=== PATIENT | female | born 1995 | race Caucasian/White ===

== ENCOUNTER → 2017-03-11 | Outpatient (REF) | payer OTHER ==
[2017-03-11 16:20] LABS: BASO % 0.4 % (0.0-1.0); EOS # 0.2 K/mm3 (0.0-0.50); LARGE UNSTAINED CELL # 0.1 K/mm3 (0.0-0.4); LARGE UNSTAINED CELL % 1.7 % (0.0-4.0); LYMPH # 2.5 K/mm3 (1.5-6.5); LYMPH % 30.8 % (24.0-44.0); MEAN CORPUSCULAR HGB CONC 34.6 g/dl (32.0-36.5); MEAN CORPUSCULAR VOLUME 83.7 fl (80.0-96.0); MONO # 0.5 K/mm3 (0.0-0.8); MONO % 6.6 % (0.0-5.0); NEUTROPHILS # 4.5 K/mm3 (1.8-7.7); NEUTROPHILS % 58.6 % (36.0-66.0); PLATELET COUNT, AUTOMATED 292 k/mm3 (150-450); RED CELL DISTRIBUTION WIDTH 12.3 % (11.5-14.5); WHITE BLOOD COUNT 7.7 K/mm3 (4.0-10.0)
[2017-03-11 17:01] LABS: ALBUMIN/GLOBULIN RATIO 1.25 (1.00-1.93); ALKALINE PHOSPHATASE 66 U/L (45-117); ALT/SGPT 27 U/L (12-78); ANION GAP 9 MEQ/L (8-16); AST/SGOT 12 U/L (15-37); BILIRUBIN,TOTAL 0.5 MG/DL (0.2-1.0); BLOOD UREA NITROGEN 12 MG/DL (7-18); CALCIUM LEVEL 8.8 MG/DL (8.5-10.1); CARBON DIOXIDE LEVEL 28 MEQ/L (21-32); CHLORIDE LEVEL 105 MEQ/L (98-107); CHOLESTEROL LEVEL 167 MG/DL (<200); CREATININE FOR GFR 0.77 MG/DL (0.55-1.02); FREE T4 0.88 NG/DL (0.76-1.46); GLOMERULAR FILTRATION RATE > 60.0 (>60); GLUCOSE, FASTING 80 MG/DL (70-105); SODIUM LEVEL 142 MEQ/L (136-145); TOTAL PROTEIN 7.2 GM/DL (6.4-8.2); TRIGLYCERIDES LEVEL 58 MG/DL (<150)
== END ==
LOC: M SFHCSACK 08:06
PROVIDERS: ATTEND Physician Assistant
DX: Z00.00 Encounter for general adult medical examination without abnormal findings (principal); Z13.29 Encounter for screening for other suspected endocrine disorder; Z13.220 Encounter for screening for lipoid disorders; Z13.21 Encounter for screening for nutritional disorder

== ENCOUNTER → 2017-07-13 | Outpatient (REF) | payer OTHER ==
[2017-07-13 16:01] LABS: BASO % 0.4 % (0.0-1.0); EOS # 0.2 10^3/uL (0.0-0.50); EOS % 2.2 % (0.0-3.0); HEMATOCRIT 41.9 % (36.0-47.0); IMMATURE GRANULOCYTE % 0.1 % (0-0); LYMPH # 2.3 10^3/uL (1.5-6.5); LYMPH % 28.8 % (24.0-44.0); MEAN CORPUSCULAR HEMOGLOBIN 28.6 pg (27.0-33.0); MEAN CORPUSCULAR HGB CONC 33.4 g/dl (32.0-36.5); MEAN CORPUSCULAR VOLUME 85.7 fl (80.0-96.0); MONO # 0.7 10^3/uL (0.0-0.8); MONO % 8.2 % (0.0-5.0); NEUTROPHILS # 4.8 10^3/uL (1.8-7.7); NEUTROPHILS % 60.3 % (36.0-66.0); PLATELET COUNT, AUTOMATED 300 10^3/uL (150-450); RED BLOOD COUNT 4.89 10^6/uL (4.00-5.40); RED CELL DISTRIBUTION WIDTH 11.8 % (11.5-14.5)
[2017-07-13 16:15] LABS: ALBUMIN/GLOBULIN RATIO 1.29 (1.00-1.93); ALKALINE PHOSPHATASE 67 U/L (45-117); ALT/SGPT 22 U/L (12-78); ANION GAP 6 MEQ/L (8-16); AST/SGOT 13 U/L (7-37); BILIRUBIN,TOTAL 0.4 MG/DL (0.2-1.0); BLOOD UREA NITROGEN 7 MG/DL (7-18); CALCIUM LEVEL 8.5 MG/DL (8.5-10.1); CARBON DIOXIDE LEVEL 30 MEQ/L (21-32); CHLORIDE LEVEL 105 MEQ/L (98-107); CHOLESTEROL LEVEL 168 MG/DL (<200); CHOLESTEROL RISK RATIO 3.818 (<5); CREATININE FOR GFR 0.67 MG/DL (0.55-1.02); GLOMERULAR FILTRATION RATE > 60.0 (>60); GLUCOSE, FASTING 81 MG/DL (70-105); HDL CHOLESTEROL 44 MG/DL (>40); LDL CHOLESTEROL 109.8 MG/DL (<100); NON-HDL-C 124 MG/DL; POTASSIUM SERUM 3.6 MEQ/L (3.5-5.1); SODIUM LEVEL 141 MEQ/L (136-145); TOTAL PROTEIN 7.1 GM/DL (6.4-8.2); TRIGLYCERIDES LEVEL 71 MG/DL (<150)
[2017-07-13 17:15] LABS: TOTAL 25(OH) VITAMIN D 66.5 NG/ML (30.0-100.0)
== END ==
LOC: M SFHCSACK 10:28
DX: F41.8 Other specified anxiety disorders (principal); E78.00 Pure hypercholesterolemia, unspecified; E55.9 Vitamin D deficiency, unspecified

== ENCOUNTER → 2020-04-26 | Outpatient (REF) | payer OTHER, MEDICAID | LOC: M WUC 13:50 | PROVIDERS: ATTEND Nurse Practitioner Family | DX: R30.0 Dysuria (principal) ==

== ENCOUNTER → 2020-10-05 | Outpatient (REF) | payer OTHER, MEDICAID | LOC: M LAB REF 17:55 | PROVIDERS: ATTEND Physician Assistant | DX: J02.9 Acute pharyngitis, unspecified (principal) ==

== ENCOUNTER 2021-04-22 13:27 | Emergency (ER) | payer MEDICAID, OTHER ==
[~2021-04-22] VITALS: Ht 167.6 cm; Wt 100.0 kg
--- OUTSIDE RECORDS SUMMARY | 2021-04-22 13:37 | CCD | Continuity of Care Document ---
Author Author [facility] Organization [facility] Address Unknown Phone Unavailable Care Team Providers Care Coconut Jelly Roller Name Role Phone Marie Alvarado Unavailable Unavailable Allergies, Adverse Reactions, Alerts Substance Reaction Status Criticality No Known Allergies Active No Information Medications Medication Instructions Dosage Effective Dates (start - stop) Sta tus Comments testosterone cypionate 200 mg/mL intramuscular oil Use for admin of external Rx. See Med Module for details. - Active testosterone cypionate 200 mg/mL intramuscular oil Use for admin of external Rx. See Med Module for details. - Active citalopram 20 mg tablet take 1 tablet by oral route every day 20 MG - Active Problems Condition Effective Dates (start - stop) Clinical Status C omments Gender Identity Disorder Gender identity disorder, unspecified Gender Identity Disorder Endocrine disorder, unspecified Gender identity disorder, unspecified Gender Identity Disorder Gender Identity Disorder Gender Identity Disorder Endocrine disorder, unspecified Gender Identity Disorder Gender identity disorder, unspecified Endocrine disorder, unspecified Gender Identity Disorder Gender Identity Disorder Gender Identity Disorder Endocrine disorder, unspecified Gender identity disorder, unspecified Gender Identity Disorder Gender identity disorder, unspecified Gender Identity Disorder Endocrine disorder, unspecified Gender Identity Disorder Gender Identity Disorder Endocrine disorder, unspecified Endocrine disorder, unspecified Gender Identity Disorder Endocrine disorder, unspecified Gender Identity Disorder Gender Identity Disorder Endocrine disorder, unspecified Gender identity disorder, unspecified Human immunodeficiency virus [HIV] counseling Other sex counseling Gender identity disorder, unspecified Gender Identity Disorder Endocrine disorder, unspecified Gender Identity Disorder Gender Identity Disorder Endocrine disorder, unspecified Gender Identity Disorder Endocrine disorder, unspecified Endocrine disorder, unspecified Gender Identity Disorder Endocrine disorder, unspecified Gender Identity Disorder Gender identity disorder, unspecified Gender identity disorder, unspecified Endocrine disorder, unspecified Gender Identity Disorder Gender identity disorder, unspecified Endocrine disorder, unspecified Gender Identity Disorder Gender Identity Disorder Endocrine disorder, unspecified Endocrine disorder, unspecified Gender Identity Disorder Endocrine disorder, unspecified Gender Identity Disorder Endocrine disorder, unspecified Gender identity disorder, unspecified Endocrine disorder, unspecified Gender Identity Disorder Endocrine disorder, unspecified Gender Identity Disorder Endocrine disorder, unspecified Gender Identity Disorder Endocrine disorder, unspecified Gender Identity Disorder Endocrine disorder, unspecified Gender Identity Disorder Endocrine disorder, unspecified Gender Identity Disorder Endocrine disorder, unspecified Gender Identity Disorder Endocrine disorder, unspecified Gender Identity Disorder Endocrine disorder, unspecified Gender Identity Disorder Endocrine disorder, unspecified Gender Identity Disorder Endocrine disorder, unspecified Gender Identity Disorder Gender identity disorder, unspecified Obesity, unspecified Inappropriate diet and eating habits Gender identity disorder, unspecified Gender Identity Disorder Endocrine disorder, unspecified Gender identity disorder, unspecified Gender Identity Disorder Endocrine disorder, unspecified Gender Identity Disorder Gender identity disorder, unspecified Endocrine disorder, unspecified Gender Identity Disorder Gender Identity Disorder Endocrine disorder, unspecified Endocrine disorder, unspecified Gender Identity Disorder Gender identity disorder, unspecified Encounter for surveillance of injectable contraceptive Gender Identity Disorder Gender Identity Disorder Gender Identity Disorder Encounter for oth general cnsl and advice on contraception Endocrine disorder, unspecified Gender Identity Disorder Other sex counseling Encounter for oth general cnsl and advice on contraception Gender Identity Disorder Endocrine disorder, unspecified Other sex counseling Encounter for oth general cnsl and advice on contraception Gender Identity Disorder Endocrine disorder, unspecified Other sex counseling Encounter for oth general cnsl and advice on contraception Gender Identity Disorder Endocrine disorder, unspecified Gender Identity Disorder Gender identity disorder, unspecified Gender Identity Disorder Endocrine disorder, unspecified Gender Identity Disorder Gender Identity Disorder Gender Identity Disorder Gender Identity Disorder Gender Identity Disorder Encounter for oth general cnsl and advice on contraception Gender Identity Disorder Endocrine disorder, unspecified Encounter for surveillance of injectable contraceptive Transsexualism Endocrine disorder, unspecified Encounter for surveillance of injectable contraceptive Encounter for oth general cnsl and advice on contraception Endocrine disorder, unspecified Transsexualism Transsexualism Endocrine disorder, unspecified Endocrine disorder, unspecified Transsexualism Encounter for oth general cnsl and advice on contraception Transsexualism Encounter for oth general cnsl and advice on contraception Human immunodeficiency virus [HIV] counseling Human immunodeficiency virus [HIV] counseling Encntr screen for infections w sexl mode of transmiss Encounter for screening for human immunodeficiency virus High risk heterosexual behavior Endocrine disorder, unspecified Transsexualism 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 [address] [place] [address], [id number], [place]. tel:[phone] [facility], [address] [place] [address], [id number], tel:[phone] DEWAYNE Richmond Gender Identity Disorder Carmina Salazar. [address] [place] [address], [address] [place] [address], . tel:[phone] Referring Provider: Marie Grewal, [address] [place] [address], [id number]. tel:[phone] Provider: DEWAYNE Nurse/[place]. [facility], [address] [place] [address], [id number], tel:[phone] DEWAYNE Richmond Gender identity disorder, unspecified Chapincito Tolbert. [address] [place] [address], [id number], [place]. tel:[phone] Referring Provider: Edwige Beckham, [address] [place] [address], [id number]. tel:[phone] [facility], [address] [place] [address], [id number], tel:[phone] DEWAYNE Richmond Gender Identity Disorder Carmina Salazar. [address] [place] [address], [id number], [place]. tel:[phone] Referring Provider: Marie Grewal, [address] [place] [address], [id number]. tel:[phone] Provider: DEWAYNE Nurse/[place]. [facility], [address] [place] [address], [id number], [place] tel:[phone] DEWAYNE Richmond Endocrine disorder, unspecifiedGender identity disorder, unspecified Carmina Salazar. [address] [place] [address], [id number], [place]. tel:[phone] Referring Provider: Marie Grewal, [address] [place] [address], [id number]. tel:[phone] Provider: DEWAYNE Nurse/[place]. [facility], [address] [place] [address], [id number], [place] tel:[phone] DEWAYNE Richmond Gender Identity Disorder Carmina Salazar. [address] [place] [address], [id number], [place]. tel:[phone] Referring Provider: Marie Grewal, [address] [place] [address], [id number]. tel:[phone] Provider: DEWAYNE Nurse/[place]. [facility], [address] [place] [address], [id number], [place] tel:[phone] DEWAYNE Richmond Gender Identity Disorder Chapincito Tolbert. [address] [place] [address], [id number], [place]. tel:[phone] Referring Provider: Edwige Beckham, [address] [place] [address], [id number]. tel:[phone] [facility] [place], [address] [place] [address], [id number], [place] tel:[phone] DEWAYNE Richmond Gender Identity Disorder Everette De. [address] [place] [address], [id number], [place]. tel:[phone] Referring Provider: Henrietta Gaviria, [address] [place] [address], [id number]. tel:[phone] Provider: DEWAYNE Nurse/[place]. [facility], [address] [place] [address], [id number], [place] tel:[phone] YIFANNEALEXANDRA Richmond Endocrine disorder, unspec ified Dwello Edwige Tolbert. [address] [place] [address], [id number], [place]. tel:[phone] Referring Provider: Edwige Beckham, [address] [place] [address], [id number]. tel:[phone] [facility], [address] [place] [address], [id number], [place] tel:[phone] YIFANNEALEXANDRA Richmond Gender Identity Disorder Dwellraisa Tolbert. [address] [place] [address], [id number], [place]. tel:[phone] Referring Provider: Edwige Bechkam, [address] [place] [address], [id number]. tel:[phone] [facility], [address] [place] [address], [id number], [place] tel:[phone] [facility] Gender identity disorder, unspecified Dwellraisa Tolbert. [address] [place] [address], [id number], [place]. tel:[phone] Referring Provider: Edwige Beckham, [address] [place] [address], [id number]. tel:[phone] Provider: DEWAYNE Nurse/[place]. [facility], [address] [place] [address], [id number], [place] tel:[phone] DEWAYNE Richmond Endocrine disorder, unspecifiedGender Identity Disorder Everette De. [address], [place], [id number], [place]. tel:[phone] Referring Provider: Henrietta Gaviria, [address] [place] [address], [id number]. tel:[phone] [facility], [address], [place], [id number], [place] tel:[phone] DEWAYNE Richmond Gender Identity Disorder Everette De. [address] [place] [address], [id number], [place]. tel:[phone] Referring Provider: Henrietta Gaviria, [address] [place] [address], [id number]. tel:[phone] Provider: DEWAYNE Nurse/[place]. [facility], [address] [place] [address], [id number], [place] tel:[phone] DEWAYNE Richmond Gender Identity Dis orderEndocrine disorder, unspecified Chapincito Tolbert. [address] [place] [address], [id number], [place]. tel:[phone] Referring Provider: Edwige Beckham, [address] [place] [address], [id number]. tel:[phone] [facility], [address] [place] [address], [id number], [place] tel:[phone] DEWAYNE Richmond Gender identity disorder, unspecified Chapincito Tolbert. [address], [place], [id number], [place]. tel:[phone] Referring Provider: Edwige Beckham, [address] [place] [address], [id number]. tel:[phone] [facility], [address], [place], [id number], [place] tel:[phone] DEWAYNE Richmond Gender Identity Disorder Everette De. [address], [place], [id number], [place]. tel:[phone] Referring Provider: Henrietta Gaviria, [address], [place], [id number]. tel:[phone] Provider: DEWAYNE Nurse/[place]. [facility], [address], [place], [id number], [place] tel:[phone] DEWAYNE Richmond Gender identity disorder, unspecified Everette De. [address] [place], [place], [id number], [place]. tel:[phone] Referring Provider: Henrietta Gaviria, [address], [place], [id number]. tel:[phone] Provider: Provider Nurse. [facility], [address], [place], [id number], [place] tel:[phone] DEWAYNE Richmond Gender Identity Dis orderEndocrine disorder, unspecified Chapincito Tolbert. [address] [place], [place], [id number], [place]. tel:[phone] Referring Provider: Edwige Beckham, [address] [place] [address], [id number]. tel:[phone] Provider: DEWAYNE Nurse/[place]. [facility], [address], [place], [id number], [place] tel:[phone] DEWAYNE Richmond Gender Identity Disorder Chapincito Tolbert. [address] [place] [address], [id number], [place]. tel:[phone] Referring Provider: Edwige Beckham, [address] [place] [address], [id number]. tel:[phone] [facility], [address] [place] [address], [id number], [place] tel:[phone] DEWAYNE Richmond Gender Identity Dis orderEndocrine disorder, unspecified Everette De. [address], [place], [id number], [place]. tel:[phone] Referring Provider: Henrietta Gaviria, [address] [place] [address], [id number]. tel:[phone] [facility], [address] [place] [address], [id number], [place] tel:[phone] DEWAYNE Richmond Endocrine disorder, unspecifiedGender Identity Disorder Everette De. [address] [place] [address], [id number], [place]. tel:[phone] Referring Provider: Henrietta Gaviria, [address] [place] [address], [id number]. tel:[phone] Provider: DEWAYNE Nurse/[place]. [facility], [address] [place] [address], [id number], [place] tel:[phone] DEWAYNE Richmond Endocrine disorder, unspecifiedGender Identity Disorder Chapincito Tolbert. [address] [place] [address], [id number], [place]. tel:[phone] Referring Provider: Edwige Beckham, [address] [place] [address], [id number]. tel:[phone] [facility], [address] [place] [address], [id number], [place] tel:[phone] DEWAYNE Richmond Gender Identity Disorder Carmina Salazar. [address] [place] [address], [id number], [place]. tel:[phone] Referring Provider: Marie Grewal, [address], [place], [id number]. tel:[phone] Provider: DEWAYNE Nurse/[place]. [facility] [place], [address] [place] [address], [id number], [place] tel:[phone] DEWAYNE Richmond Endocrine disorder, unspecifiedGender identity disorder, unspecified Everette De. [address] [place] [address], [id number], [place]. tel:[phone] Referring Provider: Henrietta Gaviria, [address] [place] [address], [id number]. tel:[phone] [facility] [place], [address] [place] [address], [id number], [place] tel:[phone] DEWAYNE Richmond Human immunodeficie ncy virus [HIV] counselingOther sex counselingGender identity disorder, unspecified Chapincito Tolbert. [address] [place] [address], [id number], [place]. tel:[phone] Referring Provider: Edwige Beckham, [address] [place] [address], [id number]. tel:[phone] [facility], [address] [place] [address], [id number], [place] tel:[phone] DEWAYNE Richmond Gender Identity Disorder Everette De. [address] [place] [address], [id number], [place]. tel:[phone] Referring Provider: Henrietta Gaviria, [address], [place], [id number]. tel:[phone] [facility], [address] [place] [address], [id number], [place] tel:[phone] DEWAYNE Richmond Endocrine disorder, unspecifiedGender Identity Disorder Carmina Salazar. [address] [place], [id number], [place]. tel:[phone] Referring Provider: Marie Grewal, [address] [place] [address], [id number]. tel:[phone] [facility], [address], [place], [id number], [place] tel:[phone] DEWAYNE Richmond Gender Identity Dis orderEndocrine disorder, unspecified Carmina Salazar. [address] [place], [id number], [place]. tel:[phone] Referring Provider: Marie Grewal, [address] [place] [address], [id number]. tel:[phone] Provider: DEWAYNE Nurse/[place]. [facility], [address], [place], [id number], [place] tel:[phone] DEWAYNE Richmond Gender Identity Dis orderEndocrine disorder, unspecified Carmina Salzaar. [address], [place], [id number], [place]. tel:[phone] Referring Provider: Marie Grewal, [address] [place] [address], [id number]. tel:[phone] [facility], [address], [place], [id number], [place] tel:[phone] DEWAYNE Richmond Endocrine disorder, unspecifiedGender Identity Disorder Carmina Salazar. [address] [place], [place], [id number], [place]. tel:[phone] Referring Provider: Marie Grewal, [address] [place] [address], [id number]. tel:[phone] Provider: DEWAYNE Nurse/[place]. [facility], [address], [place], [id number], [place] tel:[phone] DEWAYNE Richmond Endocrine disorder, unspecifiedGender Identity Disorder Everette De. [address], [place], [id number], [place]. tel:[phone] Referring Provider: Henrietta Gaviria, [address], [place], [id number]. tel:[phone] Provider: DEWAYNE Nurse/[place]. [facility], [address], [place], [id number], [place] tel:[phone] DEWAYNE Richmond Gender identity disorder, unspecified Everette De. [address] [place], [place], [id number], [place]. tel:[phone] Referring Provider: Henrietta Gaviria, [address], [place], [id number]. tel:[phone] [facility], [address], [place], [id number], [place] tel:[phone] DEWAYNE Richmond Gender identity disorder, unspecified Everette De. [address] [place], [place], [id number], [place]. tel:[phone] Referring Provider: Henrietta Gaviria, [address], [place], [id number]. tel:[phone] Provider: DEWAYNE Nurse/[place]. [facility], [address], [place], [id number], [place] tel:[phone] DEWAYNE Richmond Endocrine disorder, unspecifiedGender Identity Disorder Chapincito Tolbert. [address] [place], [place], [id number], [place]. tel:[phone] Referring Provider: Edwige Beckham, [address] [place], [place], [id number]. tel:[phone] Provider: DEWAYNE Nurse/[place]. [facility] [place], [address], [place], [id number], [place] tel:[phone] DEWAYNE Richmond Gender identity disorder, unspecified Chapincito Tolbert. [address], [place], [id number], [place]. tel:[phone] Referring Provider: Edwige Beckham, [address] [place] [address], [id number]. tel:[phone] [facility], [address] [place] [address], [id number], [place] tel:[phone] DEWAYNE Richmond Endocrine disorder, unspecifiedGender Identity Disorder Everette De. [address], [place], [id number], [place]. tel:[phone] Referring Provider: Henrietta Gaviria, [address] [place] [address], [id number]. tel:[phone] Provider: [place]WAYNE Nurse/[place]. [facility] [place], [address], [place], [id number], [place] tel:[phone] DEWAYNE Richmond Gender Identity Dis orderEndocrine disorder, unspecified Carmina Salazar. [address], [place], [id number], [place]. tel:[phone] Referring Provider: Marie Grewal, [address] [place] [address], [id number]. tel:[phone] Provider: DEWAYNE Nurse/[place]. [facility] [place], [address], [place], [id number], [place] tel:[phone] DEWAYNE Richmond Endocrine disorder, unspecifiedGender Identity Disorder Carmina Salazar. [address] [place] [address] [place], [id number], [place]. tel:[phone] Referring Provider: Marie Grewal, [address], [place], [id number]. tel:[phone] Provider: DEWAYNE Nurse/[place]. [facility] [place], [address], [place], [id number], [place] tel:[phone] YIFANNCNY Richmond Endocrine disorder, unspecifiedGender Identity Disorder Everette De. [address], [place], [id number], [place]. tel:[phone] Referring Provider: Henrietta Gaviria, [address] [place] [address], [id number]. tel:[phone] [facility] [place], [address], [place], [id number], [place] tel:[phone] YIFANNEALEXANDRA Richmond Endocrine disorder, unspecifiedGender identity disorder, unspecified Carmina Salazar. [address] [place] [address], [id number], [place]. tel:[phone] Referring Provider: Marie Grewal, [address] [place] [address], [id number]. tel:[phone] Provider: Provider Nurse. [facility] [place], [address], [place], [id number], [place] tel:[phone] YIFANNEALEXANDRA Richmond Endocrine disorder, unspecifiedGender Identity Disorder Everette De. [address], [place], [id number], [place]. tel:[phone] Referring Provider: Henrietta Gaviria, [address] [place] [address], [id number]. tel:[phone] [facility] [place], [address], [place], [id number], [place] tel:[phone] DEWAYNE Richmond Endocrine disorder, unspecifiedGender Identity Disorder Carmina Salazar. [address] [place], [place], [id number], [place]. tel:[phone] Referring Provider: Marie Grewal, [address], [place], [id number]. tel:[phone] Provider: DEWAYNE Nurse/[place]. [facility], [address], [place], [id number], [place] tel:[phone] PPNCALEXANDRA Richmond Endocrine disorder, unspecifiedGender Identity Disorder Carmina Salazar. [address], [place], [id number], [place]. tel:[phone] Referring Provider: Marie Grewal, [address] [place] [address], [id number]. tel:[phone] Provider: DEWAYNE Nurse/[place]. [facility], [address], [place], [id number], [place] tel:[phone] PPNCALEXANDRA Richmond Endocrine disorder, unspecifiedGender Identity Disorder Carmina Salazar. [address], [place], [id number], [place]. tel:[phone] Referring Provider: Marie Grewal, [address] [place] [address], [id number]. tel:[phone] Provider: Provider Nurse. [facility], [address], [place], [id number], [place] tel:[phone] PPNCALEXANDRA Richmond Endocrine disorder, unspecifiedGender Identity Disorder Carmina Salazar. [address], [place], [id number], [place]. tel:[phone] Referring Provider: Marie Grewal, [address] [place] [address], [id number]. tel:[phone] Provider: DEWAYNE Nurse/[place]. [facility] [place], [address], [place], [id number], [place] tel:[phone] YIFANNCALEXANDRA Richmond Endocrine disorder, unspecifiedGender Identity Disorder Melissa Lazo. [address] [place], [place], [id number], [place]. tel:[phone] Referring Provider: Violet Torres, [address], [place], [id number]. tel:[phone] [facility], [address], [place], [id number], [place] tel:[phone] DEWAYNE Richmond Endocrine disorder, unspecifiedGender Identity Disorder Adriel Luna. [address], [place], [id number], [place]. tel:[phone] Referring Provider: Cheryl Morel, [address] [place], [place], [id number]. tel:[phone] Provider: DEWAYNE Nurse/[place]. [facility] [place], [address], [place], [id number], [place] tel:[phone] DEWAYNE Richmond Endocrine disorder, unspecifiedGender Identity Disorder Everette De. [address], [place], [id number], [place]. tel:[phone] Referring Provider: Henrietta Gaviria, [address], [place], [id number]. tel:[phone] Provider: DEWAYNE Nurse/[place]. [facility] [place], [address], [place], [id number], [place] tel:[phone] DEWAYNE Richmond Endocrine disorder, unspecifiedGender Identity Disorder Peewee Lux. [address] [place], [place], [id number], [place]. tel:[phone] Referring Provider: Maci Vides, [address] [place], [place], [id number]. tel:[phone] Provider: DEWAYNE Nurse/[place]. [facility], [address] [place] [address], [id number], [place] tel:[phone] DEWAYNE Richmond Endocrine disorder, unspec ified Peewee Lux. [address] [place], [place], [id number], [place]. tel:[phone] Referring Provider: Maci Vides, [address] [place] [address], [id number]. tel:[phone] [facility], [address] [place] [address], [id number], [place] tel:[phone] DEWAYNE Richmond Gender Identity Dis orderEndocrine disorder, unspecified Tikiemilee Lazo. [address] [place] [address], [id number], [place]. tel:[phone] Referring Provider: Violet Melissa, [address] [place] [address], [id number]. tel:[phone] Provider: DEWAYNE Nurse/CA. [facility], [address] [place] [address], [id number], [place] tel:[phone] DEWAYNE Richmond Gender Identity Disorder Melissa Violet. [address] [place] [address], [id number], [place]. tel:[phone] Referring Provider: Violet Melissa, [address] [place], [place], [id number]. tel:[phone] Provider: DEWAYNE Nurse/[place]. [facility], [address] [place] [address], [id number], [place] tel:[phone] DEWAYNE Hernandez Gender identity dis order, unspecifiedObesity, unspecifiedInappropriate diet and eating habits Melissa Violet. [address] [place] [address], [id number], [place]. tel:[phone] Referring Provider: Violet Torres, [address] [place] [address], [id number]. tel:[phone] [facility], [address] [place] [address], [id number], tel:[phone] DEWAYNE Richmond Gender identity disorder, unspecified Peewee Lux. [address] [place] [address], [id number], [place]. tel:[phone] Referring Provider: Maci Vides, [address] [place] [address], [id number]. tel:[phone] [facility], [address] [place] [address], [address] [place] [address], tel:[phone] DEWAYNE Richmond Gender Identity Dis orderEndocrine disorder, unspecified Melissa Violet. [address] [place] [address], [id number], [place]. tel:[phone] Referring Provider: Violet Gustafsonlouisemilee, [address] [place] [address], [id number]. tel:[phone] Provider: DEWAYNE Nurse/[place]. [facility], [address] [place] [address], [id number], tel:[phone] DEWAYNE Richmond Gender identity disorder, unspecified Melissa Violet. [address] [place] [address], [id number], [place]. tel:[phone] Referring Provider: Violet Torres, [address] [place] [address], [id number]. tel:[phone] [facility], [address] [place] [address], [id number], [place] tel:[phone] PPCAMILLENY Richmond Gender Identity Disorder Peewee Lux. [address] [place], [place], [id number], [place]. tel:[phone] Referring Provider: Maci Vides, [address] [place], [place], [id number]. tel:[phone] [facility], [address] [place], [place], [id number], [place] tel:[phone] DEWAYNE Richmond Endocrine disorder, unspecifiedGender Identity Disorder Debi Tolbert. [address] [place], [place], [id number], [place]. tel:[phone] Referring Provider: Didi Carrera, [address] [place], [place], [id number]. tel:[phone] [facility], [address] [place], [place], [id number], [place] tel:[phone] YIFANNEALEXANDRA Richmond Gender identity disorder, unspecified Debi Tolbert. [address] [facility], [place], [id number], [place]. tel:[phone] Referring Provider: Didi Carrera, [address] [place], [place], [id number]. tel:[phone] [facility], [address] [place], [place], [id number], [place] tel:[phone] YIFANNEALEXANDRA Richmond Endocrine disorder, unspecifiedGender Identity Disorder Carmina Salazar. [address] [place], [place], [id number], [place]. tel:[phone] Referring Provider: Marie Grewal, [address] [place], [place], [id number]. tel:[phone] Provider: DEWAYNE Nurse/CA. [facility], [address] [place], [place], [id number], [place] tel:[phone] DEWAYNE Richmond Gender Identity Dis orderEndocrine disorder, unspecified Debi Tolbert. [address] [place] [address], [id number], [place]. tel:[phone] Referring Provider: Didi Carrera, [address] [place], [place], [id number]. tel:[phone] Provider: DEWAYNE Nurse/CA. [facility], [address] [place] [address], [id number], [place] tel:[phone] DEWAYNE Richmond Endocrine disorder, unspecifiedGender Identity Disorder Carmina Salazar. [address] [place] [address], [id number], [place]. tel:[phone] Referring Provider: Marie Grewal, [address] [place] [address], [id number]. tel:[phone] [facility], [address] [place] [address], [id number], [place] tel:[phone] DEWAYNE Richmond Gender identity disorder, unspecified Carmina Salazar. [address] [place] [address], [id number], [place]. tel:[phone] Referring Provider: Marie Grewal, [address] [place] [address], [id number]. tel:[phone] Provider: DEWAYNE Nurse/CA. [facility], [address] [place] [address], [id number], [place] tel:[phone] DEWAYNE Richmond Encounter for surve illance of injectable contraceptiveGender Identity Disorder Carmina Salazar. [address] [place] [address], [id number], [place]. tel:[phone] Referring Provider: Marie Grewal, [address] [place] [address], [id number]. tel:[phone] [facility] [place], [address] [place], [place], [id number], [place] tel:[phone] PPNCNY [place] Gender Identity Disorder Carmina Salazar. [address] [place] [address], [id number], [place]. tel:[phone] Referring Provider: Marie Grewal, [address] [place] [address], [id number]. tel:[phone] [facility] [place], [address] [place], [place], [id number], [place] tel:[phone] DEWAYNE Jimenez Gender Identity Dis orderEncounter for oth general cnsl and advice on contraception Debi garcia. [address] [place] [address], [id number], [place]. tel:[phone] Referring Provider: Didi Carrera, [address] [place] [address], [id number]. tel:[phone] [facility] [place], [address] [place] [address], [id number], [place] tel:[phone] DEWAYNE Richmond Endocrine disorder, unspecifiedGender Identity DisorderOther sex counselingEncounter for oth general cnsl and advice on contraception Carmina Salazar. [address] [place], [place], [id number], [place]. tel:[phone] Referring Provider: Marie Grewal, [address] [place] [address], [id number]. tel:[phone] [facility] [place], [address] [place] [address], [id number], [place] tel:[phone] DEWAYNE Richmond Gender Identity Dis orderEndocrine disorder, unspecifiedOther sex counselingEncounter for oth general cnsl and advice on contraception Peewee Lux. [address] [place] [address], [id number], [place]. tel:[phone] Referring Provider: Maci Vides, [address] [place] [address], [id number]. tel:[phone] Provider: DEWAYNE Nurse/[place]. [facility] [place], [address] [place] [address], [id number], [place] tel:[phone] DEWAYNE Richmond Gender Identity Dis orderEndocrine disorder, unspecifiedOther sex counselingEncounter for oth general cnsl and advice on contraception aCrmina Salazar. [address] [place], [place], [id number], [place]. tel:[phone] Referring Provider: Marie Grewal, [address] [place] [address], [id number]. tel:[phone] [facility] [place], [address] [place] [address], [id number], [place] tel:[phone] DEWAYNE Richmond Gender Identity Disorder Carmina Salazar. [address] [place] [address], [id number], [place]. tel:[phone] Referring Provider: Marie Grewal, [address] [place], [place], [id number]. tel:[phone] Provider: DEWAYNE Nurse/LIONEL. [facility], [address] [place] [address], [id number], [place] tel:[phone] DEWAYNE Richmond Endocrine disorder, unspecifiedGender Identity Disorder Peewee Lux. [address] [place] [address], [id number], [place]. tel:[phone] Referring Provider: Maci Vides, [address] [place], [place], [id number]. tel:[phone] [facility] [place], [address] [place] [address], [id number], [place] tel:[phone] DEWAYNE Richmond Gender identity dis order, unspecifiedGender Identity DisorderEndocrine disorder, unspecified Carmina Salazar. [address] [place] [address], [id number], [place]. tel:[phone] Referring Provider: Marie Grewal, [address] [place] [address], [id number]. tel:[phone] Provider: DEWAYNE Nurse/CA. [facility], [address] [place] [address], [id number], [place] tel:[phone] DEWAYNE Richmond Gender Identity Disorder Carmina Salazar. [address] [place] [address], [id number], [place]. tel:[phone] Referring Provider: Marie Grewal, [address] [place] [address], [id number]. tel:[phone] [facility], [address] [place] [address], [id number], [place] tel:[phone] DEWAYNE Jimenez Gender Identity Disorder Adriel Luna. [address] [place] [address], [id number], [place]. tel:[phone] Referring Provider: Cheryl Morel, [address] [place] [address], [id number]. tel:[phone] [facility], [address] [place] [address], [id number], [place] tel:[phone] DEWAYNE Richmond Gender Identity Disorder Carmina Salazar. [address] [place] [address], [id number], [place]. tel:[phone] Referring Provider: Marie Grewal, [address] [place] [address], [id number]. tel:[phone] Provider: DEWAYNE Nurse/CA. [facility], [address] [place] [address], [id number], [place] tel:[phone] DEWAYNE Richmond Gender Identity Disorder Carmina Salazar. [address] [place], [place], [id number], [place]. tel:[phone] [facility], [address] [place] [address], [id number], [place] tel:[phone] DEWAYNE Jimenez Gender Identity Dis orderEncounter for oth general cnsl and advice on contraception Adriel Luna. [address] [place] [address], [id number], [place]. tel:[phone] Referring Provider: Cheryl Morel, [address] [place] [address], [id number]. tel:[phone] [facility] [place], [address] [place] [address], [id number], [place] tel:[phone] DEWAYNE Richmond Gender Identity Dis orderEndocrine disorder, unspecified Peewee Lux. [address] [place] [address], [id number], [place]. tel:[phone] Referring Provider: Maci Vides, [address] [place], [place], [id number]. tel:[phone] Provider: DEWAYNE Nurse/CA. [facility], [address] [place] [address], [id number], [place] tel:[phone] DEWAYNE Richmond Encounter for surve illance of injectable contraceptiveTranssexualismEndocrine disorder, unspecified Peewee Lux. [address] [place] [address], [id number], [place]. tel:[phone] Referring Provider: Maci Vides, [address] [place] [address], [id number]. tel:[phone] Provider: DEWAYNE Nurse/CA. [facility], [address] [place] [address], [id number], [place] tel:[phone] DEWAYNE Jimenez Encounter for surve illance of injectable contraceptiveEncounter for oth general cnsl and advice on contraception Debi Tolbert. [address] [place], [place], [id number], [place]. tel:[phone] Referring Provider: Didi Carrera, [address] [place], [place], [id number]. tel:[phone] [facility] [place], [address] [place], [place], [id number], [place] tel:[phone] DEWAYNE Richmond Endocrine disorder, unspecifiedTranssexualism Debi Tolbert. [address] [place], [place], [id number], [place]. tel:[phone] Referring Provider: Didi Carrera, [address] [place] [address], [id number]. tel:[phone] Provider: DEWAYNE Nurse/[place]. [facility] [place], [address] [place], [place], [id number], [place] tel:[phone] DEWAYNE Richmond TranssexualismEndoc rine disorder, unspecified Debi Tolbert. [address] [place], [place], [id number], [place]. tel:[phone] Referring Provider: Didi Carrera, [address] [place], [place], [id number]. tel:[phone] Provider: DEWAYNE Nurse/[place]. [facility] [place], [address] [place], [place], [id number], [place] tel:[phone] DEWAYNE Richmond Endocrine disorder, unspecifiedTranssexualismEncounter for oth general cnsl and advice on contraception Debi Tolbert. [address] [place], [place], [id number], [place]. tel:[phone] Referring Provider: Didi Carrera, [address] [place], [place], [id number]. tel:[phone] Provider: DEWAYNE Nurse/CA. [facility], [address] [place] [address], [address] [place] [address], tel:[phone] DEWAYNE Jimenez TranssexualismEncou nter for oth general cnsl and advice on contraceptionHuman immunodeficiency virus [HIV] counseling Debi Layley. [address] [place] [address], [address] [place] [address], . tel:[phone] Referring Provider: Didi Carrera, [address] [place] [address], [address] [place] [address]. tel:[phone] [facility], [address] [place] [address], [address] [place] [address], tel:[phone] DEWAYNE Richmond Human immunodeficie ncy virus [HIV] counselingEncntr screen for infections w sexl mode of transmissEncounter for screening for human immunodeficiency virusHigh risk heterosexual behaviorEndocrine disorder, unspecifiedTranssexualismEncntr for music supervisor exam (general) (routine) w/o abn findings Carranza. [address] [place] [address], [address] [place] [address], . tel:[phone] Referring Provider: Miley Fletcher, [address] [place] [address], [address] [place] [address]. tel:[phone] Family History Family Member Diagnosis Age At Onset 1st degree relative No hx of coronary heart disease (female <65, male <55) 1st degree relative No hx of venous thromboembolism Paternal uncle Diabetes mellitus 1st degree relative No hx of osteoporosis Mother Hypertension 1st degree relative No hx of cancer of breast, colon, endome trium or ovary Immunizations Vaccine Date Status Comments No Information Payers Payer name Insurance type Covered green party ID Authorization(s ) [facility] CI [id number] Social History Type Description Quantity Date Captured Comments Alcohol Use Details Unknown Caffeine Use Details Unknown Tobacco Use Status No Information Smoking Status Never smoker Sex Female Vital Signs Date / Time: Height Weight BMI Pulse Rate Blood Pressure Temperatu re Respiratory Rate Body Surface Area Head Circumference BMI percentile Pulse Ox In haled Ox No Information Chief Complaint And Reason For Visit No Information Reason For Referral Reason For Referral No Information Plan Of Treatment Date Type Action Status Referral Ordered: Referrals: Other. Evaluate and treat Appointment date/timeframe: 2 Months ordered Referral Ordered: Referrals: Implementation Project Coordinator. Evaluate and treat ordered Referral Referred To: [facility] Ordered: Referrals: Monogram Maker. [facility]. Evaluate and treat Appointment date/timeframe: 2 Months ordered Referral Ordered: Janet Mcmillan -[facility] : Family Medicine (related to Transsexualism) ordered Referral Referred To: Janet Mcmillan [address] [place], [place], [phone] Ordered: Referrals: [facility] Osteopathic Physicians : Family Medicine. Janet Mcmillan ordered History Of Present Illness Encounter Date Complaint History Of Present I llness No Information Functional Status Date Functional Assessment No Information Medications Administered Medication Instructions Dosage Effective Dates (start - stop) Sta tus Comments No Information Instructions Date Instruction Additional Informati on No Information Assessments Type Assessment Date No Information Goals Health Concern Goal Type Priority Status Date No Information Medical Equipment Description Device [place] Device Identifier Effective Romero es (start - stop) Status No Information Mental Status Date Cognitive Assessment No Information Health Concerns Observation Date No Information Concern Status Date No Information Physical Examination Exam Findings Details No Information
--- OUTSIDE RECORDS SUMMARY | 2021-04-22 13:37 | CCD | Continuity of Care Document ---
Author Author Thu PHILLIPS Organization Unknown Address [address] [place] [address] [place] [address] Phone [phone] Care Team Providers Care Esthetician/Skin Therapist Name Role Phone [employer] [facility]M [phone] [facility] [phone] Problems Description No Information Available Social History Type Date Description Comments Sex Unknown ETOH Use Occasionally consumes alcohol Tobacco Use Start: Unknown End: Unknown Patient is a former smoker Smoking Status Reviewed: 04/15/21 Patient is a former smoker Allergies, Adverse Reactions, Alerts Description No Known Drug Allergies Medications Active Medications SIG Qnty Indications Ordering Provide r Date Testosterone Cypionate 200mg/ml So lution Once a week (Last injection Tuesday) Unknown Tylenol 9:00 am Unknown Antihistamine/Nasal Decongestant Unk nown History Medications Cefdinir 300mg Capsules 1 tab by mouth twice a day for 10 days 20caps J01.90 Steven King JR., M.D. 01/17/2021 - 01/27/2021 Immunizations Description No Information Available Vital Signs Date Vital Result Comment 04/15/2021 6:36pm BP Systolic 128 mmHg BP Diastolic 84 mmHg 04/15/2021 6:08pm BP Systolic 170 mmHg Redone 128/84 BP Diastolic 107 mmHg Redone 128/84 Heart Rate 72 /min Respiratory Rate 16 /min O2 % BldC Oximetry 98 % Body Temperature 98.9 F Weight 227.00 lb Height 66 inches 5'6" BMI (Body Mass Index) 36.6 kg/m2 Pain Level 10 Results Description No Information Available Procedures Date Code Description Status 04/15/2021 89913 Office/Outpatient Established Lo w MDM 20-29 Min Completed 01/17/2021 31543 Office/Outpatient Established Lo w MDM 20-29 Min Completed Medical Devices Description No Information Available Encounters Type Date Location Provider Dx Diagnosis Office Visit 04/15/2021 4:45p Main Office DENAE Vincent J0 6.9 Acute upper respiratory infection, unspecified M54.6 Pain in thoracic spine Z20.828 Contact w and exposure to ot h viral communicable diseases Office Visit 01/17/2021 1:20p Main Office Kylie Pappas NP J01. 90 Acute sinusitis, unspecified H65.03 Acute serous otitis media, b ilateral Z20.828 Contact w and exposure to ot h viral communicable diseases Assessments Date Code Description Provider 04/15/2021 J06.9 Acute upper respiratory infectio n, unspecified DENAE Vincent 04/15/2021 M54.6 Pain in thoracic spine DENAE Vincent 04/15/2021 Z20.828 Contact with and (martell spected) exposure to other viral communicable diseases DENAE Vincent 03/11/2021 Z20.828 Contact with and (martell spected) exposure to other viral communicable diseases Clare Verdin 01/17/2021 J01.90 Acute sinusitis, unspecified Betty Pappas NP 01/17/2021 H65.03 Acute serous otitis media, bilat eral Kylie Pappas NP 01/17/2021 Z20.828 Contact with and (martell spected) exposure to other viral communicable diseases Kylie Pappas NP Plan of Treatment 04/15/2021 - DENAE Vincent* J06.9 Acute upper respiratory infection, unspecified* Comments:* Start mucinex as directed. Continue OTC medicine. Tylenol/ rest/ increase fluids, time. If symptoms do not resolve or worsen may go to ED or return prn. Follow up prn. * M54.6 Pain in thoracic spine* Comments:* Likely MSK from injury or activity. salonpas tylenol/ibuprofenheat rest time. ff/u with pcp if unresolved. Urine Dip negative. * Z20.828 Contact with and (suspected) exposure to other viral communicable diseases Functional Status Description No Information Available Mental Status Description No Information Available Referrals Description No Information Available
--- OUTSIDE RECORDS SUMMARY | 2021-04-22 13:37 | CCD | Continuity of Care Document ---
Author Author [facility] Organization [facility] Address Unknown Phone Unavailable Care Team Providers Care Broadcast Transmitter Operator Name Role Phone Marie Alvarado Unavailable Unavailable Nurse/CADEWAYNE Unavailable Unavailable Allergies, Adverse Reactions, Alerts Substance [...] route every day 20 MG - Active testosterone cypionate 200 mg/mL intramuscular oil Inj ect 0.45 mL IM every week. Code F. - No Longer Active MD 0. 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 Height/Weight Results Test Name Date and Time Measure Units Reference Range Abnormal Flag St atus Comments No Information Advance Directives Directive Yes / No Effective Date File Name No Information Encounters Encounter Description Practice Location Reason(s) For Visit Diagnose s Date Provider Providers Copied on Encounter [facility], [address] [place] [address], [id number], tel:[phone] DEWAYNE [place] Gender Identity Disorder Carmina Salazar. [address] [place] [address], [id number], [place]. tel:[phone] Referring Provider: Marie Grewal, [address] [place] [address], [id number]. tel:[phone] Provider: DEWAYNE Nurse/CA. [facility], [address] [place] [address], [id number], tel:[phone] DEWAYNE [place] Gender identity disorder, unspecified Chapincito Tolbert. [address] [place] [address], [id number], [place]. tel:[phone] Referring Provider: Edwige Beckham, [address] [place] [address], [id number]. tel:[phone] [facility], [address] [place] [address], [id number], [place] tel:[phone] DEWAYNE [place] Gender Identity Disorder Carmina Salazar. [address] [place] [address], [id number], . tel:[phone] Referring Provider: Marie Grewal, [address] [place] [address], [id number]. tel:[phone] Provider: DEWAYNE Nurse/CA. [facility] [place], [address] [place] [address], [id number], tel:[phone] YIFANSDALEXANDRA [place] Endocrine disorder, unspecifiedGender identity disorder, unspecified Carmina Salazar. [address] [place] [address], [id number], . tel:[phone] Referring Provider: Marie Grewal, [address] [place] [address], [address] [place] [address]. tel:[phone] Provider: DEWAYNE Nurse/CA. [facility] [place], [address] [place] [address], [address] [place] [address], tel:[phone] DEWAYNE [place] Gender Identity Disorder Carmina Salazar. [address] [place] [address], [address] [place] [address], [place]. tel:[phone] Referring Provider: Marie Grewal, [address] [place] [address], [id number]. tel:[phone] Provider: DEWAYNE Nurse/CA. [facility] [place], [address] [place] [address], [id number], [place] tel:[phone] DEWAYNE [place] Gender Identity Disorder Chapincito Tolbert. [address] [place] [address], [id number], [place]. tel:[phone] Referring Provider: Edwige Beckham, [address] [place] [address], [address] [place] [address]. tel:[phone] [facility] [place], [address] [place] [address], [id number], tel:[phone] DEWAYNE [place] Gender Identity Disorder Everette Shrestha Kenisha. [address] [place] [address], [id number], . tel:[phone] Referring Provider: Henrietta Gaviria, [address] [place] [address], [id number]. tel:[phone] Provider: DEWAYNE Nurse/CA. [facility], [address] [place] [address], [id number], tel:[phone] DEWAYNE [place] Endocrine disorder, unspec ified Dwellraisa Tolbert. [address] [place] [address], [address] [place] [address], . tel:[phone] Referring Provider: Edwige Beckham, [address] [place] [address], [address] [place] [address]. tel:[phone] [facility], [address] [place] [address], [address] [place] [address], tel:[phone] DEWAYNE [place] Gender Identity Disorder Dwellraisa Tolbert. [address] [place] [address], [address] [place] [address], . tel:[phone] Referring Provider: Edwige Beckham, [address] [place] [address], [id number]. tel:[phone] [facility], [address] [place] [address], [address] [place] [address], [place] tel:[phone] DEWAYNE [place] Gender identity disorder, unspecified Chapincito Tolbert. [address] [place] [address], [id number], . tel:[phone] Referring Provider: Edwige Beckham, [address] [place] [address], [address] [place] [address]. tel:[phone] Provider: DEWAYNE Nurse/CA. [facility] [place], [address] [place], [place], [id number], [place] tel:[phone] DEWANYE [place] Endocrine disorder, unspecifiedGender Identity Disorder Everette De. [address] [place], [place], [id number], [place]. tel:[phone] Referring Provider: Henrietta Gaviria, [address], [place], [id number]. tel:[phone] [facility] [place], [address], [place], [id number], [place] tel:[phone] DEWAYNE [place] Gender Identity Disorder Everette De. [address], [place], [id number], [place]. tel:[phone] Referring Provider: Henrietta Gaviria, [address], [place], [id number]. tel:[phone] Provider: [facility]WAYNE [facility]. [facility] [place], [address], [place], [id number], [place] tel:[phone] DEWAYNE [place] Gender Identity Dis orderEndocrine disorder, unspecified Chapincito Tolbert. [address] [place], [place], [id number], [place]. tel:[phone] Referring Provider: Edwige Beckham, [address] [place], [place], [id number]. tel:[phone] [facility] [place], [address], [place], [id number], [place] tel:[phone] DEWAYNE [place] Gender identity disorder, unspecified Chapincito Tolbert. [address] [place], [place], [id number], [place]. tel:[phone] Referring Provider: Edwige Beckham, [address] [place], [place], [id number]. tel:[phone] [facility], [address] [place] [address], [id number], tel:[phone] DEWAYNE [place] Gender Identity Disorder Everette De. [address] [place] [address], [id number], [place]. tel:[phone] Referring Provider: Henrietta Gaviria, [address], [place], [id number]. tel:[phone] Provider: DEWAYNE Nurse/CA. [facility], [address] [place] [address], [id number], tel:[phone] DEWAYNE [place] Gender identity disorder, unspecified Everette De. [address] [place] [address], [address] [place] [address], . tel:[phone] Referring Provider: Henrietta Gaviria, [address] [place] [address], [id number]. tel:[phone] Provider: Provider Nurse. [facility], [address] [place] [address], [id number], tel:[phone] DEWAYNE [place] Gender Identity Dis orderEndocrine disorder, unspecified Chapincito Tolbert. [address], [place], [id number], . tel:[phone] Referring Provider: Edwige Beckham, [address] [place] [address], [id number]. tel:[phone] Provider: DEWAYNE Nurse/CA. [facility], [address] [place] [address], [id number], tel:[phone] DEWAYNE [place] Gender Identity Disorder Chapincito Tolbert. [address] [place] [address], [id number], [place]. tel:[phone] Referring Provider: Edwige Beckham, [address] [place] [address], [id number]. tel:[phone] [facility] [place], [address] [place] [address], [id number], [place] tel:[phone] DEWAYNE [place] Gender Identity Dis orderEndocrine disorder, unspecified Everette De. [address], [place], [id number], [place]. tel:[phone] Referring Provider: Henrietta Gaviria, [address] [place] [address], [id number]. tel:[phone] [facility] [place], [address] [place] [address], [id number], [place] tel:[phone] DEWAYNE [place] Endocrine disorder, unspecifiedGender Identity Disorder Everette De. [address], [place], [id number], [place]. tel:[phone] Referring Provider: Henrietta Gaviria, [address] [place] [address], [id number]. tel:[phone] Provider: DEWAYNE Nurse/CA. [facility], [address] [place] [address], [id number], [place] tel:[phone] DEWAYNE [place] Endocrine disorder, unspecifiedGender Identity Disorder Chapincito Tolbert. [address], [place], [id number], [place]. tel:[phone] Referring Provider: Edwige Beckham, [address] [place] [address], [id number]. tel:[phone] [facility] [place], [address] [place] [address], [id number], [place] tel:[phone] DEWAYNE [place] Gender Identity Disorder Carmina Salazar. [address] [place] [address], [id number], [place]. tel:[phone] Referring Provider: Marie Grewal, [address] [place], [place], [id number]. tel:[phone] Provider: DEWAYNE Nurse/CA. [facility] [place], [address] [place] [address], [id number], [place] tel:[phone] [facility] [place] Endocrine disorder, unspecifiedGender identity disorder, unspecified Everette De. [address] [place] [address], [id number], [place]. tel:[phone] Referring Provider: Henrietta Gaviria, [address] [place] [address], [id number]. tel:[phone] [facility] [place], [address] [place] [address], [id number], [place] tel:[phone] [facility] Human immunodeficie ncy virus [HIV] counselingOther sex counselingGender identity disorder, unspecified Chapincito Tolbert. [address] [place] [address], [id number], [place]. tel:[phone] Referring Provider: Edwige Beckham, [address] [place] [address], [id number]. tel:[phone] [facility] [place], [address] [place] [address], [id number], [place] tel:[phone] [facility] Gender Identity Disorder Everette De. [address] [place] [address], [id number], [place]. tel:[phone] Referring Provider: Henrietta Gaviria, [address] [place] [address], [id number]. tel:[phone] [facility] [place], [address] [place] [address], [id number], [place] tel:[phone] DEWAYNE [place] Endocrine disorder, unspecifiedGender Identity Disorder Carmina Salazar. [address] [place] [address], [id number], [place]. tel:[phone] Referring Provider: Marie Grewal, [address] [place] [address], [id number]. tel:[phone] [facility], [address] [place] [address], [id number], [place] tel:[phone] DEWAYNE [place] Gender Identity Dis orderEndocrine disorder, unspecified Carmina Salazar. [address] [place] [address], [id number], [place]. tel:[phone] Referring Provider: Marie Grewal, [address] [place] [address], [id number]. tel:[phone] Provider: DEWAYNE Nurse/CA. [facility], [address] [place] [address], [id number], [place] tel:[phone] DEWAYNE [place] Gender Identity Dis orderEndocrine disorder, unspecified Carmina Salazar. [address] [place], [place], [id number], [place]. tel:[phone] Referring Provider: Marie Grewal, [address] [place] [address], [id number]. tel:[phone] [facility], [address] [place] [address], [id number], [place] tel:[phone] DEWAYNE [place] Endocrine disorder, unspecifiedGender Identity Disorder Carmina Salazar. [address] [place] [address], [id number], [place]. tel:[phone] Referring Provider: Marie Grewal, [address] [place] [address], [id number]. tel:[phone] Provider: DEWAYNE Nurse/CA. [facility] [place], [address], [place], [id number], [place] tel:[phone] DEWAYNE [place] Endocrine disorder, unspecifiedGender Identity Disorder Everette De. [address], [place], [id number], [place]. tel:[phone] Referring Provider: Henrietta Gaviria, [address], [place], [id number]. tel:[phone] Provider: DEWAYNE Nurse/[place]. [facility] [place], [address], [place], [id number], [place] tel:[phone] DEWAYNE [place] Gender identity disorder, unspecified Everette De. [address], [place], [id number], [place]. tel:[phone] Referring Provider: Henrietta Gaviria, [address], [place], [id number]. tel:[phone] [facility] [place], [address], [place], [id number], [place] tel:[phone] DEWAYNE [place] Gender identity disorder, unspecified Everette De. [address], [place], [id number], [place]. tel:[phone] Referring Provider: Henrietta Gaviria, [address], [place], [id number]. tel:[phone] Provider: EDWAYNE Nurse/[place]. [facility] [place], [address], [place], [id number], [place] tel:[phone] DEWAYNE [place] Endocrine disorder, unspecifiedGender Identity Disorder Chapincito Tolbert. [address], [place], [id number], [place]. tel:[phone] Referring Provider: Edwige Tolbert Jerelraisa, [address] [place] [address], [id number]. tel:[phone] Provider: DEWAYNE Nurse/CA. [facility], [address], [place], [id number], [place] tel:[phone] DEWAYNE [place] Gender identity disorder, unspecified Chapincito Tolbert. [address] [place], [place], [id number], [place]. tel:[phone] Referring Provider: Edwige Beckham, [address] [place] [address], [id number]. tel:[phone] [facility], [address] [place] [address], [id number], [place] tel:[phone] DEWAYNE [place] Endocrine disorder, unspecifiedGender Identity Disorder Everette De. [address], [place], [id number], [place]. tel:[phone] Referring Provider: Henrietta Gaviria, [address] [place] [address], [id number]. tel:[phone] Provider: DEWAYNE Nurse/CA. [facility], [address], [place], [id number], [place] tel:[phone] DEWAYNE [place] Gender Identity Dis orderEndocrine disorder, unspecified Carmina Salazar. [address] [place], [place], [id number], [place]. tel:[phone] Referring Provider: Marie Grewal, [address] [place] [address], [id number]. tel:[phone] Provider: DEWAYNE Nurse/CA. [facility], [address] [place] [address], [id number], [place] tel:[phone] DEWAYNE [place] Endocrine disorder, unspecifiedGender Identity Disorder Carmina Salazar. [address] [place], [place], [id number], [place]. tel:[phone] Referring Provider: Marie Grewal, [address] [place], [place], [id number]. tel:[phone] Provider: DEWAYNE Nurse/[place]. [facility] [place], [address], [place], [id number], [place] tel:[phone] PPNCNY [place] Endocrine disorder, unspecifiedGender Identity Disorder Everette De. [address] [place] [address], [id number], [place]. tel:[phone] Referring Provider: Henrietta Gaviria, [address] [place] [address], [id number]. tel:[phone] [facility] [place], [address], [place], [id number], [place] tel:[phone] PPNCALEXANDRA [place] Endocrine disorder, unspecifiedGender identity disorder, unspecified Carmina Salazar. [address] [place] [address], [id number], [place]. tel:[phone] Referring Provider: Marie Grewal, [address] [place] [address], [id number]. tel:[phone] Provider: Provider Nurse. [facility] [place], [address], [place], [id number], [place] tel:[phone] PPNCNY [place] Endocrine disorder, unspecifiedGender Identity Disorder Everette De. [address], [place], [id number], [place]. tel:[phone] Referring Provider: Henrietta Gaviria, [address] [place] [address], [id number]. tel:[phone] [facility] [place], [address], [place], [id number], [place] tel:[phone] DEWAYNE [place] Endocrine disorder, unspecifiedGender Identity Disorder Carmina Salazar. [address] [place], [place], [id number], [place]. tel:[phone] Referring Provider: Marie Grewal, [address] [place] [address], [id number]. tel:[phone] Provider: DEWAYNE Nurse/[place]. [facility] [place], [address], [place], [id number], [place] tel:[phone] DEWAYNE [place] Endocrine disorder, unspecifiedGender Identity Disorder Carmina Salazar. [address], [place], [id number], [place]. tel:[phone] Referring Provider: Marie Grewal, [address] [place] [address], [id number]. tel:[phone] Provider: DEWAYNE Nurse/[place]. [facility] [place], [address], [place], [id number], [place] tel:[phone] DEWAYNE [place] Endocrine disorder, unspecifiedGender Identity Disorder Carmina Salazar. [address] [place], [place], [id number], [place]. tel:[phone] Referring Provider: Marie Grewal, [address] [place] [address], [id number]. tel:[phone] Provider: Provider Nurse. [facility] [place], [address], [place], [id number], [place] tel:[phone] DEWAYNE [place] Endocrine disorder, unspecifiedGender Identity Disorder Carmina Salazar. [address], [place], [id number], [place]. tel:[phone] Referring Provider: Marie Grewal, [address] [place], [place], [id number]. tel:[phone] Provider: DEWAYNE Nurse/CA. [facility], [address], [place], [id number], [place] tel:[phone] DEWAYNE [place] Endocrine disorder, unspecifiedGender Identity Disorder Melissa Lazo. [address] [place], [place], [id number], [place]. tel:[phone] Referring Provider: Violet Torres, [address] [place], [place], [id number]. tel:[phone] [facility] [place], [address], [place], [id number], [place] tel:[phone] DEWAYNE [place] Endocrine disorder, unspecifiedGender Identity Disorder Adriel Luna. [address], [place], [id number], [place]. tel:[phone] Referring Provider: Cheryl Morel, [address] [place], [place], [id number]. tel:[phone] Provider: DEWAYNE Nurse/CA. [facility], [address], [place], [id number], [place] tel:[phone] DEWAYNE [place] Endocrine disorder, unspecifiedGender Identity Disorder Everette De. [address], [place], [id number], [place]. tel:[phone] Referring Provider: Henrietta Gaviria, [address], [place], [id number]. tel:[phone] Provider: DEWAYNE Nurse/[place]. [facility] [place], [address], [place], [id number], [place] tel:[phone] DEWAYNE [place] Endocrine disorder, unspecifiedGender Identity Disorder Peewee Lux. [address] [place] [address], [id number], [place]. tel:[phone] Referring Provider: Maci Vides, [address] [place] [address], [id number]. tel:[phone] Provider: DEWAYNE Nurse[facility]CA. [facility], [address] [place] [address], [id number], [place] tel:[phone] YIFANSDALEXANDRA [place] Endocrine disorder, unspec ified Peewee Lux. [address] [place] [address], [id number], [place]. tel:[phone] Referring Provider: Maci Vides, [address] [place] [address], [id number]. tel:[phone] [facility], [address] [place] [address], [id number], [place] tel:[phone] DEWAYNE [place] Gender Identity Dis orderEndocrine disorder, unspecified Melissa Lazo. [address] [place] [address], [id number], [place]. tel:[phone] Referring Provider: Violet Torres, [address] [place] [address], [id number]. tel:[phone] Provider: DEWAYNE Nurse/CA. [facility], [address] [place] [address], [id number], [place] tel:[phone] DEWAYNE [place] Gender Identity Disorder Melissa Lazo. [address] [place] [address], [id number], [place]. tel:[phone] Referring Provider: Violet Torres, [address] [place] [address], [id number]. tel:[phone] Provider: DEWAYNE Nurse/CA. [facility], [address] [place] [address], [id number], tel:[phone] DEWAYNE Hernandez Gender identity dis order, unspecifiedObesity, unspecifiedInappropriate diet and eating habits Sjross Lazo. [address] [place] [address], [id number], . tel:[phone] Referring Provider: Violet Torres, [address] [place] [address], [id number]. tel:[phone] [facility], [address] [place] [address], [id number], [place] tel:[phone] DEWAYNE [place] Gender identity disorder, unspecified Peewee Lux. [address] [place] [address], [id number], [place]. tel:[phone] Referring Provider: Maci Vides, [address] [place] [address], [address] [place] [address]. tel:[phone] [facility], [address] [place] [address], [id number], [place] tel:[phone] DEWAYNE [place] Gender Identity Dis orderEndocrine disorder, unspecified Hoseameenakshiross Lazo. [address] [place] [address], [id number], [place]. tel:[phone] Referring Provider: Violet Torres, [address] [place] [address], [address] [place] [address]. tel:[phone] Provider: DEWAYNE Nurse/CA. [facility], [address] [place] [address], [id number], [place] tel:[phone] DEWAYNE [place] Gender identity disorder, unspecified Melissa Lazo. [address] [place] [address], [id number], [place]. tel:[phone] Referring Provider: Violet Hosearaul, [address] [place] [address], [id number]. tel:[phone] [facility] [place], [address], [place], [id number], [place] tel:[phone] PPSDNY [place] Gender Identity Disorder Peewee Lux. [address] [place], [place], [id number], [place]. tel:[phone] Referring Provider: Maci Vides, [address] [place], [place], [id number]. tel:[phone] [facility] [place], [address], [place], [id number], [place] tel:[phone] PPSDNY [place] Endocrine disorder, unspecifiedGender Identity Disorder Debi Tolbert. [address], [place], [id number], [place]. tel:[phone] Referring Provider: Didi Carrera, [address] [place], [place], [id number]. tel:[phone] [facility] [place], [address], [place], [id number], [place] tel:[phone] PPSDNY [place] Gender identity disorder, unspecified Debi Tolbert. [address] [facility] [place], [id number], [place]. tel:[phone] Referring Provider: Didi Carrera, [address] [place], [place], [id number]. tel:[phone] [facility] [place], [address], [place], [id number], [place] tel:[phone] PPSDALEXANDRA [place] Endocrine disorder, unspecifiedGender Identity Disorder Carmina Salazar. [address] [place], [place], [id number], [place]. tel:[phone] Referring Provider: Marie Grewal, [address] [place], [place], [id number]. tel:[phone] Provider: DEWAYNE Nurse/[place]. [facility] [place], [address], [place], [id number], tel:[phone] DEWAYNE [place] Gender Identity Dis orderEndocrine disorder, unspecified Debi Tolbert. [address], [place], [id number], [place]. tel:[phone] Referring Provider: Didi Carrera, [address], [place], [id number]. tel:[phone] Provider: DEWAYNE Nurse/[place]. [facility] [place], [address], [place], [id number], [place] tel:[phone] DEWAYNE [place] Endocrine disorder, unspecifiedGender Identity Disorder Carmina Salazar. [address] [place] [address], [id number], . tel:[phone] Referring Provider: Marie Grewal, [address] [place] [address], [id number]. tel:[phone] [facility], [address], [place], [id number], tel:[phone] DEWAYNE [place] Gender identity disorder, unspecified Carmina Salazar. [address] [place] [address], [id number], . tel:[phone] Referring Provider: Marie Grewal, [address] [place] [address], [id number]. tel:[phone] Provider: DEWAYNE Nurse/[place]. [facility], [address] [place] [address], [id number], tel:[phone] DEWAYNE [place] Encounter for surve illance of injectable contraceptiveGender Identity Disorder Carmina Salazar. [address] [place] [address], [address] [place] [address], . tel:[phone] Referring Provider: Marie Grewal, [address] [place] [address], [id number]. tel:[phone] [facility], [address] [place] [address], [id number], [place] tel:[phone] YIFANNCALEXANDRA [place] Gender Identity Disorder Carmina Salazar. [address] [place] [address], [id number], [place]. tel:[phone] Referring Provider: Marie Grewal, [address] [place], [place], [id number]. tel:[phone] [facility], [address] [place] [address], [id number], [place] tel:[phone] DEWAYNE Jimenez Gender Identity Dis orderEncounter for oth general cnsl and advice on contraception Debi garcia. [address] [place] [address], [id number], [place]. tel:[phone] Referring Provider: Didi Carrera, [address] [place] [address], [id number]. tel:[phone] [facility] [place], [address] [place] [address], [id number], [place] tel:[phone] DEWAYNE [place] Endocrine disorder, unspecifiedGender Identity DisorderOther sex counselingEncounter for oth general cnsl and advice on contraception Carmina Salazar. [address] [place], [place], [id number], [place]. tel:[phone] Referring Provider: Marie Grewal, [address] [place], [place], [id number]. tel:[phone] [facility] [place], [address] [place] [address], [id number], [place] tel:[phone] PPOJ [place] Gender Identity Dis orderEndocrine disorder, unspecifiedOther sex counselingEncounter for oth general cnsl and advice on contraception Peewee Lux. [address] [place] [address], [id number], [place]. tel:[phone] Referring Provider: Maci Vides, [address] [place] [address], [id number]. tel:[phone] Provider: DEWAYNE Nurse/[place]. [facility] [place], [address] [place] [address], [id number], [place] tel:[phone] DEWAYNE [place] Gender Identity Dis orderEndocrine disorder, unspecifiedOther sex counselingEncounter for oth general cnsl and advice on contraception Carmina Salazar. [address] [place] [address], [id number], [place]. tel:[phone] Referring Provider: Marie Grewal, [address] [place] [address], [id number]. tel:[phone] [facility] [place], [address] [place] [address], [id number], [place] tel:[phone] YIFANSDALEXANDRA [place] Gender Identity Disorder Carmina Salazar. [address] [place] [address], [id number], [place]. tel:[phone] Referring Provider: Marie Grewal, [address] [place] [address], [id number]. tel:[phone] Provider: DEWAYNE Nurse/[place]. [facility] [place], [address] [place] [address], [id number], [place] tel:[phone] DEWAYNE [place] Endocrine disorder, unspecifiedGender Identity Disorder Peewee Lux. [address] [place] [address], [id number], [place]. tel:[phone] Referring Provider: Maci Vides, [address] [place], [place], [id number]. tel:[phone] [facility] [place], [address] [place] [address], [id number], tel:[phone] DEWAYNE [place] Gender identity dis order, unspecifiedGender Identity DisorderEndocrine disorder, unspecified Carmina Salazar. [address] [place] [address], [id number], . tel:[phone] Referring Provider: Marie Grewal, [address] [place] [address], [id number]. tel:[phone] Provider: DEWAYNE Nurse/[place]. [facility] [place], [address] [place] [address], [id number], tel:[phone] DEWAYNE [place] Gender Identity Disorder Carmina Salazar. [address] [place] [address], [address] [place] [address], . tel:[phone] Referring Provider: Marie Grewal, [address] [place] [address], [address] [place] [address]. tel:[phone] [facility], [address] [place] [address], [id number], [place] tel:[phone] DEWAYNE Jimenez Gender Identity Disorder Ju Adriel Luna. [address] [place] [address], [id number], [place]. tel:[phone] Referring Provider: Cheryl Morel, [address] [place] [address], [id number]. tel:[phone] [facility] [place], [address] [place] [address], [id number], [place] tel:[phone] DEWAYNE [place] Gender Identity Disorder Carmina Salazar. [address] [place] [address], [id number], [place]. tel:[phone] Referring Provider: Marie Grewal, [address] [place] [address], [id number]. tel:[phone] Provider: DEWAYNE Nurse/[place]. [facility], [address], [place], [id number], tel:[phone] DEWAYNE [place] Gender Identity Disorder Carmina Salazar. [address] [place] [address], [id number], . tel:[phone] [facility], [address] [place] [address], [id number], tel:[phone] DEWAYNE Jimenez Gender Identity Dis orderEncounter for oth general cnsl and advice on contraception Adriel Luna. [address] [place] [address], [id number], [place]. tel:[phone] Referring Provider: Cheryl Morel, [address] [place] [address], [id number]. tel:[phone] [facility], [address] [place] [address], [address] [place] [address], tel:[phone] DEWAYNE [place] Gender Identity Dis orderEndocrine disorder, unspecified Peewee Lux. [address] [place] [address], [id number], . tel:[phone] Referring Provider: Maci Vides, [address] [place], [place], [id number]. tel:[phone] Provider: DEWAYNE Nurse/[place]. [facility], [address] [place] [address], [address] [place] [address], tel:[phone] DEWAYNE [place] Encounter for surve illance of injectable contraceptiveTranssexualismEndocrine disorder, unspecified Peewee Lux. [address] [place] [address], [id number], . tel:[phone] Referring Provider: Maci Vides, [address] [place] [address], [id number]. tel:[phone] Provider: DEWAYNE Nurse/[place]. [facility], [address], [place], [id number], [place] tel:[phone] DEWAYNE Jimenez Encounter for surve illance of injectable contraceptiveEncounter for oth general cnsl and advice on contraception Debi Tolbert. [address], [place], [id number], [place]. tel:[phone] Referring Provider: Didi Carrera, [address], [place], [id number]. tel:[phone] [facility] [place], [address], [place], [id number], [place] tel:[phone] DEWAYNE [place] Endocrine disorder, unspecifiedTranssexualism Debi Tolbert. [address], [place], [id number], [place]. tel:[phone] Referring Provider: Didi Carrera, [address], [place], [id number]. tel:[phone] Provider: DEWAYNE Nurse/[place]. [facility] [place], [address], [place], [id number], [place] tel:[phone] DEWAYNE [place] TranssexualismEndoc rine disorder, unspecified Debi Tolbert. [address], [place], [id number], [place]. tel:[phone] Referring Provider: Didi Carrera, [address], [place], [id number]. tel:[phone] Provider: DEWAYNE Nurse/[place]. [facility] [place], [address], [place], [id number], [place] tel:[phone] DEWAYNE [place] Endocrine disorder, unspecifiedTranssexualismEncounter for oth general cnsl and advice on contraception Debi Tolbert. [address], [place], [id number], [place]. tel:[phone] Referring Provider: Didi Carrera, [address] [place] [address], [id number]. tel:[phone] Provider: DEWAYNE Nurse/[place]. [facility], [address] [place] [address], [id number], tel:[phone] DEWAYNE Jimenez TranssexualismEncou nter for oth general cnsl and advice on contraceptionHuman immunodeficiency virus [HIV] counseling Debi Tolbert. [address] [place] [address], [id number], . tel:[phone] Referring Provider: Didi Carrera, [address] [place] [address], [id number]. tel:[phone] [facility], [address] [place] [address], [id number], tel:[phone] DEWAYNE [place] Human immunodeficie ncy virus [HIV] counselingEncntr screen for infections w sexl mode of transmissEncounter for screening for human immunodeficiency virusHigh risk heterosexual behaviorEndocrine disorder, unspecifiedTranssexualismEncntr for can feeder exam (general) (routine) w/o abn findings Carranza. [address] [place] [address], [id number], . tel:[phone] Referring Provider: Miley Fletcher, [address] [place] [address], [id number]. tel:[phone] Family History Family Member Diagnosis Age At [...] Information Payers Payer name Insurance type Covered libertarian ID Authorization(s ) [facility] CI [id number] Social History Type Description Quantity Date Captured [...] date/timeframe: 2 Months ordered Referral Ordered: Referrals: Exhibits Curator. Evaluate and treat ordered Referral Referred To: [facility] Ordered: Referrals: Gis Professor. [facility]. Evaluate and treat Appointment date/timeframe: 2 Months ordered Referral Ordered: Janet Mcmillan -[facility] : Family Medicine (related to Transsexualism) ordered Referral Referred To: Janet Mcmillan [address] [place] [address], [id number] [phone] Ordered: Referrals: [facility] : Family Medicine. Janet Mcmillan ordered Appointment Thu Majano *LEEANNA* -SARAH F/ U BOOKED History Of Present Illness Encounter Date Complaint [...] Date No Information Medical Equipment Description Device [place] Device Identifier Effective Romero es (start - stop) Status No Information Mental Status Date Cognitive Assessment No Information Health Concerns Observation Date No Information Concern Status Date No Information Physical Examination Exam Findings Details No Information
--- OUTSIDE RECORDS SUMMARY | 2021-04-22 13:37 | CCD | Continuity of Care Document ---
Author Author Thu PHILLIPS Organization Unknown Address [address] [place] [address] [place] [address] Phone [phone] Care Team Providers Care Information Resource Consultant Name Role Phone [employer] AUTM [phone] [facility] AUTM [phone] Problems Description No Information Available Social History [...] Vital Signs Date Vital Result Comment 04/15/2021 6:08pm BP Systolic 170 mmHg BP Diastolic 107 mmHg Heart Rate 72 /min Respiratory Rate 16 /min O2 % BldC Oximetry 98 % Body Temperature 98.9 F Weight 227.00 lb Height 66 inches 5'6" BMI (Body Mass Index) 36.6 kg/m2 Pain Level 10 01/17/2021 1:34pm BP Systolic 124 mmHg BP Diastolic 84 mmHg Heart Rate 81 /min Respiratory Rate 16 /min O2 % BldC Oximetry 98 % Body Temperature 97.8 F Weight 227.00 lb Height 66 inches 5'6" BMI (Body Mass Index) 36.6 kg/m2 Pain Level 7 Results Description No Information Available Procedures Date Code Description Status 04/15/2021 12863 Office/Outpatient Established Lo w MDM 20-29 Min Completed 01/17/2021 47032 Office/Outpatient Established Lo w MDM 20-29 Min [...] up prn. * M54.6 Pain in thoracic spine * Z20.828 Contact with and (suspected) exposure to other viral communicable diseases Functional Status Description No Information Available Mental Status Description No Information Available Referrals Description No Information Available
[2021-04-22] MEDS ORDERED: IBUP200C25 PO (13:38)
--- OUTSIDE RECORDS SUMMARY | 2021-04-22 13:38 | CCD | Continuity of Care Document ---
Author Author [facility] Organization [facility] Address Unknown Phone Unavailable Care Team Providers Care Graduate Advisor Name Role Phone Marie Alvarado Unavailable Unavailable Nurse/CA, DEWAYNE Unavailable Unavailable Allergies, Adverse Reactions, Alerts Substance Reaction Status Criticality No Known Allergies Active No Information Medications Medication Instructions Dosage Effective Dates (start - stop) Sta tus Comments testosterone cypionate 200 mg/mL intramuscular oil Inj ect 0.45 mL IM every week. Code F. - Active MD 0.4 5 mL weekly Code F testosterone cypionate 200 mg/mL intramuscular oil Use for admin of external Rx. See Med Module for details. 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 Height/Weight CVR Instrument Lens Inspector.Svc. Contraceptive CVR Instrument Lens Inspector.Svc. Other Results Test Name Date and Time Measure Units Reference Range Abnormal Flag St atus Comments No Information Advance Directives Directive Yes / No Effective Date File Name No Information Encounters Encounter Description Practice Location Reason(s) For Visit Diagnose s Date Provider Providers [facility] on [facility] [address] [place] [address], [id number], tel:[phone] DEWAYNE Starford Gender Identity Disorder Carmina Salazar. [address] [place] [address], [id number], [place]. tel:[phone] Referring Provider: Marie Grewal, [address] [place] [address], [id number]. tel:[phone] Provider: DEWAYNE Nurse/[facility]ocorro [facility], [address] [place] [address], [id number], tel:[phone] DEWAYNE Starford Endocrine disorder, unspecifiedGender identity disorder, unspecified Carmina Salazar. [address] [place] [address], [id number], [place]. tel:[phone] Referring Provider: Marie Grewal, [address] [place] [address], [id number]. tel:[phone] Provider: DEWAYNE Nurse[facility]ocorro [facility], [address] [place] [address], [id number], tel:[phone] DEWAYNE Starford Gender Identity Disorder Carmina Salazar. [address] [place] [address], [id number], [place]. tel:[phone] Referring Provider: Marie Grewal, [address] [place], [place], [id number]. tel:[phone] Provider: DEWAYNE Nurse[facility]CA. [facility] [place], [address] [place] [address], [id number], [place] tel:[phone] DEWAYNE Starford Gender Identity Disorder Chapincito Tolbert. [address] [place] [address], [id number], [place]. tel:[phone] Referring Provider: Edwige Beckham, [address] [place] [address], [id number]. tel:[phone] [facility] [place], [address] [place] [address], [id number], [place] tel:[phone] DEWAYNE Starford Gender Identity Disorder Everette De. [address] [place] [address], [id number], [place]. tel:[phone] Referring Provider: Henrietta Gaviria, [address] [place] [address], [id number]. tel:[phone] Provider: DEWAYNE Nurse/CA. [facility], [address] [place] [address], [id number], [place] tel:[phone] YIFANNEALEXANDRA Starford Endocrine disorder, unspec ified Chapincito Tolbert. [address] [place] [address], [id number], [place]. tel:[phone] Referring Provider: Edwige Beckham, [address] [place] [address], [id number]. tel:[phone] [facility] [place], [address] [place] [address], [id number], [place] tel:[phone] DEWAYNE Starford Gender Identity Disorder Chapincito Tolbert. [address] [place] [address], [id number], [place]. tel:[phone] Referring Provider: Edwige Beltránraisa, [address] [place] [address], [id number]. tel:[phone] [facility], [address] [place] [address], [id number], [place] tel:[phone] YIFANNEALEXANDRA Starford Gender identity disorder, unspecified Jerelraisa Layley. [address] [place], [place], [id number], [place]. tel:[phone] Referring Provider: Edwige Beckham, [address] [place] [address], [id number]. tel:[phone] Provider: DEWAYNE Nurse/CA. [facility], [address] [place] [address], [id number], [place] tel:[phone] YIFANNEALEXANDRA Starford Endocrine disorder, unspecifiedGender Identity Disorder Everette De. [address], [place], [id number], [place]. tel:[phone] Referring Provider: Henrietta Gaviria, [address] [place] [address], [id number]. tel:[phone] [facility], [address] [place] [address], [id number], [place] tel:[phone] DEWAYNE Starford Gender Identity Disorder Everette De. [address] [place] [address], [id number], [place]. tel:[phone] Referring Provider: Henrietta Gaviria, [address] [place] [address], [id number]. tel:[phone] Provider: DEWAYNE Nurse/CA. [facility], [address] [place] [address], [id number], tel:[phone] DEWAYNE Starford Gender Identity Dis orderEndocrine disorder, unspecified Chapincito Tolbert. [address] [place], [place], [id number], . tel:[phone] Referring Provider: Edwige Beltrán, [address] [place] [address], [id number]. tel:[phone] [facility], [address] [place] [address], [id number], [place] tel:[phone] DEWAYNE Starford Gender identity disorder, unspecified Chapincito Tolbert. [address] [place] [address], [id number], . tel:[phone] Referring Provider: Edwige Beltrán, [address] [place] [address], [address] [place] [address]. tel:[phone] [facility], [address] [place] [address], [id number], [place] tel:[phone] DEWAYNE Starford Gender Identity Disorder Everette De. [address] [place] [address], [id number], [place]. tel:[phone] Referring Provider: Henrietta Gaviria, [address] [place] [address], [id number]. tel:[phone] Provider: DEWAYNE Nurse/CA. [facility], [address] [place] [address], [id number], [place] tel:[phone] DEWAYNE Starford Gender identity disorder, unspecified Everette De. [address] [place] [address], [id number], . tel:[phone] Referring Provider: Henrietta Gaviria, [address] [place] [address], [id number]. tel:[phone] Provider: Provider Nurse. [facility], [address] [place], [place], [id number], [place] tel:[phone] DEWAYNE Starford Gender Identity Dis orderEndocrine disorder, unspecified Chapincito Mackeyladonna LayDidi. [address] [place], [place], [id number], . tel:[phone] Referring Provider: Edwige Didi Chapincito, [address] [place] [address], [id number]. tel:[phone] Provider: DEWAYNE Nurse/CA. [facility], [address] [place] [address], [id number], tel:[phone] DEWANYE Starford Gender Identity Disorder Dwello Edwige Didi. [address] [place] [address], [id number], [place]. tel:[phone] Referring Provider: Edwige Beckham, [address] [place] [address], [id number]. tel:[phone] [facility], [address] [place] [address], [id number], [place] tel:[phone] YIFANNEALEXANDRA Starford Gender Identity Dis orderEndocrine disorder, unspecified Everette De. [address] [place] [address], [id number], [place]. tel:[phone] Referring Provider: Henrietta Gaviria, [address] [place], [place], [id number]. tel:[phone] [facility], [address] [place] [address], [id number], [place] tel:[phone] YIFANNEALEXANDRA Starford Endocrine disorder, unspecifiedGender Identity Disorder Everette De. [address], [place], [id number], [place]. tel:[phone] Referring Provider: Henrietta Gaviria, [address] [place] [address], [id number]. tel:[phone] Provider: DEWAYNE Nurse/CA. [facility], [address] [place] [address], [id number], [place] tel:[phone] DEWAYNE Starford Endocrine disorder, unspecifiedGender Identity Disorder Chapincito Tolbert. [address] [place], [place], [id number], [place]. tel:[phone] Referring Provider: Edwige Beckham, [address] [place] [address], [id number]. tel:[phone] [facility], [address] [place] [address], [id number], [place] tel:[phone] DEWAYNE Starford Gender Identity Disorder Carmina Salazar. [address] [place] [address], [id number], [place]. tel:[phone] Referring Provider: Marie Grewal, [address] [place] [address], [id number]. tel:[phone] Provider: DEWAYNE Nurse/CA. [facility], [address] [place] [address], [id number], [place] tel:[phone] YIFANNEALEXANDRA Starford Endocrine disorder, unspecifiedGender identity disorder, unspecified Everette eD. [address] [place] [address], [id number], [place]. tel:[phone] Referring Provider: Henrietta Gaviria, [address] [place] [address], [id number]. tel:[phone] [facility], [address] [place] [address], [id number], [place] tel:[phone] DEWAYNE Starford Human immunodeficie ncy virus [HIV] counselingOther sex counselingGender identity disorder, unspecified Dwello Edwige Tolbert. [address] [place] [address], [id number], [place]. tel:[phone] Referring Provider: Edwigeladonna Beltránraisa, [address] [place] [address], [id number]. tel:[phone] [facility], [address] [place] [address], [id number], [place] tel:[phone] DEWAYNE Starford Gender Identity Disorder Everette De. [address] [place], [place], [id number], [place]. tel:[phone] Referring Provider: Henrietta Gaviria, [address] [place] [address], [id number]. tel:[phone] [facility], [address] [place] [address], [id number], [place] tel:[phone] DEWAYNE Starford Endocrine disorder, unspecifiedGender Identity Disorder Carmina Salazar. [address] [place] [address], [id number], [place]. tel:[phone] Referring Provider: Marie Grewal, [address] [place], [place], [id number]. tel:[phone] [facility], [address] [place], [place], [id number], [place] tel:[phone] DEWAYNE Starford Gender Identity Dis orderEndocrine disorder, unspecified Carmina Salazar. [address] [place] [address], [id number], [place]. tel:[phone] Referring Provider: Marie Grewal, [address] [place] [address], [id number]. tel:[phone] Provider: DEWAYNE Nurse/CA. [facility], [address] [place] [address], [id number], [place] tel:[phone] DEWAYNE Starford Gender Identity Dis orderEndocrine disorder, unspecified Carmina Salazar. [address] [place], [place], [id number], [place]. tel:[phone] Referring Provider: Marie Grewal, [address] [place] [address], [id number]. tel:[phone] [facility], [address] [place], [place], [id number], [place] tel:[phone] [facility] Endocrine disorder, unspecifiedGender Identity Disorder Carmina Salazar. [address] [place], [place], [id number], [place]. tel:[phone] Referring Provider: Marie Grewal, [address] [place], [place], [id number]. tel:[phone] Provider: DEWAYNE Nurse/CA. [facility], [address] [place], [place], [id number], [place] tel:[phone] YIFNANEALEXANDRA Starford Endocrine disorder, unspecifiedGender Identity Disorder Everette De. [address], [place], [id number], [place]. tel:[phone] Referring Provider: Henrietta Gaviria, [address] [place] [address], [id number]. tel:[phone] Provider: DEWAYNE Nurse/CA. [facility], [address] [place], [place], [id number], [place] tel:[phone] YIFANNEALEXANDRA Starford Gender identity disorder, unspecified Evertete De. [address] [place], [place], [id number], [place]. tel:[phone] Referring Provider: Henrietta Gaviria, [address] [place], [place], [id number]. tel:[phone] [facility], [address] [place], [place], [id number], [place] tel:[phone] DEWAYNE Starford Gender identity disorder, unspecified Everette De. [address] [place], [place], [id number], [place]. tel:[phone] Referring Provider: Henrietta Gaviria, [address] [place], [place], [id number]. tel:[phone] Provider: DEWAYNE Nurse/CA. [facility] [place], [address] [place], [place], [id number], [place] tel:[phone] DEWAYNE Starford Endocrine disorder, unspecifiedGender Identity Disorder Chapincito Tolbert. [address] [place] [address], [id number], [place]. tel:[phone] Referring Provider: Edwige Beckham, [address] [place] [address], [id number]. tel:[phone] Provider: DEWAYNE Nurse/CA. [facility] [place], [address] [place], [place], [id number], [place] tel:[phone] DEWAYNE Starford Gender identity disorder, unspecified Chapincito Tolbert. [address] [place], [place], [id number], [place]. tel:[phone] Referring Provider: Edwige Beckham, [address] [place], [place], [id number]. tel:[phone] [facility] [place], [address] [place], [place], [id number], [place] tel:[phone] DEWAYNE Starford Endocrine disorder, unspecifiedGender Identity Disorder Everette De. [address], [place], [id number], [place]. tel:[phone] Referring Provider: Henrietta Gaviria, [address] [place], [place], [id number]. tel:[phone] Provider: DEWAYNE Nurse/CA. [facility], [address] [place], [place], [id number], [place] tel:[phone] DEWAYNE Starford Gender Identity Dis orderEndocrine disorder, unspecified Carmina Salazar. [address] [place], [place], [id number], [place]. tel:[phone] Referring Provider: Marie Grewal, [address] [place] [address], [id number]. tel:[phone] Provider: DEWAYNE Nurse/CA. [facility], [address] [place], [place], [id number], [place] tel:[phone] DEWAYNE Starford Endocrine disorder, unspecifiedGender Identity Disorder Carmina Salazar. [address] [place], [place], [id number], [place]. tel:[phone] Referring Provider: Marie Grewal, [address] [place], [place], [id number]. tel:[phone] Provider: DEWAYNE Nurse/CA. [facility], [address] [place], [place], [id number], [place] tel:[phone] DEWAYNE Starford Endocrine disorder, unspecifiedGender Identity Disorder Everette De. [address], [place], [id number], [place]. tel:[phone] Referring Provider: Henrietta Gaviria, [address] [place], [place], [id number]. tel:[phone] [facility], [address] [place], [place], [id number], [place] tel:[phone] DEWAYNE Starford Endocrine disorder, unspecifiedGender identity disorder, unspecified Carmina Salazar. [address] [place], [place], [id number], [place]. tel:[phone] Referring Provider: Marie Grewal, [address] [place] [address], [id number]. tel:[phone] Provider: Provider Nurse. [facility] [place], [address] [place] [address], [id number], [place] tel:[phone] [facility] Endocrine disorder, unspecifiedGender Identity Disorder Everette De. [address], [place], [id number], [place]. tel:[phone] Referring Provider: Henrietta Gaviria, [address] [place] [address], [id number]. tel:[phone] [facility], [address] [place] [address], [id number], [place] tel:[phone] YIFANNCALEXANDRA Starford Endocrine disorder, unspecifiedGender Identity Disorder Carmina Salazar. [address] [place] [address], [id number], [place]. tel:[phone] Referring Provider: Marie Grewal, [address] [place], [place], [id number]. tel:[phone] Provider: DEWAYNE Nurse/CA. [facility] [place], [address] [place], [place], [id number], [place] tel:[phone] PPNCALEXANDRA Starford Endocrine disorder, unspecifiedGender Identity Disorder Carmina Salazar. [address] [place], [place], [id number], [place]. tel:[phone] Referring Provider: Marie Grewal, [address] [place] [address], [id number]. tel:[phone] Provider: DEWAYNE Nurse/[place]. [facility] [place], [address] [place], [place], [id number], [place] tel:[phone] DEWAYNE Starford Endocrine disorder, unspecifiedGender Identity Disorder Carmina Salazar. [address] [place], [place], [id number], [place]. tel:[phone] Referring Provider: Marie Grewal, [address] [place] [address], [id number]. tel:[phone] Provider: Provider Nurse. [facility] [place], [address] [place], [place], [id number], [place] tel:[phone] YIFANNCALEXANDRA Starford Endocrine disorder, unspecifiedGender Identity Disorder Carmina Salazar. [address] [place], [place], [id number], [place]. tel:[phone] Referring Provider: Marie Grewal, [address] [place] [address], [id number]. tel:[phone] Provider: DEWAYNE Nurse/CA. [facility] [place], [address] [place], [place], [id number], [place] tel:[phone] DEWAYNE Starford Endocrine disorder, unspecifiedGender Identity Disorder Melissa Lazo. [address] [place], [place], [id number], [place]. tel:[phone] Referring Provider: Violet Torres, [address] [place], [place], [id number]. tel:[phone] [facility] [place], [address] [place], [place], [id number], [place] tel:[phone] DEWAYNE Starford Endocrine disorder, unspecifiedGender Identity Disorder Adreil Luna. [address] [place] [address], [id number], [place]. tel:[phone] Referring Provider: Cheryl Morel, [address] [place] [address], [id number]. tel:[phone] Provider: DEWAYNE Nurse/CA. [facility] [place], [address] [place] [address], [id number], tel:[phone] DEWAYNE Starford Endocrine disorder, unspecifiedGender Identity Disorder Everette De. [address], [place], [id number], [place]. tel:[phone] Referring Provider: Henrietta Gaviria, [address] [place], [place], [id number]. tel:[phone] Provider: DEWAYNE Nurse/CA. [facility] [place], [address] [place] [address], [id number], tel:[phone] DEWAYNE Starford Endocrine disorder, unspecifiedGender Identity Disorder Peewee Lux. [address] [place] [address], [id number], [place]. tel:[phone] Referring Provider: Maci Vides, [address] [place], [place], [id number]. tel:[phone] Provider: DEWAYNE Nurse/CA. [facility] [place], [address] [place] [address], [id number], [place] tel:[phone] DEWAYNE Starford Endocrine disorder, unspec ified Peewee Lux. [address] [place], [place], [id number], [place]. tel:[phone] Referring Provider: Maci Vides, [address] [place], [place], [id number]. tel:[phone] [facility] [place], [address] [place] [address], [id number], tel:[phone] DEWAYNE Starford Gender Identity Dis orderEndocrine disorder, unspecified Melissa Lazo. [address] [place] [address], [id number], [place]. tel:[phone] Referring Provider: Violet Hoseameenakshiross, [address] [place] [address], [id number]. tel:[phone] Provider: DEWAYNE Nurse/CA. [facility] [place], [address] [place] [address], [id number], [place] tel:[phone] DEWAYNE Starford Gender Identity Disorder Melissa Violet. [address] [place], [place], [id number], [place]. tel:[phone] Referring Provider: Violet Torres, [address] [place] [address], [id number]. tel:[phone] Provider: DEWAYNE Nurse/CA. [facility], [address] [place] [address], [id number], [place] tel:[phone] DEWAYNE Hernandez Gender identity dis order, unspecifiedObesity, unspecifiedInappropriate diet and eating habits Melissa Violet. [address] [place] [address], [id number], [place]. tel:[phone] Referring Provider: Violet Jcraul, [address] [place] [address], [id number]. tel:[phone] [facility], [address] [place] [address], [id number], [place] tel:[phone] DEWAYNE Starford Gender identity disorder, unspecified Peewee Lux. [address] [place] [address], [id number], [place]. tel:[phone] Referring Provider: Maci Vides, [address] [place] [address], [id number]. tel:[phone] [facility] [place], [address] [place] [address], [id number], [place] tel:[phone] DEWAYNE Starford Gender Identity Dis orderEndocrine disorder, unspecified Tikiemilee Lazo. [address] [place] [address], [id number], [place]. tel:[phone] Referring Provider: Violet Torres, [address] [place] [address], [id number]. tel:[phone] Provider: DEWAYNE Nurse/CA. [facility] [place], [address] [place], [place], [id number], [place] tel:[phone] DEWAYNE Starford Gender identity disorder, unspecified Tikiemilee Lazo. [address] [place], [place], [id number], [place]. tel:[phone] Referring Provider: Violet Jcangelaemilee, [address] [place] [address], [id number]. tel:[phone] [facility] [place], [address] [place], [place], [id number], [place] tel:[phone] DEWAYNE Starford Gender Identity Disorder Peewee Lux. [address] [place] [address], [id number], [place]. tel:[phone] Referring Provider: Maci Vides, [address] [place], [place], [id number]. tel:[phone] [facility] [place], [address] [place], [place], [id number], [place] tel:[phone] YIFANNEALEXANDRA Starford Endocrine disorder, unspecifiedGender Identity Disorder Debi Tolbert. [address] [place] [address], [id number], [place]. tel:[phone] Referring Provider: Diid Carrera, [address] [place] [address], [id number]. tel:[phone] [facility] [place], [address] [place], [place], [id number], [place] tel:[phone] DEWAYNE Starford Gender identity disorder, unspecified Debi Tolbert. [address] [facility], [place], [id number], [place]. tel:[phone] Referring Provider: Didi Carrera, [address] [place], [place], [id number]. tel:[phone] [facility] [place], [address] [place], [place], [id number], [place] tel:[phone] YIFANNEALEXANDRA Starford Endocrine disorder, unspecifiedGender Identity Disorder Carmina Salazar. [address] [place], [place], [id number], [place]. tel:[phone] Referring Provider: Marie Grewal, [address] [place] [address], [id number]. tel:[phone] Provider: DEWAYNE Nurse/[place]. [facility] [place], [address] [place], [place], [id number], [place] tel:[phone] DEWAYNE Starford Gender Identity Dis orderEndocrine disorder, unspecified Debi Tolbert. [address] [place], [place], [id number], [place]. tel:[phone] Referring Provider: Didi Carrera, [address] [place], [place], [id number]. tel:[phone] Provider: DEWAYNE Nurse/[place]. [facility] [place], [address] [place], [place], [id number], [place] tel:[phone] DEWAYNE Starford Endocrine disorder, unspecifiedGender Identity Disorder Carmina Salazar. [address] [place], [place], [id number], [place]. tel:[phone] Referring Provider: Marie Grewal, [address] [place] [address], [id number]. tel:[phone] [facility] [place], [address] [place], [place], [id number], [place] tel:[phone] DEWAYNE Starford Gender identity disorder, unspecified Carmina Salazar. [address] [place] [address], [id number], [place]. tel:[phone] Referring Provider: Marie Grewal, [address] [place], [place], [id number]. tel:[phone] Provider: DEWAYNE Nurse/[place]. [facility] [place], [address] [place] [address], [id number], [place] tel:[phone] DEWAYNE Starford Encounter for surve illance of injectable contraceptiveGender Identity Disorder Carmina Salazar. [address] [place] [address], [id number], [place]. tel:[phone] Referring Provider: Marie Grewal, [address] [place] [address], [id number]. tel:[phone] [facility] [place], [address] [place] [address], [id number], [place] tel:[phone] DEWAYNE Starford Gender Identity Disorder Carmina Salazar. [address] [place] [address], [id number], [place]. tel:[phone] Referring Provider: Marie Grewal, [address] [place] [address], [id number]. tel:[phone] [facility] [place], [address] [place] [address], [id number], [place] tel:[phone] DEWAYNE Jimenez Gender Identity Dis orderEncounter for oth general cnsl and advice on contraception Debi garcia. [address] [place] [address], [id number], [place]. tel:[phone] Referring Provider: Didi Carrera, [address] [place] [address], [id number]. tel:[phone] [facility] [place], [address] [place] [address], [id number], [place] tel:[phone] DEWAYNE Starford Endocrine disorder, unspecifiedGender Identity DisorderOther sex counselingEncounter for oth general cnsl and advice on contraception Carmina Salazar. [address] [place], [place], [id number], [place]. tel:[phone] Referring Provider: Marie Grewal, [address] [place], [place], [id number]. tel:[phone] [facility] [place], [address] [place] [address], [id number], [place] tel:[phone] DEWAYNE Starford Gender Identity Dis orderEndocrine disorder, unspecifiedOther sex counselingEncounter for oth general cnsl and advice on contraception Peewee Lux. [address] [place] [address], [id number], [place]. tel:[phone] Referring Provider: Maci Vides, [address] [place] [address], [id number]. tel:[phone] Provider: DEWAYNE Nurse/CA. [facility] [place], [address] [place] [address], [id number], [place] tel:[phone] DEWAYNE Starford Gender Identity Dis orderEndocrine disorder, unspecifiedOther sex counselingEncounter for oth general cnsl and advice on contraception Carmina Salazar. [address] [place], [place], [id number], [place]. tel:[phone] Referring Provider: Marie Grewal, [address] [place] [address], [id number]. tel:[phone] [facility] [place], [address] [place] [address], [id number], [place] tel:[phone] DEWAYNE Starford Gender Identity Disorder Camrina Salazar. [address] [place] [address], [id number], [place]. tel:[phone] Referring Provider: Marie Grewal, [address] [place] [address], [id number]. tel:[phone] Provider: DEWAYNE Nurse[facility]. [facility] [place], [address] [place] [address], [id number], [place] tel:[phone] DEWAYNE Starford Endocrine disorder, unspecifiedGender Identity Disorder Peewee Lux. [address] [place] [address], [id number], [place]. tel:[phone] Referring Provider: Maci Vides, [address] [place], [place], [id number]. tel:[phone] [facility] [place], [address] [place] [address], [id number], [place] tel:[phone] DEWAYNE Starford Gender identity dis order, unspecifiedGender Identity DisorderEndocrine disorder, unspecified Carmina Salazar. [address] [place] [address], [id number], [place]. tel:[phone] Referring Provider: Marie Grewal, [address] [place] [address], [id number]. tel:[phone] Provider: DEWAYNE Nurse/CA. [facility] [place], [address] [place] [address], [id number], [place] tel:[phone] DEWAYNE Starford Gender Identity Disorder Carmina Salazar. [address] [place] [address], [id number], [place]. tel:[phone] Referring Provider: Marie Grewal, [address] [place] [address], [id number]. tel:[phone] [facility] [place], [address] [place] [address], [id number], [place] tel:[phone] DEWAYNE Jimenez Gender Identity Disorder Ju Adriel Luna. [address] [place] [address], [id number], [place]. tel:[phone] Referring Provider: Cheryl Morel, [address] [place] [address], [id number]. tel:[phone] [facility], [address] [place] [address], [id number], [place] tel:[phone] DEWAYNE Starford Gender Identity Disorder Carmina Salazar. [address] [place] [address], [id number], [place]. tel:[phone] Referring Provider: Marie Grewal, [address] [place] [address], [id number]. tel:[phone] Provider: DEWAYNE Nurse/CA. [facility], [address] [place] [address], [id number], [place] tel:[phone] DEWAYNE Starford Gender Identity Disorder Carmina Salazar. [address] [place] [address], [id number], [place]. tel:[phone] [facility], [address] [place] [address], [id number], [place] tel:[phone] DEWAYNE Jimenez Gender Identity Dis orderEncounter for oth general cnsl and advice on contraception Adriel Luna. [address] [place] [address], [id number], [place]. tel:[phone] Referring Provider: Cheryl Morel, [address] [place] [address], [id number]. tel:[phone] [facility], [address] [place] [address], [id number], [place] tel:[phone] DEWAYNE Starford Gender Identity Dis orderEndocrine disorder, unspecified Peewee Lux. [address] [place] [address], [id number], [place]. tel:[phone] Referring Provider: Maci Vides, [address] [place], [place], [id number]. tel:[phone] Provider: DEWAYNE Nurse/CA. [facility], [address] [place], [place], [id number], [place] tel:[phone] PPNENY Starford Encounter for surve illance of injectable contraceptiveTranssexualismEndocrine disorder, unspecified Peewee Lux. [address] [place], [place], [id number], [place]. tel:[phone] Referring Provider: Maci Vides, [address] [place], [place], [id number]. tel:[phone] Provider: DEWAYNE Nurse/CA. [facility], [address] [place], [place], [id number], [place] tel:[phone] DEWAYNE Houston Encounter for surve illance of injectable contraceptiveEncounter for oth general cnsl and advice on contraception Debi Tolbert. [address] [place] [address], [id number], [place]. tel:[phone] Referring Provider: Didi Carrera, [address] [place] [address], [id number]. tel:[phone] [facility], [address] [place], [place], [id number], [place] tel:[phone] [facility] Endocrine disorder, unspecifiedTranssexualism Debi Tolbert. [address] [place], [place], [id number], [place]. tel:[phone] Referring Provider: Didi Carrera, [address] [place], [place], [id number]. tel:[phone] Provider: DEWAYNE Nurse/CA. [facility], [address] [place], [place], [id number], [place] tel:[phone] DEWAYNE Starford TranssexualismEndoc rine disorder, unspecified Debishiv Lyaley. [address] [place], [place], [id number], [place]. tel:[phone] Referring Provider: Didi Carrera, [address] [place], [place], [id number]. tel:[phone] Provider: DEWAYNE Nurse/[place]. [facility] [place], [address] [place], [place], [id number], [place] tel:[phone] DEWAYNE Starford Endocrine disorder, unspecifiedTranssexualismEncounter for oth general cnsl and advice on contraception Debi Tolbert. [address] [place], [place], [id number], [place]. tel:[phone] Referring Provider: Didi Carrera, [address] [place], [place], [id number]. tel:[phone] Provider: DEWAYNE Nurse/[place]. [facility] [place], [address] [place], [place], [id number], [place] tel:[phone] DEWAYNE Jimenez TranssexualismEncou nter for oth general cnsl and advice on contraceptionHuman immunodeficiency virus [HIV] counseling Debi Tolbert. [address] [place], [place], [id number], [place]. tel:[phone] Referring Provider: Didi Carrera, [address] [place], [place], [id number]. tel:[phone] [facility] [place], [address] [place], [place], [id number], [place] tel:[phone] DEWAYNE Starford Human immunodeficie ncy virus [HIV] counselingEncntr screen for infections w sexl mode of transmissEncounter for screening for human immunodeficiency virusHigh risk heterosexual behaviorEndocrine disorder, unspecifiedTranssexualismEncntr for manufacturing operations manager exam (general) (routine) w/o abn findings Carranza. [address] [place] [address], [id number], . tel:[phone] Referring Provider: Miley Fletcher, [address] [place] [address], [id number]. tel:[phone] Family History Family Member Diagnosis Age At [...] Information Payers Payer name Insurance type Covered democrat ID Authorization(s ) [facility] CI [id number] Social History Type Description Quantity Date Captured Comments Alcohol Use Details Unknown Caffeine Use Details Unknown Tobacco Use Status No Information Smoking Status Never smoker Sex Female Vital Signs Date / Time: Height Weight BMI Pulse Rate Blood Pressure Temperatu re Respiratory Rate Body Surface Area Head Circumference BMI percentile Pulse Ox In haled Ox 12:48 PM 66.00 in 219.00 lbs 35.35 kg/meter(2) 118/7 8 mm[Hg] Chief Complaint And Reason For Visit No Information Reason For Referral Reason For Referral No Information Plan Of Treatment Date Type Action Status Referral Ordered: Referrals: Other. Evaluate and treat Appointment date/timeframe: 2 Months ordered Referral Ordered: Referrals: Agri Business Agent. Evaluate and treat ordered Referral Referred To: [facility] Ordered: Referrals: Foot Miter Operator. [facility]. Evaluate and treat Appointment date/timeframe: 2 Months ordered Referral Ordered: Janet Mcmillan -[facility] : Family Medicine (related to Transsexualism) ordered Referral Referred To: Janet Mcmillan [address] [place] [address], [id number] [phone] Ordered: Referrals: [facility] Phys[facility] : Family Medicine. Janet Mcmillan ordered Appointment Thu Majano *LEEANNA* Nathaniel raines BOOKED Appointment Thu Majano BOOKED History Of Present Illness Encounter Date [...] Date No Information Medical Equipment Description Device [place] Device Identifier Effective Romero es (start - stop) Status No Information Mental Status Date Cognitive Assessment No Information Health Concerns Observation Date No Information Concern Status Date No Information Physical Examination Exam Findings Details No Information
--- OUTSIDE RECORDS SUMMARY | 2021-04-22 13:38 | CCD | Continuity of Care Document ---
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 Height/Weight CVR Director Of Medical Education.Svc. Other Results Test Name Date and Time Measure Units Reference Range Abnormal Flag St atus Comments No Information Advance Directives Directive Yes / No Effective Date File Name No Information Encounters Encounter Description Practice Location Reason(s) For Visit Diagnose s Date Provider Providers Copied on Encounter [facility], [address] [place] [address], [address] [place] [address], tel:[phone] DEWAYNE Borden GAHT (chief complaint) Endocrine disord er, unspecifiedGender identity disorder, unspecified Alex Salazar. [address] [place] [address], [address] [place] [address], [place]. tel:[phone] Referring Provider: Marie Grewal, [address] [place] [address], [id number]. tel:[phone] Provider: DEWAYNE Nurse/CA. [facility], [address] [place] [address], [id number], tel:[phone] DEWAYNE Borden Gender Identity Disorder Carmina Salazar. [address] [place] [address], [id number], . tel:[phone] Referring Provider: Marie Grewal, [address] [place] [address], [id number]. tel:[phone] Provider: DEWAYNE Nurse/CASocorro [facility], [address] [place] [address], [id number], tel:[phone] DEWAYNE Borden Gender Identity Disorder Jerelo Edwige Tolbert. [address] [place] [address], [id number], [place]. tel:[phone] Referring Provider: Edwige Beckham, [address] [place] [address], [id number]. tel:[phone] [facility], [address] [place] [address], [id number], [place] tel:[phone] DEWAYNE Borden Gender Identity Disorder Everette De. [address] [place] [address], [id number], [place]. tel:[phone] Referring Provider: Henrietta Gaviria, [address] [place] [address], [id number]. tel:[phone] Provider: DEWAYNE Nurse/CA. [facility], [address] [place] [address], [id number], tel:[phone] DEWAYNE Borden Endocrine disorder, unspec ified Chapincito Tolbert. [address] [place] [address], [id number], [place]. tel:[phone] Referring Provider: Edwige Beckham, [address] [place] [address], [id number]. tel:[phone] [facility], [address] [place] [address], [id number], [place] tel:[phone] DEWAYNE Borden Gender Identity Disorder Dwellraisa Tolbert. [address] [place] [address], [id number], [place]. tel:[phone] Referring Provider: Edwige Beckham, [address] [place] [address], [id number]. tel:[phone] [facility], [address] [place] [address], [id number], [place] tel:[phone] DWEAYNE Borden Gender identity disorder, unspecified Chapincito Tolbert. [address] [place] [address], [id number], [place]. tel:[phone] Referring Provider: Edwige Beckham, [address] [place] [address], [id number]. tel:[phone] Provider: DEWAYNE Nurse/CA. [facility] [place], [address], [place], [id number], [place] tel:[phone] DEWAYNE Borden Endocrine disorder, unspecifiedGender Identity Disorder Everette De. [address] [place], [place], [id number], [place]. tel:[phone] Referring Provider: Henrietta Gaviria, [address], [place], [id number]. tel:[phone] [facility] [place], [address] [place] [address], [id number], [place] tel:[phone] DEWAYNE Borden Gender Identity Disorder Everette De. [address] [place] [address], [id number], [place]. tel:[phone] Referring Provider: Henrietta Gaviria, [address] [place] [address], [id number]. tel:[phone] Provider: DEWAYNE Nurse/[place]. [facility] [place], [address], [place], [id number], [place] tel:[phone] YIFANWAALEXANDRA Borden Gender Identity Dis orderEndocrine disorder, unspecified Chapincito Tolbert. [address] [place], [place], [id number], [place]. tel:[phone] Referring Provider: Edwige Beckham, [address] [place] [address], [id number]. tel:[phone] [facility] [place], [address], [place], [id number], [place] tel:[phone] DEWAYNE Borden Gender identity disorder, unspecified Chapincito Tolbert. [address], [place], [id number], [place]. tel:[phone] Referring Provider: Edwige Beckham, [address] [place] [address], [id number]. tel:[phone] [facility], [address], [place], [id number], [place] tel:[phone] [facility] Gender Identity Disorder Everette De. [address] [place] [address], [id number], [place]. tel:[phone] Referring Provider: Henrietta Gaviria, [address] [place] [address], [id number]. tel:[phone] Provider: DEWAYNE Nurse/CA. [facility], [address], [place], [id number], [place] tel:[phone] YIFANWAALEXANDRA Borden Gender identity disorder, unspecified Everette De. [address] [place] [address], [id number], [place]. tel:[phone] Referring Provider: Henrietta Gaviria, [address] [place] [address], [id number]. tel:[phone] Provider: Provider Nurse. [facility], [address], [place], [id number], [place] tel:[phone] YIFANWAALEXANDRA Borden Gender Identity Dis orderEndocrine disorder, unspecified Chapincito Tolbert. [address], [place], [id number], [place]. tel:[phone] Referring Provider: Edwige Beckham, [address] [place] [address], [id number]. tel:[phone] Provider: DEWAYNE Nurse/CA. [facility], [address], [place], [id number], [place] tel:[phone] DEWAYNE Borden Gender Identity Disorder Chapincito Tolbert. [address], [place], [id number], [place]. tel:[phone] Referring Provider: Edwige Beltráno, [address] [place] [address], [id number]. tel:[phone] [facility] [place], [address], [place], [id number], [place] tel:[phone] DEWAYNE Borden Gender Identity Dis orderEndocrine disorder, unspecified Everette De. [address], [place], [id number], [place]. tel:[phone] Referring Provider: Henrietta Gaviria, [address], [place], [id number]. tel:[phone] [facility] [place], [address], [id number], [place] tel:[phone] DEWAYNE Borden Endocrine disorder, unspecifiedGender Identity Disorder Everette De. [address], [place], [id number], [place]. tel:[phone] Referring Provider: Henrietta Gaviria, [address], [place], [id number]. tel:[phone] Provider: DEWAYNE Nurse/CA. [facility] [place], [address], [place], [id number], [place] tel:[phone] DEWAYNE Borden Endocrine disorder, unspecifiedGender Identity Disorder Chapincito Tolbert. [address], [place], [id number], [place]. tel:[phone] Referring Provider: Edwige Beltráno, [address], [place], [id number]. tel:[phone] [facility] [place], [address] [place] [address], [id number], [place] tel:[phone] YIFANWAALEXANDRA Borden Gender Identity Disorder Carmina Salazar. [address] [place] [address], [id number], [place]. tel:[phone] Referring Provider: Marie Grewal, [address], [place], [id number]. tel:[phone] Provider: DEWAYNE Nurse/CA. [facility] [place], [address] [place] [address], [id number], [place] tel:[phone] YIFANWAALEXANDRA Borden Endocrine disorder, unspecifiedGender identity disorder, unspecified Everette De. [address] [place] [address], [id number], [place]. tel:[phone] Referring Provider: Henrietta Gaviria, [address] [place] [address], [id number]. tel:[phone] [facility] [place], [address] [place] [address], [id number], [place] tel:[phone] YIFANWAALEXANDRA Borden Human immunodeficie ncy virus [HIV] counselingOther sex counselingGender identity disorder, unspecified Chapincito Tolbert. [address] [place] [address], [id number], [place]. tel:[phone] Referring Provider: Edwige Beckham, [address] [place] [address], [id number]. tel:[phone] [facility] [place], [address] [place] [address], [id number], [place] tel:[phone] YIFANWAALEXANDRA Borden Gender Identity Disorder Everette De. [address] [place] [address], [id number], [place]. tel:[phone] Referring Provider: Henrietta Gaviria, [address] [place] [address], [id number]. tel:[phone] [facility], [address], [place], [id number], [place] tel:[phone] DEWAYNE Borden Endocrine disorder, unspecifiedGender Identity Disorder Carmina Salazar. [address] [place], [place], [id number], [place]. tel:[phone] Referring Provider: Marie Grewal, [address] [place] [address], [id number]. tel:[phone] [facility], [address], [place], [id number], [place] tel:[phone] DEWAYNE Borden Gender Identity Dis orderEndocrine disorder, unspecified Carmina Salazar. [address] [place], [place], [id number], [place]. tel:[phone] Referring Provider: Marie Grewal, [address] [place] [address], [id number]. tel:[phone] Provider: DEWAYNE Nurse/CA. [facility], [address], [place], [id number], [place] tel:[phone] DEWAYNE Borden Gender Identity Dis orderEndocrine disorder, unspecified Carmina Salazar. [address] [place], [id number], [place]. tel:[phone] Referring Provider: Marie Grewal, [address] [place] [address], [id number]. tel:[phone] [facility], [address], [place], [id number], [place] tel:[phone] DEWAYNE Borden Endocrine disorder, unspecifiedGender Identity Disorder Carmina Salazar. [address] [place], [place], [id number], [place]. tel:[phone] Referring Provider: Marie Grewal, [address], [place], [id number]. tel:[phone] Provider: DEWAYNE Nurse/CA. [facility], [address], [place], [id number], [place] tel:[phone] YIFANWAALEXANDRA Borden Endocrine disorder, unspecifiedGender Identity Disorder Everette De. [address], [place], [id number], [place]. tel:[phone] Referring Provider: Henrietta Gaviria, [address], [place], [id number]. tel:[phone] Provider: DEWAYNE Nurse/CA. [facility], [address], [place], [id number], [place] tel:[phone] DEWAYNE Borden Gender identity disorder, unspecified Everette De. [address] [place], [place], [id number], [place]. tel:[phone] Referring Provider: Henrietta Gaviria, [address], [place], [id number]. tel:[phone] [facility], [address], [place], [id number], [place] tel:[phone] YIFANWAALEXANDRA Borden Gender identity disorder, unspecified Everette De. [address] [place], [place], [id number], [place]. tel:[phone] Referring Provider: Henrietta Gaviria, [address], [place], [id number]. tel:[phone] Provider: DEWAYNE Nurse/CA. [facility], [address], [place], [id number], [place] tel:[phone] DEWAYNE Borden Endocrine disorder, unspecifiedGender Identity Disorder Chapincito Tolbert. [address], [place], [id number], [place]. tel:[phone] Referring Provider: Edwige Beltrán, [address] [place] [address], [id number]. tel:[phone] Provider: DEWAYNE Nurse/CA. [facility] [place], [address] [place] [address], [id number], [place] tel:[phone] DEWAYNE Borden Gender identity disorder, unspecified Chapincito Tolbert. [address], [place], [id number], [place]. tel:[phone] Referring Provider: Edwige Beckham, [address] [place] [address], [id number]. tel:[phone] [facility], [address] [place] [address], [id number], [place] tel:[phone] DEWAYNE Borden Endocrine disorder, unspecifiedGender Identity Disorder Everette De. [address], [place], [id number], [place]. tel:[phone] Referring Provider: Henrietta Gaviria, [address], [place], [id number]. tel:[phone] Provider: DEWAYNE Nurse/CA. [facility], [address] [place] [address], [id number], [place] tel:[phone] DEWAYNE Borden Gender Identity Dis orderEndocrine disorder, unspecified Carmina Salazar. [address] [place], [place], [id number], [place]. tel:[phone] Referring Provider: Marie Grewal, [address] [place] [address], [id number]. tel:[phone] Provider: DEWAYNE Nurse/CA. [facility], [address] [place] [address], [id number], tel:[phone] YIFANWAALEXANDRA Borden Endocrine disorder, unspecifiedGender Identity Disorder Carmina Salazar. [address] [place], [place], [id number], [place]. tel:[phone] Referring Provider: Marie Grewal, [address], [place], [id number]. tel:[phone] Provider: DEWAYNE Nurse/CA. [facility], [address], [place], [id number], [place] tel:[phone] DEWAYNE Borden Endocrine disorder, unspecifiedGender Identity Disorder Everette De. [address] [place] [address], [id number], [place]. tel:[phone] Referring Provider: Henrietta Gaviria, [address] [place] [address], [id number]. tel:[phone] [facility], [address], [place], [id number], [place] tel:[phone] DEWAYNE Borden Endocrine disorder, unspecifiedGender identity disorder, unspecified Carmina Salazar. [address] [place] [address], [id number], [place]. tel:[phone] Referring Provider: Marie Grewal, [address] [place] [address], [id number]. tel:[phone] Provider: Provider Nurse. [facility] [place], [address], [place], [id number], [place] tel:[phone] DEWAYNE Borden Endocrine disorder, unspecifiedGender Identity Disorder Everette De. [address], [place], [id number], [place]. tel:[phone] Referring Provider: Henrietta Gaviria, [address] [place] [address], [id number]. tel:[phone] [facility], [address], [place], [id number], [place] tel:[phone] YIFANWAALEXANDRA Borden Endocrine disorder, unspecifiedGender Identity Disorder Carmina Salazar. [address] [place], [place], [id number], [place]. tel:[phone] Referring Provider: Marie Grewal, [address] [place] [address], [id number]. tel:[phone] Provider: DEWAYNE Nurse/CA. [facility], [address], [place], [id number], [place] tel:[phone] DEWAYNE Borden Endocrine disorder, unspecifiedGender Identity Disorder Carmina Salazar. [address] [place], [place], [id number], [place]. tel:[phone] Referring Provider: Marie Grewal, [address] [place] [address], [id number]. tel:[phone] Provider: DEWAYNE Nurse/CA. [facility], [address], [place], [id number], [place] tel:[phone] DEWAYNE Borden Endocrine disorder, unspecifiedGender Identity Disorder Carmina Salazar. [address] [place], [place], [id number], [place]. tel:[phone] Referring Provider: Marie Grewal, [address] [place] [address], [id number]. tel:[phone] Provider: Provider Nurse. [facility], [address], [place], [id number], [place] tel:[phone] PPNCNY Borden Endocrine disorder, unspecifiedGender Identity Disorder Carmina Salazar. [address] [place], [place], [id number], [place]. tel:[phone] Referring Provider: Marie Grewal, [address], [place], [id number]. tel:[phone] Provider: DEWAYNE Nurse/CA. [facility] [place], [address], [place], [id number], [place] tel:[phone] YIFANNCALEXANDRA Borden Endocrine disorder, unspecifiedGender Identity Disorder Melissa Lazo. [address] [place] [address], [id number], [place]. tel:[phone] Referring Provider: Violet Torres, [address], [place], [id number]. tel:[phone] [facility] [place], [address], [place], [id number], [place] tel:[phone] PPNCNY Borden Endocrine disorder, unspecifiedGender Identity Disorder Adriel Luna. [address] [place] [address], [id number], [place]. tel:[phone] Referring Provider: Cheryl Morel, [address] [place] [address], [id number]. tel:[phone] Provider: DEWAYNE Nurse/CA. [facility] [place], [address], [place], [id number], [place] tel:[phone] PPNCALEXANDRA Borden Endocrine disorder, unspecifiedGender Identity Disorder Everette De. [address], [place], [id number], [place]. tel:[phone] Referring Provider: Henrietta Gaviria, [address], [place], [id number]. tel:[phone] Provider: DEWAYNE Nurse/CA. [facility], [address] [place] [address], [id number], tel:[phone] DEWAYNE Borden Endocrine disorder, unspecifiedGender Identity Disorder Peewee Lux. [address] [place] [address], [address] [place] [address], . tel:[phone] Referring Provider: Maci Vides, [address], [place], [id number]. tel:[phone] Provider: DEWAYNE Nurse/CA. [facility], [address] [place] [address], [address] [place] [address], tel:[phone] DEWAYNE Borden Endocrine disorder, unspec ified Peewee Lux. [address] [place] [address], [address] [place] [address], . tel:[phone] Referring Provider: Maci Vides, [address], [place], [id number]. tel:[phone] [facility], [address] [place] [address], [address] [place] [address], tel:[phone] DEWAYNE Borden Gender Identity Dis orderEndocrine disorder, unspecified Melissa Lazo. [address] [place] [address], [address] [place] [address], [place]. tel:[phone] Referring Provider: Violet Torres, [address], [place], [id number]. tel:[phone] Provider: DEWAYNE Nurse/CA. [facility], [address] [place] [address], [address] [place] [address], tel:[phone] DEWAYNE Borden Gender Identity Disorder Melissa Lazo. [address] [place] [address], [address] [place] [address], . tel:[phone] Referring Provider: Violet Gustafsonross, [address] [place] [address], [id number]. tel:[phone] Provider: DEWAYNE Nurse/CA. [facility], [address] [place] [address], [id number], [place] tel:[phone] DEWAYNE Hernandez Gender identity dis order, unspecifiedObesity, unspecifiedInappropriate diet and eating habits Melissa Violet. [address] [place] [address], [id number], [place]. tel:[phone] Referring Provider: Violet Torres, [address] [place] [address], [id number]. tel:[phone] [facility], [address] [place] [address], [id number], [place] tel:[phone] DEWAYNE Borden Gender identity disorder, unspecified Peewee Lux. [address] [place] [address], [id number], [place]. tel:[phone] Referring Provider: Maci Vides, [address] [place] [address], [id number]. tel:[phone] [facility], [address] [place] [address], [id number], [place] tel:[phone] DEWAYNE Borden Gender Identity Dis orderEndocrine disorder, unspecified eMlissa Violet. [address] [place] [address], [id number], [place]. tel:[phone] Referring Provider: Violet Jcangelaemilee, [address] [place] [address], [id number]. tel:[phone] Provider: DEWAYNE Nurse/CA. [facility], [address] [place] [address], [id number], [place] tel:[phone] DEWAYNE Borden Gender identity disorder, unspecified Melissa Violet. [address] [place], [place], [id number], [place]. tel:[phone] Referring Provider: Violet Torres, [address], [place], [id number]. tel:[phone] [facility] [place], [address], [place], [id number], [place] tel:[phone] PPWANY Borden Gender Identity Disorder Peewee Lux. [address], [place], [id number], [place]. tel:[phone] Referring Provider: Maci Vides, [address], [place], [id number]. tel:[phone] [facility] [place], [address], [place], [id number], [place] tel:[phone] PPWAALEXANDRA Borden Endocrine disorder, unspecifiedGender Identity Disorder Debi Tolbert. [address], [place], [id number], [place]. tel:[phone] Referring Provider: Didi Carrera, [address] [place], [place], [id number]. tel:[phone] [facility] [place], [address], [place], [id number], [place] tel:[phone] PPWAALEXANDRA Borden Gender identity disorder, unspecified Debi Tolbert. [address] [facility], [id number], [place]. tel:[phone] Referring Provider: Didi Carrera, [address] [place], [place], [id number]. tel:[phone] [facility] [place], [address], [place], [id number], [place] tel:[phone] PPNCNY Borden Endocrine disorder, unspecifiedGender Identity Disorder Carmina Salazar. [address] [place], [place], [id number], [place]. tel:[phone] Referring Provider: Marie Grewal, [address] [place] [address], [id number]. tel:[phone] Provider: DEWAYNE Nurse/CA. [facility], [address], [place], [id number], [place] tel:[phone] DEWAYNE Borden Gender Identity Dis orderEndocrine disorder, unspecified Debi Tolbert. [address], [place], [id number], [place]. tel:[phone] Referring Provider: Didi Carrera, [address] [place] [address], [id number]. tel:[phone] Provider: DEWAYNE Nurse/CA. [facility], [address], [place], [id number], [place] tel:[phone] DEWAYNE Borden Endocrine disorder, unspecifiedGender Identity Disorder Carmina Salazar. [address] [place], [place], [id number], [place]. tel:[phone] Referring Provider: Marie Grewal, [address] [place], [place], [id number]. tel:[phone] [facility], [address], [place], [id number], [place] tel:[phone] YIFANWAALEXANDRA Borden Gender identity disorder, unspecified Carmina Salazar. [address] [place] [address], [id number], [place]. tel:[phone] Referring Provider: Marie Grewal, [address] [place] [address], [id number]. tel:[phone] Provider: DEWAYNE Nurse/CA. [facility], [address], [place], [id number], [place] tel:[phone] PPNCNY Borden Encounter for surve illance of injectable contraceptiveGender Identity Disorder Carmina Salazar. [address] [place] [address], [id number], [place]. tel:[phone] Referring Provider: Marie Grewal, [address] [place] [address], [id number]. tel:[phone] [facility] [place], [address] [place] [address], [id number], [place] tel:[phone] PPNCNY Borden Gender Identity Disorder Carmina Salazar. [address] [place] [address], [id number], [place]. tel:[phone] Referring Provider: Marie Grewal, [address] [place] [address], [id number]. tel:[phone] [facility] [facility], [address] [place] [address], [id number], [place] tel:[phone] PPCAMILLENY Tony Gender Identity Dis orderEncounter for oth general cnsl and advice on contraception Debi garcia. [address] [place] [address], [id number], [place]. tel:[phone] Referring Provider: Didi Carrera, [address] [place] [address], [id number]. tel:[phone] [facility] [place], [address] [place] [address], [id number], [place] tel:[phone] PPOJ Borden Endocrine disorder, unspecifiedGender Identity DisorderOther sex counselingEncounter for oth general cnsl and advice on contraception Carmina Salazar. [address] [place] [address], [id number], [place]. tel:[phone] Referring Provider: Marie Grewal, [address] [place] [address], [id number]. tel:[phone] [facility] [place], [address] [place] [address], [id number], [place] tel:[phone] DEWAYNE Borden Gender Identity Dis orderEndocrine disorder, unspecifiedOther sex counselingEncounter for oth general cnsl and advice on contraception Peewee Lux. [address] [place] [address], [id number], . tel:[phone] Referring Provider: Maci Vides, [address] [place] [address], [id number]. tel:[phone] Provider: DEWAYNE Nurse/CA. [facility], [address] [place] [address], [id number], tel:[phone] DEWAYNE Borden Gender Identity Dis orderEndocrine disorder, unspecifiedOther sex counselingEncounter for oth general cnsl and advice on contraception Carmina Salazar. [address] [place] [address], [id number], [place]. tel:[phone] Referring Provider: Marie Grewal, [address] [place] [address], [id number]. tel:[phone] [facility], [address] [place] [address], [id number], [place] tel:[phone] DEWAYNE Borden Gender Identity Disorder Carmina Salazar. [address] [place] [address], [id number], [place]. tel:[phone] Referring Provider: Marie Grewal, [address] [place] [address], [id number]. tel:[phone] Provider: DEWAYNE Nurse/CA. [facility], [address] [place] [address], [id number], [place] tel:[phone] DEWAYNE Borden Endocrine disorder, unspecifiedGender Identity Disorder Peewee Lux. [address] [place] [address], [id number], [place]. tel:[phone] Referring Provider: Maci Vides, [address] [place], [place], [id number]. tel:[phone] [facility], [address] [place] [address], [id number], [place] tel:[phone] DEWAYNE Borden Gender identity dis order, unspecifiedGender Identity DisorderEndocrine disorder, unspecified Carmina Salazar. [address] [place] [address], [id number], [place]. tel:[phone] Referring Provider: Marie Grewal, [address] [place] [address], [id number]. tel:[phone] Provider: DEWAYNE Nurse/CA. [facility], [address] [place] [address], [id number], [place] tel:[phone] DEWAYNE Borden Gender Identity Disorder Carmina Salazar. [address] [place] [address], [id number], [place]. tel:[phone] Referring Provider: Marie Grewal, [address] [place] [address], [id number]. tel:[phone] [facility], [address] [place] [address], [id number], [place] tel:[phone] DEWAYNE Jimenez Gender Identity Disorder Chastity Adriel Luna. [address] [place] [address], [id number], [place]. tel:[phone] Referring Provider: Cheryl Morel, [address] [place] [address], [id number]. tel:[phone] [facility], [address] [place] [address], [id number], [place] tel:[phone] DEWAYNE Borden Gender Identity Disorder Carmina Salazar. [address] [place] [address], [id number], [place]. tel:[phone] Referring Provider: Marie Grewal, [address] [place], [place], [id number]. tel:[phone] Provider: DEWAYNE Nurse/CA. [facility], [address] [place] [address], [id number], tel:[phone] DEWAYNE Borden Gender Identity Disorder Carmina Salazar. [address] [place] [address], [id number], [place]. tel:[phone] [facility], [address] [place] [address], [id number], tel:[phone] DEWAYNE Jimenez Gender Identity Dis orderEncounter for oth general cnsl and advice on contraception Adriel Luna. [address] [place] [address], [id number], . tel:[phone] Referring Provider: Cheryl Morel, [address] [place] [address], [id number]. tel:[phone] [facility], [address] [place] [address], [id number], [place] tel:[phone] DEWAYNE Borden Gender Identity Dis orderEndocrine disorder, unspecified Peewee Lux. [address] [place] [address], [id number], . tel:[phone] Referring Provider: Maci Vdies, [address], [place], [id number]. tel:[phone] Provider: DEWAYNE Nurse/CA. [facility], [address] [place] [address], [id number], [place] tel:[phone] DEWAYNE Borden Encounter for surve illance of injectable contraceptiveTranssexualismEndocrine disorder, unspecified Peewee Lux. [address] [place] [address], [id number], [place]. tel:[phone] Referring Provider: Maci Vides, [address] [place] [address], [id number]. tel:[phone] Provider: DEWAYNE Nurse/CA. [facility] [place], [address] [place] [address], [id number], [place] tel:[phone] DEWAYNE Jimenez Encounter for surve illance of injectable contraceptiveEncounter for oth general cnsl and advice on contraception Debi Tolbert. [address] [place] [address], [id number], [place]. tel:[phone] Referring Provider: Didi Carrera, [address] [place] [address], [id number]. tel:[phone] [facility] [place], [address] [place] [address], [id number], [place] tel:[phone] DEWAYNE Borden Endocrine disorder, unspecifiedTranssexualism Debi Tolbert. [address] [place] [address], [id number], [place]. tel:[phone] Referring Provider: Didi Carrera, [address] [place] [address], [id number]. tel:[phone] Provider: DEWAYNE Nurse/CA. [facility] [place], [address] [place], [place], [id number], [place] tel:[phone] DEWAYNE Borden TranssexualismEndoc rine disorder, unspecified Debi Tolbert. [address] [place] [address], [id number], [place]. tel:[phone] Referring Provider: Didi Carrera, [address] [place] [address], [id number]. tel:[phone] Provider: DEWAYNE Nurse/CA. [facility] [place], [address] [place] [address], [id number], [place] tel:[phone] DEWAYNE Borden Endocrine disorder, unspecifiedTranssexualismEncounter for oth general cnsl and advice on contraception Debi Tolbert. [address] [place] [address], [id number], . tel:[phone] Referring Provider: Didi Carrera, [address] [place] [address], [id number]. tel:[phone] Provider: DEWAYNE Nurse/CA. [facility], [address] [place] [address], [id number], tel:[phone] DEWAYNE Jimenez TranssexualismEncou nter for oth general cnsl and advice on contraceptionHuman immunodeficiency virus [HIV] counseling Debi [place]bert. [address] [place] [address], [address] [place] [address], . tel:[phone] Referring Provider: Didi Carrera, [address] [place] [address], [id number]. tel:[phone] [facility], [address] [place] [address], [id number], tel:[phone] DEWAYNE Borden Human immunodeficie ncy virus [HIV] counselingEncntr screen for infections w sexl mode of transmissEncounter for screening for human immunodeficiency virusHigh risk heterosexual behaviorEndocrine disorder, unspecifiedTranssexualismEncntr for turning sander tender exam (general) (routine) w/o abn findings Carranza. [address] [place] [address], [id number], . tel:[phone] Referring Provider: Miley Fletcher, [address] [place] [address], [id number]. tel:[phone] Family History Family Member Diagnosis Age At [...] Information Payers Payer name Insurance type Covered republican ID Authorization(s ) [facility] CI [id number] Social History Type Description Quantity Date Captured Comments Alcohol Use Details Unknown Caffeine Use Details Unknown Tobacco Use Status No Information Smoking Status Never smoker Sex Female Vital Signs Date / Time: Height Weight BMI Pulse Rate Blood Pressure Temperatu re Respiratory Rate Body Surface Area Head Circumference BMI percentile Pulse Ox In haled Ox 12:55 PM 66.00 in 218.00 lbs 35.19 kg/meter(2) 120/8 4 mm[Hg] Chief Complaint And Reason For Visit Most recent encounter only, dated '03/17/2021 11:20'. GAHT (chief complaint) Reason For Referral Reason For Referral No Information Plan Of Treatment Date Type Action Status Referral Ordered: Referrals: Other. Evaluate and treat Appointment date/timeframe: 2 Months ordered Referral Ordered: Referrals: [employer]. Evaluate and treat ordered Referral Referred To: [facility] Ordered: Referrals: Nuclear Monitoring Technician. [facility]. Evaluate and treat Appointment date/timeframe: 2 Months ordered Referral Ordered: Janet Mcmillan -[facility] : Family Medicine (related to Transsexualism) ordered Referral Referred To: Janet Mcmillan [address] [place], [place], [id number] Ordered: Referrals: [facility] Phys[facility] : Family Medicine. Janet Mcmillan ordered Appointment Thu Majano LEEANNA BOOK ED Appointment Thu Majano BOOKED History Of Present [...] Date No Information Medical Equipment Description Device [place] Device Identifier Effective Romero es (start - stop) Status No Information Mental Status Date Cognitive Assessment No Information Health Concerns Observation Date No Information Concern Status Date No Information Physical Examination Exam Findings Details No Information
--- OUTSIDE RECORDS SUMMARY | 2021-04-22 13:38 | CCD | Continuity of Care Document ---
Author Author [facility] Organization [facility] Address Unknown Phone Unavailable Care Team Providers Care Outside Sales Representative Name Role Phone Dwello DENAE, Edwige Tolbert Unavailable Unavailable Allergies, Adverse Reactions, Alerts Substance [...] MD 0.4 5 mL weekly Code F citalopram 20 mg tablet take 1 tablet by oral route every day 20 MG - Active Problems Condition Effective Dates (start - stop) Clinical Status C omments Gender identity disorder, unspecified Gender Identity Disorder [...] behavior Endocrine disorder, unspecified Transsexualism 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 Height/Weight CVR Managing Supervisor.Svc. Contraceptive CVR Managing Supervisor.Svc. Other Results Test Name Date and Time Measure Units Reference Range Abnormal Flag St atus Comments No Information Advance Directives Directive Yes / No Effective Date File Name No Information Encounters Encounter Description Practice Location Reason(s) For Visit Diagnose s Date Provider Providers Copied on Encounter [facility], [address] [place] [address], [id number], tel:[phone] DEWAYNE Onley Gender identity disorder, unspecified Chapincito Tolbert. [address] [place] [address], [id number], . tel:[phone] Referring Provider: Edwige Beckham, [address] [place] [address], [id number]. tel:[phone] [facility], [address] [place] [address], [id number], tel:[phone] DEWAYNE Onley Gender Identity Disorder Carmina Salazar. [address] [place] [address], [id number], . tel:[phone] Referring Provider: Marie Grewal, [address] [place] [address], [id number]. tel:[phone] Provider: DEWAYNE Nurse/CA. [facility], [address] [place] [address], [id number], tel:[phone] DEWAYNE Onley Endocrine disorder, unspecifiedGender identity disorder, unspecified Carmina Salazar. [address] [place] [address], [id number], [place]. tel:[phone] Referring Provider: Mraie Grewal, [address] [place] [address], [id number]. tel:[phone] Provider: DEWAYNE Nurse/CA. [facility], [address] [place] [address], [id number], [place] tel:[phone] DEWAYNE Onley Gender Identity Disorder Carmina Salazar. [address] [place] [address], [id number], [place]. tel:[phone] Referring Provider: Marie Grewal, [address] [place] [address], [id number]. tel:[phone] Provider: DEWAYNE Nurse/CA. [facility], [address] [place] [address], [id number], [place] tel:[phone] DEWAYNE Onley Gender Identity Disorder Chapincito Tolbert. [address] [place] [address], [id number], [place]. tel:[phone] Referring Provider: Edwige Beckham, [address] [place] [address], [id number]. tel:[phone] [facility], [address] [place] [address], [id number], [place] tel:[phone] DEWAYNE Onley Gender Identity Disorder Everette De. [address] [place] [address], [id number], [place]. tel:[phone] Referring Provider: Henrietta Gaviria, [address] [place] [address], [id number]. tel:[phone] Provider: DEWAYNE Nurse/CA. [facility], [address] [place] [address], [id number], [place] tel:[phone] DEWAYNE Onley Endocrine disorder, unspec ified Chapincito Mackeya Didi. [address], [place], [id number], [place]. tel:[phone] Referring Provider: Edwige Beckham, [address] [place] [address], [id number]. tel:[phone] [facility] [place], [address] [place] [address], [id number], [place] tel:[phone] DEWAYNE Onley Gender Identity Disorder Chapincito Mackeyladonna LayDidi. [address] [place] [address], [id number], [place]. tel:[phone] Referring Provider: Edwige Beckham, [address] [place] [address], [id number]. tel:[phone] [facility] [place], [address] [place] [address], [id number], [place] tel:[phone] DEWAYNE Onley Gender identity disorder, unspecified Chapincito Edwige Layley. [address], [place], [id number], [place]. tel:[phone] Referring Provider: Edwige Beckham, [address] [place] [address], [id number]. tel:[phone] Provider: DEWAYNE Nurse/CA. [facility] [place], [address] [place] [address], [id number], [place] tel:[phone] DEWAYNE Onley Endocrine disorder, unspecifiedGender Identity Disorder Everette De. [address], [place], [id number], [place]. tel:[phone] Referring Provider: Henrietta Gaviria, [address] [place] [address], [id number]. tel:[phone] [facility] [place], [address] [place] [address], [id number], [place] tel:[phone] [facility] Gender Identity Disorder Everette De. [address] [place] [address], [id number], . tel:[phone] Referring Provider: Henrietta Gaviria, [address] [place] [address], [id number]. tel:[phone] Provider: DEWAYNE Nurse/CA. [facility], [address] [place] [address], [id number], tel:[phone] [facility] Gender Identity Dis orderEndocrine disorder, unspecified Chapincito Tolbert. [address] [place] [address], [id number], . tel:[phone] Referring Provider: Edwige Beckham, [address] [place] [address], [id number]. tel:[phone] [facility], [address] [place] [address], [id number], [place] tel:[phone] [facility] Gender identity disorder, unspecified Chapincito Tolbert. [address] [place] [address], [id number], . tel:[phone] Referring Provider: Edwige Beckham, [address] [place] [address], [id number]. tel:[phone] [facility], [address] [place] [address], [address] [place] [address], [place] tel:[phone] [facility] Gender Identity Disorder Everette De. [address] [place] [address], [id number], [place]. tel:[phone] Referring Provider: Henrietta Gaviria, [address] [place] [address], [id number]. tel:[phone] Provider: DEWAYNE Nurse/CA. [facility], [address] [place] [address], [id number], [place] tel:[phone] DEWAYNE Onley Gender identity disorder, unspecified Everette De. [address], [place], [id number], [place]. tel:[phone] Referring Provider: Henrietta Gaviria, [address], [place], [id number]. tel:[phone] Provider: Provider Nurse. [facility], [address], [place], [id number], [place] tel:[phone] DEWAYNE Onley Gender Identity Dis orderEndocrine disorder, unspecified Dwellraisa Tolbert. [address] [place] [address], [id number], [place]. tel:[phone] Referring Provider: Edwige Beltrán, [address] [place] [address], [id number]. tel:[phone] Provider: DEWAYNE Nurse/CA. [facility], [address] [place] [address], [id number], [place] tel:[phone] DEWAYNE Onley Gender Identity Disorder Chapincito Tolbert. [address] [place] [address], [id number], [place]. tel:[phone] Referring Provider: Edwige Beckham, [address] [place] [address], [id number]. tel:[phone] [facility], [address] [place] [address], [id number], [place] tel:[phone] DEWAYNE Onley Gender Identity Dis orderEndocrine disorder, unspecified Everette De. [address], [place], [id number], [place]. tel:[phone] Referring Provider: Henrietta Gaviria, [address], [place], [id number]. tel:[phone] [facility] [place], [address] [place] [address], [id number], [place] tel:[phone] YIFANMTALEXANDRA Onley Endocrine disorder, unspecifiedGender Identity Disorder Everette De. [address], [place], [id number], [place]. tel:[phone] Referring Provider: Henrietta Gaviria, [address] [place] [address], [id number]. tel:[phone] Provider: DEWAYNE Nurse/[place]. [facility] [place], [address] [place] [address], [id number], [place] tel:[phone] DEWAYNE Onley Endocrine disorder, unspecifiedGender Identity Disorder Chapincito Tolbert. [address] [place] [address], [id number], [place]. tel:[phone] Referring Provider: Edwige Beckham, [address] [place] [address], [id number]. tel:[phone] [facility] [place], [address] [place] [address], [id number], [place] tel:[phone] DEWAYNE Onley Gender Identity Disorder Carmina Salazar. [address] [place] [address], [id number], [place]. tel:[phone] Referring Provider: Marie Grewal, [address], [place], [id number]. tel:[phone] Provider: DEWAYNE Nurse/[place]. [facility] [place], [address] [place] [address], [id number], [place] tel:[phone] DEWAYNE Onley Endocrine disorder, unspecifiedGender identity disorder, unspecified Everette De. [address] [place] [address], [id number], [place]. tel:[phone] Referring Provider: Henrietta Gaviria, [address] [place] [address], [id number]. tel:[phone] [facility], [address] [place] [address], [id number], [place] tel:[phone] [facility] Human immunodeficie ncy virus [HIV] counselingOther sex counselingGender identity disorder, unspecified Chapincito Tolbert. [address] [place] [address], [id number], [place]. tel:[phone] Referring Provider: Edwige Beckham, [address] [place] [address], [id number]. tel:[phone] [facility], [address] [place] [address], [id number], [place] tel:[phone] YIFANMTALEXANDRA Onley Gender Identity Disorder Everette De. [address] [place] [address], [id number], [place]. tel:[phone] Referring Provider: Henrietta Gaviria, [address] [place] [address], [id number]. tel:[phone] [facility], [address] [place] [address], [id number], [place] tel:[phone] [facility] Endocrine disorder, unspecifiedGender Identity Disorder Carmina Salazar. [address], [place], [id number], [place]. tel:[phone] Referring Provider: Marie Grewal, [address], [place], [id number]. tel:[phone] [facility], [address] [place] [address], [id number], [place] tel:[phone] DEWAYNE Onley Gender Identity Dis orderEndocrine disorder, unspecified Carmina Salazar. [address], [place], [id number], [place]. tel:[phone] Referring Provider: Marie Grewal, [address] [place] [address], [id number]. tel:[phone] Provider: DEWAYNE Nurse/CA. [facility], [address] [place] [address], [id number], [place] tel:[phone] DEWAYNE Onley Gender Identity Dis orderEndocrine disorder, unspecified Carmina Salazar. [address], [place], [id number], [place]. tel:[phone] Referring Provider: Marie Grewal, [address] [place] [address], [id number]. tel:[phone] [facility], [address] [place] [address], [id number], [place] tel:[phone] YIFANMTALEXANDRA Onley Endocrine disorder, unspecifiedGender Identity Disorder Carmina Salazar. [address], [place], [id number], [place]. tel:[phone] Referring Provider: Marie Grewal, [address], [place], [id number]. tel:[phone] Provider: DEWAYNE Nurse/CA. [facility], [address], [place], [id number], [place] tel:[phone] DEWAYNE Onley Endocrine disorder, unspecifiedGender Identity Disorder Everette De. [address], [place], [id number], [place]. tel:[phone] Referring Provider: Henrietta Gaviria, [address] [place] [address], [id number]. tel:[phone] Provider: DEWAYNE Nurse/CA. [facility], [address] [place] [address], [id number], [place] tel:[phone] DEWAYNE Onley Gender identity disorder, unspecified Everette De. [address], [place], [id number], [place]. tel:[phone] Referring Provider: Henrietta Gaviria, [address], [place], [id number]. tel:[phone] [facility], [address] [place] [address], [id number], [place] tel:[phone] DEWAYNE Onley Gender identity disorder, unspecified Everette De. [address], [place], [id number], [place]. tel:[phone] Referring Provider: Henrietta Gaviria, [address], [place], [id number]. tel:[phone] Provider: DEWAYNE Nurse/CA. [facility], [address], [place], [id number], [place] tel:[phone] DEWAYNE Onley Endocrine disorder, unspecifiedGender Identity Disorder Chapincito Tolbert. [address], [place], [id number], [place]. tel:[phone] Referring Provider: Edwige Beckham, [address] [place] [address], [id number]. tel:[phone] Provider: DEWAYNE Nurse/CA. [facility], [address] [place] [address], [id number], [place] tel:[phone] DEWAYNE Onley Gender identity disorder, unspecified Chapincito Tolbert. [address], [place], [id number], [place]. tel:[phone] Referring Provider: Edwige Beckham, [address] [place], [place], [id number]. tel:[phone] [facility] [place], [address], [place], [id number], [place] tel:[phone] DEWAYNE Onley Endocrine disorder, unspecifiedGender Identity Disorder Everette De. [address], [place], [id number], [place]. tel:[phone] Referring Provider: Henrietta Gaviria, [address] [place] [address], [id number]. tel:[phone] Provider: DEWAYNE Nurse/[place]. [facility] [place], [address], [place], [id number], [place] tel:[phone] DEWAYNE Onley Gender Identity Dis orderEndocrine disorder, unspecified Carmina Salazar. [address] [place] [address], [id number], [place]. tel:[phone] Referring Provider: Marie Grewal, [address] [place] [address], [id number]. tel:[phone] Provider: DEWAYNE Nurse/[place]. [facility] [place], [address], [place], [id number], [place] tel:[phone] DEWAYNE Onley Endocrine disorder, unspecifiedGender Identity Disorder Carmina Salazar. [address], [place], [id number], [place]. tel:[phone] Referring Provider: Marie Grewal, [address], [place], [id number]. tel:[phone] Provider: DEWAYNE Nurse/CA. [facility] [place], [address], [place], [id number], [place] tel:[phone] DEWAYNE Onley Endocrine disorder, unspecifiedGender Identity Disorder Everette De. [address], [place], [id number], [place]. tel:[phone] Referring Provider: Henrietta Gaviria, [address], [place], [id number]. tel:[phone] [facility] [place], [address], [place], [id number], [place] tel:[phone] PPNCNY Onley Endocrine disorder, unspecifiedGender identity disorder, unspecified Carmina Salazar. [address], [place], [id number], [place]. tel:[phone] Referring Provider: Marie Grewal, [address] [place] [address], [id number]. tel:[phone] Provider: Provider Nurse. [facility] [place], [address], [place], [id number], [place] tel:[phone] DEWAYNE Onley Endocrine disorder, unspecifiedGender Identity Disorder Everette De. [address], [place], [id number], [place]. tel:[phone] Referring Provider: Henrietta Gaviria, [address], [place], [id number]. tel:[phone] [facility] [place], [address], [id number], [place] tel:[phone] PPOJ Onley Endocrine disorder, unspecifiedGender Identity Disorder Carmina Salazar. [address], [place], [id number], [place]. tel:[phone] Referring Provider: Marie Grewal, [address], [place], [id number]. tel:[phone] Provider: DEWAYNE Nurse/[place]. [facility] [place], [address], [place], [id number], [place] tel:[phone] PP[facility]NY Onley Endocrine disorder, unspecifiedGender Identity Disorder Carmina Salazar. [address] [place] [address], [id number], [place]. tel:[phone] Referring Provider: Marie Grewal, [address] [place] [address], [id number]. tel:[phone] Provider: DEWAYNE Nurse/[place]. [facility] [place], [address], [place], [id number], [place] tel:[phone] PPNCALEXANDRA Onley Endocrine disorder, unspecifiedGender Identity Disorder Carmina Salazar. [address], [place], [id number], [place]. tel:[phone] Referring Provider: Marie Grewal, [address] [place] [address], [id number]. tel:[phone] Provider: Provider Nurse. [facility] [place], [address] [place] [address], [id number], [place] tel:[phone] PPNCALEXANDRA Onley Endocrine disorder, unspecifiedGender Identity Disorder Carmina Salazar. [address], [place], [id number], [place]. tel:[phone] Referring Provider: Marie Grewal, [address] [place] [address], [id number]. tel:[phone] Provider: DEWAYNE Nurse/CA. [facility] [place], [address] [place] [address], [id number], [place] tel:[phone] YIFANNCALEXANDRA Onley Endocrine disorder, unspecifiedGender Identity Disorder Melissa Lazo. [address] [place] [address], [id number], [place]. tel:[phone] Referring Provider: Violet Torres, [address], [place], [id number]. tel:[phone] [facility] [place], [address], [place], [id number], [place] tel:[phone] YIFANNCALEXANDRA Onley Endocrine disorder, unspecifiedGender Identity Disorder Adriel Ramirezh. [address], [place], [id number], [place]. tel:[phone] Referring Provider: Cheryl Morel, [address], [place], [id number]. tel:[phone] Provider: DEWAYNE Nurse/CA. [facility] [place], [address], [place], [id number], [place] tel:[phone] YIFANNCALEXANDRA Onley Endocrine disorder, unspecifiedGender Identity Disorder Everette De. [address], [place], [id number], [place]. tel:[phone] Referring Provider: Henrietta Gaviria, [address], [place], [id number]. tel:[phone] Provider: DEWAYNE Nurse/CA. [facility] [place], [address], [place], [id number], [place] tel:[phone] DEWAYNE Onley Endocrine disorder, unspecifiedGender Identity Disorder Peewee Lux. [address] [place] [address], [id number], [place]. tel:[phone] Referring Provider: Maci Vides, [address], [place], [id number]. tel:[phone] Provider: DEWAYNE Nurse/CA. [facility] [place], [address], [place], [id number], [place] tel:[phone] DEWAYNE Onley Endocrine disorder, unspec ified Peewee Lux. [address] [place] [address], [id number], [place]. tel:[phone] Referring Provider: Maci Vides, [address] [place] [address], [id number]. tel:[phone] [facility], [address] [place] [address], [id number], [place] tel:[phone] DEWAYNE Onley Gender Identity Dis orderEndocrine disorder, unspecified Tikiemilee Lazo. [address], [place], [id number], [place]. tel:[phone] Referring Provider: Violet Torres, [address] [place] [address], [id number]. tel:[phone] Provider: DEWAYNE Nurse/CA. [facility], [address] [place] [address], [id number], [place] tel:[phone] DEWAYNE Onley Gender Identity Disorder Melissa Violet. [address] [place] [address], [id number], [place]. tel:[phone] Referring Provider: Violet Torres, [address] [place] [address], [id number]. tel:[phone] Provider: DEWAYNE Nurse/CA. [facility], [address] [place] [address], [id number], [place] tel:[phone] DEWAYNE Hernandez Gender identity dis order, unspecifiedObesity, unspecifiedInappropriate diet and eating habits Melissa Violet. [address], [place], [id number], [place]. tel:[phone] Referring Provider: Violet Jcmeenakshiross, [address] [place] [address], [id number]. tel:[phone] [facility], [address] [place] [address], [id number], [place] tel:[phone] DEWAYNE Onley Gender identity disorder, unspecified Peewee Lux. [address] [place] [address], [id number], [place]. tel:[phone] Referring Provider: Maci Vides, [address] [place] [address], [id number]. tel:[phone] [facility], [address] [place] [address], [id number], [place] tel:[phone] DEWAYNE Onley Gender Identity Dis orderEndocrine disorder, unspecified Melissa Violet. [address] [place] [address], [id number], [place]. tel:[phone] Referring Provider: Violet Torres, [address] [place] [address], [id number]. tel:[phone] Provider: DEWAYNE Nurse/CA. [facility], [address] [place] [address], [id number], [place] tel:[phone] DEWAYNE Onley Gender identity disorder, unspecified Melissa Violet. [address] [place] [address], [id number], [place]. tel:[phone] Referring Provider: Violet Torres, [address] [place] [address], [id number]. tel:[phone] [facility], [address] [place] [address], [id number], [place] tel:[phone] DEWAYNE Onley Gender Identity Disorder Peewee Lux. [address] [place] [address], [id number], [place]. tel:[phone] Referring Provider: Maci Vides, [address] [place] [address], [id number]. tel:[phone] [facility], [address] [place] [address], [id number], [place] tel:[phone] DEWAYNE Onley Endocrine disorder, unspecifiedGender Identity Disorder Debi Tolbert. [address], [place], [id number], [place]. tel:[phone] Referring Provider: Didi Carrera, [address] [place], [place], [id number]. tel:[phone] [facility], [address], [place], [id number], [place] tel:[phone] DEWAYNE Onley Gender identity disorder, unspecified Debi Tolbert. [address] [facility], [id number], [place]. tel:[phone] Referring Provider: Didi Carrera, [address] [place] [address], [id number]. tel:[phone] [facility], [address], [place], [id number], [place] tel:[phone] DEWAYNE Onley Endocrine disorder, unspecifiedGender Identity Disorder Carmina Salazar. [address], [place], [id number], [place]. tel:[phone] Referring Provider: Marie Grewal, [address], [place], [id number]. tel:[phone] Provider: DEWAYNE Nurse/CA. [facility], [address], [place], [id number], [place] tel:[phone] DEWAYNE Onley Gender Identity Dis orderEndocrine disorder, unspecified Debi Tolbert. [address], [place], [id number], [place]. tel:[phone] Referring Provider: Didi Carrera, [address], [place], [id number]. tel:[phone] Provider: DEWAYNE Nurse/CA. [facility], [address], [place], [id number], [place] tel:[phone] DEWAYNE Onley Endocrine disorder, unspecifiedGender Identity Disorder Carmina Salazar. [address] [place] [address], [id number], [place]. tel:[phone] Referring Provider: Marie Grewal, [address] [place] [address], [id number]. tel:[phone] [facility] [place], [address] [place] [address], [id number], [place] tel:[phone] DEWAYNE Onley Gender identity disorder, unspecified Carmina Salazar. [address] [place] [address], [id number], [place]. tel:[phone] Referring Provider: Marie Grewal, [address] [place] [address], [id number]. tel:[phone] Provider: DEWAYNE Nurse/[place]. [facility] [place], [address] [place] [address], [id number], [place] tel:[phone] DEWAYNE Onley Encounter for surve illance of injectable contraceptiveGender Identity Disorder Carmina Salazar. [address] [place] [address], [id number], [place]. tel:[phone] Referring Provider: Marie Grewal, [address] [place] [address], [id number]. tel:[phone] [facility] [place], [address] [place] [address], [id number], [place] tel:[phone] DEWAYNE Onley Gender Identity Disorder Carmina Salazar. [address] [place] [address], [id number], [place]. tel:[phone] Referring Provider: Marie Grewal, [address] [place] [address], [id number]. tel:[phone] [facility] [place], [address], [place], [id number], [place] tel:[phone] DEWAYNE Jimenez Gender Identity Dis orderEncounter for oth general cnsl and advice on contraception Debi garcia. [address], [place], [id number], [place]. tel:[phone] Referring Provider: Didi Carrera, [address], [place], [id number]. tel:[phone] [facility], [address], [place], [id number], [place] tel:[phone] DEWAYNE Onley Endocrine disorder, unspecifiedGender Identity DisorderOther sex counselingEncounter for oth general cnsl and advice on contraception Carmina Salazar. [address] [place], [place], [id number], [place]. tel:[phone] Referring Provider: Marie Grewal, [address] [place], [place], [id number]. tel:[phone] [facility], [address] [place] [address], [id number], [place] tel:[phone] DEWAYNE Onley Gender Identity Dis orderEndocrine disorder, unspecifiedOther sex counselingEncounter for oth general cnsl and advice on contraception Peewee Lux. [address] [place] [address], [id number], [place]. tel:[phone] Referring Provider: Maci Vides, [address] [place] [address], [id number]. tel:[phone] Provider: DEWAYNE Nurse/[place]. [facility], [address] [place] [address], [id number], [place] tel:[phone] DEWAYNE Onley Gender Identity Dis orderEndocrine disorder, unspecifiedOther sex counselingEncounter for oth general cnsl and advice on contraception Carmina Salazar. [address] [place], [place], [id number], [place]. tel:[phone] Referring Provider: Marie Grewal, [address] [place] [address], [id number]. tel:[phone] [facility], [address] [place] [address], [id number], [place] tel:[phone] DEWAYNE Onley Gender Identity Disorder Carmina Salazar. [address] [place] [address], [id number], [place]. tel:[phone] Referring Provider: Marie Grewal, [address] [place] [address], [id number]. tel:[phone] Provider: DEWAYNE Nurse/[place]. [facility], [address] [place] [address], [id number], [place] tel:[phone] DEWAYNE Onley Endocrine disorder, unspecifiedGender Identity Disorder Peewee Lux. [address] [place] [address], [id number], [place]. tel:[phone] Referring Provider: Maci Vides, [address] [place], [place], [id number]. tel:[phone] [facility], [address] [place] [address], [id number], [place] tel:[phone] DEWAYNE Onley Gender identity dis order, unspecifiedGender Identity DisorderEndocrine disorder, unspecified Carmina Salazar. [address] [place] [address], [id number], [place]. tel:[phone] Referring Provider: Marie Grewal, [address] [place] [address], [id number]. tel:[phone] Provider: DEWAYNE Nurse/CA. [facility], [address] [place] [address], [id number], [place] tel:[phone] DEWAYNE Onley Gender Identity Disorder Carmina Salazar. [address] [place] [address], [id number], . tel:[phone] Referring Provider: Marie Grewal, [address] [place] [address], [id number]. tel:[phone] [facility] [place], [address] [place] [address], [id number], tel:[phone] DEWAYNE Jimenez Gender Identity Disorder Adriel Luna. [address] [place] [address], [id number], [place]. tel:[phone] Referring Provider: Cheryl Morel, [address] [place] [address], [address] [place] [address]. tel:[phone] [facility], [address] [place] [address], [id number], tel:[phone] DEWAYNE Onley Gender Identity Disorder Carmina Salazar. [address] [place] [address], [address] [place] [address], [place]. tel:[phone] Referring Provider: Marie Grewal, [address] [place] [address], [id number]. tel:[phone] Provider: DEWAYNE Nurse/[place]. [facility], [address] [place] [address], [id number], [place] tel:[phone] DEWAYNE Onley Gender Identity Disorder Carmina Salazar. [address] [place] [address], [id number], [place]. tel:[phone] [facility], [address] [place] [address], [id number], [place] tel:[phone] DEWAYNE Jimenez Gender Identity Dis orderEncounter for oth general cnsl and advice on contraception Adriel Luna. [address] [place] [address], [id number], [place]. tel:[phone] Referring Provider: Cheryl Morel, [address], [place], [id number]. tel:[phone] [facility], [address] [place] [address], [id number], [place] tel:[phone] [facility] Gender Identity Dis orderEndocrine disorder, unspecified Peewee Lux. [address] [place], [place], [id number], [place]. tel:[phone] Referring Provider: Maci Vides, [address] [place], [place], [id number]. tel:[phone] Provider: DEWAYNE Nurse/[place]. [facility], [address], [place], [id number], [place] tel:[phone] YIFANMTALEXANDRA Onley Encounter for surve illance of injectable contraceptiveTranssexualismEndocrine disorder, unspecified Peewee Lux. [address] [place], [place], [id number], [place]. tel:[phone] Referring Provider: Maci Vides, [address] [place], [place], [id number]. tel:[phone] Provider: DEWAYNE Nurse/[place]. [facility], [address], [place], [id number], [place] tel:[phone] DEWAYNE Jimenez Encounter for surve illance of injectable contraceptiveEncounter for oth general cnsl and advice on contraception Debi Tolbert. [address] [place] [address], [id number], [place]. tel:[phone] Referring Provider: Didi Carrrea, [address] [place], [place], [id number]. tel:[phone] [facility], [address], [place], [id number], [place] tel:[phone] DEWAYNE Onley Endocrine disorder, unspecifiedTranssexualism Debi Tolbert. [address], [place], [id number], [place]. tel:[phone] Referring Provider: Didi Carrera, [address] [place], [place], [id number]. tel:[phone] Provider: DEWAYNE Nurse/[place]. [facility] [place], [address], [place], [id number], [place] tel:[phone] DEWAYNE Onley TranssexualismEndoc rine disorder, unspecified Debi Tolbert. [address], [place], [id number], [place]. tel:[phone] Referring Provider: Didi Carrera, [address] [place] [address], [id number]. tel:[phone] Provider: DEWAYNE Nurse/[place]. [facility] [place], [address], [place], [id number], [place] tel:[phone] DEWAYNE Onley Endocrine disorder, unspecifiedTranssexualismEncounter for oth general cnsl and advice on contraception Debi Tolbert. [address], [place], [id number], [place]. tel:[phone] Referring Provider: Didi Carrera, [address] [place], [place], [id number]. tel:[phone] Provider: DEWAYNE Nurse/[place]. [facility] [place], [address], [place], [id number], [place] tel:[phone] DEWAYNE Jimenez TranssexualismEncou nter for oth general cnsl and advice on contraceptionHuman immunodeficiency virus [HIV] counseling Debi Tolbert. [address], [place], [id number], [place]. tel:[phone] Referring Provider: Didi Carrera, [address] [place] [address], [id number]. tel:[phone] [facility] [address] [place] [address], [id number], tel:[phone] [facility] Human immunodeficie ncy virus [HIV] counselingEncntr screen for infections w sexl mode of transmissEncounter for screening for human immunodeficiency virusHigh risk heterosexual behaviorEndocrine disorder, unspecifiedTranssexualismEncntr for legal billing coordinator exam (general) (routine) w/o abn findings Carranza. [address] [place] [address], [id number], . tel:[phone] Referring Provider: Miley Fletcher, [address] [place] [address], [id number]. tel:[phone] Family History Family Member Diagnosis Age At [...] Information Payers Payer name Insurance type Covered alliance party ID Authorization(s ) [facility] CI [id number] Social History Type Description Quantity Date Captured Comments Alcohol Use Details Unknown Caffeine Use Details Unknown Tobacco Use Status Current non-smoker Smoking Status Never smoker Non-Smoking Tobacco Use Details : No Details Available : No Details Available Sex Female Vital Signs Date / Time: Height Weight BMI Pulse Rate Blood Pressure Temperatu re Respiratory Rate Body Surface Area Head Circumference BMI percentile Pulse Ox In haled Ox 2:30 PM 66.00 in 226.00 lbs 36.48 kg/meter(2) 130/80 m m[Hg] Chief Complaint And Reason For Visit No Information Reason For Referral Reason For Referral No Information Plan Of Treatment Date Type Action Status Referral Ordered: Referrals: Other. Evaluate and treat Appointment date/timeframe: 2 Months ordered Referral Ordered: Referrals: Probation Counselor. Evaluate and treat ordered Referral Referred To: [facility] Ordered: Referrals: Rehab Office Coordinator. [facility]. Evaluate and treat Appointment date/timeframe: 2 Months ordered Referral Ordered: Janet Mcmillan -[facility] : Family Medicine (related to Transsexualism) ordered Referral Referred To: Janet Mcmillan [address], [place], [phone] Ordered: Referrals: [facility] Phys[facility] : Family Medicine. Janet Mcmillan ordered Appointment Thu Majano *LEEANNA* -T Injec t BOOKED Appointment Thu Majano *LEEANNA* -GAHT F/ U BOOKED History Of Present Illness [...] Date No Information Medical Equipment Description Device Lutz Device Identifier Effective Romero es (start - stop) Status No Information Mental Status Date Cognitive Assessment No Information Health Concerns Observation Date No Information Concern Status Date No Information Physical Examination Exam Findings Details No Information
[2021-04-22] MEDS ORDERED: TEST200I14 (13:39)
--- OUTSIDE RECORDS SUMMARY | 2021-04-22 13:39 | CCD | Continuity of Care Document ---
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 Other Results Test Name Date and Time Measure Units Reference Range Abnormal Flag St atus Comments No Information Advance Directives Directive Yes / No Effective Date File Name No Information Encounters Encounter Description Practice Location Reason(s) For Visit Diagnose s Date Provider Providers Copied on Encounter [facility], [address] [place] [address], [id number], tel:[phone] DEWAYNE Tieton Endocrine disorder, unspecifiedGender identity disorder, unspecified Carmina Salazar. [address] [place] [address], [id number], . tel:[phone] Referring Provider: Marie Grewal, [address] [place] [address], [id number]. tel:[phone] Provider: DEWAYNE Nurse/CASocorro [facility], [address] [place] [address], [id number], tel:[phone] DEWAYNE Tieton Gender Identity Disorder Carmina Salazar. [address] [place] [address], [id number], . tel:[phone] Referring Provider: Marie Grewal, [address] [place] [address], [id number]. tel:[phone] Provider: DEWAYNE Nurse/CASocorro [facility], [address] [place] [address], [id number], tel:[phone] DEWAYNE Tieton Gender Identity Disorder Jerelo Edwige Tolbert. [address] [place] [address], [id number], [place]. tel:[phone] Referring Provider: Edwige Beckham, [address] [place] [address], [id number]. tel:[phone] [facility], [address] [place] [address], [id number], tel:[phone] DEWAYNE Tieton Gender Identity Disorder Everette De. [address] [place] [address], [id number], [place]. tel:[phone] Referring Provider: Henrietta Gaviria, [address] [place] [address], [id number]. tel:[phone] Provider: DEWAYNE Nurse/CA. [facility], [address] [place] [address], [id number], [place] tel:[phone] DEWAYNE Tieton Endocrine disorder, unspec ified Chapincito Tolbert. [address] [place] [address], [id number], [place]. tel:[phone] Referring Provider: Edwige Beckham, [address] [place] [address], [id number]. tel:[phone] [facility], [address] [place] [address], [id number], [place] tel:[phone] DEWAYNE Tieton Gender Identity Disorder Dwellraisa Tolbert. [address] [place] [address], [id number], [place]. tel:[phone] Referring Provider: Edwige Beckham, [address] [place] [address], [id number]. tel:[phone] [facility], [address] [place] [address], [id number], [place] tel:[phone] DEWAYNE Tieton Gender identity disorder, unspecified Chapincito Tolbert. [address] [place] [address], [id number], [place]. tel:[phone] Referring Provider: Edwige Beckham, [address] [place] [address], [id number]. tel:[phone] Provider: DEWAYNE Nurse/CA. [facility] [place], [address], [place], [id number], [place] tel:[phone] DEWAYNE Tieton Endocrine disorder, unspecifiedGender Identity Disorder Everette De. [address] [place], [place], [id number], [place]. tel:[phone] Referring Provider: Henrietta Gaviria, [address], [place], [id number]. tel:[phone] [facility] [place], [address] [place] [address], [id number], [place] tel:[phone] DEWAYNE Tieton Gender Identity Disorder Everette De. [address], [place], [id number], [place]. tel:[phone] Referring Provider: Henrietta Gaviria, [address], [place], [id number]. tel:[phone] Provider: DEWAYNE Nurse/CA. [facility] [place], [address], [place], [id number], [place] tel:[phone] DEWAYNE Tieton Gender Identity Dis orderEndocrine disorder, unspecified Chapincito Tolbert. [address] [place], [place], [id number], [place]. tel:[phone] Referring Provider: Edwige Beckham, [address] [place] [address], [id number]. tel:[phone] [facility] [place], [address], [place], [id number], [place] tel:[phone] DEWAYNE Tieton Gender identity disorder, unspecified Chapincito Tolbert. [address] [place], [place], [id number], [place]. tel:[phone] Referring Provider: Edwige Beckham, [address] [place] [address], [id number]. tel:[phone] [facility], [address], [place], [id number], [place] tel:[phone] DEWAYNE Tieton Gender Identity Disorder Everette De. [address], [place], [id number], [place]. tel:[phone] Referring Provider: Henrietta Gaviria, [address] [place] [address], [id number]. tel:[phone] Provider: DEWAYNE Nurse/CA. [facility], [address], [place], [id number], [place] tel:[phone] DEWAYNE Tieton Gender identity disorder, unspecified Everette De. [address] [place], [place], [id number], [place]. tel:[phone] Referring Provider: Henrietta Gaviria, [address] [place] [address], [id number]. tel:[phone] Provider: Provider Nurse. [facility], [address], [place], [id number], [place] tel:[phone] DEWAYNE Tieton Gender Identity Dis orderEndocrine disorder, unspecified Chapincito Tolbert. [address], [place], [id number], [place]. tel:[phone] Referring Provider: Edwige Beckham, [address] [place] [address], [id number]. tel:[phone] Provider: DEWAYNE Nurse/CA. [facility], [address], [place], [id number], [place] tel:[phone] DEWAYNE Tieton Gender Identity Disorder Chapincito Tolbert. [address] [place] [address], [id number], [place]. tel:[phone] Referring Provider: Edwige Beckham, [address] [place] [address], [id number]. tel:[phone] [facility], [address] [place] [address], [id number], [place] tel:[phone] DEWAYNE Tieton Gender Identity Dis orderEndocrine disorder, unspecified Everette De. [address] [place] [address], [id number], [place]. tel:[phone] Referring Provider: Henrietta Gaviria, [address] [place] [address], [id number]. tel:[phone] [facility], [address] [place] [address], [id number], [place] tel:[phone] DEWAYNE Tieton Endocrine disorder, unspecifiedGender Identity Disorder Everette De. [address] [place] [address], [id number], [place]. tel:[phone] Referring Provider: Henrietta Gaviria, [address] [place] [address], [id number]. tel:[phone] Provider: DEWAYNE Nurse/CA. [facility], [address] [place] [address], [id number], [place] tel:[phone] DEWAYNE Tieton Endocrine disorder, unspecifiedGender Identity Disorder Chapincito Tolbert. [address] [place] [address], [id number], [place]. tel:[phone] Referring Provider: Edwige Beckham, [address] [place] [address], [id number]. tel:[phone] [facility] [place], [address] [place] [address], [id number], [place] tel:[phone] DEWAYNE Tieton Gender Identity Disorder Carmina Salazar. [address] [place] [address], [id number], [place]. tel:[phone] Referring Provider: Marie Grewal, [address] [place], [place], [id number]. tel:[phone] Provider: DEWAYNE Nurse/CA. [facility] [place], [address] [place] [address], [id number], [place] tel:[phone] DEWAYNE Tieton Endocrine disorder, unspecifiedGender identity disorder, unspecified Everette De. [address] [place] [address], [id number], [place]. tel:[phone] Referring Provider: Henrietta Gaviria, [address] [place] [address], [id number]. tel:[phone] [facility] [place], [address] [place] [address], [id number], [place] tel:[phone] YIFANALALEXANDRA Tieton Human immunodeficie ncy virus [HIV] counselingOther sex counselingGender identity disorder, unspecified Chapincito Tolbert. [address] [place] [address], [id number], [place]. tel:[phone] Referring Provider: Edwige Beckham, [address] [place] [address], [id number]. tel:[phone] [facility] [place], [address] [place] [address], [id number], [place] tel:[phone] DEWAYNE Tieton Gender Identity Disorder Everette De. [address] [place] [address], [id number], [place]. tel:[phone] Referring Provider: Henrietta Gaviria, [address] [place] [address], [id number]. tel:[phone] [facility], [address] [place] [address], [id number], [place] tel:[phone] DEWAYNE Tieton Endocrine disorder, unspecifiedGender Identity Disorder Carmina Salazar. [address] [place], [place], [id number], [place]. tel:[phone] Referring Provider: Marie Grewal, [address] [place] [address], [id number]. tel:[phone] [facility], [address] [place] [address], [id number], [place] tel:[phone] DEWAYNE Tieton Gender Identity Dis orderEndocrine disorder, unspecified Carmina Salazar. [address] [place] [address], [id number], [place]. tel:[phone] Referring Provider: Marie Grewal, [address] [place] [address], [id number]. tel:[phone] Provider: DEWAYNE Nurse/CA. [facility], [address] [place] [address], [id number], [place] tel:[phone] DEWAYNE Tieton Gender Identity Dis orderEndocrine disorder, unspecified Carmina Salazar. [address] [place], [place], [id number], [place]. tel:[phone] Referring Provider: Marie Grewal, [address] [place] [address], [id number]. tel:[phone] [facility], [address] [place] [address], [id number], [place] tel:[phone] DEWAYNE Tieton Endocrine disorder, unspecifiedGender Identity Disorder Carmina Salazar. [address] [place] [address], [id number], [place]. tel:[phone] Referring Provider: Marie Grewal, [address] [place], [place], [id number]. tel:[phone] Provider: DEWAYNE Nurse/CA. [facility], [address], [place], [id number], [place] tel:[phone] YIFANALALEXANDRA Tieton Endocrine disorder, unspecifiedGender Identity Disorder Everette De. [address] [place], [place], [id number], [place]. tel:[phone] Referring Provider: Henrietta Gaviria, [address], [place], [id number]. tel:[phone] Provider: DEWAYNE Nurse/CA. [facility] [place], [address], [place], [id number], [place] tel:[phone] DEWAYNE Tieton Gender identity disorder, unspecified Everette De. [address] [place], [place], [id number], [place]. tel:[phone] Referring Provider: Henrietta Gaviria, [address], [place], [id number]. tel:[phone] [facility] [place], [address], [place], [id number], [place] tel:[phone] YIFANALALEXANDRA Tieton Gender identity disorder, unspecified Everette De. [address] [place], [place], [id number], [place]. tel:[phone] Referring Provider: Henrietta Gaviria, [address], [place], [id number]. tel:[phone] Provider: DEWAYNE Nurse/CA. [facility], [address], [place], [id number], [place] tel:[phone] DEWAYNE Tieton Endocrine disorder, unspecifiedGender Identity Disorder Chapincito Tolbert. [address] [place] [address], [id number], [place]. tel:[phone] Referring Provider: Edwige Beckham, [address] [place] [address], [id number]. tel:[phone] Provider: DEWAYNE Nurse/CA. [facility], [address] [place] [address], [id number], [place] tel:[phone] DEWAYNE Tieton Gender identity disorder, unspecified Chapincito Tolbert. [address] [place], [place], [id number], [place]. tel:[phone] Referring Provider: Edwige Beckham, [address] [place] [address], [id number]. tel:[phone] [facility], [address] [place] [address], [id number], [place] tel:[phone] DEWAYNE Tieton Endocrine disorder, unspecifiedGender Identity Disorder Everette De. [address] [place], [place], [id number], [place]. tel:[phone] Referring Provider: Henrietta Gaviria, [address] [place] [address], [id number]. tel:[phone] Provider: DEWAYNE Nurse/CA. [facility], [address] [place] [address], [id number], [place] tel:[phone] DEWAYNE Tieton Gender Identity Dis orderEndocrine disorder, unspecified Carmina Salazar. [address] [place], [place], [id number], [place]. tel:[phone] Referring Provider: Marie Grewal, [address] [place] [address], [id number]. tel:[phone] Provider: DEWAYNE Nurse/CA. [facility] [place], [address], [place], [id number], [place] tel:[phone] PPNCALEXANDRA Tieton Endocrine disorder, unspecifiedGender Identity Disorder Carmina Salazar. [address] [place], [place], [id number], [place]. tel:[phone] Referring Provider: Marie Grewal, [address] [place], [place], [id number]. tel:[phone] Provider: DEWAYNE Nurse/CA. [facility] [place], [address], [place], [id number], [place] tel:[phone] DEWAYNE Tieton Endocrine disorder, unspecifiedGender Identity Disorder Everette De. [address] [place] [address], [id number], [place]. tel:[phone] Referring Provider: Henrietta Gaviria, [address] [place] [address], [id number]. tel:[phone] [facility] [place], [address] [place] [address], [id number], [place] tel:[phone] YIFANNCALEXANDRA Tieton Endocrine disorder, unspecifiedGender identity disorder, unspecified Carmina Salazar. [address], [place], [id number], [place]. tel:[phone] Referring Provider: Marie Grewal, [address] [place] [address], [id number]. tel:[phone] Provider: Provider Nurse. [facility] [place], [address] [place] [address], [id number], [place] tel:[phone] DEWAYNE Tieton Endocrine disorder, unspecifiedGender Identity Disorder Everette De. [address] [place] [address], [id number], [place]. tel:[phone] Referring Provider: Henrietta Gaviria, [address] [place] [address], [id number]. tel:[phone] [facility] [place], [address], [place], [id number], [place] tel:[phone] DEWAYNE Tieton Endocrine disorder, unspecifiedGender Identity Disorder Carmina Salazar. [address] [place], [place], [id number], [place]. tel:[phone] Referring Provider: Marie Grewal, [address] [place] [address], [id number]. tel:[phone] Provider: DEWAYNE Nurse/CA. [facility] [place], [address], [place], [id number], [place] tel:[phone] DEWAYNE Tieton Endocrine disorder, unspecifiedGender Identity Disorder Carmina Salazar. [address], NY, [id number], [place]. tel:[phone] Referring Provider: Marie Grewal, [address] [place] [address], [id number]. tel:[phone] Provider: DEWAYNE Nurse/CA. [facility] [place], [address], [place], [id number], [place] tel:[phone] DEWAYNE Tieton Endocrine disorder, unspecifiedGender Identity Disorder Carmina Salazar. [address] [place], [place], [id number], [place]. tel:[phone] Referring Provider: Marie Grewal, [address] [place] [address], [id number]. tel:[phone] Provider: Provider Nurse. [facility] [place], [address], [place], [id number], [place] tel:[phone] PPNCNY Tieton Endocrine disorder, unspecifiedGender Identity Disorder Carmina Salazar. [address], [place], [id number], [place]. tel:[phone] Referring Provider: Marie Grewal, [address] [place], [place], [id number]. tel:[phone] Provider: DEWAYNE Nurse/CA. [facility], [address] [place] [address], [id number], [place] tel:[phone] YIFANNCALEXANDRA Tieton Endocrine disorder, unspecifiedGender Identity Disorder Melissa Lazo. [address] [place] [address], [id number], [place]. tel:[phone] Referring Provider: Violet Torres, [address], [place], [id number]. tel:[phone] [facility], [address] [place] [address], [id number], [place] tel:[phone] PPNCNY Tieton Endocrine disorder, unspecifiedGender Identity Disorder Adriel Luna. [address] [place] [address], [id number], [place]. tel:[phone] Referring Provider: Cheryl Morel, [address] [place] [address], [id number]. tel:[phone] Provider: DEWAYNE Nurse/CA. [facility], [address] [place] [address], [id number], [place] tel:[phone] PPNCNY Tieton Endocrine disorder, unspecifiedGender Identity Disorder Everette De. [address] [place], [place], [id number], [place]. tel:[phone] Referring Provider: Henrietta Gaviria, [address] [place] [address], [id number]. tel:[phone] Provider: DEWAYNE Nurse/CA. [facility], [address] [place] [address], [id number], tel:[phone] DEWAYNE Tieton Endocrine disorder, unspecifiedGender Identity Disorder Peewee Lux. [address] [place] [address], [id number], . tel:[phone] Referring Provider: Maci Vides, [address], [place], [id number]. tel:[phone] Provider: DEWAYNE Nurse/CA. [facility], [address], [place], [id number], tel:[phone] DEWAYNE Tieton Endocrine disorder, unspec ified Peewee Lux. [address] [place] [address], [id number], . tel:[phone] Referring Provider: Maci Vides, [address], [place], [id number]. tel:[phone] [facility], [address] [place] [address], [id number], tel:[phone] DEWAYNE Tieton Gender Identity Dis orderEndocrine disorder, unspecified Melissa Lazo. [address] [place] [address], [id number], [place]. tel:[phone] Referring Provider: Violet Torres, [address], [place], [id number]. tel:[phone] Provider: DEWAYNE Nurse/CA. [facility], [address] [place] [address], [id number], [place] tel:[phone] DEWAYNE Tieton Gender Identity Disorder Melissa Lazo. [address] [place] [address], [id number], [place]. tel:[phone] Referring Provider: Violet Torres, [address] [place] [address], [id number]. tel:[phone] Provider: DEWAYNE Nurse/CA. [facility], [address] [place] [address], [id number], tel:[phone] DEWAYNE Hernandez Gender identity dis order, unspecifiedObesity, unspecifiedInappropriate diet and eating habits Melissa Violet. [address] [place] [address], [id number], [place]. tel:[phone] Referring Provider: Violet Torres, [address] [place] [address], [id number]. tel:[phone] [facility], [address] [place] [address], [id number], tel:[phone] DEWAYNE Tieton Gender identity disorder, unspecified Peewee Lux. [address] [place] [address], [id number], [place]. tel:[phone] Referring Provider: Maci Vides, [address] [place] [address], [id number]. tel:[phone] [facility], [address] [place] [address], [id number], [place] tel:[phone] DEWYANE Tieton Gender Identity Dis orderEndocrine disorder, unspecified Melissa Violet. [address] [place] [address], [id number], [place]. tel:[phone] Referring Provider: Violet Torres, [address] [place] [address], [id number]. tel:[phone] Provider: DEWAYNE Nurse/CA. [facility], [address] [place] [address], [id number], tel:[phone] DEWAYNE Tieton Gender identity disorder, unspecified Melissa Violet. [address] [place], [place], [id number], [place]. tel:[phone] Referring Provider: Violet Torres, [address], [place], [id number]. tel:[phone] [facility] [place], [address] [place], [place], [id number], [place] tel:[phone] [facility] Gender Identity Disorder Peewee Lux. [address] [place], [place], [id number], [place]. tel:[phone] Referring Provider: Maci Vides, [address], [place], [id number]. tel:[phone] [facility] [place], [address], [place], [id number], [place] tel:[phone] YIFANALALEXANDRA Tieton Endocrine disorder, unspecifiedGender Identity Disorder Debi Tolbert. [address], [place], [id number], [place]. tel:[phone] Referring Provider: Didi Carrera, [address] [place], [place], [id number]. tel:[phone] [facility] [place], [address], [place], [id number], [place] tel:[phone] YIFANALALEXANDRA Tieton Gender identity disorder, unspecified Debi Tolbert. [address] [facility], [id number], [place]. tel:[phone] Referring Provider: Didi Carrera, [address] [place], [place], [id number]. tel:[phone] [facility] [place], [address], [place], [id number], [place] tel:[phone] YIFANALALEXANDRA Tieton Endocrine disorder, unspecifiedGender Identity Disorder Carmina Salazar. [address] [place], [place], [id number], [place]. tel:[phone] Referring Provider: Marie Grewal, [address] [place] [address], [id number]. tel:[phone] Provider: DEWAYNE Nurse/CA. [facility] [place], [address], [place], [id number], [place] tel:[phone] YIFANALALEXANDRA Tieton Gender Identity Dis orderEndocrine disorder, unspecified Debi Tolbert. [address], [place], [id number], [place]. tel:[phone] Referring Provider: Didi Carrera, [address] [place], [place], [id number]. tel:[phone] Provider: DEWAYNE Nurse/CA. [facility] [place], [address], [place], [id number], [place] tel:[phone] [facility]EX[facility]DRA [facility] Endocrine disorder, unspecifiedGender Identity Disorder Carmina Salazar. [address] [place], [place], [id number], [place]. tel:[phone] Referring Provider: Maire Grewal, [address] [place], [place], [id number]. tel:[phone] [facility] [place], [address] [place], [place], [id number], [place] tel:[phone] [facility] Gender identity disorder, unspecified Carmina Salazar. [address] [place], [place], [id number], [place]. tel:[phone] Referring Provider: Marie Grewal, [address] [place] [address], [id number]. tel:[phone] Provider: DEWAYNE Nurse/CA. [facility] [place], [address] [place], [place], [id number], [place] tel:[phone] PPNCNY T[place]on Encounter for surve illance of injectable contraceptiveGender Identity Disorder Carmina Salazar. [address] [place] [address], [id number], [place]. tel:[phone] Referring Provider: Marie Grewal, [address] [place] [address], [id number]. tel:[phone] [facility], [address] [place] [address], [id number], [place] tel:[phone] PPCAMILLENY T[place]on Gender Identity Disorder Carmina Salazar. [address] [place] [address], [id number], [place]. tel:[phone] Referring Provider: Marie Grewal, [address] [place] [address], [id number]. tel:[phone] [facility], [address] [place] [address], [id number], [place] tel:[phone] DEWAYNE Jimenez Gender Identity Dis orderEncounter for oth general cnsl and advice on contraception Debi garcia. [address] [place] [address], [id number], [place]. tel:[phone] Referring Provider: Didi Carrera, [address] [place] [address], [id number]. tel:[phone] [facility] [place], [address] [place] [address], [id number], [place] tel:[phone] DEWAYNE Tieton Endocrine disorder, unspecifiedGender Identity DisorderOther sex counselingEncounter for oth general cnsl and advice on contraception Carmina Salazar. [address] [place], [place], [id number], [place]. tel:[phone] Referring Provider: Marie Grewal, [address] [place] [address], [id number]. tel:[phone] [facility] [place], [address] [place] [address], [id number], [place] tel:[phone] PPNCALEXANDRA Tieton Gender Identity Dis orderEndocrine disorder, unspecifiedOther sex counselingEncounter for oth general cnsl and advice on contraception Peewee Lux. [address] [place] [address], [id number], . tel:[phone] Referring Provider: Maci Vides, [address] [place] [address], [id number]. tel:[phone] Provider: DEWAYNE Nurse/CA. [facility] [place], [address] [place] [address], [id number], [place] tel:[phone] DEWAYNE Tieton Gender Identity Dis orderEndocrine disorder, unspecifiedOther sex counselingEncounter for oth general cnsl and advice on contraception Carmina Salazar. [address] [place] [address], [id number], [place]. tel:[phone] Referring Provider: Marie Grewal, [address] [place] [address], [id number]. tel:[phone] [facility] [place], [address] [place] [address], [id number], [place] tel:[phone] PPNCALEXANDRA Tieton Gender Identity Disorder Carmina Salazar. [address] [place] [address], [id number], [place]. tel:[phone] Referring Provider: Marie Grewal, [address] [place], [place], [id number]. tel:[phone] Provider: DEWAYNE Nurse/CA. [facility] [place], [address] [place] [address], [id number], [place] tel:[phone] DEWAYNE Tieton Endocrine disorder, unspecifiedGender Identity Disorder Peewee Lux. [address] [place] [address], [id number], [place]. tel:[phone] Referring Provider: Maci Vides, [address] [place], [place], [id number]. tel:[phone] [facility], [address] [place] [address], [id number], tel:[phone] DEWAYNE Tieton Gender identity dis order, unspecifiedGender Identity DisorderEndocrine disorder, unspecified Carmina Salazar. [address] [place] [address], [id number], [place]. tel:[phone] Referring Provider: Marie Grewal, [address] [place] [address], [id number]. tel:[phone] Provider: DEWAYNE Nurse/CA. [facility], [address] [place] [address], [id number], tel:[phone] DEWAYNE Tieton Gender Identity Disorder Carmina Salazar. [address] [place] [address], [id number], [place]. tel:[phone] Referring Provider: Marie Grewal, [address] [place] [address], [id number]. tel:[phone] [facility], [address] [place] [address], [id number], [place] tel:[phone] DEWAYNE Jimenez Gender Identity Disorder Adriel Luna. [address] [place] [address], [id number], [place]. tel:[phone] Referring Provider: Cheryl Morel, [address] [place] [address], [id number]. tel:[phone] [facility], [address] [place] [address], [id number], [place] tel:[phone] DEWAYNE Tieton Gender Identity Disorder Carmina Salazar. [address] [place] [address], [id number], [place]. tel:[phone] Referring Provider: Marie Grewal, [address] [place], [place], [id number]. tel:[phone] Provider: DEWAYNE Nurse/CA. [facility] [place], [address] [place] [address], [id number], [place] tel:[phone] DEWAYNE Tieton Gender Identity Disorder Carmina Salazar. [address] [place] [address], [id number], [place]. tel:[phone] [facility], [address] [place] [address], [id number], [place] tel:[phone] DEWAYNE Jimenez Gender Identity Dis orderEncounter for oth general cnsl and advice on contraception Adriel Luna. [address] [place] [address], [id number], . tel:[phone] Referring Provider: Cheryl Morel, [address] [place] [address], [id number]. tel:[phone] [facility], [address] [place] [address], [id number], tel:[phone] DEWAYNE Tieton Gender Identity Dis orderEndocrine disorder, unspecified Peewee Lux. [address] [place] [address], [id number], . tel:[phone] Referring Provider: Maci Vides, [address] [place], [place], [id number]. tel:[phone] Provider: DEWAYNE Nurse/CA. [facility], [address] [place] [address], [id number], tel:[phone] DEWAYNE Tieton Encounter for surve illance of injectable contraceptiveTranssexualismEndocrine disorder, unspecified Peewee Lux. [address] [place] [address], [id number], [place]. tel:[phone] Referring Provider: Maci Vides, [address] [place] [address], [id number]. tel:[phone] Provider: DEWAYNE Nurse/CA. [facility], [address] [place] [address], [id number], [place] tel:[phone] DEWAYNE Jimenez Encounter for surve illance of injectable contraceptiveEncounter for oth general cnsl and advice on contraception Debi Tolbert. [address] [place] [address], [id number], [place]. tel:[phone] Referring Provider: Didi Carrera, [address] [place] [address], [id number]. tel:[phone] [facility], [address] [place] [address], [id number], [place] tel:[phone] DEWAYNE Tieton Endocrine disorder, unspecifiedTranssexualism Debi Tolbert. [address] [place] [address], [id number], [place]. tel:[phone] Referring Provider: Didi Carrera, [address] [place] [address], [id number]. tel:[phone] Provider: DEWAYNE Nurse/CA. [facility], [address] [place] [address], [id number], [place] tel:[phone] DEWAYNE Tieton TranssexualismEndoc rine disorder, unspecified Debi Tolbert. [address] [place] [address], [id number], [place]. tel:[phone] Referring Provider: Didi Carrera, [address] [place] [address], [id number]. tel:[phone] Provider: DEWAYNE Nurse/CA. [facility], [address] [place] [address], [id number], [place] tel:[phone] DEWAYNE Tieton Endocrine disorder, unspecifiedTranssexualismEncounter for oth general cnsl and advice on contraception Debi Tolbert. [address] [place] [address], [id number], . tel:[phone] Referring Provider: Didi Carrera, [address] [place] [address], [id number]. tel:[phone] Provider: DEWAYNE Nurse/CA. [facility], [address] [place] [address], [id number], [place] tel:[phone] DEWAYNE Jimenez TranssexualismEncou nter for oth general cnsl and advice on contraceptionHuman immunodeficiency virus [HIV] counseling Debi Tolbert. [address] [place] [address], [id number], . tel:[phone] Referring Provider: Didi Carrera, [address] [place] [address], [id number]. tel:[phone] [facility], [address] [place] [address], [id number], [place] tel:[phone] DEWAYNE Tieton Human immunodeficie ncy virus [HIV] counselingEncntr screen for infections w sexl mode of transmissEncounter for screening for human immunodeficiency virusHigh risk heterosexual behaviorEndocrine disorder, unspecifiedTranssexualismEncntr for wardrobe stylist exam (general) (routine) w/o abn findings Carranza. [address] [place] [address], [id number], [place]. tel:[phone] Referring Provider: Miley Fletcher, [address] [place] [address], [id number]. tel:[phone] Family History Family Member Diagnosis Age At [...] type Covered green party ID Authorization(s ) [facility] CI [id number] Social History Type Description Quantity Date Captured Comments Alcohol Use Details Unknown Caffeine Use Details Unknown Tobacco Use Status No Information Smoking Status Never smoker Sex Female Vital Signs Date / Time: Height Weight BMI Pulse Rate Blood Pressure Temperatu re Respiratory Rate Body Surface Area Head Circumference BMI percentile Pulse Ox In haled Ox 3:15 PM 66.00 in 218.00 lbs 35.19 kg/meter(2) 118/76 m m[Hg] Chief Complaint And Reason For Visit No Information Reason For Referral Reason For Referral No Information Plan Of Treatment Date Type Action Status Referral Ordered: Referrals: Other. Evaluate and treat Appointment date/timeframe: 2 Months ordered Referral Ordered: Referrals: Sluice Tender. 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 [facility]. Evaluate and treat Appointment date/timeframe: 2 Months ordered Referral Ordered: Janet Mcmillan -[facility] : Family Medicine (related to Transsexualism) ordered Referral Referred To: Janet Mcmillan [address], [place], [id number] Ordered: Referrals: [facility] : [...] on No Information Assessments Type Assessment Date assessment Gender Identity Disorder Goals Health Concern Goal Type Priority Status Date No Information Medical Equipment Description Device [place] Device Identifier Effective Romero es (start - stop) Status No Information Mental Status Date Cognitive Assessment No Information Health Concerns Observation Date No Information Concern Status Date No Information Physical Examination Exam Findings Details No Information
--- OUTSIDE RECORDS SUMMARY | 2021-04-22 13:39 | CCD | Continuity of Care Document ---
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 Other Results Test Name Date and Time Measure Units Reference Range Abnormal Flag St atus Comments No Information Advance Directives Directive Yes / No Effective Date File Name No Information Encounters Encounter Description Practice Location Reason(s) For Visit Diagnose s Date Provider Providers Copied on Encounter [facility], [address] [place] [address], [id number], tel:[phone] DEWAYNE Milroy Endocrine disorder, unspecifiedGender identity disorder, unspecified Carmina Salazar. [address] [place] [address], [id number], . tel:[phone] Referring Provider: Marie Grewal, [address] [place] [address], [id number]. tel:[phone] Provider: DEWAYNE Nurse/CA. [facility], [address] [place] [address], [id number], tel:[phone] DEWAYNE Milroy Gender Identity Disorder Carmina Salazar. [address] [place] [address], [id number], [place]. tel:[phone] Referring Provider: Marie Grewal, [address] [place] [address], [id number]. tel:[phone] Provider: DEWAYNE Nurse/CA. [facility], [address] [place] [address], [id number], tel:[phone] DEWAYNE Milroy Gender Identity Disorder Chapincito Tolbert. [address] [place] [address], [id number], [place]. tel:[phone] Referring Provider: Edwige Beckham, [address] [place] [address], [id number]. tel:[phone] [facility], [address] [place] [address], [id number], [place] tel:[phone] DEWAYNE Milroy GAHT (chief complaint) Gender Identity Disorder Everette De. [address] [place], [place], [id number], [place]. tel:[phone] Referring Provider: Henrietta Gaviria, [address] [place] [address], [id number]. tel:[phone] Provider: DEWAYNE Nurse/CA. [facility], [address] [place] [address], [id number], [place] tel:[phone] DEWAYNE Jimenez No Information Morel Beth. [address] [place] [address], [id number], [place]. tel:[phone] [facility], [address] [place] [address], [id number], [place] tel:[phone] EDWAYNE Milroy Endocrine disorder, unspec ified Chapincito Tolbert. [address] [place], [place], [id number], [place]. tel:[phone] Referring Provider: Edwige Beckham, [address] [place] [address], [id number]. tel:[phone] [facility], [address] [place] [address], [id number], [place] tel:[phone] DEWAYNE Milroy Gender Identity Disorder Chapincito Tolbert. [address] [place] [address], [id number], [place]. tel:[phone] Referring Provider: Edwige Beckham, [address] [place] [address], [id number]. tel:[phone] [facility], [address] [place], [place], [id number], [place] tel:[phone] [facility] Gender identity disorder, unspecified Chapincito Tolbert. [address] [place], [place], [id number], [place]. tel:[phone] Referring Provider: Edwige Beckham, [address] [place] [address], [id number]. tel:[phone] Provider: DEWAYNE Nurse/CA. [facility], [address] [place], [place], [id number], [place] tel:[phone] DEWAYNE Milroy Endocrine disorder, unspecifiedGender Identity Disorder Everette De. [address] [place], [place], [id number], [place]. tel:[phone] Referring Provider: Henrietta Gaviria, [address] [place], [place], [id number]. tel:[phone] [facility], [address] [place], [place], [id number], [place] tel:[phone] DEWAYNE Milroy Gender Identity Disorder Everette De. [address] [place] [address], [id number], [place]. tel:[phone] Referring Provider: Henrietta Gaviria, [address] [place], [place], [id number]. tel:[phone] Provider: DEWAYNE Nurse/CA. [facility], [address] [place] [address], [id number], [place] tel:[phone] DEWAYNE Milroy Gender Identity Dis orderEndocrine disorder, unspecified Chapincito Mackeya Didi. [address] [place], [place], [id number], [place]. tel:[phone] Referring Provider: Edwige Beltránraisa, [address] [place] [address], [id number]. tel:[phone] [facility], [address] [place], [place], [id number], [place] tel:[phone] DEWAYNE Milroy Gender identity disorder, unspecified Chapincito Layley. [address] [place], [place], [id number], [place]. tel:[phone] Referring Provider: Edwige Tolbert Chapincito, [address] [place] [address], [id number]. tel:[phone] [facility], [address] [place] [address], [id number], [place] tel:[phone] DEWAYNE Milroy Gender Identity Disorder Everette De. [address] [place] [address], [id number], [place]. tel:[phone] Referring Provider: Henrietta Gaviria, [address] [place] [address], [id number]. tel:[phone] Provider: DEWAYNE Nurse/CA. [facility], [address] [place], [place], [id number], [place] tel:[phone] DEWAYNE Milroy Gender identity disorder, unspecified Everette De. [address] [place], [place], [id number], [place]. tel:[phone] Referring Provider: Henrietta Gaviria, [address] [place] [address], [id number]. tel:[phone] Provider: Provider Nurse. [facility], [address] [place], [place], [id number], [place] tel:[phone] DEWAYNE Milroy Gender Identity Dis orderEndocrine disorder, unspecified Chapincito Mackeyladonna LayDidi. [address] [place] [address], [id number], . tel:[phone] Referring Provider: Edwige Beckham, [address] [place] [address], [id number]. tel:[phone] Provider: DEWAYNE Nurse/CA. [facility], [address] [place] [address], [id number], tel:[phone] DEWAYNE Milroy Gender Identity Disorder Dwello Edwige Layley. [address] [place] [address], [address] [place] [address], . tel:[phone] Referring Provider: Edwige Beckham, [address] [place] [address], [id number]. tel:[phone] [facility], [address] [place] [address], [id number], tel:[phone] YIFANLAALEXANDRA Milroy Gender Identity Dis orderEndocrine disorder, unspecified Everette De. [address] [place] [address], [id number], [place]. tel:[phone] Referring Provider: Henrietta Gaviria, [address] [place] [address], [id number]. tel:[phone] [facility], [address] [place] [address], [id number], [place] tel:[phone] YIFANLAALEXANDRA Milroy Endocrine disorder, unspecifiedGender Identity Disorder Everette De. [address] [place] [address], [id number], [place]. tel:[phone] Referring Provider: Henrietta Gaviria, [address] [place] [address], [id number]. tel:[phone] Provider: DEWAYNE Nurse/[place]. [facility] [place], [address] [place], [place], [id number], [place] tel:[phone] DEWAYNE Milroy Endocrine disorder, unspecifiedGender Identity Disorder Chapincito Tolbert. [address] [place], [place], [id number], [place]. tel:[phone] Referring Provider: Edwige Beckham, [address] [place] [address], [id number]. tel:[phone] [facility] [place], [address] [place] [address], [id number], [place] tel:[phone] DEWAYNE Milroy Gender Identity Disorder Carmina Salazar. [address] [place] [address], [id number], [place]. tel:[phone] Referring Provider: Marie Grewal, [address] [place] [address], [id number]. tel:[phone] Provider: DEWAYNE Nurse/CA. [facility] [place], [address] [place] [address], [id number], [place] tel:[phone] DEWAYNE Milroy Endocrine disorder, unspecifiedGender identity disorder, unspecified Everette De. [address] [place] [address], [id number], [place]. tel:[phone] Referring Provider: Henrietta Gaviria, [address] [place] [address], [id number]. tel:[phone] [facility] [place], [address] [place] [address], [id number], [place] tel:[phone] DEWAYNE Milroy Human immunodeficie ncy virus [HIV] counselingOther sex counselingGender identity disorder, unspecified Chapincito Tolbert. [address] [place] [address], [id number], [place]. tel:[phone] Referring Provider: Edwige Beckham, [address] [place] [address], [id number]. tel:[phone] [facility], [address] [place] [address], [id number], tel:[phone] DEWAYNE Milroy Gender Identity Disorder Everette De. [address] [place] [address], [id number], [place]. tel:[phone] Referring Provider: Henrietta Gaviria, [address] [place] [address], [id number]. tel:[phone] [facility], [address] [place] [address], [id number], [place] tel:[phone] DEWAYNE Milroy Endocrine disorder, unspecifiedGender Identity Disorder Carmina Salazar. [address] [place] [address], [id number], [place]. tel:[phone] Referring Provider: Marie Grewal, [address] [place] [address], [id number]. tel:[phone] [facility], [address] [place] [address], [id number], tel:[phone] DEWAYNE Milroy Gender Identity Dis orderEndocrine disorder, unspecified Carmina Salazar. [address] [place] [address], [id number], [place]. tel:[phone] Referring Provider: Marie Grewal, [address] [place] [address], [id number]. tel:[phone] Provider: DEWAYNE Nurse/CA. [facility], [address] [place] [address], [id number], [place] tel:[phone] DEWAYNE Milroy Gender Identity Dis orderEndocrine disorder, unspecified Carmina Salazar. [address] [place] [address], [id number], [place]. tel:[phone] Referring Provider: Marie Grewal, [address] [place], [place], [id number]. tel:[phone] [facility] [place], [address] [place], [place], [id number], [place] tel:[phone] [facility] Endocrine disorder, unspecifiedGender Identity Disorder Carmina Salazar. [address] [place], [place], [id number], [place]. tel:[phone] Referring Provider: Marie Grewal, [address] [place], [place], [id number]. tel:[phone] Provider: DEWAYNE Nurse/[place]. [facility] [place], [address] [place], [place], [id number], [place] tel:[phone] YIFANLAALEXANDRA Milroy Endocrine disorder, unspecifiedGender Identity Disorder Everette De. [address] [place], [place], [id number], [place]. tel:[phone] Referring Provider: Henrietta Gaviria, [address] [place], [place], [id number]. tel:[phone] Provider: DEWAYNE Nurse/CA. [facility] [place], [address] [place], [place], [id number], [place] tel:[phone] YIFANLAALEXANDRA Milroy Gender identity disorder, unspecified Everette De. [address] [place], [place], [id number], [place]. tel:[phone] Referring Provider: Henrietta Gaviria, [address] [place], [place], [id number]. tel:[phone] [facility] [place], [address] [place], [place], [id number], [place] tel:[phone] DEWAYNE Milroy Gender identity disorder, unspecified Everette De. [address] [place], [place], [id number], [place]. tel:[phone] Referring Provider: Henrietta Gaviria, [address] [place] [address], [id number]. tel:[phone] Provider: DEWAYNE Nurse/CA. [facility], [address] [place] [address], [id number], [place] tel:[phone] DEWAYNE Milroy Endocrine disorder, unspecifiedGender Identity Disorder Dwellraisa Tolbert. [address] [place] [address], [id number], [place]. tel:[phone] Referring Provider: Edwige Beckham, [address] [place] [address], [id number]. tel:[phone] Provider: DEWAYNE Nurse/CA. [facility], [address] [place], [place], [id number], [place] tel:[phone] DEWAYNE Milroy Gender identity disorder, unspecified Chapincito Tolbert. [address] [place], [place], [id number], [place]. tel:[phone] Referring Provider: Edwige Beckham, [address] [place] [address], [id number]. tel:[phone] [facility], [address] [place], [place], [id number], [place] tel:[phone] DEWAYNE Milroy Endocrine disorder, unspecifiedGender Identity Disorder Everette De. [address] [place], [place], [id number], [place]. tel:[phone] Referring Provider: Henrietta Gaviria, [address] [place], [place], [id number]. tel:[phone] Provider: DEWAYNE Nurse/CA. [facility], [address] [place] [address], [id number], [place] tel:[phone] DEWAYNE Milroy Gender Identity Dis orderEndocrine disorder, unspecified Carmina Salazar. [address] [place], [place], [id number], [place]. tel:[phone] Referring Provider: Marie Grewal, [address] [place] [address], [id number]. tel:[phone] Provider: DEWAYNE Nurse/CA. [facility], [address] [place] [address], [id number], [place] tel:[phone] DEWAYNE Milroy Endocrine disorder, unspecifiedGender Identity Disorder Carmian Salazar. [address] [place], [place], [id number], [place]. tel:[phone] Referring Provider: Marie Grewal, [address] [place], [place], [id number]. tel:[phone] Provider: DEWAYNE Nurse/CA. [facility], [address] [place] [address], [id number], [place] tel:[phone] DEWAYNE Milroy Endocrine disorder, unspecifiedGender Identity Disorder Everette De. [address] [place], [place], [id number], [place]. tel:[phone] Referring Provider: Henrietta Gaviria, [address] [place] [address], [id number]. tel:[phone] [facility], [address] [place] [address], [id number], [place] tel:[phone] DEWAYNE Milroy Endocrine disorder, unspecifiedGender identity disorder, unspecified Carmina Salazar. [address] [place] [address], [id number], [place]. tel:[phone] Referring Provider: Marie Grewal, [address] [place], [place], [id number]. tel:[phone] Provider: Provider Nurse. [facility] [place], [address] [place], [place], [id number], [place] tel:[phone] YIFANNCALEXANDRA Milroy Endocrine disorder, unspecifiedGender Identity Disorder Everette De. [address] [place], [place], [id number], [place]. tel:[phone] Referring Provider: Henrietta Gaviria, [address] [place], [place], [id number]. tel:[phone] [facility] [place], [address] [place], [place], [id number], [place] tel:[phone] YIFANNCALEXANDRA Milroy Endocrine disorder, unspecifiedGender Identity Disorder Carmina Salazar. [address] [place], [place], [id number], [place]. tel:[phone] Referring Provider: Marie Grewal, [address] [place], [place], [id number]. tel:[phone] Provider: DEWAYNE Nurse/CA. [facility] [place], [address] [place], [place], [id number], [place] tel:[phone] YIFANNCALEXANDRA Milroy Endocrine disorder, unspecifiedGender Identity Disorder Carmina Salazar. [address] [place], [place], [id number], [place]. tel:[phone] Referring Provider: Marie Grewal, [address] [place] [address], [id number]. tel:[phone] Provider: DEWAYNE Nurse/CA. [facility] [place], [address] [place], [place], [id number], [place] tel:[phone] DEWAYNE Milroy Endocrine disorder, unspecifiedGender Identity Disorder Carmina Salazar. [address] [place], [place], [id number], [place]. tel:[phone] Referring Provider: Marie Grewal, [address] [place] [address], [id number]. tel:[phone] Provider: Provider Nurse. [facility] [place] [place], [address] [place] [address], [id number], [place] tel:[phone] YIFANLAALEXANDRA Milroy Endocrine disorder, unspecifiedGender Identity Disorder Carmina Salazar. [address] [place], [place], [id number], [place]. tel:[phone] Referring Provider: Marie Grewal, [address] [place] [address], [id number]. tel:[phone] Provider: DEWAYNE Nurse/CA. [facility] [place] [place], [address] [place] [address], [id number], [place] tel:[phone] DEWAYNE Milroy Endocrine disorder, unspecifiedGender Identity Disorder Melissa Lazo. [address] [place] [address], [id number], [place]. tel:[phone] Referring Provider: Violet Torres, [address], [place], [id number]. tel:[phone] [facility] [place], [address] [place] [address], [id number], [place] tel:[phone] YIFANLAALEXANDRA Milroy Endocrine disorder, unspecifiedGender Identity Disorder Adriel Luna. [address] [place] [address], [id number], [place]. tel:[phone] Referring Provider: Cheryl Morel, [address] [place] [address], [id number]. tel:[phone] Provider: DEWAYNE Nurse/[place]. [facility] [place], [address] [place], [place], [id number], [place] tel:[phone] DEWAYNE Milroy Endocrine disorder, unspecifiedGender Identity Disorder Everette De. [address] [place], [place], [id number], [place]. tel:[phone] Referring Provider: Henrietta Gaviria, [address] [place], [place], [id number]. tel:[phone] Provider: DEWAYNE Nurse/[place]. [facility] [place], [address] [place], [place], [id number], [place] tel:[phone] DEWAYNE Milroy Endocrine disorder, unspecifiedGender Identity Disorder Peewee Lux. [address] [place] [address], [id number], [place]. tel:[phone] Referring Provider: Maci Vides, [address] [place] [address], [id number]. tel:[phone] Provider: DEWAYNE Nurse/CA. [facility] [place], [address] [place], [place], [id number], [place] tel:[phone] DEWAYNE Milroy Endocrine disorder, unspec ified Peewee Lux. [address] [place], [place], [id number], [place]. tel:[phone] Referring Provider: Maci Vides, [address] [place], [place], [id number]. tel:[phone] [facility] [place] [place], [address] [place], [place], [id number], [place] tel:[phone] DEWAYNE Milroy Gender Identity Dis orderEndocrine disorder, unspecified Melissa Lazo. [address] [place] [address], [id number], [place]. tel:[phone] Referring Provider: Violet Torres, [address], [place], [id number]. tel:[phone] Provider: DEWAYNE Nurse/CA. [facility], [address] [place] [address], [id number], tel:[phone] DEWAYNE Milroy Gender Identity Disorder Melissa Violet. [address] [place] [address], [address] [place] [address], . tel:[phone] Referring Provider: Violet Torres, [address] [place] [address], [id number]. tel:[phone] Provider: DEWAYNE Nurse/CA. [facility], [address] [place] [address], [address] [place] [address], tel:[phone] DEWAYNE Hernandez Gender identity dis order, unspecifiedObesity, unspecifiedInappropriate diet and eating habits Melissa Violet. [address] [place] [address], [address] [place] [address], [place]. tel:[phone] Referring Provider: Violet Torres, [address] [place] [address], [id number]. tel:[phone] [facility], [address] [place] [address], [address] [place] [address], tel:[phone] DEWAYNE Milroy Gender identity disorder, unspecified Peewee Lux. [address] [place] [address], [id number], . tel:[phone] Referring Provider: Maci Vides, [address] [place] [address], [id number]. tel:[phone] [facility], [address] [place] [address], [address] [place] [address], tel:[phone] DEWAYNE Milroy Gender Identity Dis orderEndocrine disorder, unspecified Tikiemilee Lazo. [address] [place] [address], [id number], [place]. tel:[phone] Referring Provider: Violet Torres, [address], [place], [id number]. tel:[phone] Provider: DEWAYNE Nurse/CA. [facility], [address] [place], [place], [id number], [place] tel:[phone] DEWAYNE Milroy Gender identity disorder, unspecified Melissa Lazo. [address] [place], [place], [id number], [place]. tel:[phone] Referring Provider: Violet Torres, [address], [place], [id number]. tel:[phone] [facility], [address] [place], [place], [id number], [place] tel:[phone] DEWAYNE Milroy Gender Identity Disorder Peewee Lux. [address] [place] [address], [id number], [place]. tel:[phone] Referring Provider: Maci Vides, [address], [place], [id number]. tel:[phone] [facility], [address] [place], [place], [id number], [place] tel:[phone] DEWAYNE Milroy Endocrine disorder, unspecifiedGender Identity Disorder Debi Tolbert. [address] [place], [place], [id number], [place]. tel:[phone] Referring Provider: Didi Carrera, [address] [place], [place], [id number]. tel:[phone] [facility], [address] [place], [place], [id number], [place] tel:[phone] DEWAYNE Milroy Gender identity disorder, unspecified Debi Tolbert. [address] [facility], [id number], [place]. tel:[phone] Referring Provider: Didi Carrera, [address] [place], [place], [id number]. tel:[phone] [facility] [place], [address] [place], [place], [id number], [place] tel:[phone] DEWAYNE Milroy Endocrine disorder, unspecifiedGender Identity Disorder Carmina Salazar. [address] [place], [place], [id number], [place]. tel:[phone] Referring Provider: Marie Grewal, [address] [place] [address], [id number]. tel:[phone] Provider: DEWAYNE Nurse/CA. [facility] [place], [address] [place], [place], [id number], [place] tel:[phone] DEWAYNE Milroy Gender Identity Dis orderEndocrine disorder, unspecified Debi Tolbert. [address] [place], [place], [id number], [place]. tel:[phone] Referring Provider: Didi Carrera, [address] [place], [place], [id number]. tel:[phone] Provider: DEWAYNE Nurse/[place]. [facility] [place], [address] [place], [place], [id number], [place] tel:[phone] DEWAYNE Milroy Endocrine disorder, unspecifiedGender Identity Disorder Carmina Salazar. [address] [place], [place], [id number], [place]. tel:[phone] Referring Provider: Marie Grewal, [address] [place] [address], [id number]. tel:[phone] [facility] [place], [address] [place], [place], [id number], [place] tel:[phone] DEWAYNE Milroy Gender identity disorder, unspecified Carmina Salazar. [address] [place] [address], [id number], [place]. tel:[phone] Referring Provider: Marie Grewal, [address] [place] [address], [id number]. tel:[phone] Provider: DEWAYNE Nurse/CA. [facility], [address] [place] [address], [id number], [place] tel:[phone] DEWAYNE Milroy Encounter for surve illance of injectable contraceptiveGender Identity Disorder Carmina Salazar. [address] [place] [address], [id number], [place]. tel:[phone] Referring Provider: Marie Grewal, [address] [place] [address], [id number]. tel:[phone] [facility] [place], [address] [place] [address], [id number], [place] tel:[phone] DEWAYNE Milroy Gender Identity Disorder Carmina Salazar. [address] [place] [address], [id number], [place]. tel:[phone] Referring Provider: Marie Grewal, [address] [place] [address], [id number]. tel:[phone] [facility] [place], [address] [place] [address], [id number], [place] tel:[phone] DEWAYNE Jimenez Gender Identity Dis orderEncounter for oth general cnsl and advice on contraception Debi garcia. [address] [place] [address], [id number], [place]. tel:[phone] Referring Provider: Didi Carrera, [address] [place] [address], [id number]. tel:[phone] [facility] [place], [address] [place] [address], [id number], [place] tel:[phone] DEWAYNE Milroy Endocrine disorder, unspecifiedGender Identity DisorderOther sex counselingEncounter for oth general cnsl and advice on contraception Carmina Salazar. [address] [place] [address], [id number], [place]. tel:[phone] Referring Provider: Marei Grewal, [address] [place] [address], [id number]. tel:[phone] [facility] [place], [address] [place] [address], [id number], [place] tel:[phone] DEWAYNE Milroy Gender Identity Dis orderEndocrine disorder, unspecifiedOther sex counselingEncounter for oth general cnsl and advice on contraception Peewee Lux. [address] [place] [address], [id number], [place]. tel:[phone] Referring Provider: Maci Vides, [address] [place] [address], [id number]. tel:[phone] Provider: DEWAYNE Nurse/[place]. [facility] [place], [address] [place] [address], [id number], [place] tel:[phone] DEWAYNE Milroy Gender Identity Dis orderEndocrine disorder, unspecifiedOther sex counselingEncounter for oth general cnsl and advice on contraception Carmina Salazar. [address] [place] [address], [id number], [place]. tel:[phone] Referring Provider: Marie Grewla, [address] [place] [address], [id number]. tel:[phone] [facility] [place], [address] [place] [address], [id number], [place] tel:[phone] DEWAYNE Milroy Gender Identity Disorder Carmina Salazar. [address] [place] [address], [id number], [place]. tel:[phone] Referring Provider: Marie Grewal, [address] [place] [address], [id number]. tel:[phone] Provider: DEWAYNE Nurse/[place]. [facility], [address] [place] [address], [id number], tel:[phone] DEWAYNE Milroy Endocrine disorder, unspecifiedGender Identity Disorder Peewee Lux. [address] [place] [address], [id number], [place]. tel:[phone] Referring Provider: Maci Vides, [address], [place], [id number]. tel:[phone] [facility], [address] [place] [address], [id number], [place] tel:[phone] DEWAYNE Milroy Gender identity dis order, unspecifiedGender Identity DisorderEndocrine disorder, unspecified Carmina Salazar. [address] [place] [address], [id number], [place]. tel:[phone] Referring Provider: Marie Grewal, [address] [place] [address], [id number]. tel:[phone] Provider: DEWAYNE Nurse/[place]. [facility], [address] [place] [address], [id number], [place] tel:[phone] DEWAYNE Milroy Gender Identity Disorder Carmina Salazar. [address] [place] [address], [id number], [place]. tel:[phone] Referring Provider: Marie Grewal, [address] [place] [address], [id number]. tel:[phone] [facility], [address] [place] [address], [id number], [place] tel:[phone] DEWAYNE Jimenez Gender Identity Disorder Chastity Adriel Luna. [address] [place] [address], [id number], [place]. tel:[phone] Referring Provider: Cheryl Morel, [address] [place] [address], [id number]. tel:[phone] [facility] [place], [address] [place] [address], [id number], [place] tel:[phone] DEWAYNE Milroy Gender Identity Disorder Carmina Salazar. [address] [place] [address], [id number], [place]. tel:[phone] Referring Provider: Marie Grewal, [address] [place], [place], [id number]. tel:[phone] Provider: DEWAYNE Nurse/[place]. [facility] [place], [address] [place] [address], [id number], [place] tel:[phone] DEWAYNE Milroy Gender Identity Disorder Carmina Salazar. [address] [place] [address], [id number], [place]. tel:[phone] [facility], [address] [place] [address], [id number], [place] tel:[phone] DEWAYNE Jimenez Gender Identity Dis orderEncounter for oth general cnsl and advice on contraception Adriel Luna. [address] [place] [address], [id number], [place]. tel:[phone] Referring Provider: Cheryl Morel, [address] [place] [address], [id number]. tel:[phone] [facility] [place], [address] [place] [address], [id number], [place] tel:[phone] DEWAYNE Milroy Gender Identity Dis orderEndocrine disorder, unspecified Peewee Lux. [address] [place] [address], [id number], [place]. tel:[phone] Referring Provider: Maci Vides, [address], [place], [id number]. tel:[phone] Provider: DEWAYNE Nurse/[place]. [facility], [address] [place] [address], [id number], [place] tel:[phone] DEWAYNE Milroy Encounter for surve illance of injectable contraceptiveTranssexualismEndocrine disorder, unspecified Peewee Lux. [address] [place] [address], [id number], [place]. tel:[phone] Referring Provider: Maci Vides, [address], [place], [id number]. tel:[phone] Provider: DEWAYNE Nurse/[place]. [facility], [address] [place] [address], [id number], [place] tel:[phone] DEWAYNE [place] Encounter for surve illance of injectable contraceptiveEncounter for oth general cnsl and advice on contraception Debi Tolbert. [address] [place] [address], [id number], [place]. tel:[phone] Referring Provider: Didi Carrera, [address] [place] [address], [id number]. tel:[phone] [facility], [address] [place] [address], [id number], [place] tel:[phone] [facility] Endocrine disorder, unspecifiedTranssexualism Debi Tolbert. [address] [place], [place], [id number], [place]. tel:[phone] Referring Provider: Didi Carrera, [address] [place], [place], [id number]. tel:[phone] Provider: DEWAYNE Nurse/[place]. [facility], [address] [place], [place], [id number], [place] tel:[phone] DEWAYNE Milroy TranssexualismEndoc rine disorder, unspecified Apr-24-2020 Debi Tolbert. [address] [place], [place], [id number], [place]. tel:[phone] Referring Provider: Didi Carrera, [address] [place], [place], [id number]. tel:[phone] Provider: DEWAYNE Nurse/[place]. [facility] [place], [address] [place], [place], [id number], [place] tel:[phone] DEWAYNE Milroy Endocrine disorder, unspecifiedTranssexualismEncounter for oth general cnsl and advice on contraception Debi Tolbert. [address] [place], [place], [id number], [place]. tel:[phone] Referring Provider: Didi Carrera, [address] [place], [place], [id number]. tel:[phone] Provider: DEWAYNE Nurse/[place]. [facility] [place], [address] [place], [place], [id number], [place] tel:[phone] DEWAYNE Jimenez TranssexualismJessicaou nter for oth general cnsl and advice on contraceptionHuman immunodeficiency virus [HIV] counseling Debi Tolbert. [address] [place], [place], [id number], [place]. tel:[phone] Referring Provider: Didi Carrera, [address] [place], [place], [id number]. tel:[phone] [facility] [place], [address] [place], [place], [id number], [place] tel:[phone] DEWAYNE Milroy Human immunodeficie ncy virus [HIV] counselingEncntr screen for infections w sexl mode of transmissEncounter for screening for human immunodeficiency virusHigh risk heterosexual behaviorEndocrine disorder, unspecifiedTranssexualismEncntr for administrative coordinator exam (general) (routine) w/o abn findings Carranza. [address], [place], [id number], . tel:[phone] Referring Provider: Miley Fletcher, [address], [place], [id number]. tel:[phone] Family History Family Member Diagnosis Age At [...] type Covered alliance party ID Authorization(s ) [facility] CI [id number] Social History Type Description Quantity Date Captured Comments Alcohol Use Details Unknown Caffeine Use Details Unknown Tobacco Use Status No Information Smoking Status Never smoker Sex Female Vital Signs Date / Time: Height Weight BMI Pulse Rate Blood Pressure Temperatu re Respiratory Rate Body Surface Area Head Circumference BMI percentile Pulse Ox In haled Ox 11:29 AM 66.00 in 221.00 lbs 35.67 kg/meter(2) 120/8 4 mm[Hg] Chief Complaint And Reason For Visit No Information Reason For Referral Reason For Referral No Information Plan Of Treatment Date Type Action Status Referral Ordered: Referrals: Other. Evaluate and treat Appointment date/timeframe: 2 Months ordered Referral Ordered: Referrals: Carousel Attendant. Evaluate and treat ordered Referral Referred To: [facility] Ordered: Referrals: Vocational Rehabilitation Administrator. [facility]. Evaluate and treat Appointment date/timeframe: 2 Months ordered Referral Ordered: Janet Mcmillan -[facility] : Family Medicine (related to Transsexualism) ordered Referral Referred To: Janet Mcmillan [address] [place] [address], [id number] [phone] Ordered: Referrals: Allopathic & Osteopathic Physicians : [...] Date No Information Medical Equipment Description Device Enfield Device Identifier Effective Romero es (start - stop) Status No Information Mental Status Date Cognitive Assessment No Information Health Concerns Observation Date No Information Concern Status Date No Information Physical Examination Exam Findings Details No Information
--- OUTSIDE RECORDS SUMMARY | 2021-04-22 13:39 | CCD | Continuity of Care Document ---
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 Height/Weight CVR Pinking Sewing Machine Operator.Svc. Contraceptive CVR Pinking Sewing Machine Operator.Svc. Other Results Test Name Date and Time Measure Units Reference Range Abnormal Flag St atus Comments No Information Advance Directives Directive Yes / No Effective Date File Name No Information Encounters Encounter Description Practice Location Reason(s) For Visit Diagnose s Date Provider Providers Copied on Encounter [facility], [address] [place] [address], [id number], tel:[phone] DEWAYNE Ogden Endocrine disorder, unspecifiedGender identity disorder, unspecified Carmina Salazar. [address] [place] [address], [id number], . tel:[phone] Referring Provider: Marie Grewal, [address] [place] [address], [id number]. tel:[phone] Provider: DEWAYNE Nurse/CASocorro [facility], [address] [place] [address], [id number], tel:[phone] DEWAYNE Ogden Gender Identity Disorder Carmina Salazar. [address] [place] [address], [id number], . tel:[phone] Referring Provider: Marie Grewal, [address] [place] [address], [id number]. tel:[phone] Provider: DEWAYNE Nurse/CASocorro [facility], [address] [place] [address], [id number], [place] tel:[phone] DEWAYNE Ogden MA Documentation (chief complaint) Gend er Identity Disorder Chapincito Tolbert. [address] [place], [place], [id number], [place]. tel:[phone] Referring Provider: Edwige Beckham, [address] [place] [address], [id number]. tel:[phone] [facility] [place], [address] [place] [address], [id number], [place] tel:[phone] DEWAYNE Ogden Gender Identity Disorder Everette De. [address] [place] [address], [id number], [place]. tel:[phone] Referring Provider: Henrietta Gaviria, [address] [place] [address], [id number]. tel:[phone] Provider: DEWAYNE Nurse/CA. [facility] [place], [address] [place] [address], [id number], [place] tel:[phone] DEWAYNE Jimenez No Information Adriel Luna. [address] [place] [address], [id number], [place]. tel:[phone] [facility] [place], [address] [place] [address], [id number], [place] tel:[phone] DEWAYNE Ogden Endocrine disorder, unspec ified Chapincito Tolbert. [address] [place], [place], [id number], [place]. tel:[phone] Referring Provider: Edwige Beckham, [address] [place] [address], [id number]. tel:[phone] [facility] [place], [address] [place] [address], [id number], [place] tel:[phone] DEWAYNE Ogden Gender Identity Disorder Chapincito Tolbert. [address] [place] [address], [id number], [place]. tel:[phone] Referring Provider: Edwige Tolbert Chapincito, [address] [place] [address], [id number]. tel:[phone] [facility], [address] [place] [address], [id number], [place] tel:[phone] YIFANOHALEXANDRA Ogden Gender identity disorder, unspecified Jerelraisa Tolbert. [address] [place], [place], [id number], [place]. tel:[phone] Referring Provider: Edwige Tolbert Chap[place], [address] [place] [address], [id number]. tel:[phone] Provider: DEWAYNE Nurse/CA. [facility] [place], [address] [place] [address], [id number], [place] tel:[phone] YIFANOHALEXANDRA Ogden Endocrine disorder, unspecifiedGender Identity Disorder Everette De. [address] [place], [place], [id number], [place]. tel:[phone] Referring Provider: Henrietta Gaviria, [address] [place] [address], [id number]. tel:[phone] [facility] [place], [address] [place], [place], [id number], [place] tel:[phone] YIFANOHALEXANDRA Ogden Gender Identity Disorder Everette De. [address] [place] [address], [id number], [place]. tel:[phone] Referring Provider: Henrietta Gaviria, [address] [place] [address], [id number]. tel:[phone] Provider: DEWAYNE Nurse/CA. [facility] [place], [address] [place] [address], [id number], [place] tel:[phone] DEWAYNE Ogden Gender Identity Dis orderEndocrine disorder, unspecified Chapincito Tolbert. [address] [place], [place], [id number], . tel:[phone] Referring Provider: Edwige Beckham, [address] [place] [address], [id number]. tel:[phone] [facility], [address] [place] [address], [id number], tel:[phone] DEWAYNE Ogden Gender identity disorder, unspecified Chapincito Edwige Layley. [address] [place] [address], [id number], . tel:[phone] Referring Provider: Edwige Beckham, [address] [place] [address], [id number]. tel:[phone] [facility], [address] [place] [address], [id number], tel:[phone] DEWAYNE Ogden Gender Identity Disorder Everette De. [address] [place] [address], [id number], . tel:[phone] Referring Provider: Henrietta Gaviria, [address] [place] [address], [id number]. tel:[phone] Provider: DEWAYNE Nurse/CA. [facility], [address] [place] [address], [id number], [place] tel:[phone] DEWAYNE Ogden Gender identity disorder, unspecified Everette De. [address] [place] [address], [id number], . tel:[phone] Referring Provider: Henrietta Gaviria, [address] [place] [address], [id number]. tel:[phone] Provider: Provider Nurse. [facility], [address] [place], [place], [id number], [place] tel:[phone] DEWAYNE Ogden Gender Identity Dis orderEndocrine disorder, unspecified Chapincito Tolbert. [address] [place], [place], [id number], [place]. tel:[phone] Referring Provider: Edwige Beckham, [address] [place] [address], [id number]. tel:[phone] Provider: DEWAYNE Nurse/CA. [facility], [address] [place], [place], [id number], [place] tel:[phone] DEWAYNE Ogden Gender Identity Disorder Dwello Edwige Tolbert. [address] [place] [address], [id number], [place]. tel:[phone] Referring Provider: Edwige Beckham, [address] [place] [address], [id number]. tel:[phone] [facility], [address] [place], [place], [id number], [place] tel:[phone] DEWAYNE Ogden Gender Identity Dis orderEndocrine disorder, unspecified Everette De. [address] [place], [place], [id number], [place]. tel:[phone] Referring Provider: Henrietta Gaviria, [address] [place], [place], [id number]. tel:[phone] [facility], [address] [place], [place], [id number], [place] tel:[phone] DEWAYNE Ogden Endocrine disorder, unspecifiedGender Identity Disorder Everette De. [address] [place], [place], [id number], [place]. tel:[phone] Referring Provider: Henrietta Gaviria, [address], [place], [id number]. tel:[phone] Provider: DEWAYNE Nurse/CA. [facility], [address] [place] [address], [id number], [place] tel:[phone] DEWAYNE Ogden Endocrine disorder, unspecifiedGender Identity Disorder Chapincito Tolbert. [address] [place], [place], [id number], [place]. tel:[phone] Referring Provider: Edwige Beckham, [address] [place] [address], [id number]. tel:[phone] [facility], [address] [place] [address], [id number], [place] tel:[phone] YIFANOHALEXANDRA Ogden Gender Identity Disorder Carmina Salazar. [address] [place] [address], [id number], [place]. tel:[phone] Referring Provider: Marie Grewal, [address] [place] [address], [id number]. tel:[phone] Provider: DEWAYNE Nurse/CA. [facility], [address] [place] [address], [id number], [place] tel:[phone] DEWAYNE Ogden Endocrine disorder, unspecifiedGender identity disorder, unspecified Everette De. [address] [place] [address], [id number], [place]. tel:[phone] Referring Provider: Henrietta Gaviria, [address] [place] [address], [id number]. tel:[phone] [facility], [address] [place] [address], [id number], [place] tel:[phone] [facility] Human immunodeficie ncy virus [HIV] counselingOther sex counselingGender identity disorder, unspecified Chapincito Tolbert. [address] [place] [address], [id number], [place]. tel:[phone] Referring Provider: Edwige Beckham, [address] [place] [address], [id number]. tel:[phone] [facility], [address] [place] [address], [id number], [place] tel:[phone] DEWAYNE Ogden Gender Identity Disorder Everette De. [address] [place] [address], [id number], [place]. tel:[phone] Referring Provider: Henrietta Gaviria, [address] [place] [address], [id number]. tel:[phone] [facility], [address] [place] [address], [id number], [place] tel:[phone] DEWAYNE Ogden Endocrine disorder, unspecifiedGender Identity Disorder Carmina Salazar. [address] [place] [address], [id number], [place]. tel:[phone] Referring Provider: Mraie Grewal, [address] [place], [place], [id number]. tel:[phone] [facility], [address] [place] [address], [id number], [place] tel:[phone] DEWAYNE Ogden Gender Identity Dis orderEndocrine disorder, unspecified Carmina Salazar. [address] [place] [address], [id number], [place]. tel:[phone] Referring Provider: Marie Grewal, [address] [place] [address], [id number]. tel:[phone] Provider: DEWAYNE Nurse/CA. [facility], [address] [place] [address], [id number], [place] tel:[phone] DEWAYNE Ogden Gender Identity Dis orderEndocrine disorder, unspecified Carmina Salazar. [address] [place], [place], [id number], [place]. tel:[phone] Referring Provider: Marie Grewal, [address] [place] [address], [id number]. tel:[phone] [facility], [address] [place], [place], [id number], [place] tel:[phone] [facility] Endocrine disorder, unspecifiedGender Identity Disorder Carmina Salazar. [address] [place], [place], [id number], [place]. tel:[phone] Referring Provider: Marie Grewal, [address] [place], [place], [id number]. tel:[phone] Provider: DEWAYNE Nurse/CA. [facility], [address], [place], [id number], [place] tel:[phone] YIFANOHALEXANDRA Ogden Endocrine disorder, unspecifiedGender Identity Disorder Everette De. [address] [place], [place], [id number], [place]. tel:[phone] Referring Provider: Henrietta Gaviria, [address] [place] [address], [id number]. tel:[phone] Provider: DEWAYNE Nurse/CA. [facility], [address], [place], [id number], [place] tel:[phone] YIFANOHALEXANDRA Ogden Gender identity disorder, unspecified Everette De. [address] [place], [place], [id number], [place]. tel:[phone] Referring Provider: Henrietta Gaviria, [address] [place] [address], [id number]. tel:[phone] [facility], [address], [place], [id number], [place] tel:[phone] DEWAYNE Ogden Gender identity disorder, unspecified Everette De. [address] [place], [place], [id number], [place]. tel:[phone] Referring Provider: Henrietta Gaviria, [address] [place] [address], [id number]. tel:[phone] Provider: DEWAYNE Nurse/CA. [facility], [address], [place], [id number], [place] tel:[phone] DEWAYNE Ogden Endocrine disorder, unspecifiedGender Identity Disorder Chapincito Tolbert. [address] [place] [address], [id number], [place]. tel:[phone] Referring Provider: Edwige Beckham, [address] [place] [address], [id number]. tel:[phone] Provider: DEWAYNE Nurse/CA. [facility], [address] [place] [address], [id number], [place] tel:[phone] DEWAYNE Ogden Gender identity disorder, unspecified Chapincito Tolbert. [address] [place], [place], [id number], [place]. tel:[phone] Referring Provider: Edwige Beckham, [address] [place] [address], [id number]. tel:[phone] [facility], [address] [place] [address], [id number], [place] tel:[phone] DEWAYNE Ogden Endocrine disorder, unspecifiedGender Identity Disorder Everette De. [address] [place], [place], [id number], [place]. tel:[phone] Referring Provider: Henrietta Gaviria, [address] [place] [address], [id number]. tel:[phone] Provider: DEWAYNE Nurse/CA. [facility], [address], [place], [id number], [place] tel:[phone] DEWAYNE Ogden Gender Identity Dis orderEndocrine disorder, unspecified Carmina Salazar. [address] [place], [place], [id number], [place]. tel:[phone] Referring Provider: Marie Grewal, [address] [place] [address], [id number]. tel:[phone] Provider: DEWAYNE Nurse/CA. [facility], [address] [place] [address], [id number], [place] tel:[phone] DEWAYNE Ogden Endocrine disorder, unspecifiedGender Identity Disorder Carmina Salazar. [address] [place], [place], [id number], [place]. tel:[phone] Referring Provider: Marie Grewal, [address], [place], [id number]. tel:[phone] Provider: DEWAYNE Nurse/CA. [facility], [address] [place] [address], [id number], [place] tel:[phone] DEWAYNE Ogden Endocrine disorder, unspecifiedGender Identity Disorder Everette De. [address] [place], [place], [id number], [place]. tel:[phone] Referring Provider: Henrietta Gaviria, [address] [place] [address], [id number]. tel:[phone] [facility], [address] [place] [address], [id number], [place] tel:[phone] DEWAYNE Ogden Endocrine disorder, unspecifiedGender identity disorder, unspecified Carmina Salazar. [address] [place], [place], [id number], [place]. tel:[phone] Referring Provider: Marie Grewal, [address] [place] [address], [id number]. tel:[phone] Provider: Provider Nurse. [facility], [address] [place], [place], [id number], [place] tel:[phone] YIFANNCALEXANDRA Ogden Endocrine disorder, unspecifiedGender Identity Disorder Everette De. [address] [place], [place], [id number], [place]. tel:[phone] Referring Provider: Henrietta Gaviria, [address] [place] [address], [id number]. tel:[phone] [facility], [address] [place] [address], [id number], [place] tel:[phone] YIFANNCALEXANDRA Ogden Endocrine disorder, unspecifiedGender Identity Disorder Carmina Salazar. [address] [place], [place], [id number], [place]. tel:[phone] Referring Provider: Marie Grewal, [address] [place], [place], [id number]. tel:[phone] Provider: DEWAYNE Nurse/CA. [facility], [address], [place], [id number], [place] tel:[phone] YIFANNCALEXANDRA Ogden Endocrine disorder, unspecifiedGender Identity Disorder Carmina Salazar. [address] [place], [place], [id number], [place]. tel:[phone] Referring Provider: Marie Grewal, [address] [place] [address], [id number]. tel:[phone] Provider: DEWAYNE Nurse/CA. [facility], [address], [place], [id number], [place] tel:[phone] DEWAYNE Ogden Endocrine disorder, unspecifiedGender Identity Disorder Carmina Salazar. [address] [place], [place], [id number], [place]. tel:[phone] Referring Provider: Marie Grewal, [address] [place] [address], [id number]. tel:[phone] Provider: Provider Nurse. [facility] [place], [address], [place], [id number], [place] tel:[phone] DEWAYNE Ogden Endocrine disorder, unspecifiedGender Identity Disorder Carmina Salazar. [address] [place], [place], [id number], [place]. tel:[phone] Referring Provider: Marie Grewal, [address] [place] [address], [id number]. tel:[phone] Provider: DEWAYNE Nurse/CA. [facility] [place], [address], [place], [id number], [place] tel:[phone] DEWAYNE Ogden Endocrine disorder, unspecifiedGender Identity Disorder Melissa Lazo. [address] [place], [place], [id number], [place]. tel:[phone] Referring Provider: Violet Torres, [address], [place], [id number]. tel:[phone] [facility] [place], [address] [place], [place], [id number], [place] tel:[phone] DEWAYNE Ogden Endocrine disorder, unspecifiedGender Identity Disorder Adriel Luna. [address], [place], [id number], [place]. tel:[phone] Referring Provider: Cheryl Morel, [address] [place] [address], [id number]. tel:[phone] Provider: DEWAYNE Nurse/CA. [facility] [place], [address] [place] [address], [id number], tel:[phone] DEWAYNE Ogden Endocrine disorder, unspecifiedGender Identity Disorder Everette De. [address] [place], [place], [id number], [place]. tel:[phone] Referring Provider: Henrietta Gaviria, [address], [place], [id number]. tel:[phone] Provider: DEWAYNE Nurse/CA. [facility] [place], [address], [place], [id number], tel:[phone] DEWAYNE Ogden Endocrine disorder, unspecifiedGender Identity Disorder Peewee Lux. [address] [place] [address], [id number], [place]. tel:[phone] Referring Provider: Maci Vides, [address], [place], [id number]. tel:[phone] Provider: DEWAYNE Nurse/CA. [facility] [place], [address] [place] [address], [id number], tel:[phone] DEWAYNE Ogden Endocrine disorder, unspec ified Peewee Lux. [address] [place], [place], [id number], [place]. tel:[phone] Referring Provider: Maci Vides, [address], [place], [id number]. tel:[phone] [facility] [place], [address] [place] [address], [id number], [place] tel:[phone] DEWAYNE Ogden Gender Identity Dis orderEndocrine disorder, unspecified Melissa Lazo. [address] [place] [address], [id number], [place]. tel:[phone] Referring Provider: Violet Torres, [address] [place] [address], [id number]. tel:[phone] Provider: DEWAYNE Nurse/CA. [facility] [place], [address] [place], [place], [id number], [place] tel:[phone] DEWAYNE Ogden Gender Identity Disorder Melissa Violet. [address], [place], [id number], [place]. tel:[phone] Referring Provider: Violet Torres, [address] [place] [address], [id number]. tel:[phone] Provider: DEWAYNE Nurse/CA. [facility] [place], [address], [place], [id number], [place] tel:[phone] DEWAYNE Hernandez Gender identity dis order, unspecifiedObesity, unspecifiedInappropriate diet and eating habits Melissa Violet. [address], [place], [id number], [place]. tel:[phone] Referring Provider: Violet Torres, [address] [place] [address], [id number]. tel:[phone] [facility] [place], [address], [place], [id number], [place] tel:[phone] DEWAYNE Ogden Gender identity disorder, unspecified Peewee Lux. [address] [place], [place], [id number], [place]. tel:[phone] Referring Provider: Maci Vides, [address] [place] [address], [id number]. tel:[phone] [facility] [place], [address], [place], [id number], [place] tel:[phone] DEWAYNE Ogden Gender Identity Dis orderEndocrine disorder, unspecified Melissa Violet. [address], [place], [id number], [place]. tel:[phone] Referring Provider: Violet Torres, [address], [place], [id number]. tel:[phone] Provider: DEWAYNE Nurse/CA. [facility] [place], [address], [place], [id number], [place] tel:[phone] DEWAYNE Ogden Gender identity disorder, unspecified Melissa Violet. [address] [place], [place], [id number], [place]. tel:[phone] Referring Provider: Violet Torres, [address], [place], [id number]. tel:[phone] [facility] [place], [address], [place], [id number], [place] tel:[phone] DEWAYNE Ogden Gender Identity Disorder Peewee Lux. [address] [place] [address], [id number], [place]. tel:[phone] Referring Provider: Maci Vides, [address], [place], [id number]. tel:[phone] [facility] [place], [address] [place], [place], [id number], [place] tel:[phone] [facility] Endocrine disorder, unspecifiedGender Identity Disorder Debi Tolbert. [address], [place], [id number], [place]. tel:[phone] Referring Provider: Didi Carrera, [address] [place], [place], [id number]. tel:[phone] [facility] [place], [address], [place], [id number], [place] tel:[phone] DEWAYNE Ogden Gender identity disorder, unspecified Debi Tolbert. [address] [facility], [place], [id number], [place]. tel:[phone] Referring Provider: Didi Carrera, [address] [place], [place], [id number]. tel:[phone] [facility] [place], [address] [place], [place], [id number], [place] tel:[phone] YIFANOHALEXANDRA Ogden Endocrine disorder, unspecifiedGender Identity Disorder Carmina Salazar. [address] [place], [place], [id number], [place]. tel:[phone] Referring Provider: Marie Grewal, [address] [place] [address], [id number]. tel:[phone] Provider: DEWAYNE Nurse/CA. [facility] [place], [address], [place], [id number], [place] tel:[phone] DEWAYNE Ogden Gender Identity Dis orderEndocrine disorder, unspecified Debi Tolbert. [address], [place], [id number], [place]. tel:[phone] Referring Provider: Didi Carrera, [address] [place], [place], [id number]. tel:[phone] Provider: DEWAYNE Nurse/CA. [facility] [place], [address], [place], [id number], [place] tel:[phone] YIFANOHALEXANDRA Ogden Endocrine disorder, unspecifiedGender Identity Disorder Carmina Salazar. [address] [place], [place], [id number], [place]. tel:[phone] Referring Provider: Marie Grewal, [address] [place] [address], [id number]. tel:[phone] [facility] [place], [address] [place], [place], [id number], [place] tel:[phone] DEWAYNE Ogden Gender identity disorder, unspecified Carmina Salazar. [address] [place] [address], [id number], [place]. tel:[phone] Referring Provider: Marie Grewal, [address] [place] [address], [id number]. tel:[phone] Provider: DEWAYNE Nurse/CA. [facility] [place], [address] [place] [address], [id number], [place] tel:[phone] DEWAYNE Ogden Encounter for surve illance of injectable contraceptiveGender Identity Disorder Carmina Salazar. [address] [place] [address], [id number], [place]. tel:[phone] Referring Provider: Marie Grewal, [address] [place] [address], [id number]. tel:[phone] [facility] [place], [address] [place] [address], [id number], [place] tel:[phone] DEWAYNE Ogden Gender Identity Disorder Carmina Salazar. [address] [place] [address], [id number], [place]. tel:[phone] Referring Provider: Marie Grewal, [address] [place] [address], [id number]. tel:[phone] [facility] [place], [address] [place] [address], [id number], [place] tel:[phone] DEWAYNE Jimenez Gender Identity Dis orderEncounter for oth general cnsl and advice on contraception Debi garcia. [address] [place] [address], [id number], [place]. tel:[phone] Referring Provider: Didi Carrera, [address] [place] [address], [id number]. tel:[phone] [facility] [place], [address] [place] [address], [id number], [place] tel:[phone] DEWAYNE Ogden Endocrine disorder, unspecifiedGender Identity DisorderOther sex counselingEncounter for oth general cnsl and advice on contraception Carmina Salazar. [address] [place], [place], [id number], [place]. tel:[phone] Referring Provider: Marie Grewal, [address] [place], [place], [id number]. tel:[phone] [facility] [place], [address] [place] [address], [id number], [place] tel:[phone] DEWAYNE Ogden Gender Identity Dis orderEndocrine disorder, unspecifiedOther sex counselingEncounter for oth general cnsl and advice on contraception Peewee Lux. [address] [place] [address], [id number], [place]. tel:[phone] Referring Provider: Maci Vides, [address] [place] [address], [id number]. tel:[phone] Provider: DEWAYNE Nurse/CA. [facility] [place], [address] [place] [address], [id number], [place] tel:[phone] DEWAYNE Ogden Gender Identity Dis orderEndocrine disorder, unspecifiedOther sex counselingEncounter for oth general cnsl and advice on contraception Carmina Salazar. [address] [place], [place], [id number], [place]. tel:[phone] Referring Provider: Marie Grewal, [address] [place] [address], [id number]. tel:[phone] [facility] [place], [address] [place] [address], [id number], [place] tel:[phone] DEWAYNE Ogden Gender Identity Disorder Carmina Salazar. [address] [place] [address], [id number], [place]. tel:[phone] Referring Provider: Marie Grewal, [address] [place] [address], [id number]. tel:[phone] Provider: DEWAYNE Nurse/CA. [facility] [place], [address] [place] [address], [id number], [place] tel:[phone] DEWAYNE Ogden Endocrine disorder, unspecifiedGender Identity Disorder Peewee Lux. [address] [place] [address], [id number], [place]. tel:[phone] Referring Provider: Maci Vides, [address] [place], [place], [id number]. tel:[phone] [facility] [place], [address] [place] [address], [id number], [place] tel:[phone] DEWAYNE Ogden Gender identity dis order, unspecifiedGender Identity DisorderEndocrine disorder, unspecified Carmina Salazar. [address] [place] [address], [id number], [place]. tel:[phone] Referring Provider: Marie Grewal, [address] [place] [address], [id number]. tel:[phone] Provider: DEWAYNE Nurse/CA. [facility] [place], [address] [place] [address], [id number], [place] tel:[phone] DEWAYNE Ogden Gender Identity Disorder Carmina Salazar. [address] [place] [address], [id number], [place]. tel:[phone] Referring Provider: Marie Grewal, [address] [place] [address], [id number]. tel:[phone] [facility] [place], [address] [place] [address], [id number], [place] tel:[phone] DEWAYNE Jimenez Gender Identity Disorder Ju Adriel Luna. [address] [place] [address], [id number], [place]. tel:[phone] Referring Provider: Cheryl Morel, [address] [place], [place], [id number]. tel:[phone] [facility], [address] [place] [address], [id number], [place] tel:[phone] DEWAYNE Ogden Gender Identity Disorder Carmina Salazar. [address] [place] [address], [id number], [place]. tel:[phone] Referring Provider: Marie Grewal, [address] [place] [address], [id number]. tel:[phone] Provider: DEWAYNE Nurse/CA. [facility], [address] [place] [address], [id number], [place] tel:[phone] DEWAYNE Ogden Gender Identity Disorder Carmina Salazar. [address] [place] [address], [id number], [place]. tel:[phone] [facility], [address] [place] [address], [id number], [place] tel:[phone] DEWAYNE Jimenez Gender Identity Dis orderEncounter for oth general cnsl and advice on contraception Adriel Luna. [address] [place] [address], [id number], [place]. tel:[phone] Referring Provider: Cheryl Morel, [address] [place] [address], [id number]. tel:[phone] [facility], [address] [place] [address], [id number], [place] tel:[phone] DEWAYNE Ogden Gender Identity Dis orderEndocrine disorder, unspecified Peewee Lux. [address] [place] [address], [id number], [place]. tel:[phone] Referring Provider: Maci Vides, [address] [place], [place], [id number]. tel:[phone] Provider: DEWAYNE Nurse/CA. [facility], [address] [place], [place], [id number], [place] tel:[phone] [facility] Encounter for surve illance of injectable contraceptiveTranssexualismEndocrine disorder, unspecified Peewee Lux. [address] [place], [place], [id number], [place]. tel:[phone] Referring Provider: Maci Vides, [address] [place], [place], [id number]. tel:[phone] Provider: DEWAYNE Nurse/CA. [facility], [address] [place], [place], [id number], [place] tel:[phone] DEWAYNE [place] Encounter for surve illance of injectable contraceptiveEncounter for oth general cnsl and advice on contraception Debi Tolbert. [address] [place] [address], [id number], [place]. tel:[phone] Referring Provider: Didi Carrera, [address] [place] [address], [id number]. tel:[phone] [facility], [address] [place], [place], [id number], [place] tel:[phone] [facility] Endocrine disorder, unspecifiedTranssexualism Debi Tolbert. [address] [place], [place], [id number], [place]. tel:[phone] Referring Provider: Didi Carrera, [address] [place] [address], [id number]. tel:[phone] Provider: DEWAYNE Nurse/CA. [facility], [address] [place], [place], [id number], [place] tel:[phone] DEWAYNE Ogden TranssexualismEndoc rine disorder, unspecified Debi Tolbert. [address] [place], [place], [id number], [place]. tel:[phone] Referring Provider: Didi Carrera, [address] [place], [place], [id number]. tel:[phone] Provider: DEWAYNE Nurse/[place]. [facility] [place], [address] [place], [place], [id number], [place] tel:[phone] DEWAYNE Ogden Endocrine disorder, unspecifiedTranssexualismEncounter for oth general cnsl and advice on contraception Debi Tolbert. [address] [place], [place], [id number], [place]. tel:[phone] Referring Provider: Didi Carrera, [address] [place], [place], [id number]. tel:[phone] Provider: DEWAYNE Nurse/CA. [facility] [place], [address] [place], [place], [id number], [place] tel:[phone] DEWAYNE Jimenez TranssexualismEncou nter for oth general cnsl and advice on contraceptionHuman immunodeficiency virus [HIV] counseling Debi Tolbert. [address] [place], [place], [id number], [place]. tel:[phone] Referring Provider: Didi Carrera, [address] [place], [place], [id number]. tel:[phone] [facility] [place], [address] [place], [place], [id number], [place] tel:[phone] DEWAYNE Ogden Human immunodeficie ncy virus [HIV] counselingEncntr screen for infections w sexl mode of transmissEncounter for screening for human immunodeficiency virusHigh risk heterosexual behaviorEndocrine disorder, unspecifiedTranssexualismEncntr for clinical documentation nurse exam (general) (routine) w/o abn findings Carranza. [address] [place] [address], [id number], . tel:[phone] Referring Provider: Miley Fletcher, [address] [place], [place], [id number]. tel:[phone] Family History Family Member Diagnosis Age At [...] type Covered green party ID Authorization(s ) [facility] CI [id number] Social History Type Description Quantity Date Captured [...] BMI percentile Pulse Ox In haled Ox 2:00 PM 66.00 in 218.20 lbs 35.22 kg/meter(2) 120/82 m m[Hg] Chief Complaint And Reason For Visit No Information Reason For Referral Reason For Referral No Information Plan Of Treatment Date Type Action Status Referral Ordered: Referrals: Other. Evaluate and treat Appointment date/timeframe: 2 Months ordered Referral Ordered: Referrals: Biomedical Instrument Technician. Evaluate and treat ordered Referral Referred To: [facility] Ordered: Referrals: High School Band Teacher. [facility]. Evaluate and treat Appointment date/timeframe: 2 Months ordered Referral Ordered: Janet Mcmillan -[facility] : Family Medicine (related to Transsexualism) ordered Referral Referred To: Janet Mcmillan [address] [place] [address], [phone] Ordered: Referrals: Allopathic & Osteopathic Physicians : [...] Date No Information Medical Equipment Description Device Fisher Device Identifier Effective Romero es (start - stop) Status No Information Mental Status Date Cognitive Assessment No Information Health Concerns Observation Date No Information Concern Status Date No Information Physical Examination Exam Findings Details No Information
--- OUTSIDE RECORDS SUMMARY | 2021-04-22 13:39 | CCD | Continuity of Care Document ---
Author Author Thu BUSTILLO Organization Unknown Address [address] [place] [address] [place] [address] Phone [phone] Care Team Providers Care Float Phlebotomist Name Role Phone [employer]in [employer] AUTM [phone] [facility] AUTM [phone] Problems Description No Information Available Social History Type Date Description Comments Sex Unknown ETOH Use Occasionally consumes alcohol Tobacco Use Start: Unknown End: Unknown Patient is a former smoker Smoking Status Reviewed: 10/05/20 Patient is a former smoker Allergies, Adverse [...] Steven King JR., M.D. 01/17/2021 - 01/27/2021 Magic Mouth Wash 1:1:1 solution of maalox, be nadryl and viscous lidocaine. swish and spit 15ml every 4 hours as needed for pain 200ml J02.9 Steven King JR., M.D. 10/05/2020 - 10/12/2020 Prednisone 20mg Tablets 2 tab by mouth daily x 4 days 8tabs J02.9 Steven King JR., M.D. - 10/09/2020 Immunizations Description No Information Available Vital Signs Date Vital Result Comment 01/17/2021 1:34pm BP Systolic 124 mmHg BP Diastolic 84 mmHg Heart Rate 81 /min Respiratory Rate 16 /min O2 % BldC Oximetry 98 % Body Temperature 97.8 F Weight 227.00 lb Height 66 inches 5'6" BMI (Body Mass Index) 36.6 kg/m2 Pain Level 7 10/05/2020 12:14pm BP Systolic 132 mmHg BP Diastolic 84 mmHg Heart Rate 69 /min Respiratory Rate 13 /min O2 % BldC Oximetry 98 % Body Temperature 96.8 F Weight 225.00 lb Height 66 inches 5'6" BMI (Body Mass Index) 36.3 kg/m2 Pain Level 8 Results Test Acquired Date Facility Test Result H/L Range Note Group A Stretp Culture 10/05/2020 [place] [id number] [phone] Group A Strep Culture FULL REPORT IN L <SEE NOTE> Nor mal 1 1 FULL REPORT IN LAB NOTES ([facility] and [facility]). NEGATIVE FOR STREP PYOGENES (GROUP A) Procedures Date Code Description Status 01/17/2021 96759 Office/Outpatient Established Lo w MDM 20-29 Min Completed 10/05/2020 26398 Office/Outpatient Established Mo d MDM 30-39 Min Completed 09/10/2020 78968 Office/Outpatient Established Lo w MDM 20-29 Min Completed Medical Devices Description No Information Available Encounters Type Date Location Provider Dx Diagnosis Office Visit 01/17/2021 1:20p Main Office Kylie Pappas NP J01. 90 Acute sinusitis, unspecified H65.03 Acute serous otitis media, b ilateral Z20.828 Contact w and exposure to ot h viral communicable diseases Office Visit 10/05/2020 12:10p Main Office Abel Bustillo, P.A. J0 2.9 Acute pharyngitis, unspecified R53.83 Other fatigue Office Visit 09/10/2020 9:35a Main Office DENAE Mie J06.9 Acute upper respiratory infection, unspecified Z20.828 Contact w and exposure to ot h viral communicable diseases Assessments Date Code Description Provider 03/11/2021 Z20.828 Contact with and (martell spected) exposure to other viral communicable diseases Brandon Verdin. 01/17/2021 J01.90 Acute sinusitis, unspecified Betty Pappas, [employer]PER[employer]OR 01/17/2021 H65.03 Acute serous otitis media, bilat eral Kylie Pappas, [employer] SUPER[employer]OR 01/17/2021 Z20.828 Contact with and (martell spected) exposure to other viral communicable diseases Kylie Mian, [employer] SUPER[employer]OR 10/05/2020 J02.9 Acute pharyngitis, unspecified J pallavi Bustillo, P.A. 10/05/2020 R53.83 Other fatigue Abel barrientos, P.A. 09/10/2020 J06.9 Acute upper respiratory infectio n, unspecified DENAE Mei 09/10/2020 Z20.828 Contact with and (martell spected) exposure to other viral communicable diseases DENAE Mei Plan of Treatment No Information Available Functional Status Description No Information Available Mental Status Description No Information Available Referrals Description No Information Available
--- OUTSIDE RECORDS SUMMARY | 2021-04-22 13:39 | CCD | Continuity of Care Document ---
Author Author Thu BUSTILLO Organization Unknown Address [address] [place] [address] [place] [address] Phone [phone] Care Team Providers Care Menagerie Caretaker Name Role Phone [employer] AUTM [phone] [facility] AUTM Problems Description No Information Available Social History [...] Range Note Group A Stretp Culture 10/05/2020 [place] [phone] [phone] Group A Strep Culture FULL REPORT IN L <SEE NOTE> Nor mal 1 1 FULL REPORT IN LAB NOTES ([facility]C W and [facility]). NEGATIVE FOR STREP PYOGENES (GROUP A) Procedures Date Code Description Status 01/17/2021 45008 Office/Outpatient Established Lo w MDM 20-29 Min Completed 10/05/2020 50633 Office/Outpatient Established Mo d MDM 30-39 Min Completed 09/10/2020 43202 Office/Outpatient Established Lo w MDM 20-29 Min Completed Medical Devices Description No Information Available Encounters Type Date Location Provider Dx Diagnosis Office Visit 01/17/2021 1:20p Main Office Kylie Pappas NP J01. 90 Acute sinusitis, unspecified H65.03 Acute serous otitis media, b ilateral Z20.828 Contact w and exposure to ot h viral communicable diseases Office Visit 10/05/2020 12:10p Main Office Clare Verdin0 2.9 Acute pharyngitis, unspecified R53.83 Other fatigue Office Visit 09/10/2020 9:35a Main Office DENAE Mei J06.9 Acute upper respiratory infection, unspecified Z20.828 Contact w and exposure to ot h viral communicable diseases Assessments Date Code Description Provider 01/17/2021 J01.90 Acute sinusitis, unspecified Betty Pappas NP 01/17/2021 H65.03 Acute serous otitis media, bilat eral Kylie Pappas, [employer]ATTLE [employer]ICKER 01/17/2021 Z20.828 Contact with and (martell spected) exposure to other viral communicable diseases Kylie Pappas, LAILA 10/05/2020 J02.9 Acute pharyngitis, unspecified J pallavi Bustillo, P.A. 10/05/2020 R53.83 Other fatigue Abel barrientos P.A. 09/10/2020 J06.9 Acute upper respiratory infectio n, unspecified DENAE Mei 09/10/2020 Z20.828 Contact with and (martell spected) exposure to other viral communicable diseases DENAE Mei Plan of Treatment No Information Available Functional Status Description No Information Available Mental Status Description No Information Available Referrals Description No Information Available
--- OUTSIDE RECORDS SUMMARY | 2021-04-22 13:40 | CCD | Continuity of Care Document ---
Author Author [facility] Organization [facility] Address [address] [place] [address] Phone Care Team Providers Care Director Of Development And Marketing Name Role Phone Cheryl Morel NP Unavailable Unavailable Allergies, Adverse Reactions, Alerts Substance [...] week. Code F. - No Longer Active MDD 0 .45 mL weekly Code F Problems Condition Effective Dates (start - stop) Clinical Status C omments Endocrine disorder, unspecified Gender Identity Disorder Gender [...] behavior Endocrine disorder, unspecified Transsexualism Encntr for obstetrics gyn physician exam (general) (routine) w/o abn findings Procedures Procedure Date No Information Results Test Name Date and Time Measure Units Reference Range Abnormal Flag St atus Comments No Information Advance Directives Directive Yes / No Effective Date File Name No Information Encounters Encounter Description Practice Location Reason(s) For Visit Diagnose s Date Provider Providers Copied on Encounter [facility], [address] [place] [address], [id number], tel:[phone] DEWAYNE Girard No Information Adriel Luna. [address] [place] [address], [id number], [place]. tel:[phone] [facility], [address] [place] [address], [id number], [place] tel:[phone] DEWAYNE Calimesa Endocrine disorder, unspec ified Chapincito Tolbert. [address] [place] [address], [id number], [place]. tel:[phone] Referring Provider: Edwige Beckham, [address] [place] [address], [id number]. tel:[phone] [facility], [address] [place] [address], [id number], [place] tel:[phone] DEWAYNE Calimesa Gender Identity Disorder Chapincito Tolbert. [address] [place] [address], [id number], [place]. tel:[phone] Referring Provider: Edwige Beckham, [address] [place] [address], [id number]. tel:[phone] [facility], [address] [place] [address], [id number], [place] tel:[phone] DEWAYNE Calimesa Gender identity disorder, unspecified Chapincito Tolbert. [address] [place] [address], [id number], [place]. tel:[phone] Referring Provider: Edwige Beckham, [address] [place] [address], [id number]. tel:[phone] Provider: DEWAYNE Nurse/CA. [facility], [address] [place], [place], [id number], [place] tel:[phone] DEWAYNE Calimesa Endocrine disorder, unspecifiedGender Identity Disorder Everette De. [address] [place], [place], [id number], [place]. tel:[phone] Referring Provider: Henrietta Gaviria, [address], [place], [id number]. tel:[phone] [facility], [address], [place], [id number], [place] tel:[phone] DEWAYNE Calimesa Gender Identity Disorder Everette De. [address], [place], [id number], [place]. tel:[phone] Referring Provider: Henrietta Gaviria, [address], [place], [id number]. tel:[phone] Provider: DEWAYNE Nurse/CA. [facility], [address], [place], [id number], [place] tel:[phone] DEWAYNE Calimesa Gender Identity Dis orderEndocrine disorder, unspecified Chapincito Tolbert. [address], [place], [id number], [place]. tel:[phone] Referring Provider: Edwige Beckham, [address] [place], [place], [id number]. tel:[phone] [facility], [address], [place], [id number], [place] tel:[phone] DEWAYNE Calimesa Gender identity disorder, unspecified Chapincito Tolbert. [address] [place], [place], [id number], [place]. tel:[phone] Referring Provider: Edwige Beckham, [address] [place] [address], [id number]. tel:[phone] [facility], [address], [place], [id number], [place] tel:[phone] DEWAYNE Calimesa Gender Identity Disorder Everette De. [address], [place], [id number], [place]. tel:[phone] Referring Provider: Henrietta Gaviria, [address] [place] [address], [id number]. tel:[phone] Provider: DEWAYNE Nurse/CA. [facility], [address], [place], [id number], [place] tel:[phone] YIFANFLALEXANDRA Calimesa Gender identity disorder, unspecified Everette De. [address] [place], [place], [id number], [place]. tel:[phone] Referring Provider: Henrietta Gaviria, [address], [place], [id number]. tel:[phone] Provider: Provider Nurse. [facility], [address], [place], [id number], [place] tel:[phone] YIFANFLALEXANDRA Calimesa Gender Identity Dis orderEndocrine disorder, unspecified Chapincito Tolbert. [address], [place], [id number], [place]. tel:[phone] Referring Provider: Edwige Beckham, [address] [place] [address], [id number]. tel:[phone] Provider: DEWAYNE Nurse/CA. [facility], [address] [place] [address], [id number], [place] tel:[phone] DEWAYNE Calimesa Gender Identity Disorder Chapincito Tolbert. [address] [place] [address], [id number], [place]. tel:[phone] Referring Provider: Edwige Beckham, [address] [place] [address], [id number]. tel:[phone] [facility], [address] [place] [address], [id number], [place] tel:[phone] DEWAYNE Calimesa Gender Identity Dis orderEndocrine disorder, unspecified Everette De. [address] [place] [address], [id number], [place]. tel:[phone] Referring Provider: Henrietta Gaviria, [address] [place] [address], [id number]. tel:[phone] [facility], [address] [place] [address], [id number], [place] tel:[phone] DEWAYNE Calimesa Endocrine disorder, unspecifiedGender Identity Disorder Everette De. [address] [place] [address], [id number], [place]. tel:[phone] Referring Provider: Henrietta Gaviria, [address] [place] [address], [id number]. tel:[phone] Provider: DEWAYNE Nurse/CA. [facility], [address] [place] [address], [id number], [place] tel:[phone] DEWAYNE Calimesa Endocrine disorder, unspecifiedGender Identity Disorder Chapincito Tolbert. [address] [place] [address], [id number], [place]. tel:[phone] Referring Provider: Edwige Beckham, [address] [place] [address], [id number]. tel:[phone] [facility] [place], [address] [place] [address], [id number], [place] tel:[phone] DEWAYNE Calimesa Gender Identity Disorder Carmina Salazar. [address] [place] [address], [id number], [place]. tel:[phone] Referring Provider: Marie Grewal, [address] [place], [place], [id number]. tel:[phone] Provider: DEWAYNE Nurse/CA. [facility] [place], [address] [place] [address], [id number], [place] tel:[phone] DEWAYNE Calimesa Endocrine disorder, unspecifiedGender identity disorder, unspecified Everette De. [address] [place] [address], [id number], [place]. tel:[phone] Referring Provider: Henrietta Gaviria, [address] [place] [address], [id number]. tel:[phone] [facility] [place], [address] [place] [address], [id number], [place] tel:[phone] DEWAYNE Calimesa Human immunodeficie ncy virus [HIV] counselingOther sex counselingGender identity disorder, unspecified Chapincito Tolbert. [address] [place] [address], [id number], [place]. tel:[phone] Referring Provider: Edwige Beckham, [address] [place] [address], [id number]. tel:[phone] [facility] [place], [address] [place] [address], [id number], [place] tel:[phone] DEWAYNE Calimesa Gender Identity Disorder Everette De. [address] [place] [address], [id number], [place]. tel:[phone] Referring Provider: Henrietta Gaviria, [address] [place] [address], [id number]. tel:[phone] [facility], [address] [place] [address], [id number], [place] tel:[phone] DEWAYNE Calimesa Endocrine disorder, unspecifiedGender Identity Disorder Carmina Salazar. [address] [place], [place], [id number], [place]. tel:[phone] Referring Provider: Marie Grewal, [address] [place], [place], [id number]. tel:[phone] [facility], [address] [place] [address], [id number], [place] tel:[phone] DEWAYNE Calimesa Gender Identity Dis orderEndocrine disorder, unspecified Carmina Salazar. [address] [place], [place], [id number], [place]. tel:[phone] Referring Provider: Marie Grewal, [address] [place] [address], [id number]. tel:[phone] Provider: DEWAYNE Nurse/CA. [facility], [address] [place] [address], [id number], [place] tel:[phone] DEWAYNE Calimesa Gender Identity Dis orderEndocrine disorder, unspecified Carmina Salazar. [address] [place], [place], [id number], [place]. tel:[phone] Referring Provider: Marie Grewal, [address] [place] [address], [id number]. tel:[phone] [facility], [address] [place] [address], [id number], [place] tel:[phone] DEWAYNE Calimesa Endocrine disorder, unspecifiedGender Identity Disorder Carmina Salazar. [address] [place] [address], [id number], [place]. tel:[phone] Referring Provider: Marie Grewal, [address] [place], [place], [id number]. tel:[phone] Provider: DEWAYNE [facility]. [facility] [place], [address], [place], [id number], [place] tel:[phone] YIFANFLALEXANDRA Calimesa Endocrine disorder, unspecifiedGender Identity Disorder Everette De. [address] [place], [place], [id number], [place]. tel:[phone] Referring Provider: Henrietta Gaviria, [address], [place], [id number]. tel:[phone] Provider: DEWAYNE Nurse[facility]CA. [facility] [place], [address], [place], [id number], [place] tel:[phone] DEWAYNE Calimesa Gender identity disorder, unspecified Everette De. [address] [place], [place], [id number], [place]. tel:[phone] Referring Provider: Henrietta Gaviria, [address], [place], [id number]. tel:[phone] [facility] [place], [address], [place], [id number], [place] tel:[phone] YIFANFLALEXANDRA Calimesa Gender identity disorder, unspecified Everette De. [address] [place], [place], [id number], [place]. tel:[phone] Referring Provider: Henrietta Gaviria, [address], [place], [id number]. tel:[phone] Provider: DEWAYNE Nurse/CA. [facility], [address], [place], [id number], [place] tel:[phone] DEWAYNE Calimesa Endocrine disorder, unspecifiedGender Identity Disorder Chapincito Tolbert. [address] [place] [address], [id number], [place]. tel:[phone] Referring Provider: Edwige Beckham, [address] [place] [address], [id number]. tel:[phone] Provider: DEWAYNE Nurse/CA. [facility], [address] [place] [address], [id number], [place] tel:[phone] DEWAYNE Calimesa Gender identity disorder, unspecified Chapincito Tolbert. [address] [place], [place], [id number], [place]. tel:[phone] Referring Provider: Edwige Beckham, [address] [place] [address], [id number]. tel:[phone] [facility], [address] [place] [address], [id number], [place] tel:[phone] DEWAYNE Calimesa Endocrine disorder, unspecifiedGender Identity Disorder Everette De. [address] [place], [place], [id number], [place]. tel:[phone] Referring Provider: Henrietta Gaviria, [address] [place] [address], [id number]. tel:[phone] Provider: DEWAYNE Nurse/CA. [facility], [address] [place] [address], [id number], [place] tel:[phone] DEWAYNE Calimesa Gender Identity Dis orderEndocrine disorder, unspecified Carmina Salazar. [address] [place], [place], [id number], [place]. tel:[phone] Referring Provider: Marie Grewal, [address] [place] [address], [id number]. tel:[phone] Provider: DEWAYNE Nurse[facility]. [facility] [place], [address], [place], [id number], [place] tel:[phone] PPNCNY Calimesa Endocrine disorder, unspecifiedGender Identity Disorder Carmina Salazar. [address] [place], [place], [id number], [place]. tel:[phone] Referring Provider: Marie Grewal, [address] [place], [place], [id number]. tel:[phone] Provider: DEWAYNE Nurse/CA. [facility], [address], [place], [id number], [place] tel:[phone] YIFANNCALEXANDRA Calimesa Endocrine disorder, unspecifiedGender Identity Disorder Everette De. [address] [place], [place], [id number], [place]. tel:[phone] Referring Provider: Henrietta Gaviria, [address] [place] [address], [id number]. tel:[phone] [facility], [address], [place], [id number], [place] tel:[phone] PPNCALEXANDRA Calimesa Endocrine disorder, unspecifiedGender identity disorder, unspecified Carmina Salazar. [address], [place], [id number], [place]. tel:[phone] Referring Provider: Marie Grewal, [address] [place] [address], [id number]. tel:[phone] Provider: Provider Nurse. [facility] [place], [address], [place], [id number], [place] tel:[phone] PPNCALEXANDRA Calimesa Endocrine disorder, unspecifiedGender Identity Disorder Everette De. [address] [place], [place], [id number], [place]. tel:[phone] Referring Provider: Henrietta Gaviria, [address] [place] [address], [id number]. tel:[phone] [facility], [address], [place], [id number], [place] tel:[phone] YIFANNCALEXANDRA Calimesa Endocrine disorder, unspecifiedGender Identity Disorder Carmina Salazar. [address] [place], [place], [id number], [place]. tel:[phone] Referring Provider: Marie Grewal, [address] [place] [address], [id number]. tel:[phone] Provider: DEWAYNE Nurse/CA. [facility] [place], [address], [place], [id number], [place] tel:[phone] DEAWYNE Calimesa Endocrine disorder, unspecifiedGender Identity Disorder Carmina Salazar. [address] [place], [id number], [place]. tel:[phone] Referring Provider: Marie Grewal, [address] [place] [address], [id number]. tel:[phone] Provider: DEWAYNE Nurse/CA. [facility] [place], [address], [place], [id number], [place] tel:[phone] DEWAYNE Calimesa Endocrine disorder, unspecifiedGender Identity Disorder Carmina Salazar. [address] [place], [place], [id number], [place]. tel:[phone] Referring Provider: Marie Grewal, [address] [place] [address], [id number]. tel:[phone] Provider: Provider Nurse. [facility] [place], [address], [place], [id number], [place] tel:[phone] DEWAYNE Calimesa Endocrine disorder, unspecifiedGender Identity Disorder Carmina Salazar. [address] [place], [place], [id number], [place]. tel:[phone] Referring Provider: Marie Grewal, [address] [place], [place], [id number]. tel:[phone] Provider: DEWAYNE Nurse/CA. [facility], [address], [place], [id number], [place] tel:[phone] PPNCALEXANDRA Calimesa Endocrine disorder, unspecifiedGender Identity Disorder Melissa Lazo. [address] [place] [address], [id number], [place]. tel:[phone] Referring Provider: Violet Torres, [address] [place], [place], [id number]. tel:[phone] [facility], [address], [place], [id number], [place] tel:[phone] PPNCNY Cal[place] Endocrine disorder, unspecifiedGender Identity Disorder Adriel Luna. [address] [place] [address], [id number], [place]. tel:[phone] Referring Provider: Cheryl Morel, [address] [place] [address], [id number]. tel:[phone] Provider: DEWAYNE Nurse/CA. [facility], [address], [place], [id number], [place] tel:[phone] PPNCNY Cal[place] Endocrine disorder, unspecifiedGender Identity Disorder Everette De. [address] [place], [place], [id number], [place]. tel:[phone] Referring Provider: Henrietta Gaviria, [address], [place], [id number]. tel:[phone] Provider: DEWAYNE Nurse/CA. [facility] [place], [address], [place], [id number], tel:[phone] DEWAYNE Calimesa Endocrine disorder, unspecifiedGender Identity Disorder Peewee Lux. [address] [place], [place], [id number], [place]. tel:[phone] Referring Provider: Maci Vides, [address] [place], [place], [id number]. tel:[phone] Provider: DEWAYNE Nurse/CA. [facility] [place], [address], [place], [id number], tel:[phone] DEWAYNE Calimesa Endocrine disorder, unspec ified Peewee Lux. [address] [place], [place], [id number], . tel:[phone] Referring Provider: Maci Vides, [address] [place], [place], [id number]. tel:[phone] [facility] [place], [address], [place], [id number], [place] tel:[phone] DEWAYNE Calimesa Gender Identity Dis orderEndocrine disorder, unspecified Melissa Lazo. [address] [place] [address], [id number], [place]. tel:[phone] Referring Provider: Violet Torres, [address] [place], [place], [id number]. tel:[phone] Provider: DEWAYNE Nurse/CA. [facility] [place], [address], [place], [id number], [place] tel:[phone] DEWAYNE Calimesa Gender Identity Disorder Melissa Lazo. [address] [place] [address], [id number], [place]. tel:[phone] Referring Provider: Violet Torres, [address] [place], [place], [id number]. tel:[phone] Provider: DEWAYNE Nurse/CA. [facility], [address] [place] [address], [id number], tel:[phone] DEWAYNE Hernandez Gender identity dis order, unspecifiedObesity, unspecifiedInappropriate diet and eating habits Melissa Violet. [address] [place] [address], [id number], [place]. tel:[phone] Referring Provider: Violet Torres, [address] [place] [address], [id number]. tel:[phone] [facility], [address] [place] [address], [address] [place] [address], [place] tel:[phone] DEWAYNE Calimesa Gender identity disorder, unspecified Peewee Lux. [address] [place] [address], [id number], [place]. tel:[phone] Referring Provider: Maci Vides, [address] [place] [address], [id number]. tel:[phone] [facility], [address] [place] [address], [id number], [place] tel:[phone] DEWAYNE Calimesa Gender Identity Dis orderEndocrine disorder, unspecified Melissa Violet. [address] [place] [address], [id number], [place]. tel:[phone] Referring Provider: Violet Torres, [address] [place], [place], [id number]. tel:[phone] Provider: DEWAYNE [facility]CA. [facility], [address] [place] [address], [id number], tel:[phone] DEWAYNE Calimesa Gender identity disorder, unspecified Prraul Lazo. [address] [place], [place], [id number], [place]. tel:[phone] Referring Provider: Violet Torres, [address] [place], [place], [id number]. tel:[phone] [facility], [address], [place], [id number], [place] tel:[phone] YIFANFLNY Calimesa Gender Identity Disorder Peewee Lux. [address] [place], [place], [id number], [place]. tel:[phone] Referring Provider: Maci Vides, [address] [place], [place], [id number]. tel:[phone] [facility], [address], [place], [id number], [place] tel:[phone] PPFLALEXANDRA Calimesa Endocrine disorder, unspecifiedGender Identity Disorder Debi Tolbert. [address], [place], [id number], [place]. tel:[phone] Referring Provider: Didi Carrera, [address] [place], [place], [id number]. tel:[phone] [facility], [address], [place], [id number], [place] tel:[phone] YIFANFLALEXANDRA Calimesa Gender identity disorder, unspecified Debi Tolbert. [address] [facility], [id number], [place]. tel:[phone] Referring Provider: Didi Carrera, [address] [place], [place], [id number]. tel:[phone] [facility], [address], [place], [id number], [place] tel:[phone] PPFLALEXANDRA Calimesa Endocrine disorder, unspecifiedGender Identity Disorder Carmina Salazar. [address] [place], [place], [id number], [place]. tel:[phone] Referring Provider: Marie Grewal, [address] [place] [address], [id number]. tel:[phone] Provider: DEWAYNE Nurse/CA. [facility] [place], [address], [place], [id number], [place] tel:[phone] DEWAYNE Calimesa Gender Identity Dis orderEndocrine disorder, unspecified Debi Tolbert. [address], [place], [id number], [place]. tel:[phone] Referring Provider: Didi Carrera, [address] [place] [address], [id number]. tel:[phone] Provider: DEWAYNE Nurse/CA. [facility] [place], [address], [place], [id number], [place] tel:[phone] YIFANFLALEXANDRA Calimesa Endocrine disorder, unspecifiedGender Identity Disorder Carmina Salazar. [address] [place], [place], [id number], [place]. tel:[phone] Referring Provider: Marie Grewal, [address] [place], [place], [id number]. tel:[phone] [facility] [place], [address], [place], [id number], [place] tel:[phone] YIFANFLALEXANDRA Calimesa Gender identity disorder, unspecified Carmina Salazar. [address] [place] [address], [id number], [place]. tel:[phone] Referring Provider: Marie Grewal, [address] [place] [address], [id number]. tel:[phone] Provider: DEWAYNE Nurse/CA. [facility] [place], [address], [place], [id number], [place] tel:[phone] GATOALEXANDRA Calimesa Encounter for surve illance of injectable contraceptiveGender Identity Disorder Carmina Salazar. [address] [place] [address], [id number], [place]. tel:[phone] Referring Provider: Marie Grewal, [address] [place] [address], [id number]. tel:[phone] [facility], [address] [place] [address], [id number], [place] tel:[phone] DEWAYNE Calimesa Gender Identity Disorder Carmina Salazar. [address] [place] [address], [id number], [place]. tel:[phone] Referring Provider: Marie Grewal, [address] [place] [address], [id number]. tel:[phone] [facility], [address] [place] [address], [id number], [place] tel:[phone] DEWAYNE Jimenez Gender Identity Dis orderEncounter for oth general cnsl and advice on contraception Debi garcia. [address] [place] [address], [id number], [place]. tel:[phone] Referring Provider: Didi Carrera, [address] [place] [address], [id number]. tel:[phone] [facility], [address] [place] [address], [id number], [place] tel:[phone] YIFANFLALEXANDRA Cal[place]a Endocrine disorder, unspecifiedGender Identity DisorderOther sex counselingEncounter for oth general cnsl and advice on contraception Carmina Salazar. [address] [place] [address], [id number], [place]. tel:[phone] Referring Provider: Marie Grewal, [address] [place] [address], [id number]. tel:[phone] [facility], [address] [place] [address], [id number], [place] tel:[phone] PPNCALEXANDRA [place] Gender Identity Dis orderEndocrine disorder, unspecifiedOther sex counselingEncounter for oth general cnsl and advice on contraception Peewee Lux. [address] [place] [address], [id number], [place]. tel:[phone] Referring Provider: Maci Vides, [address] [place] [address], [id number]. tel:[phone] Provider: DEWAYNE Nurse/CA. [facility], [address] [place] [address], [id number], [place] tel:[phone] DEWAYNE Calimesa Gender Identity Dis orderEndocrine disorder, unspecifiedOther sex counselingEncounter for oth general cnsl and advice on contraception Carmina Salazar. [address] [place] [address], [id number], [place]. tel:[phone] Referring Provider: Marie Grewal, [address] [place] [address], [id number]. tel:[phone] [facility], [address] [place] [address], [id number], [place] tel:[phone] PPNCALEXANDRA [place] Gender Identity Disorder Carmina Salazar. [address] [place] [address], [id number], [place]. tel:[phone] Referring Provider: Marie Grewal, [address] [place] [address], [id number]. tel:[phone] Provider: DEWAYNE Nurse/CA. [facility], [address] [place] [address], [id number], [place] tel:[phone] DEWAYNE [place] Endocrine disorder, unspecifiedGender Identity Disorder Peewee Lux. [address] [place] [address], [id number], [place]. tel:[phone] Referring Provider: Maci Vides, [address] [place], [place], [id number]. tel:[phone] [facility], [address] [place] [address], [id number], tel:[phone] DEWAYNE Calimesa Gender identity dis order, unspecifiedGender Identity DisorderEndocrine disorder, unspecified Carmina Salazar. [address] [place] [address], [id number], [place]. tel:[phone] Referring Provider: Marie Grewal, [address] [place] [address], [id number]. tel:[phone] Provider: DEWAYNE Nurse/CA. [facility], [address] [place] [address], [id number], tel:[phone] DEWAYNE [place]imes[place] Gender Identity Disorder Carmina Salazar. [address] [place] [address], [address] [place] [address], [place]. tel:[phone] Referring Provider: Marie Grewal, [address] [place] [address], [id number]. tel:[phone] [facility], [address] [place] [address], [id number], [place] tel:[phone] DEWAYNE Jimenez Gender Identity Disorder Chastity Adriel Luna. [address] [place] [address], [id number], [place]. tel:[phone] Referring Provider: Cheryl Morel, [address] [place] [address], [id number]. tel:[phone] [facility], [address] [place] [address], [id number], [place] tel:[phone] DEWAYNE Calimesa Gender Identity Disorder Carmina Salazar. [address] [place] [address], [id number], [place]. tel:[phone] Referring Provider: Marie Grewal, [address] [place], [place], [id number]. tel:[phone] Provider: DEWAYNE Nurse/CA. [facility] [place], [address] [place] [address], [id number], tel:[phone] DEWAYNE [place] Gender Identity Disorder Carmina Salazar. [address] [place] [address], [id number], [place]. tel:[phone] [facility] [place], [address] [place] [address], [id number], [place] tel:[phone] DEWAYNE Jimenez Gender Identity Dis orderEncounter for oth general cnsl and advice on contraception Adriel Luna. [address] [place] [address], [id number], . tel:[phone] Referring Provider: Cheryl Morel, [address] [place] [address], [id number]. tel:[phone] [facility] [place], [address] [place] [address], [id number], tel:[phone] DEWAYNE Calimesa Gender Identity Dis orderEndocrine disorder, unspecified Peewee Lux. [address] [place] [address], [id number], . tel:[phone] Referring Provider: Maci Vides, [address] [place], [place], [id number]. tel:[phone] Provider: DEWAYNE Nurse[facility]. [facility] [place], [address] [place] [address], [id number], [place] tel:[phone] DEWAYNE Calimesa Encounter for surve illance of injectable contraceptiveTranssexualismEndocrine disorder, unspecified Peewee Lux. [address] [place] [address], [id number], [place]. tel:[phone] Referring Provider: Maci Vides, [address] [place] [address], [id number]. tel:[phone] Provider: DEWAYNE Nurse/CA. [facility], [address] [place] [address], [id number], [place] tel:[phone] DEWAYNE Jimenez Encounter for surve illance of injectable contraceptiveEncounter for oth general cnsl and advice on contraception Debi Tolbert. [address] [place] [address], [id number], [place]. tel:[phone] Referring Provider: Didi Carrera, [address] [place] [address], [id number]. tel:[phone] [facility], [address] [place] [address], [id number], [place] tel:[phone] DEWAYNE Calimesa Endocrine disorder, unspecifiedTranssexualism Debi Tolbert. [address] [place] [address], [id number], [place]. tel:[phone] Referring Provider: Didi Carrera, [address] [place] [address], [id number]. tel:[phone] Provider: DEWAYNE Nurse/CA. [facility], [address] [place] [address], [id number], [place] tel:[phone] DEWAYNE Calimesa TranssexualismEndoc rine disorder, unspecified Debi Tolbert. [address] [place], [place], [id number], [place]. tel:[phone] Referring Provider: Didi Carrera, [address] [place] [address], [id number]. tel:[phone] Provider: DEWAYNE Nurse/[place]. [facility], [address] [place] [address], [id number], [place] tel:[phone] DEWAYNE Calimesa Endocrine disorder, unspecifiedTranssexualismEncounter for oth general cnsl and advice on contraception Debi Tolbert. [address] [place] [address], [id number], . tel:[phone] Referring Provider: Didi Carrera, [address] [place] [address], [id number]. tel:[phone] Provider: DEWAYNE Nurse/CA. [facility], [address] [place] [address], [id number], [place] tel:[phone] DEWAYNE Jimenez TranssexualismEncou nter for oth general cnsl and advice on contraceptionHuman immunodeficiency virus [HIV] counseling Debi Tolbert. [address] [place] [address], [id number], [place]. tel:[phone] Referring Provider: Didi Carrera, [address] [place] [address], [id number]. tel:[phone] [facility], [address] [place] [address], [id number], [place] tel:[phone] DEWAYNE Calimesa Human immunodeficie ncy virus [HIV] counselingEncntr screen for infections w sexl mode of transmissEncounter for screening for human immunodeficiency virusHigh risk heterosexual behaviorEndocrine disorder, unspecifiedTranssexualismEncntr for obstetrics gyn physician exam (general) (routine) w/o abn findings Carranza. [address] [place] [address], [id number], [place]. tel:[phone] Referring Provider: Miley Fletcher, [address] [place] [address], [id number]. tel:[phone] Family History Family Member Diagnosis Age At [...] Insurance type Covered libertarian ID Authorization(s ) [facility] CI [id number] Social History Type Description Quantity Date Captured [...] date/timeframe: 2 Months ordered Referral Ordered: Referrals: Concession Attendant. Evaluate and treat ordered Referral Referred To: [facility] Ordered: Referrals: Director Compensation. [facility]. Evaluate and treat Appointment date/timeframe: 2 Months ordered Referral Ordered: Janet Mcmillan -[facility] Phys[facility] : Family Medicine (related to Transsexualism) ordered Referral Referred To: Janet Mcmillan [address] [place], [place], [id number] Ordered: Referrals: Allopathic & Osteopathic Physicians : Family Medicine. Janet Mcmillan ordered Appointment Thu Majano BOOKED History Of Present [...] Date No Information Medical Equipment Description Device Hermitage Device Identifier Effective Romero es (start - stop) Status No Information Mental Status Date Cognitive Assessment No Information Health Concerns Observation Date No Information Concern Status Date No Information Physical Examination Exam Findings Details No Information
--- OUTSIDE RECORDS SUMMARY | 2021-04-22 13:40 | CCD | Continuity of Care Document ---
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 [address] [place], [place], [id number], [place]. tel:[phone] [facility], [address] [place] [address], [id number], [place] tel:[phone] GATONY Tony No Information Chavez Antonella. [address] [place] [address], [id number], [place]. tel:[phone] [facility], [address] [place] [address], [id number], [place] tel:[phone] [facility] Endocrine disorder, unspec ified Chapincito Tolbert. [address] [place], [place], [id number], [place]. tel:[phone] Referring Provider: Edwige Beckham, [address] [place] [address], [id number]. tel:[phone] [facility], [address] [place] [address], [id number], [place] tel:[phone] [facility]EXAN[facility] [place] Gender Identity Disorder Chapincito Tolbert. [address] [place] [address], [id number], [place]. tel:[phone] Referring Provider: Edwige Beckham, [address] [place] [address], [id number]. tel:[phone] [facility], [address] [place] [address], [id number], [place] tel:[phone] DEWAYNE [place] Gender identity disorder, unspecified Chapincito Tolbert. [address] [place], [place], [id number], [place]. tel:[phone] Referring Provider: Edwige Beckham, [address] [place] [address], [id number]. tel:[phone] Provider: DEWAYNE Nurse/[place]. [facility], [address] [place], [place], [id number], [place] tel:[phone] DEWAYNE [place] Endocrine disorder, unspecifiedGender Identity Disorder Everette De. [address] [place], [place], [id number], [place]. tel:[phone] Referring Provider: Henrietta Gaviria, [address] [place], [place], [id number]. tel:[phone] [facility], [address], [place], [id number], [place] tel:[phone] DEWAYNE [place] Gender Identity Disorder Everette De. [address] [place] [address], [id number], [place]. tel:[phone] Referring Provider: Henrietta Gaviria, [address] [place] [address], [id number]. tel:[phone] Provider: DEWAYNE Nurse/[place]. [facility], [address] [place] [address], [id number], [place] tel:[phone] DEWAYNE [place] Gender Identity Dis orderEndocrine disorder, unspecified Chapincito Tolbert. [address] [place], [place], [id number], [place]. tel:[phone] Referring Provider: Edwige Beckham, [address] [place], [place], [id number]. tel:[phone] [facility] [place], [address] [place], [place], [id number], [place] tel:[phone] DEWAYNE [place] Gender identity disorder, unspecified Chapincito Tolbert. [address] [place], [place], [id number], [place]. tel:[phone] Referring Provider: Edwige Beckham, [address] [place], [place], [id number]. tel:[phone] [facility] [place], [address] [place], [place], [id number], [place] tel:[phone] DEWAYNE [place] Gender Identity Disorder Everette De. [address] [place], [place], [id number], [place]. tel:[phone] Referring Provider: Henrietta Gaviria, [address] [place], [place], [id number]. tel:[phone] Provider: DEWAYNE Nurse/[place]. [facility] [place], [address] [place], [place], [id number], [place] tel:[phone] DEWAYNE [place] Gender identity disorder, unspecified Everette De. [address] [place], [place], [id number], [place]. tel:[phone] Referring Provider: Henrietta Gaviria, [address] [place], [place], [id number]. tel:[phone] Provider: Provider Nurse. [facility] [place], [address] [place], [place], [id number], [place] tel:[phone] DEWAYNE [place] Gender Identity Dis orderEndocrine disorder, unspecified Chapincito Tolbert. [address] [place], [place], [id number], [place]. tel:[phone] Referring Provider: Edwige Beckham, [address] [place] [address], [id number]. tel:[phone] Provider: [place]WAYNE [facility]/[place]. [facility], [address] [place] [address], [id number], tel:[phone] DEWAYNE [place] Gender Identity Disorder Chapincito Tolbert. [address] [place] [address], [id number], [place]. tel:[phone] Referring Provider: Edwige Beckham, [address] [place] [address], [id number]. tel:[phone] [facility], [address] [place] [address], [id number], tel:[phone] DEWAYNE [place] Gender Identity Dis orderEndocrine disorder, unspecified Everette De. [address] [place] [address], [id number], [place]. tel:[phone] Referring Provider: Henrietta Gaviria, [address] [place] [address], [id number]. tel:[phone] [facility], [address] [place] [address], [id number], [place] tel:[phone] [facility] [place] Endocrine disorder, unspecifiedGender Identity Disorder Everette De. [address] [place] [address], [id number], [place]. tel:[phone] Referring Provider: Henrietta Gaviria, [address] [place] [address], [id number]. tel:[phone] Provider: DEWAYNE Nurse/[place]. [facility], [address] [place] [address], [id number], [place] tel:[phone] YIFANALALEXANDRA [place] Endocrine disorder, unspecifiedGender Identity Disorder Chapincito Tolbert. [address] [place], [place], [id number], [place]. tel:[phone] Referring Provider: Edwige Beckham, [address] [place] [address], [id number]. tel:[phone] [facility] [place], [address] [place] [address], [id number], [place] tel:[phone] YIFANALALEXANDRA [place] Gender Identity Disorder Carmina Salazar. [address] [place] [address], [id number], [place]. tel:[phone] Referring Provider: Marie Grewal, [address] [place] [address], [id number]. tel:[phone] Provider: DEWAYNE Nurse/[place]. [facility], [address] [place] [address], [id number], [place] tel:[phone] [facility] [place] Endocrine disorder, unspecifiedGender identity disorder, unspecified Everette De. [address] [place] [address], [id number], [place]. tel:[phone] Referring Provider: Henrietta Gaviria, [address] [place] [address], [id number]. tel:[phone] [facility], [address] [place] [address], [id number], [place] tel:[phone] [facility] [place] Human immunodeficie ncy virus [HIV] counselingOther sex counselingGender identity disorder, unspecified Chapincito Tolbert. [address] [place] [address], [id number], [place]. tel:[phone] Referring Provider: Edwige Beckham, [address] [place] [address], [id number]. tel:[phone] [facility], [address] [place] [address], [id number], [place] tel:[phone] DEWAYNE [place] Gender Identity Disorder Everette Floresnikolai De. [address] [place] [address], [id number], [place]. tel:[phone] Referring Provider: Henrietta Gaviria, [address] [place] [address], [id number]. tel:[phone] [facility], [address] [place] [address], [id number], [place] tel:[phone] DEWAYNE [place] Endocrine disorder, unspecifiedGender Identity Disorder Carmina Salazar. [address] [place] [address], [id number], [place]. tel:[phone] Referring Provider: Marie Grewal, [address] [place] [address], [id number]. tel:[phone] [facility], [address] [place] [address], [id number], [place] tel:[phone] DEWAYNE [place] Gender Identity Dis orderEndocrine disorder, unspecified Carmina Salazar. [address] [place] [address], [id number], [place]. tel:[phone] Referring Provider: Marie Grewal, [address] [place] [address], [id number]. tel:[phone] Provider: DEWAYNE Nurse/[place]. [facility], [address] [place] [address], [id number], [place] tel:[phone] DEWAYNE [place] Gender Identity Dis orderEndocrine disorder, unspecified Carmina Salazar. [address] [place] [address], [id number], [place]. tel:[phone] Referring Provider: Marie Grewal, [address] [place] [address], [id number]. tel:[phone] [facility], [address] [place], [place], [id number], [place] tel:[phone] [facility] [place] Endocrine disorder, unspecifiedGender Identity Disorder Carmina Salazar. [address] [place], [place], [id number], [place]. tel:[phone] Referring Provider: Marie Grewal, [address] [place], [place], [id number]. tel:[phone] Provider: DEWAYNE Nurse/[place]. [facility] [place], [address] [place], [place], [id number], [place] tel:[phone] DEWAYNE [place] Endocrine disorder, unspecifiedGender Identity Disorder Everette De. [address] [place], [place], [id number], [place]. tel:[phone] Referring Provider: Henrietta Gaviria, [address] [place], [place], [id number]. tel:[phone] Provider: EDWAYNE Nurse/[place]. [facility] [place], [address] [place], [place], [id number], [place] tel:[phone] DEWAYNE [place] Gender identity disorder, unspecified Everette De. [address] [place], [place], [id number], [place]. tel:[phone] Referring Provider: Henrietta Gaviria, [address] [place], [place], [id number]. tel:[phone] [facility] [place], [address] [place], [place], [id number], [place] tel:[phone] DEWAYNE [place] Gender identity disorder, unspecified Everette De. [address], [place], [id number], [place]. tel:[phone] Referring Provider: Henrietta Gaviria, [address] [place], [place], [id number]. tel:[phone] Provider: DEWAYNE Nurse/[place]. [facility], [address] [place] [address], [id number], tel:[phone] DEWAYNE [place] Endocrine disorder, unspecifiedGender Identity Disorder Jerelo Edwige Tolbert. [address] [place] [address], [id number], [place]. tel:[phone] Referring Provider: Edwige Beckham, [address] [place] [address], [id number]. tel:[phone] Provider: DEWAYNE Nurse/[place]. [facility], [address] [place] [address], [address] [place] [address], tel:[phone] DEWAYNE [place] Gender identity disorder, unspecified Chapincito Tolbert. [address] [place] [address], [id number], [place]. tel:[phone] Referring Provider: Edwige Tolbert Jerelraisa, [address] [place] [address], [id number]. tel:[phone] [facility], [address] [place] [address], [id number], [place] tel:[phone] DEWAYNE [place] Endocrine disorder, unspecifiedGender Identity Disorder Everette De. [address] [place] [address], [id number], [place]. tel:[phone] Referring Provider: Henrietta Gaviria, [address] [place] [address], [id number]. tel:[phone] Provider: DEWAYNE Nurse/[place]. [facility], [address] [place] [address], [id number], [place] tel:[phone] DEWAYNE [place] Gender Identity Dis orderEndocrine disorder, unspecified Carmina Salazar. [address] [place], [place], [id number], [place]. tel:[phone] Referring Provider: Marie Grewal, [address] [place] [address], [id number]. tel:[phone] Provider: DEWAYNE Nurse/[place]. [facility], [address] [place] [address], [id number], [place] tel:[phone] [facility] [place] Endocrine disorder, unspecifiedGender Identity Disorder Carmina Salazar. [address] [place], [place], [id number], [place]. tel:[phone] Referring Provider: Marie Grewal, [address] [place], [place], [id number]. tel:[phone] Provider: DEWAYNE Nurse/[place]. [facility], [address] [place] [address], [id number], [place] tel:[phone] DEWAYNE [place] Endocrine disorder, unspecifiedGender Identity Disorder Everette De. [address] [place] [address], [id number], [place]. tel:[phone] Referring Provider: Henrietta Gaviria, [address] [place] [address], [id number]. tel:[phone] [facility] [place], [address] [place] [address], [id number], [place] tel:[phone] YIFANALALEXANDRA [place] Endocrine disorder, unspecifiedGender identity disorder, unspecified Carmina Salazar. [address] [place] [address], [id number], [place]. tel:[phone] Referring Provider: Marie Grewal, [address] [place] [address], [id number]. tel:[phone] Provider: Provider Nurse. [facility], [address] [place] [address], [id number], [place] tel:[phone] [facility] [place] Endocrine disorder, unspecifiedGender Identity Disorder Everette De. [address] [place], [place], [id number], [place]. tel:[phone] Referring Provider: Henrietta Gaviria, [address] [place], [place], [id number]. tel:[phone] [facility] [place], [address] [place], [place], [id number], [place] tel:[phone] [facility] [place] Endocrine disorder, unspecifiedGender Identity Disorder Carmina Salazar. [address] [place], [place], [id number], [place]. tel:[phone] Referring Provider: Marie Grewal, [address] [place] [address], [id number]. tel:[phone] Provider: DEWAYNE Nurse/[place]. [facility] [place], [address] [place], [place], [id number], [place] tel:[phone] YIFANNCALEXANDRA [place] Endocrine disorder, unspecifiedGender Identity Disorder Carmina Salazar. [address] [place], [place], [id number], [place]. tel:[phone] Referring Provider: Marie Grewal, [address] [place], [place], [id number]. tel:[phone] Provider: DEWAYNE Nurse/[place]. [facility] [place], [address] [place], [place], [id number], [place] tel:[phone] PPNCALEXANDRA [place] Endocrine disorder, unspecifiedGender Identity Disorder Carmina Salazar. [address] [place], [place], [id number], [place]. tel:[phone] Referring Provider: Marie Grewal, [address] [place], [place], [id number]. tel:[phone] Provider: Provider Nurse. [facility] [place], [address] [place] [address], [id number], tel:[phone] YIFANALALEXANDRA [place] Endocrine disorder, unspecifiedGender Identity Disorder Carmina Salazar. [address] [place], [place], [id number], [place]. tel:[phone] Referring Provider: Marie Grewal, [address] [place], [place], [id number]. tel:[phone] Provider: DEWAYNE Nurse/[place]. [facility] [place], [address] [place] [address], [id number], [place] tel:[phone] DEWAYNE [place] Endocrine disorder, unspecifiedGender Identity Disorder Melissa Violet. [address] [place] [address], [address] [place] [address], [place]. tel:[phone] Referring Provider: Violet Torres, [address], [place], [id number]. tel:[phone] [facility] [place], [address] [place] [address], [id number], [place] tel:[phone] YIFANALALEXANDRA [place] Endocrine disorder, unspecifiedGender Identity Disorder Adriel Luna. [address] [place] [address], [id number], [place]. tel:[phone] Referring Provider: Cheryl Morel, [address] [place] [address], [id number]. tel:[phone] Provider: DEWAYNE Nurse/[place]. [facility] [place], [address] [place] [address], [id number], [place] tel:[phone] DEWAYNE [place] Endocrine disorder, unspecifiedGender Identity Disorder Everette De. [address] [place], [place], [id number], [place]. tel:[phone] Referring Provider: Henrietta Gaviria, [address] [place] [address], [id number]. tel:[phone] Provider: DEWAYNE Nurse/[place]. [facility] [place], [address] [place], [place], [id number], [place] tel:[phone] DEWAYNE [place] Endocrine disorder, unspecifiedGender Identity Disorder Peewee Lux. [address] [place] [address], [id number], [place]. tel:[phone] Referring Provider: Maci Vides, [address] [place] [address], [id number]. tel:[phone] Provider: DEWAYNE Nurse/[place]. [facility] [place], [address] [place] [address], [id number], [place] tel:[phone] DEWAYNE [place] Endocrine disorder, unspec ified Peewee Lux. [address] [place] [address], [id number], [place]. tel:[phone] Referring Provider: Maci Vides, [address] [place] [address], [id number]. tel:[phone] [facility] [place], [address] [place] [address], [id number], [place] tel:[phone] DEWAYNE [place] Gender Identity Dis orderEndocrine disorder, unspecified Melissa Violet. [address] [place] [address], [id number], [place]. tel:[phone] Referring Provider: Violet Torres, [address] [place] [address], [id number]. tel:[phone] Provider: DEWAYNE Nurse/[place]. [facility] [place], [address] [place] [address], [id number], [place] tel:[phone] DEWAYNE [place] Gender Identity Disorder Melissa Violet. [address] [place] [address], [id number], . tel:[phone] Referring Provider: Violet Fairbanksemilee, [address] [place] [address], [id number]. tel:[phone] Provider: DEWAYNE Nurse/[place]. [facility], [address] [place] [address], [address] [place] [address], tel:[phone] DEWAYNE Hernandez Gender identity dis order, unspecifiedObesity, unspecifiedInappropriate diet and eating habits Hoseaangelaemilee Lazo. [address] [place] [address], [address] [place] [address], . tel:[phone] Referring Provider: Violet Hosearaul, [address] [place] [address], [address] [place] [address]. tel:[phone] [facility], [address] [place] [address], [id number], [place] tel:[phone] DEWAYNE [place] Gender identity disorder, unspecified Peewee Lux. [address] [place] [address], [id number], . tel:[phone] Referring Provider: Maci Vides, [address] [place] [address], [id number]. tel:[phone] [facility], [address] [place] [address], [id number], [place] tel:[phone] DEWAYNE [place] Gender Identity Dis orderEndocrine disorder, unspecified Hoseameenakshiross Lazo. [address] [place] [address], [id number], . tel:[phone] Referring Provider: Violet Torres, [address] [place] [address], [address] [place] [address]. tel:[phone] Provider: [place]WAYNE Nurse/[place]. [facility] [place], [address] [place], [place], [id number], [place] tel:[phone] DEWAYNE [place] Gender identity disorder, unspecified Melissa Violet. [address] [place], [place], [id number], [place]. tel:[phone] Referring Provider: Violet Torres, [address], [place], [id number]. tel:[phone] [facility] [place], [address] [place], [place], [id number], [place] tel:[phone] DEWAYNE [place] Gender Identity Disorder Peewee Lux. [address] [place], [place], [id number], [place]. tel:[phone] Referring Provider: Maci Vides, [address], [place], [id number]. tel:[phone] [facility] [place], [address] [place], [place], [id number], [place] tel:[phone] DEWAYNE [place] Endocrine disorder, unspecifiedGender Identity Disorder Debi Tolbert. [address] [place], [place], [id number], [place]. tel:[phone] Referring Provider: Didi Carrera, [address] [place], [place], [id number]. tel:[phone] [facility] [place], [address] [place], [place], [id number], [place] tel:[phone] DEWAYNE [place] Gender identity disorder, unspecified Debi Tolbert. [address] [facility], [place], [id number], [place]. tel:[phone] Referring Provider: Didi Carrera, [address] [place], [place], [id number]. tel:[phone] [facility] [place], [address] [place], [place], [id number], [place] tel:[phone] DEWAYNE [place] Endocrine disorder, unspecifiedGender Identity Disorder Carmina Salazar. [address] [place], [place], [id number], [place]. tel:[phone] Referring Provider: Marie Grewal, [address] [place] [address], [id number]. tel:[phone] Provider: DEWAYNE Nurse/[place]. [facility] [place], [address] [place], [place], [id number], [place] tel:[phone] DEWAYNE [place] Gender Identity Dis orderEndocrine disorder, unspecified Debi Tolbert. [address] [place], [place], [id number], [place]. tel:[phone] Referring Provider: Didi Carrera, [address] [place], [place], [id number]. tel:[phone] Provider: DEWAYNE Nurse/[place]. [facility], [address] [place], [place], [id number], [place] tel:[phone] DEWAYNE [place] Endocrine disorder, unspecifiedGender Identity Disorder Carmina Salazar. [address] [place], [place], [id number], [place]. tel:[phone] Referring Provider: Marie Grewal, [address] [place], [place], [id number]. tel:[phone] [facility] [place], [address] [place], [place], [id number], [place] tel:[phone] DEWAYNE [place] Gender identity disorder, unspecified Carmina Salazar. [address] [place] [address], [id number], [place]. tel:[phone] Referring Provider: Marie Grewal, [address] [place], [place], [id number]. tel:[phone] Provider: DEWAYNE Nurse/[place]. [facility], [address] [place] [address], [id number], tel:[phone] DEWAYNE [place] Encounter for surve illance of injectable contraceptiveGender Identity Disorder Carmina Salazar. [address] [place] [address], [id number], . tel:[phone] Referring Provider: Marie Grewal, [address] [place], [place], [id number]. tel:[phone] [facility], [address] [place] [address], [id number], tel:[phone] DEWAYNE [place] Gender Identity Disorder Carmina Salazar. [address] [place] [address], [address] [place] [address], [place]. tel:[phone] Referring Provider: Marie Grewal, [address] [place], [place], [id number]. tel:[phone] [facility], [address] [place] [address], [id number], tel:[phone] DEWAYNE Jimenez Gender Identity Dis orderEncounter for oth general cnsl and advice on contraception Debi garcia. [address] [place] [address], [id number], [place]. tel:[phone] Referring Provider: Didi Carrera, [address] [place] [address], [id number]. tel:[phone] [facility], [address] [place] [address], [id number], [place] tel:[phone] DEWAYNE [place] Endocrine disorder, unspecifiedGender Identity DisorderOther sex counselingEncounter for oth general cnsl and advice on contraception Carmina Salazar. [address] [place] [address], [id number], [place]. tel:[phone] Referring Provider: Marie Grewal, [address] [place] [address], [id number]. tel:[phone] [facility] Karissa [facility] [place], [address] [place] [address], [id number], [place] tel:[phone] DEWAYNE [place] Gender Identity Dis orderEndocrine disorder, unspecifiedOther sex counselingEncounter for oth general cnsl and advice on contraception Peewee Lux. [address] [place] [address], [id number], [place]. tel:[phone] Referring Provider: Maci Vides, [address] [place] [address], [id number]. tel:[phone] Provider: [place]. [facility] [place], [address] [place] [address], [id number], [place] tel:[phone] DEWAYNE [place] Gender Identity Dis orderEndocrine disorder, unspecifiedOther sex counselingEncounter for oth general cnsl and advice on contraception Carmina Salazar. [address] [place] [address], [id number], [place]. tel:[phone] Referring Provider: Marie Grewal, [address] [place] [address], [id number]. tel:[phone] [facility] [place], [address] [place] [address], [id number], [place] tel:[phone] DEWAYNE [place] Gender Identity Disorder Carmina Salazar. [address] [place] [address], [id number], [place]. tel:[phone] Referring Provider: Marie Grewal, [address] [place] [address], [id number]. tel:[phone] Provider: DEWAY[place]. [facility] [place], [address] [place] [address], [id number], [place] tel:[phone] DEWAYNE [place] Endocrine disorder, unspecifiedGender Identity Disorder Peewee Lux. [address] [place] [address], [id number], . tel:[phone] Referring Provider: Maci Vides, [address] [place], [place], [id number]. tel:[phone] [facility], [address] [place] [address], [id number], [place] tel:[phone] DEWAYNE [place] Gender identity dis order, unspecifiedGender Identity DisorderEndocrine disorder, unspecified Carmina Salazar. [address] [place] [address], [address] [place] [address], . tel:[phone] Referring Provider: Marie Grewal, [address] [place] [address], [address] [place] [address]. tel:[phone] Provider: DEWAYNE Nurse/[place]. [facility], [address] [place] [address], [id number], tel:[phone] DEWAYNE [place] Gender Identity Disorder Carmina Salazar. [address] [place] [address], [address] [place] [address], . tel:[phone] Referring Provider: Marie Grewal, [address] [place] [address], [address] [place] [address]. tel:[phone] [facility], [address] [place] [address], [id number], [place] tel:[phone] DEWAYNE [place] Gender Identity Disorder Chastity Adriel Luna. [address] [place] [address], [id number], [place]. tel:[phone] Referring Provider: Cheryl Morel, [address] [place] [address], [id number]. tel:[phone] [facility], [address] [place] [address], [id number], [place] tel:[phone] DEWAYNE [place] Gender Identity Disorder Carmina Salazar. [address] [place] [address], [id number], . tel:[phone] Referring Provider: Marie Grewal, [address] [place], [place], [id number]. tel:[phone] Provider: [place] Nurse/[place]. [facility] [place], [address] [place] [address], [id number], [place] tel:[phone] DEWAYNE [place] Gender Identity Disorder Carmina Salazar. [address] [place] [address], [address] [place] [address], [place]. tel:[phone] [facility] [place], [address] [place] [address], [id number], [place] tel:[phone] DEWAYNE [place] Gender Identity Dis orderEncounter for oth general cnsl and advice on contraception Adriel Luna. [address] [place] [address], [id number], [place]. tel:[phone] Referring Provider: Cheryl Morel, [address] [place] [address], [id number]. tel:[phone] [facility] [place], [address] [place] [address], [id number], [place] tel:[phone] DEWAYNE [place] Gender Identity Dis orderEndocrine disorder, unspecified Peewee Lux. [address] [place] [address], [id number], [place]. tel:[phone] Referring Provider: Maci Vides, [address], [place], [id number]. tel:[phone] Provider: [place]WAY[place]. [facility] [place], [address] [place] [address], [id number], [place] tel:[phone] [facility] [place] Encounter for surve illance of injectable contraceptiveTranssexualismEndocrine disorder, unspecified Peewee Lux. [address] [place], [place], [id number], [place]. tel:[phone] Referring Provider: Maci Vides, [address] [place], [place], [id number]. tel:[phone] Provider: [place]WAY[place] Nurse/[place]. [facility] [place], [address] [place], [place], [id number], [place] tel:[phone] YIFANALALEXANDRA [place] Encounter for surve illance of injectable contraceptiveEncounter for oth general cnsl and advice on contraception Debi Tolbert. [address] [place], [place], [id number], [place]. tel:[phone] Referring Provider: Didi Carrera, [address] [place], [place], [id number]. tel:[phone] [facility] [place], [address] [place], [place], [id number], [place] tel:[phone] [facility] [place] Endocrine disorder, unspecifiedTranssexualism Debi Tolbert. [address] [place], [place], [id number], [place]. tel:[phone] Referring Provider: Didi Carrera, [address] [place], [place], [id number]. tel:[phone] Provider: DEWAY[place] Nurse/[place]. [facility] [place], [address] [place], [place], [id number], [place] tel:[phone] DEWAYNE [place] TranssexualismEndoc rine disorder, unspecified Debi Tolbert. [address] [place], [place], [id number], [place]. tel:[phone] Referring Provider: Didi Carrera, [address] [place], [place], [id number]. tel:[phone] Provider: DEWAYNE Nurse/[place]. [facility], [address] [place] [address], [id number], [place] tel:[phone] DEWAYNE [place] Endocrine disorder, unspecifiedTranssexualismEncounter for oth general cnsl and advice on contraception Debi Tolbert. [address] [place], [place], [id number], [place]. tel:[phone] Referring Provider: Didi Carrera, [address] [place] [address], [id number]. tel:[phone] Provider: DEWAYNE Nurse/[place]. [facility], [address] [place] [address], [id number], [place] tel:[phone] DEWAYNE Jim[place] TranssexualismEncou nter for oth general cnsl and advice on contraceptionHuman immunodeficiency virus [HIV] counseling Debi Tolbert. [address] [place], [place], [id number], [place]. tel:[phone] Referring Provider: Didi Carrera, [address] [place] [address], [id number]. tel:[phone] [facility], [address] [place] [address], [id number], [place] tel:[phone] DEWAYNE [place] Human immunodeficie ncy virus [HIV] counselingEncntr screen for infections w sexl mode of transmissEncounter for screening for human immunodeficiency virusHigh risk heterosexual behaviorEndocrine disorder, unspecifiedTranssexualismEncntr for corn grower exam (general) (routine) w/o abn findings Carranza. [address] [place] [address], [id number], [place]. tel:[phone] Referring Provider: Miley Fletcher, [address] [place] [address], [id number]. 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 Evaluate and treat ordered Referral Referred To: [facility] Ordered: Referrals: Learning And Development Manager. [facility]. Evaluate and treat Appointment date/timeframe: 2 Months ordered Referral Ordered: Janet Mcmillan -[facility] : Family Medicine (related to Transsexualism) ordered Referral Referred To: Janet Mcmillan [address] [place], [place], [phone] Ordered: Referrals: [facility] : Family Medicine. Jante Mcmillan ordered Appointment Thu Majano BOOKED History [...] Date No Information Medical Equipment Description Device [place] Device Identifier Effective Romero es (start - stop) Status No Information Mental Status Date Cognitive Assessment No Information Health Concerns Observation Date No Information Concern Status Date No Information Physical Examination Exam Findings Details No Information
--- OUTSIDE RECORDS SUMMARY | 2021-04-22 13:41 | CCD | Continuity of Care Document ---
Author Author [facility] Organization [facility] Address Unknown Phone Unavailable Care Team Providers Care Architecture Internship Name Role Phone Dwello Edwige PHILIPPE Unavailable Unavailable Nurse/CA, [facility] Unavailable Unavailable Allergies, Adverse Reactions, Alerts Substance Reaction Status Criticality No Known Allergies Active No Information Medications Medication Instructions Dosage Effective Dates (start - stop) Sta tus Comments testosterone cypionate 200 mg/mL intramuscular oil Inj ect 0.45 mL IM every week. Code F. - Active MDD 0. 45 mL weekly Code F testosterone cypionate 200 mg/mL intramuscular oil Use for admin of external Rx. See Med Module for details. - Active citalopram 20 mg tablet take 1 tablet by oral route every day 20 MG - Active Problems Condition Effective Dates (start - stop) Clinical Status C omments Gender identity disorder, unspecified Endocrine disorder, unspecified [...] and advice on contraception Transsexualism Encounter for ot general cnsl and advice on contraception Human immunodeficiency virus [HIV] counseling Human immunodeficiency virus [HIV] counseling Encntr screen for infections w sexl mode of transmiss Encounter for screening for human immunodeficiency virus High risk heterosexual behavior Endocrine disorder, unspecified Transsexualism 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 2-10 Female Full Exam Panel CVR Blood Pressure CVR Med.Svc. Height/Weight CVR Med.Svc. Thyroid Palp. CVR Fishing Vessel Mate.Svc. Contraceptive CVR Fishing Vessel Mate.Svc. Nutrition CVR Fishing Vessel Mate.Svc. Options CVR Fishing Vessel Mate.Svc. Other CVR Fishing Vessel Mate.Svc. STI / H Results Test Name Date and Time Measure Units Reference Range Abnormal Flag St atus Comments No Information Advance Directives Directive Yes / No Effective Date File Name No Information Encounters Encounter Description Practice Location Reason(s) For Visit Diagnose s Date Provider Providers Copied on Encounter [facility], [address] [place] [address], [address] [place] [address], tel:[phone] DEWAYNE [place] Gender identity disorder, unspecified Chapincito Tolbert. [address] [place] [address], [id number], . tel:[phone] Referring Provider: Edwige Beckham, [address] [place] [address], [id number]. tel:[phone] Provider: DEWAYNE Nurse/CA. [facility], [address] [place] [address], [id number], tel:[phone] DEWAYNE [place] Endocrine disorder, unspecifiedGender Identity Disorder Everette De. [address] [place] [address], [id number], [place]. tel:[phone] Referring Provider: Henrietta Gaviria, [address] [place] [address], [id number]. tel:[phone] [facility], [address] [place] [address], [id number], [place] tel:[phone] DEWAYNE [place] Gender Identity Disorder Everette De. [address] [place] [address], [id number], [place]. tel:[phone] Referring Provider: Henrietta Gaviria, [address] [place] [address], [id number]. tel:[phone] Provider: DEWAYNE Nurse/CA. [facility], [address] [place] [address], [id number], [place] tel:[phone] DEWAYNE [place] Gender Identity Dis orderEndocrine disorder, unspecified Chapincito Tolbert. [address] [place] [address], [id number], [place]. tel:[phone] Referring Provider: Edwige Beckham, [address] [place] [address], [id number]. tel:[phone] [facility], [address] [place] [address], [id number], [place] tel:[phone] YIFANIDALEXANDRA [place] Gender identity disorder, unspecified Chapincito Tolbert. [address] [place] [address], [id number], [place]. tel:[phone] Referring Provider: Edwige Beckham, [address] [place] [address], [id number]. tel:[phone] [facility], [address] [place] [address], [id number], [place] tel:[phone] DEWAYNE [place] Gender Identity Disorder Everette De. [address] [place] [address], [id number], [place]. tel:[phone] Referring Provider: Henrietta Gaviria, [address] [place] [address], [id number]. tel:[phone] Provider: DEWAYNE Nurse[facility]. [facility] [place], [address], [place], [id number], [place] tel:[phone] DEWAYNE [place] Gender identity disorder, unspecified Everette De. [address] [place], [place], [id number], [place]. tel:[phone] Referring Provider: Henrietta Gaviria, [address], [place], [id number]. tel:[phone] Provider: Provider Nurse. [facility] [place], [address], [place], [id number], [place] tel:[phone] DEWAYNE [place] Gender Identity Dis orderEndocrine disorder, unspecified Chapincito Tolbert. [address] [place] [address], [id number], . tel:[phone] Referring Provider: Edwige Beckham, [address] [place] [address], [id number]. tel:[phone] Provider: DEWAYNE Nurse/CA. [facility], [address], [place], [id number], [place] tel:[phone] DEWAYNE [place] Gender Identity Disorder Chapincito Tolbert. [address] [place] [address], [id number], [place]. tel:[phone] Referring Provider: Edwige Beckham, [address] [place] [address], [id number]. tel:[phone] [facility] [place], [address], [place], [id number], [place] tel:[phone] DEWAYNE [place] Gender Identity Dis orderEndocrine disorder, unspecified Everette De. [address] [place], [place], [id number], [place]. tel:[phone] Referring Provider: Henrietta Gaviria, [address] [place] [address], [id number]. tel:[phone] [facility], [address] [place] [address], [id number], [place] tel:[phone] YIFANIDALEXANDRA [place] Endocrine disorder, unspecifiedGender Identity Disorder Everette De. [address] [place], [place], [id number], [place]. tel:[phone] Referring Provider: Henrietta Gaviria, [address], [place], [id number]. tel:[phone] Provider: DEWAYNE Nurse/CA. [facility], [address] [place] [address], [id number], [place] tel:[phone] DEWAYNE [place] Endocrine disorder, unspecifiedGender Identity Disorder Chapincito Tolbert. [address] [place] [address], [id number], [place]. tel:[phone] Referring Provider: Edwige Beckham, [address] [place] [address], [id number]. tel:[phone] [facility], [address] [place] [address], [id number], [place] tel:[phone] DEWAYNE [place] Gender Identity Disorder Carmina Salazar. [address] [place] [address], [id number], [place]. tel:[phone] Referring Provider: Marie Grewal, [address] [place], [place], [id number]. tel:[phone] Provider: DEWAYNE Nurse/CA. [facility], [address] [place] [address], [id number], [place] tel:[phone] YIFANNCALEXANDRA [place] Endocrine disorder, unspecifiedGender identity disorder, unspecified Everette De. [address], [place], [id number], [place]. tel:[phone] Referring Provider: Henrietta Gaviria, [address], [place], [id number]. tel:[phone] [facility] [place], [address], [place], [id number], [place] tel:[phone] [facility] Human immunodeficie ncy virus [HIV] counselingOther sex counselingGender identity disorder, unspecified Chapincito Tolbert. [address] [place] [address], [id number], [place]. tel:[phone] Referring Provider: Edwige Beckham, [address] [place] [address], [id number]. tel:[phone] [facility], [address] [place] [address], [id number], [place] tel:[phone] [facility] Gender Identity Disorder Everette De. [address], [place], [id number], [place]. tel:[phone] Referring Provider: Henrietta Gaviria, [address], [place], [id number]. tel:[phone] [facility] [place], [address], [place], [id number], [place] tel:[phone] [facility] Endocrine disorder, unspecifiedGender Identity Disorder Carmina Salazar. [address], [place], [id number], [place]. tel:[phone] Referring Provider: Marie Grewal, [address], [place], [id number]. tel:[phone] [facility] [place], [address], [place], [id number], [place] tel:[phone] [facility] Gender Identity Dis orderEndocrine disorder, unspecified Carmina Salazar. [address], [place], [id number], [place]. tel:[phone] Referring Provider: Marie Grewal, [address] [place] [address], [id number]. tel:[phone] Provider: DEWAYNE Nurse/CA. [facility], [address] [place] [address], [id number], [place] tel:[phone] DEWAYNE [place] Gender Identity Dis orderEndocrine disorder, unspecified Carmina Salazar. [address], [place], [id number], [place]. tel:[phone] Referring Provider: Marie Grewal, [address] [place] [address], [id number]. tel:[phone] [facility], [address] [place] [address], [id number], [place] tel:[phone] YIFANIDALEXANDRA [place] Endocrine disorder, unspecifiedGender Identity Disorder Carmina Salazar. [address] [place] [address], [id number], [place]. tel:[phone] Referring Provider: Marie Grewal, [address] [place] [address], [id number]. tel:[phone] Provider: DEWAYNE Nurse/CA. [facility], [address] [place] [address], [id number], [place] tel:[phone] DEWAYNE [place] Endocrine disorder, unspecifiedGender Identity Disorder Everette De. [address] [place], [place], [id number], [place]. tel:[phone] Referring Provider: Henrietta Gaviria, [address] [place] [address], [id number]. tel:[phone] Provider: DEWAYNE Nurse/CA. [facility] [place], [address], [place], [id number], [place] tel:[phone] DEWAYNE [place] Gender identity disorder, unspecified Everette De. [address], [place], [id number], [place]. tel:[phone] Referring Provider: Henrietta Gaviria, [address], [place], [id number]. tel:[phone] [facility] [place], [address], [place], [id number], [place] tel:[phone] DEWAYNE [place] Gender identity disorder, unspecified Everette De. [address], [place], [id number], [place]. tel:[phone] Referring Provider: Henrietta Gaviria, [address], [place], [id number]. tel:[phone] Provider: DEWAYNE Nurse/[place]. [facility] [place], [address], [place], [id number], [place] tel:[phone] DEWAYNE [place] Endocrine disorder, unspecifiedGender Identity Disorder Chapincito Tolbert. [address] [place], [place], [id number], [place]. tel:[phone] Referring Provider: Edwige Beckham, [address] [place] [address], [id number]. tel:[phone] Provider: DEWAYNE Nurse/[place]. [facility] [place], [address], [place], [id number], [place] tel:[phone] DEWAYNE [place] Gender identity disorder, unspecified Chapincito Tolbert. [address] [place], [place], [id number], [place]. tel:[phone] Referring Provider: Edwige Beckham, [address] [place] [address], [id number]. tel:[phone] [facility], [address], [place], [id number], [place] tel:[phone] DEWAYNE [place] Endocrine disorder, unspecifiedGender Identity Disorder Everette De. [address], [place], [id number], [place]. tel:[phone] Referring Provider: Henrietta Gaviria, [address] [place] [address], [id number]. tel:[phone] Provider: DEWAYNE Nurse/CA. [facility], [address] [place] [address], [id number], [place] tel:[phone] DEWAYNE [place] Gender Identity Dis orderEndocrine disorder, unspecified Carmina Salazar. [address] [place] [address], [id number], [place]. tel:[phone] Referring Provider: Marie Grewal, [address] [place] [address], [id number]. tel:[phone] Provider: DEWAYNE Nurse/CA. [facility], [address], [place], [id number], [place] tel:[phone] DEWAYNE [place] Endocrine disorder, unspecifiedGender Identity Disorder Carmina Salazar. [address], [place], [id number], [place]. tel:[phone] Referring Provider: Marie Grewal, [address] [place] [address], [id number]. tel:[phone] Provider: DEWAYNE Nurse/CA. [facility], [address] [place] [address], [id number], [place] tel:[phone] EDWAYNE [place] Endocrine disorder, unspecifiedGender Identity Disorder Dec-31-2020 Everette De. [address], [place], [id number], [place]. tel:[phone] Referring Provider: Henrietta Gaviria, [address], [place], [id number]. tel:[phone] [facility], [address], [place], [id number], [place] tel:[phone] [facility] [place] Endocrine disorder, unspecifiedGender identity disorder, unspecified Carmina Salazar. [address], [place], [id number], [place]. tel:[phone] Referring Provider: Marie Grewal, [address] [place] [address], [id number]. tel:[phone] Provider: Provider Nurse. [facility] [place], [address], [place], [id number], [place] tel:[phone] PPNCALEXANDRA [place] Endocrine disorder, unspecifiedGender Identity Disorder Everette De. [address] [place], [place], [id number], [place]. tel:[phone] Referring Provider: Henrietta Gaviria, [address], [place], [id number]. tel:[phone] [facility] [place], [address], [place], [id number], [place] tel:[phone] [facility] [place] Endocrine disorder, unspecifiedGender Identity Disorder Carmina Salazar. [address], [place], [id number], [place]. tel:[phone] Referring Provider: Marie Grewal, [address], [place], [id number]. tel:[phone] Provider: DEWAYNE Nurse/CA. [facility] [place], [address], [place], [id number], [place] tel:[phone] YIFANNCALEXANDRA [place] Endocrine disorder, unspecifiedGender Identity Disorder Carmina Salazar. [address], [place], [id number], [place]. tel:[phone] Referring Provider: Marie Grewal, [address] [place] [address], [id number]. tel:[phone] Provider: DEWAYNE Nurse/[place]. [facility] [place], [address], [place], [id number], [place] tel:[phone] YIFANNCALEXANDRA [place] Endocrine disorder, unspecifiedGender Identity Disorder Carmina Salazar. [address], [place], [id number], [place]. tel:[phone] Referring Provider: Marie Grewal, [address] [place] [address], [id number]. tel:[phone] Provider: Provider Nurse. [facility] [place], [address], [place], [id number], [place] tel:[phone] YIFANNCALEXANDRA [place] Endocrine disorder, unspecifiedGender Identity Disorder Carmina Salazar. [address], [place], [id number], [place]. tel:[phone] Referring Provider: Marie Grewal, [address] [place] [address], [id number]. tel:[phone] Provider: DEWAYNE Nurse/[place]. [facility] [place], [address], [place], [id number], [place] tel:[phone] DEWAYNE [place] Endocrine disorder, unspecifiedGender Identity Disorder Melissa Lazo. [address] [place] [address], [id number], [place]. tel:[phone] Referring Provider: Violet Torres, [address] [place], [place], [id number]. tel:[phone] [facility], [address] [place] [address], [id number], [place] tel:[phone] YIFANIDALEXANDRA [place] Endocrine disorder, unspecifiedGender Identity Disorder Adriel Luna. [address], [place], [id number], [place]. tel:[phone] Referring Provider: Cheryl Morel, [address] [place], [place], [id number]. tel:[phone] Provider: DEWAYNE Nurse/CA. [facility], [address] [place] [address], [id number], [place] tel:[phone] YIFANNCALEXANDRA [place] Endocrine disorder, unspecifiedGender Identity Disorder Everette De. [address], [place], [id number], [place]. tel:[phone] Referring Provider: Henrietta Gaviria, [address] [place] [address], [id number]. tel:[phone] Provider: DEWAYNE Nurse/CA. [facility], [address] [place] [address], [id number], [place] tel:[phone] YIFANNCALEXANDRA [place] Endocrine disorder, unspecifiedGender Identity Disorder Peewee Lux. [address] [place], [place], [id number], [place]. tel:[phone] Referring Provider: Maci Vides, [address] [place], [place], [id number]. tel:[phone] Provider: DEWAYNE Nurse/CA. [facility], [address], [place], [id number], [place] tel:[phone] DEWAYNE [place] Endocrine disorder, unspec ified Peewee Lux. [address] [place] [address], [id number], [place]. tel:[phone] Referring Provider: Maci Vides, [address] [place] [address], [id number]. tel:[phone] [facility] [place], [address] [place] [address], [id number], [place] tel:[phone] DEWAYNE [place] Gender Identity Dis orderEndocrine disorder, unspecified Tikiemilee Lazo. [address] [place] [address], [id number], [place]. tel:[phone] Referring Provider: Violet Torres, [address] [place] [address], [id number]. tel:[phone] Provider: DEWAYNE Nurse/CA. [facility] [place], [address] [place] [address], [id number], [place] tel:[phone] DEWAYNE [place] Gender Identity Disorder Melissa Violet. [address] [place] [address], [id number], [place]. tel:[phone] Referring Provider: Violet Torres, [address] [place] [address], [id number]. tel:[phone] Provider: DEWAYNE Nurse/CA. [facility] [place], [address] [place] [address], [id number], [place] tel:[phone] DEWAYNE Hernandez Gender identity dis order, unspecifiedObesity, unspecifiedInappropriate diet and eating habits Melissa Violet. [address] [place] [address], [id number], [place]. tel:[phone] Referring Provider: Violet Torres, [address] [place] [address], [id number]. tel:[phone] [facility] [place], [address] [place] [address], [id number], [place] tel:[phone] DEWAYNE [place] Gender identity disorder, unspecified Peewee Lux. [address] [place] [address], [id number], . tel:[phone] Referring Provider: Maci Vides, [address] [place] [address], [id number]. tel:[phone] [facility], [address] [place] [address], [id number], tel:[phone] DEWAYNE [place] Gender Identity Dis orderEndocrine disorder, unspecified Melissa Violet. [address] [place] [address], [id number], . tel:[phone] Referring Provider: Violet Torres, [address] [place] [address], [address] [place] [address]. tel:[phone] Provider: DEWAYNE Nurse/CA. [facility], [address] [place] [address], [id number], [place] tel:[phone] DEWAYNE [place] Gender identity disorder, unspecified Melissa Violet. [address] [place] [address], [id number], [place]. tel:[phone] Referring Provider: Violet Torres, [address] [place] [address], [id number]. tel:[phone] [facility], [address] [place] [address], [id number], [place] tel:[phone] DEWAYNE [place] Gender Identity Disorder Peewee Lux. [address] [place] [address], [id number], [place]. tel:[phone] Referring Provider: Maci Vides, [address] [place] [address], [id number]. tel:[phone] [facility], [address] [place] [address], [id number], [place] tel:[phone] DEWAYNE [place] Endocrine disorder, unspecifiedGender Identity Disorder Debi Tolbert. [address], [place], [id number], . tel:[phone] Referring Provider: Didi Carrera, [address] [place], [place], [id number]. tel:[phone] [facility], [address], [place], [id number], tel:[phone] DEWAYNE [place] Gender identity disorder, unspecified Debi Tolbert. [address] [facility], [id number], . tel:[phone] Referring Provider: Didi Carrera, [address] [place] [address], [id number]. tel:[phone] [facility], [address] [place] [address], [id number], tel:[phone] DEWAYNE [place] Endocrine disorder, unspecifiedGender Identity Disorder Carmina Salazar. [address] [place] [address], [id number], . tel:[phone] Referring Provider: Marie Grewal, [address] [place] [address], [id number]. tel:[phone] Provider: DEWAYNE Nurse/CA. [facility], [address], [place], [id number], [place] tel:[phone] DEWAYNE [place] Gender Identity Dis orderEndocrine disorder, unspecified Debi Tolbert. [address], [place], [id number], [place]. tel:[phone] Referring Provider: Didi Carrera, [address] [place] [address], [id number]. tel:[phone] Provider: DEWAYNE Nurse/[place]. [facility] [place], [address] [place] [address], [id number], [place] tel:[phone] DEWAYNE [place] Endocrine disorder, unspecifiedGender Identity Disorder Carmina Salazar. [address] [place], [place], [id number], [place]. tel:[phone] Referring Provider: Marie Grewal, [address] [place] [address], [id number]. tel:[phone] [facility] [place], [address] [place] [address], [id number], [place] tel:[phone] DEWAYNE [place] Gender identity disorder, unspecified Carmina Salazar. [address] [place] [address], [id number], [place]. tel:[phone] Referring Provider: Marie Grewal, [address] [place] [address], [id number]. tel:[phone] Provider: DEWAYNE Nurse/CA. [facility] [place], [address] [place] [address], [id number], [place] tel:[phone] DEWAYNE [place] Encounter for surve illance of injectable contraceptiveGender Identity Disorder Carmina Salazar. [address] [place] [address], [id number], [place]. tel:[phone] Referring Provider: Marie Grewal, [address] [place] [address], [id number]. tel:[phone] [facility] [place], [address] [place] [address], [id number], [place] tel:[phone] DEWAYNE [place] Gender Identity Disorder Carmina Salazar. [address] [place] [address], [id number], [place]. tel:[phone] Referring Provider: Marie Grewal, [address] [place] [address], [id number]. tel:[phone] [facility] [place], [address], [place], [id number], [place] tel:[phone] DEWAYNE Jimenez Gender Identity Dis orderEncounter for oth general cnsl and advice on contraception Debi Lay radha. [address], [place], [id number], [place]. tel:[phone] Referring Provider: Didi Carrera, [address], [place], [id number]. tel:[phone] [facility] [place], [address] [place] [address], [id number], [place] tel:[phone] DEWAYNE [place] Endocrine disorder, unspecifiedGender Identity DisorderOther sex counselingEncounter for oth general cnsl and advice on contraception Carmina Salazar. [address] [place] [address], [id number], [place]. tel:[phone] Referring Provider: Marie Grewal, [address] [place] [address], [id number]. tel:[phone] [facility] [place], [address], [place], [id number], [place] tel:[phone] DEWAYNE [place] Gender Identity Dis orderEndocrine disorder, unspecifiedOther sex counselingEncounter for oth general cnsl and advice on contraception Peewee Lux. [address] [place] [address], [id number], [place]. tel:[phone] Referring Provider: Maci Vides, [address] [place] [address], [id number]. tel:[phone] Provider: DEWAYNE Nurse/[place]. [facility] [place], [address] [place] [address], [id number], [place] tel:[phone] DEWAYNE [place] Gender Identity Dis orderEndocrine disorder, unspecifiedOther sex counselingEncounter for oth general cnsl and advice on contraception Carmina Salazar. [address], [place], [id number], [place]. tel:[phone] Referring Provider: Marie Grewal, [address] [place] [address], [id number]. tel:[phone] [facility] [place] [address] [place] [address], [id number], [place] tel:[phone] DEWAYNE [place] Gender Identity Disorder Carmina Salazar. [address] [place] [address], [id number], [place]. tel:[phone] Referring Provider: Marie Grewal, [address] [place] [address], [id number]. tel:[phone] Provider: DEWAYNE Nurse/[place]. [facility] [place], [address] [place] [address], [id number], [place] tel:[phone] DEWAYNE [place] Endocrine disorder, unspecifiedGender Identity Disorder Peewee Lux. [address] [place] [address], [id number], [place]. tel:[phone] Referring Provider: Maci Vides, [address] [place], [place], [id number]. tel:[phone] [facility], [address] [place] [address], [id number], [place] tel:[phone] YIFANIDALEXANDRA [place] Gender identity dis order, unspecifiedGender Identity DisorderEndocrine disorder, unspecified Carmina Salazar. [address] [place] [address], [id number], [place]. tel:[phone] Referring Provider: Marie Grewal, [address] [place] [address], [id number]. tel:[phone] Provider: DEWAYNE Nurse/[place]. [facility] [place], [address] [place] [address], [id number], [place] tel:[phone] DEWAYNE [place] Gender Identity Disorder Carmina Salazar. [address] [place] [address], [id number], . tel:[phone] Referring Provider: Marie Grewal, [address] [place] [address], [id number]. tel:[phone] [facility], [address] [place] [address], [id number], tel:[phone] DEWAYNE [place] Gender Identity Disorder Adriel Luna. [address] [place] [address], [address] [place] [address], . tel:[phone] Referring Provider: Cheryl Morel, [address] [place] [address], [id number]. tel:[phone] [facility], [address] [place] [address], [address] [place] [address], tel:[phone] DEWAYNE [place] Gender Identity Disorder Carmina Salazar. [address] [place] [address], [address] [place] [address], . tel:[phone] Referring Provider: Marie Grewal, [address] [place] [address], [id number]. tel:[phone] Provider: DEWAYNE Nurse/CA. [facility], [address] [place] [address], [id number], tel:[phone] DEWAYNE [place] Gender Identity Disorder Carmina Salazar. [address] [place] [address], [id number], . tel:[phone] [facility], [address] [place] [address], [id number], tel:[phone] DEWAYNE [place] Gender Identity Dis orderEncounter for oth general cnsl and advice on contraception Adriel Luna. [address], [place], [id number], [place]. tel:[phone] Referring Provider: Cheryl Morel, [address] [place] [address], [id number]. tel:[phone] [facility], [address] [place] [address], [id number], [place] tel:[phone] PPID[facility] [place] Gender Identity Dis orderEndocrine disorder, unspecified Peewee Lux. [address] [place] [address], [id number], [place]. tel:[phone] Referring Provider: Maci Vides, [address] [place], [place], [id number]. tel:[phone] Provider: DEWAYNE Nurse/[place]. [facility], [address] [place] [address], [id number], [place] tel:[phone] DEWAYNE [place] Encounter for surve illance of injectable contraceptiveTranssexualismEndocrine disorder, unspecified Peewee Lux. [address] [place] [address], [id number], [place]. tel:[phone] Referring Provider: Maci Vides, [address] [place], [place], [id number]. tel:[phone] Provider: DEWAYNE Nurse/[place]. [facility], [address], [place], [id number], [place] tel:[phone] DEWAYNE [place] Encounter for surve illance of injectable contraceptiveEncounter for oth general cnsl and advice on contraception Debi Tolbert. [address] [place] [address], [id number], [place]. tel:[phone] Referring Provider: Didi Carrera, [address] [place] [address], [id number]. tel:[phone] [facility], [address], [place], [id number], [place] tel:[phone] DEWAYNE [place] Endocrine disorder, unspecifiedTranssexualism Debi Tolbert. [address], [place], [id number], [place]. tel:[phone] Referring Provider: Didi Carrera, [address] [place], [place], [id number]. tel:[phone] Provider: DEWAYNE Nurse/CA. [facility], [address], [place], [id number], [place] tel:[phone] DEWAYNE [place] TranssexualismEndoc rine disorder, unspecified Debi Tolbert. [address], [place], [id number], [place]. tel:[phone] Referring Provider: Didi Carrera, [address] [place], [place], [id number]. tel:[phone] Provider: DEWAYNE Nurse/[place]. [facility], [address], [place], [id number], [place] tel:[phone] DEWAYNE [place] Endocrine disorder, unspecifiedTranssexualismEncounter for oth general cnsl and advice on contraception Debi Tolbert. [address], [place], [id number], [place]. tel:[phone] Referring Provider: Didi Carrera, [address] [place], [place], [id number]. tel:[phone] Provider: DEWAYNE Nurse/[place]. [facility], [address], [place], [id number], [place] tel:[phone] DEWAYNE [place] TranssexualismEncou nter for oth general cnsl and advice on contraceptionHuman immunodeficiency virus [HIV] counseling Debi Tolbert. [address], [place], [id number], . tel:[phone] Referring Provider: Didi Carrera, [address] [place] [address], [id number]. tel:[phone] [facility] [address], [place], [id number], tel:[phone] PPNC[facility] [place] Human immunodeficie ncy virus [HIV] counselingEncntr screen for infections w sexl mode of transmissEncounter for screening for human immunodeficiency virusHigh risk heterosexual behaviorEndocrine disorder, unspecifiedTranssexualismEncntr for before and after school daycare worker exam (general) (routine) w/o abn findings Carranza. [address] [place] [address], [id number], . tel:[phone] Referring Provider: Miley Fletcher, [address] [place] [address], [id number]. tel:[phone] Family History Family Member Diagnosis Age At [...] type Covered green party ID Authorization(s ) [facility] CI [id number] Social History Type Description Quantity Date Captured Comments Alcohol Use Details Unknown Caffeine Use Details Unknown Tobacco Use Status No Information Smoking Status Never smoker Sex Female Vital Signs Date / Time: Height Weight BMI Pulse Rate Blood Pressure Temperatu re Respiratory Rate Body Surface Area Head Circumference BMI percentile Pulse Ox In haled Ox 7:32 AM 66.00 in 226.40 lbs 36.54 kg/meter(2) 120/78 m m[Hg] Chief Complaint And Reason For Visit No Information Reason For Referral Reason For Referral No Information Plan Of Treatment Date Type Action Status Referral Ordered: Referrals: Other. 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 Evaluate and treat ordered Referral Referred To: [facility] Ordered: Referrals: Supervisor M[employer]. [facility] Evaluate and treat Appointment date/timeframe: 2 Months ordered Referral Ordered: Janet Mcmillan -[facility] : Family Medicine (related to Transsexualism) ordered Referral Referred To: Janet Mcmillan [address] [place], [place], [id number] Ordered: Referrals: [facility]opathic [facility] Osteopathic Physicians : Family Medicine. Janet Mcmillan ordered Appointment Thu Majano BOOKED Appointment Thu Majano BOOKED History Of [...] Date No Information Medical Equipment Description Device Lyme Device Identifier Effective Romero es (start - stop) Status No Information Mental Status Date Cognitive Assessment No Information Health Concerns Observation Date No Information Concern Status Date No Information Physical Examination Exam Findings Details No Information
--- OUTSIDE RECORDS SUMMARY | 2021-04-22 13:41 | CCD | Continuity of Care Document ---
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 RN/MEDIA THEORIST AND AUTHOR OF Only CVR Blood Pressure CVR Med.Svc. Height/Weight CVR Architectural Representative.Svc. Contraceptive CVR Architectural Representative.Svc. Other CVR Architectural Representative.Svc. STI / H Results Test Name Date and Time Measure Units Reference Range Abnormal Flag St atus Comments No Information Advance Directives Directive Yes / No Effective Date File Name No Information Encounters Encounter Description Practice Location Reason(s) For Visit Diagnose s Date Provider Providers Copied on [facility]counter [facility], [address] [place] [address], [id number], tel:[phone] DEW[place]NE [place] Gender Identity Disorder Chapincito Tolbert. [address] [place] [address], [id number], . tel:[phone] Referring Provider: Edwige Beckham, [address] [place] [address], [id number]. tel:[phone] [facility], [address] [place] [address], [id number], tel:[phone] DEWAYNE [place] Gender identity disorder, unspecified Chapincito Tolbert. [address] [place] [address], [id number], . tel:[phone] Referring Provider: Edwige Beckham, [address] [place] [address], [id number]. tel:[phone] Provider: DEWAYNE Nurse/CASocorro [facility], [address] [place] [address], [id number], tel:[phone] DEWAYNE [place] Endocrine disorder, unspecifiedGender Identity Disorder Everette De. [address] [place] [address], [id number], . tel:[phone] Referring Provider: Henrietta Gaviria, [address] [place] [address], [id number]. tel:[phone] [facility], [address] [place] [address], [id number], [place] tel:[phone] DEWAYNE [place] Gender Identity Disorder Everette De. [address] [place] [address], [id number], [place]. tel:[phone] Referring Provider: Henrietta Gaviria, [address] [place] [address], [id number]. tel:[phone] Provider: DEWAYNE Nurse/CA. [facility], [address] [place] [address], [id number], [place] tel:[phone] DEWAYNE [place] Gender Identity Dis orderEndocrine disorder, unspecified Chapincito Tolbert. [address] [place] [address], [id number], [place]. tel:[phone] Referring Provider: Edwige Beckham, [address] [place] [address], [id number]. tel:[phone] [facility], [address] [place] [address], [id number], [place] tel:[phone] DEWAYNE [place] Gender identity disorder, unspecified Chapincito Tolbert. [address] [place] [address], [id number], [place]. tel:[phone] Referring Provider: Edwige Beckham, [address] [place] [address], [id number]. tel:[phone] [facility], [address] [place] [address], [id number], [place] tel:[phone] DEWAYNE [place] Gender Identity Disorder Everette De. [address] [place] [address], [id number], [place]. tel:[phone] Referring Provider: Henrietta Gaviria, [address], [place], [id number]. tel:[phone] Provider: DEWAYNE Nurse/[place]. [facility] [place], [address], [place], [id number], [place] tel:[phone] DEWAYNE [place] Gender identity disorder, unspecified Everette De. [address] [place], [place], [id number], [place]. tel:[phone] Referring Provider: Henrietta Gaviria, [address] [place], [place], [id number]. tel:[phone] Provider: Provider Nurse. [facility] [place], [address], [place], [id number], [place] tel:[phone] DEWAYNE [place] Gender Identity Dis orderEndocrine disorder, unspecified Chapincito Tolbert. [address] [place] [address], [id number], [place]. tel:[phone] Referring Provider: Edwige eBckham, [address] [place] [address], [id number]. tel:[phone] Provider: DEWAYNE Nurse/CA. [facility], [address], [place], [id number], [place] tel:[phone] DEWAYNE [place] Gender Identity Disorder Chapincito Tolbert. [address] [place] [address], [id number], [place]. tel:[phone] Referring Provider: Edwige Beckham, [address] [place] [address], [id number]. tel:[phone] [facility] [place], [address] [place] [address], [id number], [place] tel:[phone] [facility] Gender Identity Dis orderEndocrine disorder, unspecified Everette De. [address] [place], [place], [id number], [place]. tel:[phone] Referring Provider: Henrietta Gaviria, [address] [place] [address], [id number]. tel:[phone] [facility], [address] [place] [address], [id number], [place] tel:[phone] [facility] Endocrine disorder, unspecifiedGender Identity Disorder Everette De. [address] [place], [place], [id number], [place]. tel:[phone] Referring Provider: Henrietta Gaviria, [address] [place] [address], [id number]. tel:[phone] Provider: DEWAYNE Nurse/CA. [facility], [address] [place] [address], [id number], [place] tel:[phone] [facility] Endocrine disorder, unspecifiedGender Identity Disorder Chapincito Tolbert. [address] [place] [address], [id number], [place]. tel:[phone] Referring Provider: Edwige Beckham, [address] [place] [address], [id number]. tel:[phone] [facility], [address] [place] [address], [id number], [place] tel:[phone] [facility] Gender Identity Disorder Carmina Salazar. [address] [place] [address], [id number], [place]. tel:[phone] Referring Provider: Marie Grewal, [address] [place] [address], [id number]. tel:[phone] Provider: DEWAYNE Nurse/[place]. [facility] [place], [address] [place], [place], [id number], [place] tel:[phone] [facility] [place] Endocrine disorder, unspecifiedGender identity disorder, unspecified Everette De. [address], [place], [id number], [place]. tel:[phone] Referring Provider: Henrietta Gaviria, [address], [place], [id number]. tel:[phone] [facility] [place], [address], [place], [id number], [place] tel:[phone] [facility] Human immunodeficie ncy virus [HIV] counselingOther sex counselingGender identity disorder, unspecified Chapincito Tolbert. [address] [place] [address], [id number], [place]. tel:[phone] Referring Provider: Edwige Beckham, [address] [place] [address], [id number]. tel:[phone] [facility] [place], [address], [place], [id number], [place] tel:[phone] [facility] Eevrette De. [address], [place], [id number], [place]. tel:[phone] Referring Provider: Henrietta Gaviria, [address], [place], [id number]. tel:[phone] [facility] [place], [address], [place], [id number], [place] tel:[phone] [facility] Endocrine disorder, unspecifiedGender Identity Disorder Carmina Salazar. [address] [place], [place], [id number], [place]. tel:[phone] Referring Provider: Marie Grewal, [address] [place], [place], [id number]. tel:[phone] [facility], [address], [place], [id number], [place] tel:[phone] YIFANARALEXANDRA [place] Gender Identity Dis orderEndocrine disorder, unspecified Carmina Salazar. [address] [place], [place], [id number], [place]. tel:[phone] Referring Provider: Marie Grewal, [address] [place] [address], [id number]. tel:[phone] Provider: DEWAYNE Nurse/CA. [facility], [address] [place] [address], [id number], [place] tel:[phone] DEWAYNE [place] Gender Identity Dis orderEndocrine disorder, unspecified Carmina Salazar. [address] [place], [place], [id number], [place]. tel:[phone] Referring Provider: Marie Grewal, [address] [place] [address], [id number]. tel:[phone] [facility], [address] [place] [address], [id number], [place] tel:[phone] DEWAYNE [place] Endocrine disorder, unspecifiedGender Identity Disorder Carmina Salazar. [address] [place], [place], [id number], [place]. tel:[phone] Referring Provider: Marie Grewal, [address] [place], [place], [id number]. tel:[phone] Provider: DEWAYNE Nurse/CA. [facility], [address] [place] [address], [id number], [place] tel:[phone] DEWAYNE [place] Endocrine disorder, unspecifiedGender Identity Disorder Everette De. [address] [place], [place], [id number], [place]. tel:[phone] Referring Provider: Henrietta Gaviria, [address], [place], [id number]. tel:[phone] Provider: DEWAYNE Nurse/[place]. [facility] [place], [address], [place], [id number], [place] tel:[phone] DEWAY[place] Gender identity disorder, unspecified Everette De. [address] [place], [place], [id number], [place]. tel:[phone] Referring Provider: Henrietta Gaviria, [address], [place], [id number]. tel:[phone] [facility], [address], [place], [id number], [place] tel:[phone] DEWAYEN [place] Gender identity disorder, unspecified Everette De. [address] [place], [place], [id number], [place]. tel:[phone] Referring Provider: Henrietta Gaviria, [address], [place], [id number]. tel:[phone] Provider: DEWAYNE Nurse/CA. [facility], [address], [place], [id number], [place] tel:[phone] [facility] [place] Endocrine disorder, unspecifiedGender Identity Disorder Chapincito Tolbert. [address] [place], [place], [id number], [place]. tel:[phone] Referring Provider: Edwige Beckham, [address] [place] [address], [id number]. tel:[phone] Provider: DEWAYNE Nurse/CA. [facility], [address], [place], [id number], [place] tel:[phone] DEWAYNE [place] Gender identity disorder, unspecified Chapincito Edwige Layley. [address] [place] [address], [id number], [place]. tel:[phone] Referring Provider: Edwige Tolbert Chapincito, [address] [place] [address], [id number]. tel:[phone] [facility], [address] [place] [address], [id number], [place] tel:[phone] YIFANARALEXANDRA [place] Endocrine disorder, unspecifiedGender Identity Disorder Everette De. [address] [place] [address], [id number], [place]. tel:[phone] Referring Provider: Henrietta Gaviria, [address] [place] [address], [id number]. tel:[phone] Provider: DEWAYNE Nurse/CA. [facility], [address] [place] [address], [id number], [place] tel:[phone] DEWAYNE [place] Gender Identity Dis orderEndocrine disorder, unspecified Carmina Salazar. [address] [place] [address], [id number], [place]. tel:[phone] Referring Provider: Marie Grewal, [address] [place] [address], [id number]. tel:[phone] Provider: DEWAYNE Nurse/CA. [facility], [address] [place] [address], [id number], [place] tel:[phone] DEWAYNE [place] Endocrine disorder, unspecifiedGender Identity Disorder Carmina Salazar. [address] [place] [address], [id number], [place]. tel:[phone] Referring Provider: Marie Grewal, [address] [place] [address], [id number]. tel:[phone] Provider: DEWAYNE Nurse/[place]. [facility] [place], [address], [place], [id number], [place] tel:[phone] PP[facility] [place] Endocrine disorder, unspecifiedGender Identity Disorder Everette De. [address] [place], [place], [id number], [place]. tel:[phone] Referring Provider: Henrietta Gaviria, [address], NY, [id number]. tel:[phone] [facility] [place], [address], [place], [id number], [place] tel:[phone] YIFANNCALEXANDRA [place] Endocrine disorder, unspecifiedGender identity disorder, unspecified Carmina Salazar. [address], [place], [id number], [place]. tel:[phone] Referring Provider: Marie Grewal, [address] [place] [address], [id number]. tel:[phone] Provider: Provider Nurse. [facility] [place], [address], [place], [id number], [place] tel:[phone] DEWAYNE [place] Endocrine disorder, unspecifiedGender Identity Disorder Everette De. [address] [place], [place], [id number], [place]. tel:[phone] Referring Provider: Henrietta Gaviria, [address], NY, [id number]. tel:[phone] [facility] [place], [address], [place], [id number], [place] tel:[phone] YIFANARALEXANDRA [place] Endocrine disorder, unspecifiedGender Identity Disorder Carmina Salazar. [address] [place], [place], [id number], [place]. tel:[phone] Referring Provider: Marie Grewal, [address] [place], [place], [id number]. tel:[phone] Provider: DEWAYNE Nurse/CA. [facility], [address], [place], [id number], [place] tel:[phone] [facility] [place] Endocrine disorder, unspecifiedGender Identity Disorder Carmina Salazar. [address] [place], [place], [id number], [place]. tel:[phone] Referring Provider: Marie Grewal, [address] [place] [address], [id number]. tel:[phone] Provider: DEWAYNE Nurse/CA. [facility], [address], [place], [id number], [place] tel:[phone] PPNCALEXANDRA [place] Endocrine disorder, unspecifiedGender Identity Disorder Carmina Salazar. [address] [place], [place], [id number], [place]. tel:[phone] Referring Provider: Marie Grewal, [address] [place] [address], [id number]. tel:[phone] Provider: Provider Nurse. [facility], [address], [place], [id number], [place] tel:[phone] PPNCALEXANDRA [place] Endocrine disorder, unspecifiedGender Identity Disorder Carmina Salazar. [address] [place], [place], [id number], [place]. tel:[phone] Referring Provider: Marie Grewal, [address] [place] [address], [id number]. tel:[phone] Provider: DEWAYNE Nurse/CA. [facility], [address], [place], [id number], [place] tel:[phone] PPNCALEXANDRA [place] Endocrine disorder, unspecifiedGender Identity Disorder Melissa Lazo. [address] [place] [address], [id number], [place]. tel:[phone] Referring Provider: Violet Torres, [address] [place], [place], [id number]. tel:[phone] [facility], [address] [place] [address], [id number], [place] tel:[phone] [facility] [place] Endocrine disorder, unspecifiedGender Identity Disorder Adriel Luna. [address] [place] [address], [id number], [place]. tel:[phone] Referring Provider: Cheryl Morel, [address] [place] [address], [id number]. tel:[phone] Provider: DEWAYNE Nurse/CA. [facility], [address] [place] [address], [id number], [place] tel:[phone] YIFANNCALEXANDRA [place] Endocrine disorder, unspecifiedGender Identity Disorder Everette De. [address] [place], [place], [id number], [place]. tel:[phone] Referring Provider: Henrietta Gaviria, [address] [place] [address], [id number]. tel:[phone] Provider: DEWAYNE Nurse/CA. [facility], [address] [place] [address], [id number], [place] tel:[phone] YIFANNCALEXANDRA [place] Endocrine disorder, unspecifiedGender Identity Disorder Peewee Lux. [address] [place] [address], [id number], [place]. tel:[phone] Referring Provider: Maci Vides, [address] [place] [address], [id number]. tel:[phone] Provider: DEWAYNE Nurse/[place]. [facility] [place], [address] [place], [place], [id number], [place] tel:[phone] DEWAYNE [place] Endocrine disorder, unspec ified Peewee Lux. [address] [place], [place], [id number], [place]. tel:[phone] Referring Provider: Maci Vides, [address] [place], [place], [id number]. tel:[phone] [facility] [place], [address] [place], [place], [id number], [place] tel:[phone] DEWAYNE [place] Gender Identity Dis orderEndocrine disorder, unspecified Melissa Violet. [address] [place] [address], [id number], [place]. tel:[phone] Referring Provider: Violet Torres, [address] [place] [address], [id number]. tel:[phone] Provider: DEWAYNE Nurse/CA. [facility], [address] [place] [address], [id number], tel:[phone] DEWAYNE [place] Gender Identity Disorder Melissa Lazo. [address] [place] [address], [id number], [place]. tel:[phone] Referring Provider: Violet Torres, [address] [place], [place], [id number]. tel:[phone] Provider: DEWAYNE Nurse/CA. [facility], [address] [place] [address], [id number], [place] tel:[phone] DEWAYNE Hernandez Gender identity dis order, unspecifiedObesity, unspecifiedInappropriate diet and eating habits Melissa Lazo. [address] [place] [address], [id number], [place]. tel:[phone] Referring Provider: Violet Torres, [address] [place] [address], [id number]. tel:[phone] [facility], [address] [place] [address], [id number], tel:[phone] [place] Gender identity disorder, unspecified Peewee Lux. [address] [place] [address], [id number], [place]. tel:[phone] Referring Provider: Maci Vides, [address] [place] [address], [id number]. tel:[phone] [facility], [address] [place] [address], [id number], tel:[phone] DEW[place] Gender Identity Dis orderEndocrine disorder, unspecified Melissa Violet. [address] [place] [address], [address] [place] [address], [place]. tel:[phone] Referring Provider: Violet Torres, [address] [place] [address], [id number]. tel:[phone] Provider: DEWAYNE Nurse/CA. [facility], [address] [place] [address], [id number], tel:[phone] DEWAYNE [place] Gender identity disorder, unspecified Melissa Violet. [address] [place] [address], [id number], [place]. tel:[phone] Referring Provider: Violet Torres, [address] [place] [address], [id number]. tel:[phone] [facility], [address] [place] [address], [id number], [place] tel:[phone] DEWAYNE [place] Gender Identity Disorder Peewee Lux. [address] [place] [address], [id number], [place]. tel:[phone] Referring Provider: Maci Vides, [address] [place], [place], [id number]. tel:[phone] [facility], [address] [place], [place], [id number], [place] tel:[phone] DEWAYNE [place] Endocrine disorder, unspecifiedGender Identity Disorder Debi Tolbert. [address] [place], [place], [id number], [place]. tel:[phone] Referring Provider: Didi Carrera, [address] [place], [place], [id number]. tel:[phone] [facility], [address] [place] [address], [id number], [place] tel:[phone] DEWAYNE [place] Gender identity disorder, unspecified Debi Tolbert. [address] [place] [address], [facility], [id number], [place]. tel:[phone] Referring Provider: Didi Carrera, [address], [place], [id number]. tel:[phone] [facility], [address] [place], [place], [id number], [place] tel:[phone] DEWAYNE [place] Endocrine disorder, unspecifiedGender Identity Disorder Carmina Salazar. [address] [place], [place], [id number], [place]. tel:[phone] Referring Provider: Marie Grewal, [address] [place], [place], [id number]. tel:[phone] Provider: DEWAYNE Nurse/CA. [facility], [address] [place] [address], [id number], [place] tel:[phone] DEWAYNE [place] Gender Identity Dis orderEndocrine disorder, unspecified Debi Tolbert. [address] [place] [address], [id number], [place]. tel:[phone] Referring Provider: Didi Carrera, [address] [place] [address], [id number]. tel:[phone] Provider: DEWAYNE Nurse/[place]. [facility] [place], [address] [place], [place], [id number], [place] tel:[phone] DEWAYNE [place] Endocrine disorder, unspecifiedGender Identity Disorder Carmina Salazar. [address] [place], [place], [id number], [place]. tel:[phone] Referring Provider: Marie Grewal, [address] [place] [address], [id number]. tel:[phone] [facility] [place], [address] [place] [address], [id number], [place] tel:[phone] DEWAYNE [place] Gender identity disorder, unspecified Carmina Salazar. [address] [place] [address], [id number], [place]. tel:[phone] Referring Provider: Marie Grewal, [address] [place] [address], [id number]. tel:[phone] Provider: DEWAYNE Nurse/[place]. [facility] [place], [address] [place] [address], [id number], [place] tel:[phone] DEW[place] Encounter for surve illance of injectable contraceptiveGender Identity Disorder Carmina Salazar. [address] [place] [address], [id number], [place]. tel:[phone] Referring Provider: Marie Grewal, [address] [place] [address], [id number]. tel:[phone] [facility] [place], [address] [place] [address], [id number], [place] tel:[phone] DEWAYNE [place] Gender Identity Disorder Carmina Salazar. [address] [place] [address], [id number], [place]. tel:[phone] Referring Provider: Marie Grewal, [address] [place] [address], [id number]. tel:[phone] [facility] [place], [address] [place] [address], [id number], [place] tel:[phone] DEWAYNE Jimenez Gender Identity Dis orderEncounter for oth general cnsl and advice on contraception Debi Lay radha. [address] [place] [address], [id number], [place]. tel:[phone] Referring Provider: Didi Carrera, [address] [place] [address], [id number]. tel:[phone] [facility], [address] [place] [address], [id number], [place] tel:[phone] DEWAYNE [place] Endocrine disorder, unspecifiedGender Identity DisorderOther sex counselingEncounter for oth general cnsl and advice on contraception Carmina Salazar. [address] [place] [address], [id number], [place]. tel:[phone] Referring Provider: Marie Grewal, [address] [place], [place], [id number]. tel:[phone] [facility], [address] [place] [address], [id number], [place] tel:[phone] DEWAYNE [place] Gender Identity Dis orderEndocrine disorder, unspecifiedOther sex counselingEncounter for oth general cnsl and advice on contraception Peewee Lux. [address] [place] [address], [id number], [place]. tel:[phone] Referring Provider: Maci Vides, [address] [place] [address], [id number]. tel:[phone] Provider: DEWAYNE Nurse/[place]. [facility] [place], [address] [place], [place], [id number], [place] tel:[phone] DEWAYNE [place] Gender Identity Dis orderEndocrine disorder, unspecifiedOther sex counselingEncounter for oth general cnsl and advice on contraception Carmina Salazar. [address] [place], [place], [id number], [place]. tel:[phone] Referring Provider: Marie Grewal, [address] [place] [address], [id number]. tel:[phone] [facility] [place], [address] [place], [place], [id number], [place] tel:[phone] DEWAYNE [place] Gender Identity Disorder Carmina Salazar. [address] [place] [address], [id number], [place]. tel:[phone] Referring Provider: Marie Grewal, [address] [place] [address], [id number]. tel:[phone] Provider: DEWAYNE Nurse/[place]. [facility] [place], [address] [place] [address], [id number], [place] tel:[phone] DEWAYNE [place] Endocrine disorder, unspecifiedGender Identity Disorder Peewee Lux. [address] [place] [address], [id number], [place]. tel:[phone] Referring Provider: Maci Vides, [address] [place], [place], [id number]. tel:[phone] [facility] [place], [address] [place] [address], [id number], [place] tel:[phone] DEWAYNE [place] Gender identity dis order, unspecifiedGender Identity DisorderEndocrine disorder, unspecified Carmina Salazar. [address] [place] [address], [id number], [place]. tel:[phone] Referring Provider: Marie Grewal, [address] [place] [address], [id number]. tel:[phone] Provider: DEWAYNE Nurse/[place]. [facility], [address] [place] [address], [id number], tel:[phone] DEWAYNE [place] Gender Identity Disorder Carmina Salazar. [address] [place] [address], [id number], [place]. tel:[phone] Referring Provider: Marie Grewal, [address] [place] [address], [id number]. tel:[phone] [facility], [address] [place] [address], [id number], tel:[phone] DEWAYNE Jimenez Gender Identity Disorder Adriel Luna. [address] [place] [address], [address] [place] [address], [place]. tel:[phone] Referring Provider: Cheryl Morel, [address] [place] [address], [id number]. tel:[phone] [facility], [address] [place] [address], [id number], [place] tel:[phone] DEWAYNE [place] Gender Identity Disorder Carmina Salazar. [address] [place] [address], [id number], [place]. tel:[phone] Referring Provider: Marie Grewal, [address] [place] [address], [id number]. tel:[phone] Provider: DEWAYNE Nurse/[place]. [facility], [address] [place] [address], [id number], [place] tel:[phone] DEWAYNE [place] Gender Identity Disorder Carmina Salazar. [address] [place] [address], [id number], [place]. tel:[phone] [facility] [place], [address] [place], [place], [id number], [place] tel:[phone] DEWAYNE Jimenez Gender Identity Dis orderEncounter for oth general cnsl and advice on contraception Morel Cheryl. [address], [place], [id number], [place]. tel:[phone] Referring Provider: Cheryl Morel, [address], [place], [id number]. tel:[phone] [facility] [place], [address], [place], [id number], [place] tel:[phone] DEWAYNE [place] Gender Identity Dis orderEndocrine disorder, unspecified Peewee Lux. [address] [place] [address], [id number], . tel:[phone] Referring Provider: Maci Vides, [address] [place], [place], [id number]. tel:[phone] Provider: [place]WAYNE Nurse/[place]. [facility] [place], [address] [place] [address], [id number], [place] tel:[phone] DEWAYNE [place] Encounter for surve illance of injectable contraceptiveTranssexualismEndocrine disorder, unspecified Peewee Lux. [address] [place] [address], [id number], . tel:[phone] Referring Provider: Maci Vides, [address] [place], [place], [id number]. tel:[phone] Provider: DEWAYNE Nurse/[place]. [facility], [address] [place] [address], [id number], [place] tel:[phone] DEWAYNE Jimenez Encounter for surve illance of injectable contraceptiveEncounter for oth general cnsl and advice on contraception Debi Tolbert. [address] [place] [address], [id number], [place]. tel:[phone] Referring Provider: Didi Carrera, [address], [place], [id number]. tel:[phone] [facility] [place], [address], [place], [id number], [place] tel:[phone] DEWAYNE [place] Endocrine disorder, unspecifiedTranssexualism Debi Tolbert. [address], [place], [id number], [place]. tel:[phone] Referring Provider: Didi Carrera, [address], [place], [id number]. tel:[phone] Provider: DEWAYNE Nurse/[place]. [facility] [place], [address], [place], [id number], [place] tel:[phone] DEWAYNE [place] TranssexualismEndoc rine disorder, unspecified Debi Tolbert. [address], [place], [id number], [place]. tel:[phone] Referring Provider: Didi Carrera, [address], [place], [id number]. tel:[phone] Provider: DEWAYNE Nurse/[place]. [facility] [place], [address], [place], [id number], [place] tel:[phone] DEWAYNE [place] Endocrine disorder, unspecifiedTranssexualismEncounter for oth general cnsl and advice on contraception Debi Tolbert. [address], [place], [id number], [place]. tel:[phone] Referring Provider: Didi Carrera, [address], [place], [id number]. tel:[phone] Provider: DEWAYNE Nurse/[place]. [facility] [place], [address], [place], [id number], [place] tel:[phone] DEWAYNE [place] TranssexualismEncou nter for oth general cnsl and advice on contraceptionHuman immunodeficiency virus [HIV] counseling Debishiv Tolbert. [address] [place] [address], [id number], . tel:[phone] Referring Provider: Didi Barreracy, [address] [place] [address], [id number]. tel:[phone] [facility], [address] [place] [address], [id number], tel:[phone] GATOALEXANDRA [place] Human immunodeficie ncy virus [HIV] counselingEncntr screen for infections w sexl mode of transmissEncounter for screening for human immunodeficiency virusHigh risk heterosexual behaviorEndocrine disorder, unspecifiedTranssexualismEncntr for research biologist exam (general) (routine) w/o abn findings Carranza. [address] [place] [address], [id number], . tel:[phone] Referring Provider: Miley Fletcher, [address] [place] [address], [id number]. tel:[phone] Family History Family Member Diagnosis Age At [...] type Covered alliance party ID Authorization(s ) [facility] [id number] Social History Type Description Quantity Date Captured [...] BMI percentile Pulse Ox In haled Ox 10:16 AM 66.00 in 221.40 lbs 35.73 kg/meter(2) 110/7 0 mm[Hg] Chief Complaint And Reason For Visit No Information Reason For Referral Reason For Referral No Information Plan Of Treatment Date Type Action Status Referral Ordered: Referrals: Other. 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 Evaluate and treat ordered Referral Referred To: [facility] Ordered: Referrals: Business Continuity Director. [facility]. Evaluate and treat Appointment date/timeframe: 2 Months ordered Referral Ordered: Janet Mcmillan -[facility] : Family Medicine (related to Transsexualism) ordered Referral Referred To: Janet Mcmillan [address], [place], [phone] Ordered: Referrals: Allopathic & Osteopathic Physicians : [...] Date No Information Medical Equipment Description Device [place] Device Identifier Effective Romero es (start - stop) Status No Information Mental Status Date Cognitive Assessment No Information Health Concerns Observation Date No Information Concern Status Date No Information Physical Examination Exam Findings Details No Information
--- OUTSIDE RECORDS SUMMARY | 2021-04-22 13:41 | CCD | Continuity of Care Document ---
Author Author [facility] Organization [facility] Address Unknown Phone Unavailable Care Team Providers Care Trial Examiner Name Role Phone Dwello Edwige PHILIPPE Unavailable Unavailable Allergies, Adverse Reactions, Alerts Substance Reaction Status Criticality No Known Allergies Active No Information Medications Medication Instructions Dosage Effective Dates (start - stop) Sta tus Comments testosterone cypionate 200 mg/mL intramuscular oil Inj ect 0.45 mL IM every week. Code F. - Active MDD 0. 45 mL weekly Code F citalopram 20 mg tablet take 1 tablet by oral route every day 20 MG - Active testosterone cypionate 200 mg/mL intramuscular oil Use for admin of external Rx. See Med Module for details. - No Longer Active Problems Condition Effective Dates (start - [...] behavior Endocrine disorder, unspecified Transsexualism Encntr for screen stretcher exam (general) (routine) w/o abn findings Procedures Procedure Date Testosterone Cypionate 1mg PT BROUGHT Est TG Lab/Inj/MA Industrial Order Clerk Only OV CVR Blood Pressure CVR Med.Svc. Height/Weight CVR Rn Renal.Svc. Contraceptive CVR Rn Renal.Svc. Other CVR Rn Renal.Svc. STI / H Results Test Name Date and Time Measure Units Reference Range Abnormal Flag St atus Comments No Information Advance Directives Directive Yes / No Effective Date File Name No Information Encounters Encounter Description Practice Location Reason(s) For Visit Diagnose s Date Provider Providers Copied on Encounter [facility], [address] [place] [address], [id number], tel:[phone] DEWAYNE [place] GAHT (chief complaint) Endocrine disord er, unspecified Chapincito Tolbert. [address] [place] [address], [id number], . tel:[phone] Referring Provider: Edwige Beckham, [address] [place] [address], [id number]. tel:[phone] [facility], [address] [place] [address], [id number], tel:[phone] DEWAYNE [place] Gender Identity Disorder Dwellraisa Tolbert. [address] [place] [address], [id number], [place]. tel:[phone] Referring Provider: Edwige Beckham, [address] [place] [address], [id number]. tel:[phone] [facility], [address] [place] [address], [id number], tel:[phone] DEWAYNE [place] Gender identity disorder, unspecified Chapincito Tolbert. [address] [place] [address], [id number], . tel:[phone] Referring Provider: Edwige Beckham, [address] [place] [address], [id number]. tel:[phone] Provider: DEWAYNE Nurse/CA. [facility], [address] [place] [address], [id number], [place] tel:[phone] DEWAYNE [place] Endocrine disorder, unspecifiedGender Identity Disorder Everette De. [address], [place], [id number], [place]. tel:[phone] Referring Provider: Henrietta Gaviria, [address] [place], [place], [id number]. tel:[phone] [facility], [address] [place] [address], [id number], [place] tel:[phone] DEWAYNE [place] Gender Identity Disorder Everette De. [address] [place] [address], [id number], [place]. tel:[phone] Referring Provider: Henrietta Gaviria, [address] [place] [address], [id number]. tel:[phone] Provider: DEWAYNE Nurse/CA. [facility], [address] [place] [address], [id number], [place] tel:[phone] DEWAYNE [place] Gender Identity Dis orderEndocrine disorder, unspecified Chapincito Tolbert. [address] [place], [place], [id number], [place]. tel:[phone] Referring Provider: Edwige Beckham, [address] [place], [place], [id number]. tel:[phone] [facility], [address] [place], [place], [id number], [place] tel:[phone] DEWAYNE [place] Gender identity disorder, unspecified Chapincito Tolbert. [address] [place], [place], [id number], [place]. tel:[phone] Referring Provider: Edwige Beckham, [address] [place] [address], [id number]. tel:[phone] [facility], [address] [place], [place], [id number], [place] tel:[phone] DEWAYNE [place] Gender Identity Disorder Everette De. [address] [place], [place], [id number], [place]. tel:[phone] Referring Provider: Henrietta Gaviria, [address] [place], [place], [id number]. tel:[phone] Provider: DEWAYNE Nurse/[place]. [facility], [address] [place], [place], [id number], [place] tel:[phone] YIFANSCALEXANDRA [place] Gender identity disorder, unspecified Everette De. [address] [place], [place], [id number], [place]. tel:[phone] Referring Provider: Henrietta Gaviria, [address] [place] [address], [id number]. tel:[phone] Provider: Provider Nurse. [facility], [address] [place], [place], [id number], [place] tel:[phone] YIFANSCALEXANDRA [place] Gender Identity Dis orderEndocrine disorder, unspecified Chapincito Tolbert. [address] [place], [place], [id number], [place]. tel:[phone] Referring Provider: Edwige Beckham, [address] [place] [address], [id number]. tel:[phone] Provider: DEWAYNE Nurse/[place]. [facility], [address] [place], [place], [id number], [place] tel:[phone] DEWAYNE [place] Gender Identity Disorder Chapincito Tolbert. [address] [place] [address], [id number], [place]. tel:[phone] Referring Provider: Edwige Beckham, [address] [place] [address], [id number]. tel:[phone] [facility], [address] [place] [address], [id number], [place] tel:[phone] DEWAYNE [place] Gender Identity Dis orderEndocrine disorder, unspecified Everette De. [address], [place], [id number], [place]. tel:[phone] Referring Provider: Henrietta Gaviria, [address] [place] [address], [id number]. tel:[phone] [facility], [address] [place] [address], [id number], [place] tel:[phone] DEWAYNE [place] Endocrine disorder, unspecifiedGender Identity Disorder Everette De. [address] [place] [address], [id number], [place]. tel:[phone] Referring Provider: Henrietta Gaviria, [address] [place] [address], [id number]. tel:[phone] Provider: DEWAYNE Nurse/[place]. [facility], [address] [place] [address], [id number], [place] tel:[phone] DEWAYNE [place] Endocrine disorder, unspecifiedGender Identity Disorder Chapincito Tolbert. [address] [place] [address], [id number], [place]. tel:[phone] Referring Provider: Edwige Beckham, [address] [place] [address], [id number]. tel:[phone] [facility] [place], [address] [place], [place], [id number], [place] tel:[phone] DEWAYNE [place] Gender Identity Disorder Carmina Salazar. [address] [place] [address], [id number], [place]. tel:[phone] Referring Provider: Marie Grewal, [address] [place], [place], [id number]. tel:[phone] Provider: DEWAYNE Nurse/[place]. [facility] [place], [address] [place] [address], [id number], [place] tel:[phone] YIFANSCALEXANDRA [place] Endocrine disorder, unspecifiedGender identity disorder, unspecified Eevrette De. [address] [place] [address], [id number], [place]. tel:[phone] Referring Provider: Henrietta Gaviria, [address] [place] [address], [id number]. tel:[phone] [facility] [place], [address] [place] [address], [id number], [place] tel:[phone] [facility] [place] Human immunodeficie ncy virus [HIV] counselingOther sex counselingGender identity disorder, unspecified Chapincito Tolbert. [address] [place] [address], [id number], [place]. tel:[phone] Referring Provider: Edwige Beckham, [address] [place] [address], [id number]. tel:[phone] [facility] [place], [address] [place] [address], [id number], [place] tel:[phone] YIFANSCALEXANDRA [place] Gender Identity Disorder Everette De. [address] [place] [address], [id number], [place]. tel:[phone] Referring Provider: Henrietta Gaviria, [address] [place] [address], [id number]. tel:[phone] [facility], [address] [place] [address], [id number], [place] tel:[phone] DEWAYNE [place] Endocrine disorder, unspecifiedGender Identity Disorder Carmina Salazar. [address] [place], [place], [id number], [place]. tel:[phone] Referring Provider: Marie Grewal, [address] [place] [address], [id number]. tel:[phone] [facility], [address] [place] [address], [id number], [place] tel:[phone] DEWAYNE [place] Gender Identity Dis orderEndocrine disorder, unspecified Carmina Salazar. [address] [place] [address], [id number], [place]. tel:[phone] Referring Provider: Marie Grewal, [address] [place] [address], [id number]. tel:[phone] Provider: DEWAYNE Nurse/CA. [facility], [address] [place] [address], [id number], [place] tel:[phone] DEWAYNE [place] Gender Identity Dis orderEndocrine disorder, unspecified Carmina Salazar. [address] [place], [place], [id number], [place]. tel:[phone] Referring Provider: Marie Grewal, [address] [place] [address], [id number]. tel:[phone] [facility], [address] [place] [address], [id number], [place] tel:[phone] DEWAYNE [place] Endocrine disorder, unspecifiedGender Identity Disorder Carmina Salazar. [address] [place] [address], [id number], [place]. tel:[phone] Referring Provider: Marie Grewal, [address] [place], [place], [id number]. tel:[phone] Provider: DEWAYNE Nurse/[place]. [facility] [place], [address] [place], [place], [id number], [place] tel:[phone] DEWAYNE [place] Endocrine disorder, unspecifiedGender Identity Disorder Everette De. [address], [place], [id number], [place]. tel:[phone] Referring Provider: Henrietta Gaviria, [address] [place], [place], [id number]. tel:[phone] Provider: DEWAYNE Nurse/CA. [facility], [address] [place], [place], [id number], [place] tel:[phone] DEWAYNE [place] Gender identity disorder, unspecified Everette De. [address] [place], [place], [id number], [place]. tel:[phone] Referring Provider: Henrietta Gaviria, [address] [place], [place], [id number]. tel:[phone] [facility], [address] [place], [place], [id number], [place] tel:[phone] DEWAYNE [place] Gender identity disorder, unspecified Everette De. [address] [place], [place], [id number], [place]. tel:[phone] Referring Provider: Henrietta Gaviria, [address] [place], [place], [id number]. tel:[phone] Provider: DEWAYNE Nurse/CA. [facility], [address] [place], [place], [id number], [place] tel:[phone] DEWAYNE [place] Endocrine disorder, unspecifiedGender Identity Disorder Chapincito Tolbert. [address] [place] [address], [id number], [place]. tel:[phone] Referring Provider: Edwige Beckham, [address] [place] [address], [id number]. tel:[phone] Provider: DEWAYNE Nurse/[place]. [facility], [address] [place] [address], [id number], [place] tel:[phone] DEWAYNE [place] Gender identity disorder, unspecified Chapincito Tolbert. [address] [place], [place], [id number], [place]. tel:[phone] Referring Provider: Edwige Beckham, [address] [place] [address], [id number]. tel:[phone] [facility], [address] [place] [address], [id number], [place] tel:[phone] DEWAYNE [place] Endocrine disorder, unspecifiedGender Identity Disorder Everette De. [address] [place] [address], [id number], [place]. tel:[phone] Referring Provider: Henrietta Gaviria, [address] [place] [address], [id number]. tel:[phone] Provider: DEWAYNE Nurse/CA. [facility], [address] [place] [address], [id number], [place] tel:[phone] DEWAYNE [place] Gender Identity Dis orderEndocrine disorder, unspecified Carmina Salazar. [address] [place] [address], [id number], [place]. tel:[phone] Referring Provider: Marie Grewal, [address] [place] [address], [id number]. tel:[phone] Provider: [place]WAYNE [facility]. [facility] [place], [address] [place], [place], [id number], [place] tel:[phone] PPNCALEXANDRA [place] Endocrine disorder, unspecifiedGender Identity Disorder Carmina Salazar. [address] [place], [place], [id number], [place]. tel:[phone] Referring Provider: Marie Grewal, [address] [place], [place], [id number]. tel:[phone] Provider: DEWAYNE Nurse/[place]. [facility] [place], [address] [place], [place], [id number], [place] tel:[phone] DEWAYNE [place] Endocrine disorder, unspecifiedGender Identity Disorder Everette De. [address] [place] [address], [id number], [place]. tel:[phone] Referring Provider: Henrietta Gaviria, [address] [place] [address], [id number]. tel:[phone] [facility], [address] [place], [place], [id number], [place] tel:[phone] YIFANNCALEXANDRA [place] Endocrine disorder, unspecifiedGender identity disorder, unspecified Carmina Salazar. [address] [place], [place], [id number], [place]. tel:[phone] Referring Provider: Marie Grewal, [address] [place] [address], [id number]. tel:[phone] Provider: Provider Nurse. [facility] [place], [address] [place] [address], [id number], [place] tel:[phone] DEWAYNE [place] Endocrine disorder, unspecifiedGender Identity Disorder Everette De. [address], [place], [id number], [place]. tel:[phone] Referring Provider: Henrietta Gaviria, [address] [place], [place], [id number]. tel:[phone] [facility] [place], [address] [place], [place], [id number], [place] tel:[phone] YIFANNCALEXANDRA [place] Endocrine disorder, unspecifiedGender Identity Disorder Carmina Salazar. [address] [place], [place], [id number], [place]. tel:[phone] Referring Provider: Marie Grewal, [address] [place] [address], [id number]. tel:[phone] Provider: DEWAYNE Nurse/[place]. [facility] [place], [address] [place], [place], [id number], [place] tel:[phone] YIFANNCALEXANDRA [place] Endocrine disorder, unspecifiedGender Identity Disorder Carmina Salazar. [address] [place], [place], [id number], [place]. tel:[phone] Referring Provider: Marie Grewal, [address] [place] [address], [id number]. tel:[phone] Provider: DEWAYNE Nurse/[place]. [facility] [place], [address] [place], [place], [id number], [place] tel:[phone] PPNCALEXANDRA [place] Endocrine disorder, unspecifiedGender Identity Disorder Carmina Salazar. [address] [place], [place], [id number], [place]. tel:[phone] Referring Provider: Marie Grewal, [address] [place] [address], [id number]. tel:[phone] Provider: Provider Nurse. [facility] [place], [address] [place], [place], [id number], [place] tel:[phone] PPNCNY [place] Endocrine disorder, unspecifiedGender Identity Disorder Carmina Salazar. [address] [place], [place], [id number], [place]. tel:[phone] Referring Provider: Marie Grewal, [address] [place] [address], [id number]. tel:[phone] Provider: YIFANNCALEXANDRA Nurse/CA. [facility], [address] [place] [address], [id number], [place] tel:[phone] PPNCALEXANDRA [place] Endocrine disorder, unspecifiedGender Identity Disorder Melissa Lazo. [address] [place] [address], [id number], [place]. tel:[phone] Referring Provider: Violet Torres, [address] [place], [place], [id number]. tel:[phone] [facility], [address] [place] [address], [id number], [place] tel:[phone] PPNCNY [place] Endocrine disorder, unspecifiedGender Identity Disorder Adriel Luna. [address] [place] [address], [id number], [place]. tel:[phone] Referring Provider: Cheryl Morel, [address] [place] [address], [id number]. tel:[phone] Provider: DEWAYNE Nurse/CA. [facility], [address] [place] [address], [id number], [place] tel:[phone] PPNCNY [place] Endocrine disorder, unspecifiedGender Identity Disorder Everette De. [address], [place], [id number], [place]. tel:[phone] Referring Provider: Henrietta Gaviria, [address] [place] [address], [id number]. tel:[phone] Provider: DEWAYNE Nurse/[place]. [facility] [place], [address] [place], [place], [id number], [place] tel:[phone] DEWAYNE [place] Endocrine disorder, unspecifiedGender Identity Disorder Peewee Lux. [address] [place], [place], [id number], [place]. tel:[phone] Referring Provider: Maci Vides, [address] [place], [place], [id number]. tel:[phone] Provider: DEWAYNE Nurse/[place]. [facility] [place], [address] [place], [place], [id number], [place] tel:[phone] DEWAYNE [place] Endocrine disorder, unspec ified Peewee Lux. [address] [place] [address], [id number], [place]. tel:[phone] Referring Provider: Maci Vides, [address] [place], [place], [id number]. tel:[phone] [facility], [address] [place], [place], [id number], [place] tel:[phone] DEWAYNE [place] Gender Identity Dis orderEndocrine disorder, unspecified Melissa Lazo. [address] [place] [address], [id number], [place]. tel:[phone] Referring Provider: Violet Torres, [address] [place], [place], [id number]. tel:[phone] Provider: DEWAYNE Nurse/[place]. [facility] [place], [address] [place], [place], [id number], [place] tel:[phone] DEWAYNE [place] Gender Identity Disorder Melissa Lazo. [address] [place] [address], [id number], [place]. tel:[phone] Referring Provider: Violet Torres, [address] [place], [place], [id number]. tel:[phone] Provider: DEWAYNE Nurse/CA. [facility], [address] [place] [address], [id number], tel:[phone] DEWAYNE Hernandez Gender identity dis order, unspecifiedObesity, unspecifiedInappropriate diet and eating habits Melissa Violet. [address] [place] [address], [id number], [place]. tel:[phone] Referring Provider: Violet Torres, [address] [place] [address], [id number]. tel:[phone] [facility], [address] [place] [address], [address] [place] [address], tel:[phone] DEWAYNE [place] Gender identity disorder, unspecified Peewee Lux. [address] [place] [address], [address] [place] [address], [place]. tel:[phone] Referring Provider: Maci Vides, [address] [place], [place], [id number]. tel:[phone] [facility], [address] [place] [address], [id number], tel:[phone] DEWAYNE [place] Gender Identity Dis orderEndocrine disorder, unspecified Melissa Violet. [address] [place] [address], [id number], [place]. tel:[phone] Referring Provider: Violet Torres, [address] [place], [place], [id number]. tel:[phone] Provider: DEWAYNE Nurse/[place]. [facility], [address] [place] [address], [id number], tel:[phone] DEWAYNE [place] Gender identity disorder, unspecified Melissa Violet. [address] [place] [address], [id number], [place]. tel:[phone] Referring Provider: Violet Torres, [address] [place], [place], [id number]. tel:[phone] [facility] [place], [address] [place], [place], [id number], [place] tel:[phone] PPNCNY [place] Gender Identity Disorder Peewee Lux. [address] [place], [place], [id number], [place]. tel:[phone] Referring Provider: Maci Vides, [address] [place], [place], [id number]. tel:[phone] [facility] [place], [address] [place], [place], [id number], [place] tel:[phone] PPSCNY [place] Endocrine disorder, unspecifiedGender Identity Disorder Debi Tolbert. [address] [place], [place], [id number], [place]. tel:[phone] Referring Provider: Didi Carrera, [address] [place], [place], [id number]. tel:[phone] [facility] [place], [address] [place], [place], [id number], [place] tel:[phone] PPNCALEXANDRA [place] Gender identity disorder, unspecified Debi Tolbert. [address] [facility] [place], [id number], [place]. tel:[phone] Referring Provider: Didi Carrera, [address] [place], [place], [id number]. tel:[phone] [facility] [place], [address] [place], [place], [id number], [place] tel:[phone] PPNCALEXANDRA [place] Endocrine disorder, unspecifiedGender Identity Disorder Carmina Salazar. [address] [place], [place], [id number], [place]. tel:[phone] Referring Provider: Marie Grewal, [address] [place] [address], [id number]. tel:[phone] Provider: DEWAYNE Nurse/[place]. [facility] [place], [address] [place], [place], [id number], [place] tel:[phone] YIFANSCALEXANDRA [place] Gender Identity Dis orderEndocrine disorder, unspecified Debi Tolbert. [address] [place], [place], [id number], [place]. tel:[phone] Referring Provider: Didi Carrera, [address] [place], [place], [id number]. tel:[phone] Provider: DEWAYNE Nurse/[place]. [facility] [place], [address] [place], [place], [id number], [place] tel:[phone] [facility] [place] Endocrine disorder, unspecifiedGender Identity Disorder Carmina Salazar. [address] [place], [place], [id number], [place]. tel:[phone] Referring Provider: Marie Grewal, [address] [place] [address], [id number]. tel:[phone] [facility], [address] [place], [place], [id number], [place] tel:[phone] [facility] Gender identity disorder, unspecified Carmina Salazar. [address] [place] [address], [id number], [place]. tel:[phone] Referring Provider: Marie Grewal, [address] [place] [address], [id number]. tel:[phone] Provider: DEWAYNE Nurse/[place]. [facility] [place], [address] [place], [place], [id number], [place] tel:[phone] DEWAYNE [place] Encounter for surve illance of injectable contraceptiveGender Identity Disorder Carmina Salazar. [address] [place] [address], [id number], [place]. tel:[phone] Referring Provider: Marie Grewal, [address] [place] [address], [id number]. tel:[phone] [facility] [place], [address] [place] [address], [id number], [place] tel:[phone] YIFANSCALEXANDRA [place] Gender Identity Disorder Carmina Salazar. [address] [place] [address], [id number], [place]. tel:[phone] Referring Provider: Marie Grewal, [address] [place] [address], [id number]. tel:[phone] [facility] [place], [address] [place] [address], [id number], [place] tel:[phone] DEWAYNE Jimenez Gender Identity Dis orderEncounter for oth general cnsl and advice on contraception Debi garcia. [address] [place] [address], [id number], [place]. tel:[phone] Referring Provider: Didi Carrera, [address] [place] [address], [id number]. tel:[phone] [facility] [place], [address] [place] [address], [id number], [place] tel:[phone] [facility] Endocrine disorder, unspecifiedGender Identity DisorderOther sex counselingEncounter for oth general cnsl and advice on contraception Carmina Salazar. [address] [place], [place], [id number], [place]. tel:[phone] Referring Provider: Marie Grewal, [address] [place] [address], [id number]. tel:[phone] [facility] [place], [address] [place] [address], [id number], tel:[phone] PPNCNY [place] Gender Identity Dis orderEndocrine disorder, unspecifiedOther sex counselingEncounter for oth general cnsl and advice on contraception Peewee Lux. [address] [place] [address], [id number], . tel:[phone] Referring Provider: Maci Vides, [address] [place] [address], [id number]. tel:[phone] Provider: DEWAYNE Nurse/[place]. [facility] [facility], [address] [place] [address], [id number], [place] tel:[phone] DEWAYNE [place] Gender Identity Dis orderEndocrine disorder, unspecifiedOther sex counselingEncounter for oth general cnsl and advice on contraception Carmina Salazar. [address] [place] [address], [id number], . tel:[phone] Referring Provider: Marie Grewal, [address] [place] [address], [id number]. tel:[phone] [facility], [address] [place] [address], [id number], [place] tel:[phone] PPOJ [place] Gender Identity Disorder Carmina Salazar. [address] [place] [address], [id number], [place]. tel:[phone] Referring Provider: Marie Grewal, [address] [place] [address], [id number]. tel:[phone] Provider: DEWAYNE Nurse/[place]. [facility], [address] [place] [address], [id number], [place] tel:[phone] DEWAYNE [place] Endocrine disorder, unspecifiedGender Identity Disorder Peewee Lux. [address] [place] [address], [id number], [place]. tel:[phone] Referring Provider: Maci Vides, [address] [place], [place], [id number]. tel:[phone] [facility], [address] [place] [address], [id number], tel:[phone] DEWAYNE [place] Gender identity dis order, unspecifiedGender Identity DisorderEndocrine disorder, unspecified Carmina Salazar. [address] [place] [address], [address] [place] [address], [place]. tel:[phone] Referring Provider: Marie Grewal, [address] [place] [address], [id number]. tel:[phone] Provider: DEWAYNE Nurse/[place]. [facility], [address] [place] [address], [id number], tel:[phone] DEWAYNE [place] Gender Identity Disorder Carmina Salazar. [address] [place] [address], [address] [place] [address], [place]. tel:[phone] Referring Provider: Marie Grewal, [address] [place] [address], [id number]. tel:[phone] [facility], [address] [place] [address], [id number], [place] tel:[phone] DEWAYNE [place] Gender Identity Disorder Chastity Adriel Luna. [address] [place] [address], [address] [place] [address], [place]. tel:[phone] Referring Provider: Cheryl Morel, [address] [place] [address], [id number]. tel:[phone] [facility], [address] [place] [address], [id number], [place] tel:[phone] DEWAYNE [place] Gender Identity Disorder Carmina Salazar. [address] [place] [address], [id number], [place]. tel:[phone] Referring Provider: Marie Grewal, [address] [place], [place], [id number]. tel:[phone] Provider: DEWAYNE Nurse/[place]. [facility] [place], [address] [place] [address], [id number], tel:[phone] DEWAYNE [place] Gender Identity Disorder Carmina Salazar. [address] [place] [address], [id number], [place]. tel:[phone] [facility] [place], [address] [place] [address], [id number], [place] tel:[phone] DEWAYNE [place] Gender Identity Dis orderEncounter for oth general cnsl and advice on contraception Adriel Luna. [address] [place] [address], [address] [place] [address], . tel:[phone] Referring Provider: Cheryl Morel, [address] [place] [address], [id number]. tel:[phone] [facility] [place], [address] [place] [address], [id number], [place] tel:[phone] DEWAYNE [place] Gender Identity Dis orderEndocrine disorder, unspecified Peewee Lux. [address] [place] [address], [id number], . tel:[phone] Referring Provider: Maci Vides, [address] [place], [place], [id number]. tel:[phone] Provider: DEWYANE Nurse/[place]. [facility] [place], [address] [place] [address], [id number], [place] tel:[phone] DEWAYNE [place] Encounter for surve illance of injectable contraceptiveTranssexualismEndocrine disorder, unspecified Peewee Lux. [address] [place] [address], [id number], . tel:[phone] Referring Provider: Maci Vides, [address] [place] [address], [id number]. tel:[phone] Provider: DEWAYNE [facility]. [facility] [place], [address] [place] [address], [id number], [place] tel:[phone] DEWAYNE [place] Encounter for surve illance of injectable contraceptiveEncounter for oth general cnsl and advice on contraception Debi Tolbert. [address] [place] [address], [id number], [place]. tel:[phone] Referring Provider: Didi Carrera, [address] [place] [address], [id number]. tel:[phone] [facility] [place], [address] [place] [address], [id number], [place] tel:[phone] DEWAYNE [place] Endocrine disorder, unspecifiedTranssexualism Debi Tolbert. [address] [place] [address], [id number], [place]. tel:[phone] Referring Provider: Didi Carrera, [address] [place] [address], [id number]. tel:[phone] Provider: DEWAYNE Nurse/[place]. [facility] [place], [address] [place], [place], [id number], [place] tel:[phone] DEWAYNE [place] TranssexualismEndoc rine disorder, unspecified Debi Tolbert. [address] [place], [place], [id number], [place]. tel:[phone] Referring Provider: Didi Carrera, [address] [place] [address], [id number]. tel:[phone] Provider: DEWAYNE Nurse/[place]. [facility] [place], [address] [place] [address], [id number], [place] tel:[phone] DEWAYNE [place] Endocrine disorder, unspecifiedTranssexualismEncounter for oth general cnsl and advice on contraception Debi Tolbert. [address] [place] [address], [id number], . tel:[phone] Referring Provider: Didi Carrera, [address] [place] [address], [id number]. tel:[phone] Provider: DEWAYNE Nurse/[place]. [facility], [address] [place] [address], [id number], [place] tel:[phone] DEWAYNE [place] TranssexualismEncou nter for oth general cnsl and advice on contraceptionHuman immunodeficiency virus [HIV] counseling Debi Tolbert. [address] [place] [address], [id number], [place]. tel:[phone] Referring Provider: Didi Carrera, [address] [place] [address], [id number]. tel:[phone] [facility], [address] [place] [address], [id number], [place] tel:[phone] YIFANSCALEXANDRA [place] Human immunodeficie ncy virus [HIV] counselingEncntr screen for infections w sexl mode of transmissEncounter for screening for human immunodeficiency virusHigh risk heterosexual behaviorEndocrine disorder, unspecifiedTranssexualismEncntr for screen stretcher exam (general) (routine) w/o abn findings Carranza. [address] [place] [address], [id number], [place]. tel:[phone] Referring Provider: Miley Fletcher, [address] [place] [address], [id number]. tel:[phone] Family History Family Member Diagnosis Age At [...] type Covered green party ID Authorization(s ) [facility] CI [id number] Social History Type Description Quantity Date Captured [...] BMI percentile Pulse Ox In haled Ox 10:50 AM 66.00 in 222.00 lbs 35.83 kg/meter(2) 118/7 6 mm[Hg] Chief Complaint And Reason For Visit Most recent encounter only, dated '02/04/2021 11:45'. GAHT (chief complaint) Reason For Referral Reason For Referral No Information Plan Of Treatment Date Type Action Status Referral Ordered: Referrals: Other. Evaluate and treat Appointment date/timeframe: 2 Months ordered Referral Ordered: Referrals: [employer] [employer]. Evaluate and treat ordered Referral Referred To: [facility] Ordered: Referrals: [facility]. [facility]. Evaluate and treat Appointment date/timeframe: 2 Months ordered Referral Ordered: Janet Mcmillan -[facility] : Family Medicine (related to Transsexualism) ordered Referral Referred To: Janet Mcmillan [address] [place], [place], [id number] Ordered: Referrals: [facility] : Family Medicine. Janet Mcmillan ordered Appointment Tuh Majano BOOKED Appointment Thu Majano BOOKED History [...] Date No Information Medical Equipment Description Device [place] Device Identifier Effective Romero es (start - stop) Status No Information Mental Status Date Cognitive Assessment No Information Health Concerns Observation Date No Information Concern Status Date No Information Physical Examination Exam Findings Details No Information
--- OUTSIDE RECORDS SUMMARY | 2021-04-22 13:42 | CCD ---
Author Author [facility] Organization [facility] Address Unknown Phone Unavailable Care Team Providers Care Test Preparer Name Role Phone Daina Grewal Unavailable Unavailable Daina Grewal Unavailable Unavailable Daina Grewal Unavailable Unavailable Daina Grewal Unavailable Unavailable Daina Grewal Unavailable Unavailable Daina Grewal Unavailable Unavailable Daina Grewal Unavailable Unavailable Daina Grewal Unavailable Unavailable Daina Grewal Unavailable Unavailable Daina Grewal Unavailable Unavailable Daina Grewal Unavailable Unavailable Daina Grewal Unavailable Unavailable Daina Grewal Unavailable Unavailable Daina Grewal Unavailable Unavailable Daina Grewal Unavailable Unavailable Daina Grewal Unavailable Unavailable Daina Grewal Unavailable Unavailable Daina Grewal Unavailable Unavailable Daina Grewal Unavailable Unavailable Daina Grewal Unavailable Unavailable Daina Grewal Unavailable Unavailable Daina Grewal Unavailable Unavailable Morel, Cheryl Unavailable Unavailable Morel, Cheryl Unavailable Unavailable Morel, Cheryl Unavailable Unavailable Morel, Cheryl Unavailable Unavailable Morel, Cheryl Unavailable Unavailable Morel, Cheryl Unavailable Unavailable Green LENS MOLD SETTER LENS MOLD SETTER, Henrietta Unavailable Unavailable Green LENS MOLD SETTER LENS MOLD SETTER, Henrietta Unavailable Unavailable Green LENS MOLD SETTER LENS MOLD SETTER, Henrietta Unavailable Unavailable Green LENS MOLD SETTER LENS MOLD SETTER, Henrietta Unavailable Unavailable Green LENS MOLD SETTER LENS MOLD SETTER, Henrietta Unavailable Unavailable Chavez, Grayson Berman MD Unavailable Unavailable Chavez, A Antonella REDMAN Unavailable Unavailable Chavez, A Antonella REDMAN Unavailable Unavailable Chavez, A Antonella REDMAN Unavailable Unavailable Chavez, Grayson Berman MD Unavailable Unavailable Chavez, A Antonella REDMAN Unavailable Unavailable Chavez, A Antonella REDMAN Unavailable Unavailable Chavez, A Antonella REDMAN Unavailable Unavailable Chavez, A Antonella REDMAN Unavailable Unavailable Chavez, A Antonella REDMAN Unavailable Unavailable Chavez, A Antonella REDMAN Unavailable Unavailable Chavez, A Antonella REDMAN Unavailable Unavailable Chavez, A Antonella REDMAN Unavailable Unavailable Chavez, A Antonella REDMAN Unavailable Unavailable Chavez, A Antonella REDMAN Unavailable Unavailable Chavez, A Antonella REDMAN Unavailable Unavailable Chavez, A Antonella REDMAN Unavailable Unavailable Chavez, A Antonella REDMAN Unavailable Unavailable Chavez, Grayson Berman MD Unavailable Unavailable Chavez, Grayson Berman MD Unavailable Unavailable Chavez, Grayson Berman MD Unavailable Unavailable Chavez, A Antonella REDMAN Unavailable Unavailable Chavez, A Antonella REDMAN Unavailable Unavailable Chavez, A Antonella REDMAN Unavailable Unavailable Chavez, A Antonella REDMAN Unavailable Unavailable Chavez, A Antonella REDMAN Unavailable Unavailable Chavez, A Antonella REDMAN Unavailable Unavailable Chavez, A Antonella REDMAN Unavailable Unavailable Chavez, Grayson Berman MD Unavailable Unavailable Chavez, Grayson Berman MD Unavailable Unavailable Chavez, Grayson Berman MD Unavailable Unavailable Chavez, Grayson Berman MD Unavailable Unavailable Chavez, Grayson Berman MD Unavailable Unavailable Chavez, Grayson Berman MD Unavailable Unavailable Chavez, Grayson Berman MD Unavailable Unavailable Chavez, Grayson Berman MD Unavailable Unavailable Chavez, Grayson Berman MD Unavailable Unavailable Chavez, A Antonella REDMAN Unavailable Unavailable Chavez, A Antonella REDMAN Unavailable Unavailable Chavez, A Antonella REDMAN Unavailable Unavailable Chavez, A Antonella REDMAN Unavailable Unavailable Chavez, A Antonella REDMAN Unavailable Unavailable Chavez, A Antonella REDMAN Unavailable Unavailable Chavez, A Antonella REDMAN Unavailable Unavailable Chavez, A Antonella REDMAN Unavailable Unavailable Chavez, A Antonella REDMAN Unavailable Unavailable Chavez, A Antonella REDMAN Unavailable Unavailable Chavez, A Antonella REDMAN Unavailable Unavailable Chavez, A Antonella REDMAN Unavailable Unavailable Chavez, A Antonella REDMAN Unavailable Unavailable Chavez, Grayson Berman MD Unavailable Unavailable Chavez, Grayson Berman MD Unavailable Unavailable Chavez, Grayson Berman MD Unavailable Unavailable Chavez, A Antonella REDMAN Unavailable Unavailable Chavez, A Antonella REDMAN Unavailable Unavailable Chavez, A Antonella REDMAN Unavailable Unavailable Chavez, A Antonella REDMAN Unavailable Unavailable Chavez, A Antonella REDMAN Unavailable Unavailable Chavez, A Antonella REDMAN Unavailable Unavailable Chavez, A Antonella REDMAN Unavailable Unavailable Chavez, A Antonella REDMAN Unavailable Unavailable Chavez, A Antonella REDMAN Unavailable Unavailable Chavez, A Antonella REDMAN Unavailable Unavailable Chavez, A Antonella REDMAN Unavailable Unavailable Chavez, A Antonella REDMAN Unavailable Unavailable Chavez, A Antonella REDMAN Unavailable Unavailable Chavez, A Antonella REDMAN Unavailable Unavailable Chavez, A Antonella REDMAN Unavailable Unavailable Chavez, A Antonella REDMAN Unavailable Unavailable Chavez, A Antonella REDMAN Unavailable Unavailable Chavez, A Antonella REDMAN Unavailable Unavailable Chavez, A Antonella REDMAN Unavailable Unavailable Chavez, A Antonella REDMAN Unavailable Unavailable Chavez, A Antonella REDMAN Unavailable Unavailable Chavez, A Antonella REDMAN Unavailable Unavailable Chavez, A Antonella REDMAN Unavailable Unavailable Chavez, A Antonella REDMAN Unavailable Unavailable Chavez, A Antonella REDMAN Unavailable Unavailable Chavez, A Antonella REDMAN Unavailable Unavailable Chavez, A Antonella REDMAN Unavailable Unavailable Chavez, A Antonella REDMAN Unavailable Unavailable KENY, MARY PA Unavailable Unavailable KENY, MARY PA Unavailable Unavailable KENY, MARY PA Unavailable Unavailable KENY, MARY PA Unavailable Unavailable KENY, MARY PA Unavailable Unavailable KENY, MARY PA Unavailable Unavailable KENY, MARY PA Unavailable Unavailable KENY, MARY PA Unavailable Unavailable KENY, MARY PA Unavailable Unavailable KENY, MARY PA Unavailable Unavailable KENY, MARY PA Unavailable Unavailable KENY, MARY PA Unavailable Unavailable KENY, MARY PA Unavailable Unavailable KENY, MARY PA Unavailable Unavailable KENY, MARY PA Unavailable Unavailable KENY, MARY PA Unavailable Unavailable KENY, MARY PA Unavailable Unavailable KENY, MARY PA Unavailable Unavailable KENY, MARY PA Unavailable Unavailable KENY, MARY PA Unavailable Unavailable KENY, MAYR PA Unavailable Unavailable KENY, MARY PA Unavailable Unavailable KENY, MARY PA Unavailable Unavailable KENY, MARY PA Unavailable Unavailable KENY, MARY PA Unavailable Unavailable KENY, MARY PA Unavailable Unavailable KENY, MARY PA Unavailable Unavailable KENY, MARY PA Unavailable Unavailable KENY, MARY PA Unavailable Unavailable KENY, MARY PA Unavailable Unavailable KENY, MARY PA Unavailable Unavailable KENY, MARY PA Unavailable Unavailable KENY, MARY PA Unavailable Unavailable KENY, MARY PA Unavailable Unavailable KENY, MARY PA Unavailable Unavailable KENY, MARY PA Unavailable Unavailable LIDYA, E CHRISTIANA LENS MOLD SETTER Unavailable Unavailable LIDYA, E CHRISTIANA LENS MOLD SETTER Unavailable Unavailable LIDYA, E CHRISTIANA LENS MOLD SETTER Unavailable Unavailable LIDYA, E CHRISTIANA LENS MOLD SETTER Unavailable Unavailable LIDYA, E CHRISTIANA LENS MOLD SETTER Unavailable Unavailable LIDYA, E CHRISTIANA LENS MOLD SETTER Unavailable Unavailable LIDYA, E CHRISTIANA LENS MOLD SETTER Unavailable Unavailable LIDYA, E CHRISTIANA LENS MOLD SETTER Unavailable Unavailable LIDYA, E CHRISTIANA LENS MOLD SETTER Unavailable Unavailable LIDYA, E CHRISTIANA LENS MOLD SETTER Unavailable Unavailable LIDYA, E CHRISTIANA LENS MOLD SETTER Unavailable Unavailable LIDYA, E CHRISTIANA LENS MOLD SETTER Unavailable Unavailable LIDYA, E CHRISTIANA LENS MOLD SETTER Unavailable Unavailable Pappas, Kylie LENS MOLD SETTER Unavailable Unavailable Pappas, Kylie LENS MOLD SETTER Unavailable Unavailable Pappas, Kylie LENS MOLD SETTER Unavailable Unavailable Pappas, Kylie LENS MOLD SETTER Unavailable Unavailable Pappas, Kylie LENS MOLD SETTER Unavailable Unavailable Pappas, Kylie LENS MOLD SETTER Unavailable Unavailable Pappas, Kylie LENS MOLD SETTER Unavailable Unavailable Pappas, Kylie LENS MOLD SETTER Unavailable Unavailable Pappas, Kylie LENS MOLD SETTER Unavailable Unavailable Pappas, Kylie LENS MOLD SETTER Unavailable Unavailable Pappas, Kylie LENS MOLD SETTER Unavailable Unavailable Pappas, Kylie LENS MOLD SETTER Unavailable Unavailable Pappas, Kylie LENS MOLD SETTER Unavailable Unavailable Vides, Patti Maci CURRICULUM ADVISORY TEACHER Unavailable Unavailable Vides, Patti Maci CURRICULUM ADVISORY TEACHER Unavailable Unavailable Vides, Patti Maci CURRICULUM ADVISORY TEACHER Unavailable Unavailable Vides, Patti Maci CURRICULUM ADVISORY TEACHER Unavailable Unavailable Vides, Patti Maci CURRICULUM ADVISORY TEACHER Unavailable Unavailable Vides, Patti Maci CURRICULUM ADVISORY TEACHER Unavailable Unavailable Vides, Patti Maci CURRICULUM ADVISORY TEACHER Unavailable Unavailable Vides, Patti Maci CURRICULUM ADVISORY TEACHER Unavailable Unavailable Vides, Patti Maci CURRICULUM ADVISORY TEACHER Unavailable Unavailable Vides, Patti Maci CURRICULUM ADVISORY TEACHER Unavailable Unavailable Vides, Patti Maci CURRICULUM ADVISORY TEACHER Unavailable Unavailable Vides, Patti Maci CURRICULUM ADVISORY TEACHER Unavailable Unavailable Vides, Patti Maci CURRICULUM ADVISORY TEACHER Unavailable Unavailable Vides, Patti Maci CURRICULUM ADVISORY TEACHER Unavailable Unavailable LETTIERE, A FLOR PA Unavailable Unavailable LETTIERE, A FLOR PA Unavailable Unavailable LETTIERE, A FLOR PA Unavailable Unavailable LETTIERE, A LFOR PA Unavailable Unavailable LETTIERE, A FLOR PA Unavailable Unavailable LETTIERE, A FLOR PA Unavailable Unavailable LETTIERE, A FLOR PA Unavailable Unavailable LETTIERE, A FLOR PA Unavailable Unavailable LETTIERE, A FLOR PA Unavailable Unavailable LETTIERE, A FLOR PA Unavailable Unavailable LETTIERE, A FLOR PA Unavailable Unavailable LETTIERE, A FLOR PA Unavailable Unavailable LETTIERE, A FLOR PA Unavailable Unavailable LETTIERE, A FLOR PA Unavailable Unavailable LETTIERE, A FLOR PA Unavailable Unavailable LETTIERE, A FLOR PA Unavailable Unavailable LETTIERE, A FLOR PA Unavailable Unavailable LETTIERE, A FLOR PA Unavailable Unavailable LETTIERE, A FLOR PA Unavailable Unavailable LETTIERE, A FLOR PA Unavailable Unavailable LETTIERE, A FLOR PA Unavailable Unavailable LETTIERE, A FLOR PA Unavailable Unavailable LETTIERE, A FLOR PA Unavailable Unavailable LETTIERE, A FLOR PA Unavailable Unavailable LETTIERE, A FLOR PA Unavailable Unavailable LETTIERE, A FLOR PA Unavailable Unavailable LETTIERE, A FLOR PA Unavailable Unavailable LETTIERE, A FLOR PA Unavailable Unavailable LETTIERE, A FLOR PA Unavailable Unavailable LETTIERE, A FLOR PA Unavailable Unavailable LETTIERE, A FLOR PA Unavailable Unavailable Thakur, Isabella Jeanne PA Unavailable Unavailable Thakur, Isabella Jeanne PA Unavailable Unavailable Thakur, Isabella Jeanne PA Unavailable Unavailable Thakur, Isabella Jeanne PA Unavailable Unavailable Thakur, Isabella Jeanne PA Unavailable Unavailable Thakur, Isabella Jeanne PA Unavailable Unavailable Thakur, Isabella Jeanne PA Unavailable Unavailable Thakur, Isabella Jeanne PA Unavailable Unavailable Thakur, Isabella Jeanne PA Unavailable Unavailable Thakur, Isabella Jeanne PA Unavailable Unavailable Dwello PA PA, Edwige Unavailable Unavailable Dwello PA PA, Edwige Unavailable Unavailable Dwello PA PA, Edwige Unavailable Unavailable Dwello PA PA, Edwige Unavailable Unavailable Dwello PA PA, Edwige Unavailable Unavailable Dwello PA PA, Edwige Unavailable Unavailable Dwello PA PA, Edwige Unavailable Unavailable PRYBYLOWSKI, E VENUS PA Unavailable Unavailable PRYBYLOWSKI, E VENUS PA Unavailable Unavailable PRYBYLOWSKI, E VENUS PA Unavailable Unavailable PRYBYLOWSKI, E VENUS PA Unavailable Unavailable PRYBYLOWSKI, E VENUS PA Unavailable Unavailable PRYBYLOWSKI, E VENUS PA Unavailable Unavailable PRYBYLOWSKI, E VENUS PA Unavailable Unavailable PRYBYLOWSKI, E VENUS PA Unavailable Unavailable PRYBYLOWSKI, E VENUS PA Unavailable Unavailable PRYBYLOWSKI, E VENUS PA Unavailable Unavailable PRYBYLOWSKI, E VENUS PA Unavailable Unavailable PRYBYLOWSKI, E VENUS PA Unavailable Unavailable PRYBYLOWSKI, E VENUS PA Unavailable Unavailable PRYBYLOWSKI, E VENUS PA Unavailable Unavailable PRYBYLOWSKI, E VENUS PA Unavailable Unavailable PRYBYLOWSKI, E VENUS PA Unavailable Unavailable PRYBYLOWSKI, E VENUS PA Unavailable Unavailable Campanaro, Mare Danielle PA Unavailable Unavailable Campanaro, Mare Danielle PA Unavailable Unavailable Campanaro, Mare Danielle PA Unavailable Unavailable Campanaro, Mare Danielle PA Unavailable Unavailable Campanaro, Mare Danielle PA Unavailable Unavailable Campanaro, Mare Danielle PA Unavailable Unavailable Campanaro, Mare Danielle PA Unavailable Unavailable Campanaro, Mare Danielle PA Unavailable Unavailable Campanaro, Mare Danielle PA Unavailable Unavailable Campanaro, Mare Danielle PA Unavailable Unavailable Campanaro, Mare Danielle PA Unavailable Unavailable Campanaro, Mare Danielle PA Unavailable Unavailable Campanaro, Mare Danielle PA Unavailable Unavailable Campanaro, Mare Danielle PA Unavailable Unavailable Campanaro, Mare Danielle PA Unavailable Unavailable Campanaro, Mare Danielle PA Unavailable Unavailable Campanaro, Mare Danielle PA Unavailable Unavailable Re-disclosure Warning The records that you are about to access may contain information from federally-assisted alcohol or drug abuse programs. If such information is present, then the following federally mandated warning applies: This information has been disclosed to you from records protected by federal confidentiality rules (42 CFR part 2). The federal rules prohibit you from making any further disclosure of this information unless further disclosure is expressly permitted by the written consent of the person to whom it pertains or as otherwise permitted by 42 CFR part 2. A general authorization for the release of medical or other information is NOT sufficient for this purpose. The Federal rules restrict any use of the information to criminally investigate or prosecute any alcohol or drug abuse patient.The records that you are about to access may contain highly sensitive health information, the redisclosure of which is protected by Article 27-F of the [facility] Public Health law. If you continue you may have access to information: Regarding HIV / AIDS; Provided by facilities licensed or operated by the [facility] Office of Mental Health; or Provided by the [facility] Office for People With Developmental Disabilities. If such information is present, then the following [facility] mandated warning applies: This information has been disclosed to you from confidential records which are protected by state law. State law prohibits you from making any further disclosure of this information without the specific written consent of the person to whom it pertains, or as otherwise permitted by law. Any unauthorized further disclosure in violation of state law may result in a fine or long-term sentence or both. A general authorization for the release of medical or other information is NOT sufficient authorization for further disc losure. Family History Family Member Name Family Member Gender Family Member Status Date o f Status Description Data Source(s) Unknown Male Diagnosis 10/25/2019 12:00:00 AM EDT [facility] ([facility]) Unknown Unknown Problem [facility] ([facility]) Encounters Encounter Providers Location Date Indications Data Source(s ) Attender: Marie German 01/2021 02:30:00 PM EDT - 04/16/2021 02:30:00 PM EDT [facility] ([facility]) Outpatient Attender: Danielle morris 04/15/2021 04:45:00 PM EDT [facility] ([facility]) Attender: Marie German 03/12 02:50:00 PM EDT - 04/07/2021 02:50:00 PM EDT Gender Identity Disorder [facility] ([facility]) Gender Identity Disorder Attender: Edwige German 02:20:00 PM EDT - 03/31/2021 02:20:00 PM EDT Gender identity disorder, unspecified [facility] ([facility]) Gender identity disorder, unspecified Attender: Marie German 03/11 11:50:00 AM EDT - 03/24/2021 11:50:00 AM EDT Gender Identity Disorder [facility] ([facility]) Gender Identity Disorder Attender: Marie German 01/2021 11:20:00 AM EDT - 03/17/2021 11:20:00 AM EDT Gender identity disorder, unspecifiedEnd ocrine disorder, unspecified [facility] ([facility]) Gender identity disorder, unspecified Endocrine disorder, unspecified Attender: Marie German 08/2020 03:00:00 PM EDT - 03/12/2021 03:00:00 PM EDT Gender Identity Disorder [facility] ([facility]) Gender Identity Disorder Attender: Edwige German 01:20:00 PM EDT - 03/05/2021 01:20:00 PM EDT Gender Identity Disorder [facility] ([facility]) Gender Identity Disorder Attender: Henrietta Gaviria 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 DEWAYNE German 0 02/25/2021 11:20:00 AM EDT - 02/25/2021 11:20:00 AM EDT Gender Identity Disorder [facility] ([facility]) Gender Identity Disorder Attender: Cheryl Jimenez 02/11 02:20:00 PM EDT - 02/11/2021 02:20:00 PM EDT [facility] ([facility]) Attender: Antonella Jimenez 0 02/10/2021 11:31:00 AM EDT - 02/10/2021 11:31:00 AM EDT [facility] ([facility]) Attender: Edwige German 11:45:00 AM EDT - 02/04/2021 11:45:00 AM EDT Endocrine disorder, unspecified [facility] ([facility]) Endocrine disorder, unspecified Attender: Edwige German 11:00:00 AM EDT - 01/28/2021 11:00:00 AM EDT Gender Identity Disorder [facility] ([facility]) Gender Identity Disorder Attender: Edwige German 07:30:00 AM EDT - 01/21/2021 07:30:00 AM EDT Gender identity disorder, unspecified [facility] ([facility]) Gender identity disorder, unspecified Outpatient Attender: Kylie guillen 01/17/2021 01:20:00 PM EDT [facility] ([facility]) Attender: Henrietta German 0 01/14/2021 08:00:00 AM EDT - 01/14/2021 08:00:00 AM EDT Gender Identity DisorderEndocrine disord er, unspecified [facility] ([facility]) Gender Identity Disorder Endocrine disorder, unspecified Attender: Henrietta German 0 01/07/2021 07:50:00 AM EDT - 01/07/2021 07:50:00 AM EDT Gender Identity Disorder [facility] ([facility]) Gender Identity Disorder Attender: Edwige German 10:50:00 AM EDT - 12/31/2020 10:50:00 AM EDT Endocrine disorder, unspecifiedGender Id entity Disorder [facility] ([facility]) Endocrine disorder, unspecified Gender Identity Disorder Attender: Edwige German 10:20:00 AM EDT - 12/24/2020 10:20:00 AM EDT Gender identity disorder, unspecified [facility] ([facility]) Gender identity disorder, unspecified Attender: Antonella German 03/2021 12:07:00 PM EDT - 12/17/2020 12:07:00 PM EDT [facility] ([facility]) Attender: Henrietta Ramanwn 0 12/10/2020 04:50:00 PM EDT - 12/10/2020 04:50:00 PM EDT Gender Identity Disorder [facility] ([facility]) Gender Identity Disorder Attender: Henrietta German 0 12/05/2020 06:00:00 PM EDT - 12/05/2020 06:00:00 PM EDT Gender identity disorder, unspecified [facility] ([facility]) Gender identity disorder, unspecified Attender: Edwige German 10:20:00 AM EDT - 12/01/2020 10:20:00 AM EDT Endocrine disorder, unspecifiedGender Id entity Disorder [facility] ([facility]) Endocrine disorder, unspecified Gender Identity Disorder Attender: Antonella Jimenez 0 11/25/2020 01:09:00 PM EDT - 11/25/2020 01:09:00 PM EDT [facility] ([facility]) Attender: Edwige German 08:20:00 AM EDT - 11/21/2020 08:20:00 AM EDT Gender Identity Disorder [facility] ([facility]) Gender Identity Disorder Attender: Cheryl Jimenez 11/17 03:45:00 PM EDT - 11/17/2020 03:45:00 PM EDT [facility] ([facility]) Attender: Henrietta German 0 11/14/2020 08:20:00 AM EDT - 11/14/2020 08:20:00 AM EDT Endocrine disorder, unspecifiedGender Id entity Disorder [facility] ([facility]) Endocrine disorder, unspecified Gender Identity Disorder Attender: Henrietta German 0 11/07/2020 02:20:00 PM EDT - 11/07/2020 02:20:00 PM EDT Gender Identity DisorderEndocrine disord er, unspecified [facility] ([facility]) Gender Identity Disorder Endocrine disorder, unspecified Attender: Antonella Jimenez 0 11/07/2020 11:28:00 AM EDT - 11/07/2020 11:28:00 AM EDT [facility] ([facility]) Attender: Edwige German 02:50:00 PM EDT - 10/31/2020 02:50:00 PM EDT Gender Identity DisorderEndocrine disord er, unspecified [facility] ([facility]) Gender Identity Disorder Endocrine disorder, unspecified Attender: Marie German 10/09 03:20:00 PM EDT - 10/24/2020 03:20:00 PM EDT Gender Identity Disorder [facility] ([facility]) Gender Identity Disorder Attender: Edwige German 06/2021 12:53:00 PM EDT - 10/20/2020 12:53:00 PM EDT [facility] ([facility]) Attender: Edwige German 04/2021 08:20:00 AM EDT - 10/18/2020 08:20:00 AM EDT [facility] ([facility]) Attender: Henrietta German 0 10/17/2020 03:20:00 PM EDT - 10/17/2020 03:20:00 PM EDT Gender identity disorder, unspecifiedEnd ocrine disorder, unspecified [facility] ([facility]) Gender identity disorder, unspecified Endocrine disorder, unspecified Attender: Antonella Jimenez 0 10/17/2020 12:28:00 PM EDT - 10/17/2020 12:28:00 PM EDT [facility] ([facility]) Attender: Edwige German 12/2020 01:30:00 PM EDT - 10/14/2020 01:30:00 PM EDT Gender identity disorder, unspecifiedOth er sex counselingHuman immunodeficiency virus [HIV] counseling [facility] ([facility]) Gender identity disorder, unspecified Other sex counseling Human immunodeficiency virus [HIV] couns elikacie Attender: Henrietta Gaviria NP, NP DEWAYNE German 0 10/10/2020 03:20:00 PM EDT - 10/10/2020 03:20:00 PM EDT Gender Identity Disorder [facility] ([facility]) Gender Identity Disorder Outpatient Attender: MARY Hermosillo ry 10/05/2020 12:10:00 PM EDT [facility] ([facility]) Attender: Marie German 09/09 03:20:00 PM EDT - 10/03/2020 03:20:00 PM EDT Gender Identity DisorderEndocrine disord er, unspecified [facility] ([facility]) Gender Identity Disorder Endocrine disorder, unspecified Attender: Marie German 09/08 02:50:00 PM EDT - 09/26/2020 02:50:00 PM EDT Endocrine disorder, unspecifiedGender Id entity Disorder [facility] ([facility]) Endocrine disorder, unspecified Gender Identity Disorder Attender: Marie German 09/08 02:20:00 PM EST - 09/19/2020 02:20:00 PM EST Endocrine disorder, unspecifiedGender Id entity Disorder [facility] ([facility]) Endocrine disorder, unspecified Gender Identity Disorder Attender: Marie German 11/2020 12:50:00 PM EST - 09/12/2020 12:50:00 PM EST Gender Identity DisorderEndocrine disord er, unspecified [facility] ([facility]) Gender Identity Disorder Endocrine disorder, unspecified Outpatient Attender: Jeanne Calderon Prim arturo 09/10/2020 08:35:00 AM EST [facility] ([facility]) Attender: VENUS Jimenez 09/08/2020 11:19:00 AM EST - 09/08/2020 11:19:00 AM EST [facility] [facility] [place] Attender: Henrietta Gaviria 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 DEWAYNE Ramanwn 0 09/08/2020 09:08:00 AM EST - 09/08/2020 09:08:00 AM EST [facility] ([facility]) Attender: Henrietta Gaviria 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 GATOALEXANDRA Maxi 0 09/05/2020 01:50:00 PM EST - 09/05/2020 01:50:00 PM EST Gender Identity DisorderEndocrine disord er, unspecified [facility] ([facility]) Gender Identity Disorder Endocrine disorder, unspecified Outpatient Attender: FLOR morris 08/31/2020 01:50:00 PM EST [facility] ([facility] Attender: Henrietta Gaviria 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 DEWAYNE German 0 08/29/2020 01:50:00 PM EST - 08/29/2020 01:50:00 PM EST Gender identity disorder, unspecified [facility] ([facility]) Gender identity disorder, unspecified Attender: Henrietta Gaviria 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 GATOALEXANDRA LeyvaMelvin 0 08/25/2020 03:10:00 PM EST - 08/25/2020 03:10:00 PM EST Gender identity disorder, unspecified [facility] ([facility]) Gender identity disorder, unspecified Attender: Marie Dunn 08/25 01:46:00 PM EST - 08/25/2020 01:46:00 PM EST [facility] ([facility]) Attender: VENUS Jimenez 08/20/2020 08:03:00 AM EST - 08/20/2020 08:03:00 AM EST [facility] ([facility]) Attender: Edwige German 03/2021 03:10:00 PM EST - 08/19/2020 03:10:00 PM EST Gender Identity DisorderEndocrine disord er, unspecified [facility] ([facility]) Gender Identity Disorder Endocrine disorder, unspecified Attender: Edwige German 01:50:00 PM EST - 08/08/2020 01:50:00 PM EST Gender identity disorder, unspecified [facility] ([facility] [place]) Gender identity disorder, unspecified Attender: Henrietta German 0 08/01/2020 02:30:00 PM EST - 08/01/2020 02:30:00 PM EST Gender Identity DisorderEndocrine disord er, unspecified [facility] ([facility]) Gender Identity Disorder Endocrine disorder, unspecified Attender: Marie German 07/11 02:25:00 PM EST - 07/25/2020 02:25:00 PM EST Endocrine disorder, unspecifiedGender Id entity Disorder [facility] ([facility]) Endocrine disorder, unspecified Gender Identity Disorder Attender: Marie German 02/2021 02:35:00 PM EST - 07/18/2020 02:35:00 PM EST Gender Identity DisorderEndocrine disord er, unspecified [facility] ([facility]) Gender Identity Disorder Endocrine disorder, unspecified Attender: Henrietta BUCHANAN [facility] 1 09:55:00 AM EST - 07/10/2020 09:55:00 AM EST Gender Identity DisorderEndocrine disord er, unspecified [facility] ([facility]) Gender Identity Disorder Endocrine disorder, unspecified Attender: Marie German 06/11 10:55:00 AM EST - 07/02/2020 10:55:00 AM EST Gender identity disorder, unspecifiedEnd ocrine disorder, unspecified [facility] ([facility] [place]) Gender identity disorder, unspecified Endocrine disorder, unspecified Attender: Henrietta BUCHANAN [facility] 1 08/28/2019 11:20:00 AM EST - 06/27/2020 11:20:00 AM EST Gender Identity DisorderEndocrine disord er, unspecified [facility] ([facility]) Gender Identity Disorder Endocrine disorder, unspecified Attender: CHRISTIANA Jimenez 05:07:00 PM EST - 06/23/2020 05:07:00 PM EST [facility] ([facility] [place]) Attender: Marie German 06/10 10:50:00 AM EST - 06/20/2020 10:50:00 AM EST Gender Identity DisorderEndocrine disord er, unspecified [facility] ([facility] [place]) Gender Identity Disorder Endocrine disorder, unspecified Attender: Marie German 10/2019 10:50:00 AM EST - 06/13/2020 10:50:00 AM EST Gender Identity DisorderEndocrine disord er, unspecified [facility] ([facility] [place]) Gender Identity Disorder Endocrine disorder, unspecified Attender: Marie German 05/12 10:50:00 AM EST - 06/04/2020 10:50:00 AM EST Gender Identity DisorderEndocrine disord er, unspecified [facility] ([facility] [place]) Gender Identity Disorder Endocrine disorder, unspecified Attender: Marie German 05/12 11:25:00 AM EST - 05/30/2020 11:25:00 AM EST Gender Identity DisorderEndocrine disord er, unspecified [facility] ([facility] [place]) Gender Identity Disorder Endocrine disorder, unspecified Attender: VENUS German 1 07/26/2019 09:50:00 AM EST - 05/26/2020 09:50:00 AM EST Gender Identity DisorderEndocrine disord er, unspecified [facility] ([facility] [place]) Gender Identity Disorder Endocrine disorder, unspecified Attender: Cheryl German 020 09:45:00 AM EST - 05/23/2020 09:45:00 AM EST Gender Identity DisorderEndocrine disord er, unspecified [facility] ([facility] [place]) Gender Identity Disorder Endocrine disorder, unspecified Attender: Antonella Jimenez 1 07/19/2019 11:09:00 AM EST - 05/19/2020 11:09:00 AM EST [facility] ([facility]) Attender: Henrietta Gaviria 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 DEWAYNE German 1 07/16/2019 09:50:00 AM EST - 05/16/2020 09:50:00 AM EST Gender Identity DisorderEndocrine disord er, unspecified [facility] ([facility]) Gender Identity Disorder Endocrine disorder, unspecified Attender: Edwige German 09/2019 03:22:00 PM EST - 05/13/2020 03:22:00 PM EST [facility] ([facility]) Attender: Maci German 05/09/2020 11:00:00 AM EDT - 05/09/2020 11:00:00 AM EDT Gender Identity DisorderEndocrine disord er, unspecified [facility] ([facility]) Gender Identity Disorder Endocrine disorder, unspecified Attender: VENUS Jimenez 05/06/2020 11:00:00 AM EDT - 05/06/2020 11:00:00 AM EDT [facility] ([facility] [place]) Attender: Edwige German 09:22:00 AM EDT - 05/05/2020 09:22:00 AM EDT [facility] ([facility] [place]) Attender: Maci German 05/02/2020 12:15:00 PM EDT - 05/02/2020 12:15:00 PM EDT Endocrine disorder, unspecified [facility] ([facility]) Endocrine disorder, unspecified Attender: Edwige German 12:44:00 PM EDT - 05/01/2020 12:44:00 PM EDT [facility] ([facility]) Outpatient Attender: Kylie guillen 04/26/2020 11:25:00 AM EDT [facility] ([facility], [facility]) Attender: VENUS German 1 12:50:00 PM EDT - 04/25/2020 12:50:00 PM EDT Endocrine disorder, unspecifiedGender Id entity Disorder [facility] ([facility]) Endocrine disorder, unspecified Gender Identity Disorder Attender: VENUS German 1 12:50:00 PM EDT - 04/18/2020 12:50:00 PM EDT Gender Identity Disorder [facility] ([facility]) Gender Identity Disorder Attender: Antonella Jimenez 1 11:15:00 AM EDT - 04/18/2020 11:15:00 AM EDT [facility] ([facility]) Attender: VENUS Hernandez 03:00:00 PM EDT - 04/15/2020 03:00:00 PM EDT Inappropriate diet and eating habitsObes ity, unspecifiedGender identity disorder, unspecified [facility] ([facility]) Inappropriate diet and eating habits Obesity, unspecified Gender identity disorder, unspecified Attender: Maci German 04/11/2020 08:10:00 AM EDT - 04/11/2020 08:10:00 AM EDT Gender identity disorder, unspecified [facility] ([facility]) Gender identity disorder, unspecified Attender: VENUS German 0 04/04/2020 01:20:00 PM EDT - 04/04/2020 01:20:00 PM EDT Endocrine disorder, unspecifiedGender Id entity Disorder [facility] ([facility]) Endocrine disorder, unspecified Gender Identity Disorder Attender: VENUS German 0 03/28/2020 10:20:00 AM EDT - 03/28/2020 10:20:00 AM EDT Gender identity disorder, unspecified [facility] ([facility]) Gender identity disorder, unspecified Attender: Maci German 03/21/2020 01:50:00 PM EDT - 03/21/2020 01:50:00 PM EDT Gender Identity Disorder [facility] ([facility]) Gender Identity Disorder Attender: CHRISTIANA German 03/14 12:50:00 PM EDT - 03/14/2020 12:50:00 PM EDT Gender Identity DisorderEndocrine disord er, unspecified [facility] ([facility]) Gender Identity Disorder Endocrine disorder, unspecified Attender: CHRISTIANA HOSKINSALEXANDRA LeyvaMelvin 03/07 01:15:00 PM EDT - 03/07/2020 01:15:00 PM EDT Gender identity disorder, unspecified [facility] ([facility]) Gender identity disorder, unspecified Outpatient Attender: Kylie Enriquez venus 03/04/2020 04:45:00 PM EDT [facility] ([facility], [facility]) Attender: Marie PHILIPPE PPTXALEXANDRA [facility] 02/09 12:50:00 PM EDT - 02/29/2020 12:50:00 PM EDT Gender Identity DisorderEndocrine disord er, unspecified [facility] ([facility]) Gender Identity Disorder Endocrine disorder, unspecified Attender: [facility] 02/21 01:50:00 PM EDT - 02/22/2020 01:50:00 PM EDT Endocrine disorder, unspecifiedGender Id entity Disorder [facility] ([facility]) Endocrine disorder, unspecified Gender Identity Disorder Medications Medication Brand Name Start Date Product Form Dose Route Admi nistrative Instructions Pharmacy Instructions Status Indications Reaction Description Data Source(s) testosterone cypionate 200 mg/mL intramuscular oil testoster one cypionate 04/07/2021 12:00:00 AM EDT active Use for admin of external Rx. See Med Module for details. [facility] ([facility]) testosterone cypionate 200 mg/mL intramuscular oil testoster one cypionate 03/31/2021 12:00:00 AM EDT active Use for admin of external Rx. See Med Module for details. [facility] ([facility]) testosterone cypionate 200 mg/mL intramuscular oil testoster one cypionate 03/12/2021 12:00:00 AM EDT completed Inject 0.45 mL IM every week. Code F. [facility] ([facility] MD 0.45 mL weekly Code F testosterone cypionate 200 mg/mL intramuscular oil testoster one cypionate 02/25/2021 12:00:00 AM EDT active Use for admin of external Rx. See Med Module for details. [facility] ([facility]) testosterone cypionate 200 mg/mL intramuscular oil testoster one cypionate 02/11/2021 12:00:00 AM EDT active Inject 0.45 mL IM every week. Code F. [facility] ([facility]) MD 0.45 mL weekly Code F cefdinir 300 MG Oral Capsule Cefdinir 01/17/2021 12:00:00 AM EDT ORAL completed [facility] ([facility], [facility]) testosterone cypionate 200 mg/mL intramuscular oil testoster one cypionate 01/14/2021 12:00:00 AM EDT completed Inject 0.45 mL IM every week. Code F. [facility] ([facility]) MDD 0.45 mL weekly Code F testosterone cypionate 200 mg/mL intramuscular oil testoster one cypionate 01/07/2021 12:00:00 AM EDT completed Use for admin of external Rx. See Med Module for details. [facility] ([facility]) testosterone cypionate 200 mg/mL intramuscular oil testoster one cypionate 12/17/2020 12:00:00 AM EDT completed Inject 0.45 mL IM every week. Code F. [facility] ([facility]) MDD 0.45 mL weekly Code F testosterone cypionate 200 mg/mL intramuscular oil testoster one cypionate 11/07/2020 12:00:00 AM EDT completed Inject 0.45 mL IM every week. Code F. [place] ([facility]) MDD 0.45 mL weekly Code F testosterone cypionate 200 mg/mL intramuscular oil testoster one cypionate 10/17/2020 12:00:00 AM EDT completed Inject 0.45 mL IM every week. Code F. [place] ([facility]) MDD 0.45 mL weekly Code F Prednisone 20 MG Oral Tablet Prednisone 10/05/2020 12:00:00 AM EDT ORAL completed [facility] ([facility], [facility]) Magic Mouth Wash 10/05/2020 12:00:00 AM EDT c ompleted [facility] ([facility]) testosterone cypionate 200 mg/mL intramuscular oil testoster one cypionate 09/08/2020 12:00:00 AM EST active Inject 0.45 mL IM every week. Code F. [facility] ([facility]) MDD 0.45 mL weekly Code F Amoxicillin 875 MG Oral Tablet Amoxicillin 08/31/2020 12:00:00 AM EST completed [facility] ([facility]) testosterone cypionate 200 mg/mL intramuscular oil testoster one cypionate 08/20/2020 12:00:00 AM EST completed Inject 0.45 mL IM every week. Code F. [facility] ([facility]) MDD 0.45 mL weekly Code F Poly Hub Needle 25 gauge x 1 1/2" needles, disposable 2019 12:00:00 AM EST active For weekly IM inj ection [facility] ([facility]) BD Luer-Jaret Syringe 1 mL 20 gauge x 1" syringe with needle, 1 mL 07/10/2020 12:00:00 AM EST active For draw ing up oil weekly [facility] ([facility]) testosterone cypionate 200 mg/mL intramuscular oil testoster one cypionate 07/10/2020 12:00:00 AM EST completed Inject 0.45 mL IM every week. Code F. [facility] ([facility]) MDD 0.45 mL weekly testosterone cypionate 200 mg/mL intramuscular oil testoster one cypionate 06/13/2020 12:00:00 AM EST completed Inject 0.45 mL IM every week. Code F. [facility] ([facility]) Medication administered onsite testosterone cypionate 200 mg/mL intramuscular oil testoster one cypionate 06/13/2020 12:00:00 AM EST completed Inject 0.45 mL IM every week. Code F. [facility] ([facility]) testosterone cypionate 200 mg/mL intramuscular oil testoster one cypionate 05/23/2020 12:00:00 AM EST completed Inject 0.45 mL IM every week. Code F. [facility] ([facility]) Phenazopyridine hydrochloride 200 MG Delayed Release O ral Tablet Phenazopyridine HCL 04/26/2020 12:00:00 AM EDT ORAL completed [facility] ([facility]) NITROFURANTOIN, MACROCRYSTALS 25 MG / Ni trofurantoin, Monohydrate 75 MG Oral Capsule Nitrofurantoin Monohyd Macro 04/26/2020 12:00:00 AM EDT ORAL completed [facility] ([facility]) Ondansetron 4 MG Disintegrating Oral Tablet Ondansetron 04/26/2020 12:00:00 AM EDT completed [facility] ([facility]) Poly Hub Needle 25 gauge x 1 1/2" needles, disposable 2019 12:00:00 AM EDT completed For weekly IM injection [facility] ([facility]) Medication administered onsite BD Luer-Jaret Syringe 1 mL 20 gauge x 1" syringe with needle, 1 mL 04/25/2020 12:00:00 AM EDT completed For d rawing up oil weekly [facility] ([facility]) Medication administered onsite BD Luer-Jaret Syringe 1 mL 20 gauge x 1" syringe with needle, 1 mL 04/25/2020 12:00:00 AM EDT completed For d rawing up oil weekly [facility] ([facility]) Poly Hub Needle 25 gauge x 1 1/2" needles, disposable 2019 12:00:00 AM EDT completed For weekly IM injection [facility] ([facility]) testosterone cypionate 200 mg/mL intramuscular oil testoster one cypionate 04/25/2020 12:00:00 AM EDT completed Inject 0.45 mL IM every week. Code F. [facility] ([facility]) testosterone cypionate 200 mg/mL intramuscular oil testoster one cypionate 04/25/2020 12:00:00 AM EDT completed Inject 0.45 mL IM every week. Code F. [facility] ([facility]) Medication administered onsite Amoxicillin 875 MG / Clavulanate 125 MG Oral Tablet Am oxicillin/Clavulanate Potassium 03/04/2020 12:00:00 AM EDT ORAL completed [facility] ([facility]) testosterone cypionate 200 mg/mL intramuscular oil testoster one cypionate 02/29/2020 12:00:00 AM EDT completed Inject 0.45 mL IM every week. Code F. [facility] ([facility]) Poly Hub Needle 25 gauge x 1 1/2" needles, disposable 2019 12:00:00 AM EDT completed For weekly IM injection [facility] ([facility]) medroxyprogesterone acetate 150 MG/ML In jectable Suspension medroxyprogesterone 150 mg/mL intramuscular suspension medroxyprogesterone 150 mg/mL intramuscu lar suspension 02/01/2020 12:00:00 AM EDT complet ed IM every 10-13 weeks [facility] ([facility]) testosterone cypionate 200 mg/mL intramuscular oil testoster one cypionate 01/21/2020 12:00:00 AM EDT active Inject 0.45 mL IM every week. Code F. [facility] ([facility]) testosterone cypionate 200 mg/mL intramuscular oil testoster one cypionate 12/21/2019 12:00:00 AM EDT active Inject 0.45 mL IM every week. Code F. [facility] ([facility]) medroxyprogesterone acetate 150 MG/ML In jectable Suspension medroxyprogesterone 150 mg/mL intramuscular suspension medroxyprogesterone 150 mg/mL intramuscu lar suspension 11/13/2019 12:00:00 AM EDT complet ed IM every 10-13 weeks [facility] ([facility]) Poly Hub Needle 25 gauge x 1 1/2" needles, disposable 2019 12:00:00 AM EDT active For weekly IM inj ection [facility] ([facility]) BD Luer-Jaret Syringe 1 mL 20 gauge x 1" syringe with needle, 1 mL 10/25/2019 12:00:00 AM EDT completed For d rawing up oil weekly [facility] ([facility]) Insurance Providers Payer name Policy type / Coverage type Policy ID Covered republican ID Covered republican's relationship to gomez Policy Gomez Plan Information Managed Care - Community Plan [facility] P [id number] S [id number] Medicaid S [id number] [facility] [id number] self [facility] [id number] self [facility] [id number] SP [id number] [facility] Community Plan Health Maintenance Organization (HMO) [id number] Self [place] [facility] UNAVAILABLE SP UNAVAILABLE [facility] [id number] [id number] 1 [id number] [facility] [id number] SP [id number] [facility] [id number] SP [id number] [facility] [id number] self [facility] AMERICHOICE XIX -[id number] Problems, Conditions, and Diagnoses No Information Surgeries/Procedures Procedure Description Date Indications Data Source(s) OFFICE OUTPATIENT VISIT 15 MINUTES 04/15/2021 12:00:00 AM EDT [facility] ([facility], [facility]) CVR Med.Svc. Height/Weight 04/07/2021 12 :00:00 AM EDT - 04/07/2021 12:00:00 AM EDT [facility] ([facility]) CVR Blood Pressure 04/07/2021 12:00:00 AM EDT - 2020 12:00:00 AM EDT [facility] ([facility]) Est TG Lab/Inj/MA Piano Builder Only OV 2020 12:00:00 AM EDT - 04/07/2021 12:00:00 AM EDT [facility] ([facility]) IM INJECTION 04/07/2021 12:00:00 AM EDT - 04/07/2021 1 2:00:00 AM EDT [facility] ([facility]) Testosterone Cypionate 1mg PT BROUGHT 12:00:00 AM EDT - 04/07/2021 12:00:00 AM EDT [facility] ([facility] [place]) CVR Forensic Science Examiner.Svc. Other 03/24/2021 12:00:00 AM EDT - 2020 12:00:00 AM EDT [facility] ([facility]) CVR Forensic Science Examiner.Svc. Contraceptive 03/24/2021 12 :00:00 AM EDT - 03/24/2021 12:00:00 AM EDT [facility] ([facility]) CVR Med.Svc. Height/Weight 03/24/2021 12 :00:00 AM EDT - 03/24/2021 12:00:00 AM EDT [facility] ([facility]) CVR Blood Pressure 03/24/2021 12:00:00 AM EDT - 2020 12:00:00 AM EDT [facility] ([facility]) Injection Or Lab Only Visit Est 03/24/20 12:00:00 AM EDT - 03/24/2021 12:00:00 AM EDT [facility] ([facility] [place]) NGHN Default 03/24/2021 12:00:00 AM EDT - 03/24/2021 1 2:00:00 AM EDT [facility] ([facility]) NGHN Default 03/24/2021 12:00:00 AM EDT - 03/24/2021 1 2:00:00 AM EDT [facility] ([facility]) CVR Forensic Science Examiner.Svc. Other 03/17/2021 12:00:00 AM EDT - 2020 12:00:00 AM EDT [facility] ([facility]) CVR Med.Svc. Height/Weight 03/17/2021 12 :00:00 AM EDT - 03/17/2021 12:00:00 AM EDT [facility] ([facility]) CVR Blood Pressure 03/17/2021 12:00:00 AM EDT - 2020 12:00:00 AM EDT [facility] ([facility]) IM INJECTION 03/17/2021 12:00:00 AM EDT - 03/17/2021 1 2:00:00 AM EDT [facility] ([facility]) Testosterone Cypionate 1mg PT BROUGHT 12:00:00 AM EDT - 03/17/2021 12:00:00 AM EDT [facility] ([facility]) CVR Forensic Science Examiner.Svc. STI / H 02/04/2021 12:00:00 AM EDT - 02/04/2021 12:00:00 AM EDT [facility] ([facility] [place]) CVR Forensic Science Examiner.Svc. Other 02/04/2021 12:00:00 AM EDT - 2020 12:00:00 AM EDT [facility] ([facility]) CVR Forensic Science Examiner.Svc. Contraceptive 02/04/2021 12 :00:00 AM EDT - 02/04/2021 12:00:00 AM EDT [facility] ([facility] [place]) CVR Med.Svc. Height/Weight 02/04/2021 12 :00:00 AM EDT - 02/04/2021 12:00:00 AM EDT [facility] ([facility] [place]) CVR Blood Pressure 02/04/2021 12:00:00 AM EDT - 2020 12:00:00 AM EDT [facility] ([facility]) Est TG Lab/Inj/MA Piano Builder Only OV 2020 12:00:00 AM EDT - 02/04/2021 12:00:00 AM EDT [facility] ([facility]) Testosterone Cypionate 1mg PT BROUGHT 12:00:00 AM EDT - 02/04/2021 12:00:00 AM EDT [facility] ([facility]) CVR Forensic Science Examiner.Svc. STI / H 01/28/2021 12:00:00 AM EDT - 01/28/2021 12:00:00 AM EDT [facility] ([facility]) CVR Forensic Science Examiner.Svc. Other 01/28/2021 12:00:00 AM EDT - 2020 12:00:00 AM EDT [facility] ([facility]) CVR Forensic Science Examiner.Svc. Contraceptive 01/28/2021 12 :00:00 AM EDT - 01/28/2021 12:00:00 AM EDT [facility] ([facility]) CVR Med.Svc. Height/Weight 01/28/2021 12 :00:00 AM EDT - 01/28/2021 12:00:00 AM EDT [facility] ([facility]) CVR Blood Pressure 01/28/2021 12:00:00 AM EDT - 2020 12:00:00 AM EDT [facility] ([facility]) NURSE ONLY INJ. RN/PHONE OPERATOR Only 01/28/2021 1 2:00:00 AM EDT - 01/28/2021 12:00:00 AM EDT [facility] ([facility]) Testosterone Cypionate 1mg PT BROUGHT 12:00:00 AM EDT - 01/28/2021 12:00:00 AM EDT [facility] ([facility]) CVR Forensic Science Examiner.Svc. STI / H 01/21/2021 12:00:00 AM EDT - 01/21/2021 12:00:00 AM EDT [facility] ([facility]) CVR Forensic Science Examiner.Svc. Other 01/21/2021 12:00:00 AM EDT - 2020 12:00:00 AM EDT [facility] ([facility]) CVR Forensic Science Examiner.Svc. Options 12:00:00 AM EDT - 01/21/2021 12:00:00 AM EDT [facility] ([facility]) CVR Forensic Science Examiner.Svc. Nutrition 01/21/2021 12:00: 00 AM EDT - 01/21/2021 12:00:00 AM EDT [facility] ([facility]) CVR Forensic Science Examiner.Svc. Contraceptive 01/21/2021 12 :00:00 AM EDT - 01/21/2021 12:00:00 AM EDT [facility] ([facility]) CVR Med.Svc. Thyroid Palp. 01/21/2021 12 :00:00 AM EDT - 01/21/2021 12:00:00 AM EDT [facility] ([facility]) CVR Med.Svc. Height/Weight 01/21/2021 12 :00:00 AM EDT - 01/21/2021 12:00:00 AM EDT [facility] ([facility]) CVR Blood Pressure 01/21/2021 12:00:00 AM EDT - 2020 12:00:00 AM EDT [facility] ([facility]) CVR Med.Svc. 2-10 Female Full Exam Panel 01/21/2021 12:00:00 AM EDT - 01/21/2021 12:00:00 AM EDT [facility] ([facility]) Injection Or Lab Only Visit Est 01/22/20 12:00:00 AM EDT - 01/21/2021 12:00:00 AM EDT [facility] ([facility]) N[facility] Default 01/21/2021 12:00:00 AM EDT - 01/21/2021 1 2:00:00 AM EDT [facility] ([facility]) OFFICE OUTPATIENT VISIT 15 MINUTES 01/17/2021 12:00:00 AM EDT [facility] ([facility], [facility]) CVR Forensic Science Examiner.Svc. Other 01/14/2021 12:00:00 AM EDT - 2020 12:00:00 AM EDT [facility] ([facility]) CVR Med.Svc. Height/Weight 01/14/2021 12 :00:00 AM EDT - 01/14/2021 12:00:00 AM EDT [facility] ([facility]) CVR Blood Pressure 01/14/2021 12:00:00 AM EDT - 2020 12:00:00 AM EDT [facility] ([facility]) Est TG Lab/Inj/MA Piano Builder Only OV 2020 12:00:00 AM EDT - 01/14/2021 12:00:00 AM EDT [facility] ([facility]) IM INJECTION 01/14/2021 12:00:00 AM EDT - 01/14/2021 1 2:00:00 AM EDT [facility] ([facility]) Testosterone Cypionate 1mg PT BROUGHT 12:00:00 AM EDT - 01/14/2021 12:00:00 AM EDT [facility] ([facility]) CVR Forensic Science Examiner.Svc. Other 01/07/2021 12:00:00 AM EDT - 2020 12:00:00 AM EDT [facility] ([facility]) CVR Med.Svc. Height/Weight 01/07/2021 12 :00:00 AM EDT - 01/07/2021 12:00:00 AM EDT [facility] ([facility]) CVR Forensic Science Examiner.Svc. Contraceptive 01/07/2021 12 :00:00 AM EDT - 01/07/2021 12:00:00 AM EDT [facility] ([facility]) CVR Blood Pressure 01/07/2021 12:00:00 AM EDT - 2020 12:00:00 AM EDT [facility] ([facility]) EST PT TG NURSE MINIMAL 01/07/2021 12:00 :00 AM EDT - 01/07/2021 12:00:00 AM EDT [facility] ([facility]) CVR Forensic Science Examiner.Svc. STI / H 01/07/2021 12:00:00 AM EDT - 01/07/2021 12:00:00 AM EDT [facility] ([facility]) CVR Forensic Science Examiner.Svc. STI / H 12/31/2020 12:00:00 AM EDT - 12/31/2020 12:00:00 AM EDT [facility] ([facility]) CVR Forensic Science Examiner.Svc. Contraceptive 12/31/2020 12 :00:00 AM EDT - 12/31/2020 12:00:00 AM EDT [facility] ([facility]) CVR Med.Svc. Height/Weight 12/31/2020 12 :00:00 AM EDT - 12/31/2020 12:00:00 AM EDT [facility] ([facility]) CVR Blood Pressure 12/31/2020 12:00:00 AM EDT - 2020 12:00:00 AM EDT [facility] ([facility]) OFFICE/OUTPATIENT VISIT, EST RN/PHONE OPERATOR Only 12/31/2020 12:00:00 AM EDT - 12/31/2020 12:00:00 AM EDT [facility] ([facility]) Injection Or Lab Only Visit Est 01/01/20 12:00:00 AM EDT - 12/31/2020 12:00:00 AM EDT [facility] ([facility]) CVR Forensic Science Examiner.Svc. STI / H 12/24/2020 12:00:00 AM EDT - 12/24/2020 12:00:00 AM EDT [facility] ([facility]) CVR Forensic Science Examiner.Svc. Contraceptive 12/24/2020 12 :00:00 AM EDT - 12/24/2020 12:00:00 AM EDT [facility] ([facility]) CVR Med.Svc. Height/Weight 12/24/2020 12 :00:00 AM EDT - 12/24/2020 12:00:00 AM EDT [facility] ([facility]) CVR Blood Pressure 12/24/2020 12:00:00 AM EDT - 2020 12:00:00 AM EDT [facility] ([facility]) Injection Or Lab Only Visit Est 12/25/19 12:00:00 AM EDT - 12/24/2020 12:00:00 AM EDT [facility] ([facility]) CVR Forensic Science Examiner.Svc. Other 12/05/2020 12:00:00 AM EDT - 2020 12:00:00 AM EDT [facility] ([facility]) CVR Med.Svc. Height/Weight 12/05/2020 12 :00:00 AM EDT - 12/05/2020 12:00:00 AM EDT [facility] ([facility]) CVR Blood Pressure 12/05/2020 12:00:00 AM EDT - 2020 12:00:00 AM EDT [facility] ([facility]) OFFICE/OUTPATIENT VISIT, MILDRED MCALLISTER/PHONE OPERATOR Only 12/05/2020 12:00:00 AM EDT - 12/05/2020 12:00:00 AM EDT [facility] ([facility]) OFFICE/OUTPATIENT VISIT, MILDRED MCALLISTER/PHONE OPERATOR Only 12/01/2020 12:00:00 AM EDT - 12/01/2020 12:00:00 AM EDT [facility] ([facility]) Injection Or Lab Only Visit Est 12/02/19 12:00:00 AM EDT - 12/01/2020 12:00:00 AM EDT [facility] ([facility]) CVR Forensic Science Examiner.Svc. STI / H 11/21/2020 12:00:00 AM EDT - 11/21/2020 12:00:00 AM EDT [facility] ([facility]) CVR Forensic Science Examiner.Svc. Other 11/21/2020 12:00:00 AM EDT - 2020 12:00:00 AM EDT [facility] ([facility]) CVR Forensic Science Examiner.Svc. Contraceptive 11/21/2020 12 :00:00 AM EDT - 11/21/2020 12:00:00 AM EDT [facility] ([facility]) CVR Med.Svc. Height/Weight 11/21/2020 12 :00:00 AM EDT - 11/21/2020 12:00:00 AM EDT [facility] ([facility]) CVR Blood Pressure 11/21/2020 12:00:00 AM EDT - 2020 12:00:00 AM EDT [facility] ([facility]) OFFICE/OUTPATIENT VISIT, EST RN/PHONE OPERATOR Only 11/21/2020 12:00:00 AM EDT - 11/21/2020 12:00:00 AM EDT [facility] ([facility]) CVR Forensic Science Examiner.Svc. STI / H 11/14/2020 12:00:00 AM EDT - 11/14/2020 12:00:00 AM EDT [facility] ([facility]) CVR Forensic Science Examiner.Svc. Contraceptive 11/14/2020 12 :00:00 AM EDT - 11/14/2020 12:00:00 AM EDT [facility] ([facility]) CVR Med.Svc. Height/Weight 11/14/2020 12 :00:00 AM EDT - 11/14/2020 12:00:00 AM EDT [facility] ([facility]) CVR Blood Pressure 11/14/2020 12:00:00 AM EDT - 2020 12:00:00 AM EDT [facility] ([facility]) OFFICE/OUTPATIENT VISIT, EST RN/PHONE OPERATOR Only 11/14/2020 12:00:00 AM EDT - 11/14/2020 12:00:00 AM EDT [facility] ([facility]) CVR Forensic Science Examiner.Svc. Contraceptive 11/07/2020 12 :00:00 AM EDT - 11/07/2020 12:00:00 AM EDT [facility] ([facility]) CVR Med.Svc. Height/Weight 11/07/2020 12 :00:00 AM EDT - 11/07/2020 12:00:00 AM EDT [facility] ([facility]) CVR Blood Pressure 11/07/2020 12:00:00 AM EDT - 2020 12:00:00 AM EDT [facility] ([facility]) OFFICE/OUTPATIENT VISIT, EST RN/PHONE OPERATOR Only 11/07/2020 12:00:00 AM EDT - 11/07/2020 12:00:00 AM EDT [facility] ([facility]) Injection Or Lab Only Visit Est 11/08/19 12:00:00 AM EDT - 11/07/2020 12:00:00 AM EDT [facility] ([facility]) CVR Forensic Science Examiner.Svc. Contraceptive 10/31/2020 12 :00:00 AM EDT - 10/31/2020 12:00:00 AM EDT [facility] ([facility]) CVR Med.Svc. Height/Weight 10/31/2020 12 :00:00 AM EDT - 10/31/2020 12:00:00 AM EDT [facility] ([facility]) CVR Blood Pressure 10/31/2020 12:00:00 AM EDT - 2020 12:00:00 AM EDT [facility] ([facility]) OFFICE/OUTPATIENT VISIT, EST RN/PHONE OPERATOR Only 10/31/2020 12:00:00 AM EDT - 10/31/2020 12:00:00 AM EDT [facility] ([facility]) Injection Or Lab Only Visit Est 11/01/19 12:00:00 AM EDT - 10/31/2020 12:00:00 AM EDT [facility] ([facility]) CVR Forensic Science Examiner.Svc. Other 10/24/2020 12:00:00 AM EDT - 2020 12:00:00 AM EDT [facility] ([facility]) CVR Forensic Science Examiner.Svc. Contraceptive 10/24/2020 12 :00:00 AM EDT - 10/24/2020 12:00:00 AM EDT [facility] ([facility]) CVR Med.Svc. Height/Weight 10/24/2020 12 :00:00 AM EDT - 10/24/2020 12:00:00 AM EDT [facility] ([facility]) CVR Blood Pressure 10/24/2020 12:00:00 AM EDT - 2020 12:00:00 AM EDT [facility] ([facility]) Injection Or Lab Only Visit Est 10/25/19 12:00:00 AM EDT - 10/24/2020 12:00:00 AM EDT [facility] ([facility]) CVR Forensic Science Examiner.Svc. STI / H 10/17/2020 12:00:00 AM EDT - 10/17/2020 12:00:00 AM EDT [facility] ([facility]) CVR Forensic Science Examiner.Svc. Contraceptive 10/17/2020 12 :00:00 AM EDT - 10/17/2020 12:00:00 AM EDT [facility] ([facility]) CVR Med.Svc. Height/Weight 10/17/2020 12 :00:00 AM EDT - 10/17/2020 12:00:00 AM EDT [facility] ([facility]) CVR Blood Pressure 10/17/2020 12:00:00 AM EDT - 2020 12:00:00 AM EDT [facility] ([facility]) OFFICE/OUTPATIENT VISIT, EST RN/PHONE OPERATOR Only 10/17/2020 12:00:00 AM EDT - 10/17/2020 12:00:00 AM EDT [facility] ([facility]) CVR Forensic Science Examiner.Svc. STI / H 10/14/2020 12:00:00 AM EDT - 10/14/2020 12:00:00 AM EDT [facility] ([facility]) CVR Forensic Science Examiner.Svc. Other 10/14/2020 12:00:00 AM EDT - 2020 12:00:00 AM EDT [facility] ([facility]) CVR Forensic Science Examiner.Svc. Contraceptive 10/14/2020 12 :00:00 AM EDT - 10/14/2020 12:00:00 AM EDT [facility] ([facility]) CVR Med.Svc. Height/Weight 10/14/2020 12 :00:00 AM EDT - 10/14/2020 12:00:00 AM EDT [facility] ([facility]) CVR Blood Pressure 10/14/2020 12:00:00 AM EDT - 2020 12:00:00 AM EDT [facility] ([facility]) EST PT TG DETAILED 10/14/2020 12:00:00 AM EDT - 2020 12:00:00 AM EDT [facility] ([facility]) CBC W/DIFFERENTIAL 10/14/2020 12:00:00 AM EDT - 2020 12:00:00 AM EDT [facility] ([facility]) CVR Forensic Science Examiner.Svc. Other 10/10/2020 12:00:00 AM EDT - 2020 12:00:00 AM EDT [facility] ([facility]) CVR Forensic Science Examiner.Svc. Contraceptive 10/10/2020 12 :00:00 AM EDT - 10/10/2020 12:00:00 AM EDT [facility] ([facility]) CVR Med.Svc. Height/Weight 10/10/2020 12 :00:00 AM EDT - 10/10/2020 12:00:00 AM EDT [facility] ([facility]) CVR Blood Pressure 10/10/2020 12:00:00 AM EDT - 2020 12:00:00 AM EDT [facility] ([facility]) Injection Or Lab Only Visit Est 10/11/19 21 12:00:00 AM EDT - 10/10/2020 12:00:00 AM EDT [facility] ([facility]) OFFICE/OUTPATIENT VISIT, EST RN/PHONE OPERATOR Only 10/10/2020 12:00:00 AM EDT - 10/10/2020 12:00:00 AM EDT [facility] ([facility]) OFFICE OUTPATIENT VISIT 25 MINUTES 10/05/2020 12:00:00 AM EDT [facility]) CVR Med.Svc. Height/Weight 10/03/2020 12 :00:00 AM EDT - 10/03/2020 12:00:00 AM EDT [facility] ([facility]) CVR Blood Pressure 10/03/2020 12:00:00 AM EDT - 2020 12:00:00 AM EDT [facility] ([facility]) Injection Or Lab Only Visit Est 10/04/19 12:00:00 AM EDT - 10/03/2020 12:00:00 AM EDT [facility] ([facility]) OFFICE/OUTPATIENT VISIT, EST RN/PHONE OPERATOR Only 10/03/2020 12:00:00 AM EDT - 10/03/2020 12:00:00 AM EDT [facility] ([facility]) CVR Forensic Science Examiner.Svc. Other 09/26/2020 12:00:00 AM EDT - 2020 12:00:00 AM EDT [facility] ([facility]) CVR Med.Svc. Height/Weight 09/26/2020 12 :00:00 AM EDT - 09/26/2020 12:00:00 AM EDT [facility] ([facility]) CVR Blood Pressure 09/26/2020 12:00:00 AM EDT - 2020 12:00:00 AM EDT [facility] ([facility]) OFFICE/OUTPATIENT VISIT, EST RN/PHONE OPERATOR Only 09/26/2020 12:00:00 AM EDT - 09/26/2020 12:00:00 AM EDT [facility] ([facility]) Injection Or Lab Only Visit Est 09/27/19 12:00:00 AM EDT - 09/26/2020 12:00:00 AM EDT [facility] ([facility]) CVR Forensic Science Examiner.Svc. STI / H 09/19/2020 12:00:00 AM EST - 09/19/2020 12:00:00 AM EST [facility] ([facility]) CVR Med.Svc. Height/Weight 09/19/2020 12 :00:00 AM EST - 09/19/2020 12:00:00 AM EST [facility] ([facility]) CVR Blood Pressure 09/19/2020 12:00:00 AM EST - 2020 12:00:00 AM EST [facility] ([facility]) Injection Or Lab Only Visit Est 09/20/19 12:00:00 AM EST - 09/19/2020 12:00:00 AM EST [facility] ([facility]) CVR Forensic Science Examiner.Svc. Other 09/12/2020 12:00:00 AM EST - 2020 12:00:00 AM EST [facility] ([facility]) CVR Med.Svc. Height/Weight 09/12/2020 12 :00:00 AM EST - 09/12/2020 12:00:00 AM EST [facility] ([facility]) CVR Blood Pressure 09/12/2020 12:00:00 AM EST - 2020 12:00:00 AM EST [facility] ([facility]) Injection Or Lab Only Visit Est 09/13/19 12:00:00 AM EST - 09/12/2020 12:00:00 AM EST [facility] ([facility]) OFFICE/OUTPATIENT VISIT, EST RN/PHONE OPERATOR Only 09/12/2020 12:00:00 AM EST - 09/12/2020 12:00:00 AM EST [facility] ([facility]) OFFICE OUTPATIENT VISIT 15 MINUTES 09/10/2020 12:00:00 AM EST [facility] ([facility], [facility]) CVR Forensic Science Examiner.Svc. Other 09/05/2020 12:00:00 AM EST - 2020 12:00:00 AM EST [facility] ([facility]) CVR Med.Svc. Height/Weight 09/05/2020 12 :00:00 AM EST - 09/05/2020 12:00:00 AM EST [facility] ([facility]) CVR Blood Pressure 09/05/2020 12:00:00 AM EST - 2020 12:00:00 AM EST [facility] ([facility]) Injection Or Lab Only Visit Est 09/05/19 12:00:00 AM EST - 09/05/2020 12:00:00 AM EST [facility] ([facility]) OFFICE OUTPATIENT VISIT 15 MINUTES 08/31/2020 12:00:00 AM EST [facility] ([facility], [facility]) CVR Forensic Science Examiner.Svc. Other 08/29/2020 12:00:00 AM EST - 2020 12:00:00 AM EST [facility] ([facility]) CVR Forensic Science Examiner.Svc. Contraceptive 08/29/2020 12 :00:00 AM EST - 08/29/2020 12:00:00 AM EST [facility] ([facility]) CVR Med.Svc. Height/Weight 08/29/2020 12 :00:00 AM EST - 08/29/2020 12:00:00 AM EST [facility] ([facility]) CVR Blood Pressure 08/29/2020 12:00:00 AM EST - 2020 12:00:00 AM EST [facility] ([facility]) OFFICE/OUTPATIENT VISIT, EST RN/PHONE OPERATOR Only 08/29/2020 12:00:00 AM EST - 08/29/2020 12:00:00 AM EST [facility] ([facility]) CVR Forensic Science Examiner.Svc. Other 08/25/2020 12:00:00 AM EST - 2020 12:00:00 AM EST [facility] ([facility]) CVR Forensic Science Examiner.Svc. Contraceptive 08/25/2020 12 :00:00 AM EST - 08/25/2020 12:00:00 AM EST [facility] ([facility]) CVR Med.Svc. Height/Weight 08/25/2020 12 :00:00 AM EST - 08/25/2020 12:00:00 AM EST [facility] ([facility]) CVR Blood Pressure 08/25/2020 12:00:00 AM EST - 2020 12:00:00 AM EST [facility] ([facility]) Injection Or Lab Only Visit Est 08/25/19 12:00:00 AM EST - 08/25/2020 12:00:00 AM EST [facility] ([facility]) CVR Forensic Science Examiner.Svc. Other 08/19/2020 12:00:00 AM EST - 2020 12:00:00 AM EST [facility] ([facility]) CVR Forensic Science Examiner.Svc. Contraceptive 08/19/2020 12 :00:00 AM EST - 08/19/2020 12:00:00 AM EST [facility] ([facility]) CVR Med.Svc. Height/Weight 08/19/2020 12 :00:00 AM EST - 08/19/2020 12:00:00 AM EST [facility] ([facility]) CVR Blood Pressure 08/19/2020 12:00:00 AM EST - 2020 12:00:00 AM EST [facility] ([facility]) OFFICE/OUTPATIENT VISIT, EST RN/PHONE OPERATOR Only 08/19/2020 12:00:00 AM EST - 08/19/2020 12:00:00 AM EST [facility] ([facility]) Injection Or Lab Only Visit Est 08/19/19 12:00:00 AM EST - 08/19/2020 12:00:00 AM EST [facility] ([facility]) CVR Forensic Science Examiner.Svc. Other 08/08/2020 12:00:00 AM EST - 2020 12:00:00 AM EST [facility] ([facility]) CVR Forensic Science Examiner.Svc. Contraceptive 08/08/2020 12 :00:00 AM EST - 08/08/2020 12:00:00 AM EST [facility] ([facility]) CVR Med.Svc. Height/Weight 08/08/2020 12 :00:00 AM EST - 08/08/2020 12:00:00 AM EST [facility] ([facility]) CVR Blood Pressure 08/08/2020 12:00:00 AM EST - 2020 12:00:00 AM EST [facility] ([facility]) OFFICE/OUTPATIENT VISIT, EST RN/PHONE OPERATOR Only 08/08/2020 12:00:00 AM EST - 08/08/2020 12:00:00 AM EST [facility] ([facility]) CVR Forensic Science Examiner.Svc. STI / H 08/01/2020 12:00:00 AM EST - 08/01/2020 12:00:00 AM EST [facility] ([facility]) CVR Forensic Science Examiner.Svc. Other 08/01/2020 12:00:00 AM EST - 2020 12:00:00 AM EST [facility] ([facility]) CVR Forensic Science Examiner.Svc. Contraceptive 08/01/2020 12 :00:00 AM EST - 08/01/2020 12:00:00 AM EST [facility] ([facility]) CVR Med.Svc. Height/Weight 08/01/2020 12 :00:00 AM EST - 08/01/2020 12:00:00 AM EST [facility] ([facility]) CVR Blood Pressure 08/01/2020 12:00:00 AM EST - 2020 12:00:00 AM EST [facility] ([facility]) OFFICE/OUTPATIENT VISIT, EST RN/PHONE OPERATOR Only 08/01/2020 12:00:00 AM EST - 08/01/2020 12:00:00 AM EST [facility] ([facility]) Injection Or Lab Only Visit Est 08/01/19 12:00:00 AM EST - 08/01/2020 12:00:00 AM EST [facility] ([facility]) Injection Or Lab Only Visit Est 07/25/19 12:00:00 AM EST - 07/25/2020 12:00:00 AM EST [facility] ([facility]) CVR Forensic Science Examiner.Svc. Other 07/25/2020 12:00:00 AM EST - 2020 12:00:00 AM EST [facility] ([facility]) OFFICE/OUTPATIENT VISIT, EST RN/PHONE OPERATOR Only 07/25/2020 12:00:00 AM EST - 07/25/2020 12:00:00 AM EST [facility] ([facility]) OFFICE/OUTPATIENT VISIT, EST RN/PHONE OPERATOR Only 07/18/2020 12:00:00 AM EST - 07/18/2020 12:00:00 AM EST [facility] ([facility]) CVR Forensic Science Examiner.Svc. Other 07/18/2020 12:00:00 AM EST - 2020 12:00:00 AM EST [facility] ([facility]) CVR Forensic Science Examiner.Svc. Contraceptive 07/18/2020 12 :00:00 AM EST - 07/18/2020 12:00:00 AM EST [facility] ([facility]) CVR Med.Svc. Height/Weight 07/18/2020 12 :00:00 AM EST - 07/18/2020 12:00:00 AM EST [facility] ([facility]) CVR Blood Pressure 07/18/2020 12:00:00 AM EST - 2020 12:00:00 AM EST [facility] ([facility]) Injection Or Lab Only Visit Est 07/18/19 12:00:00 AM EST - 07/18/2020 12:00:00 AM EST [facility] ([facility]) CVR Med.Svc. Height/Weight 07/10/2020 12 :00:00 AM EST - 07/10/2020 12:00:00 AM EST [facility] ([facility]) CVR Blood Pressure 07/10/2020 12:00:00 AM EST - 2019 12:00:00 AM EST [facility] ([facility]) OFFICE/OUTPATIENT VISIT, EST RN/PHONE OPERATOR Only 07/10/2020 12:00:00 AM EST - 07/10/2020 12:00:00 AM EST [facility] ([facility]) Injection Or Lab Only Visit Est 07/10/20 20 12:00:00 AM EST - 07/10/2020 12:00:00 AM EST [facility] ([facility]) CVR Forensic Science Examiner.Svc. STI / H 07/10/2020 12:00:00 AM EST - 07/10/2020 12:00:00 AM EST [facility] ([facility]) CVR Forensic Science Examiner.Svc. Other 07/10/2020 12:00:00 AM EST - 2019 12:00:00 AM EST [facility] ([facility]) CVR Forensic Science Examiner.Svc. Contraceptive 07/10/2020 12 :00:00 AM EST - 07/10/2020 12:00:00 AM EST [facility] ([facility]) CVR Forensic Science Examiner.Svc. Other 07/02/2020 12:00:00 AM EST - 2019 12:00:00 AM EST [facility] ([facility]) Injection Or Lab Only Visit Est 07/02/20 20 12:00:00 AM EST - 07/02/2020 12:00:00 AM EST [facility] ([facility]) CVR Forensic Science Examiner.Svc. Other 06/27/2020 12:00:00 AM EST - 2019 12:00:00 AM EST [facility] ([facility]) CVR Forensic Science Examiner.Svc. Contraceptive 06/27/2020 12 :00:00 AM EST - 06/27/2020 12:00:00 AM EST [facility] ([facility]) CVR Med.Svc. Height/Weight 06/27/2020 12 :00:00 AM EST - 06/27/2020 12:00:00 AM EST [facility] ([facility]) CVR Blood Pressure 06/27/2020 12:00:00 AM EST - 2019 12:00:00 AM EST [facility] ([facility]) Injection Or Lab Only Visit Est 06/27/20 20 12:00:00 AM EST - 06/27/2020 12:00:00 AM EST [facility] ([facility]) OFFICE/OUTPATIENT VISIT, EST RN/PHONE OPERATOR Only 06/27/2020 12:00:00 AM EST - 06/27/2020 12:00:00 AM EST [facility] ([facility]) CVR Med.Svc. Height/Weight 06/20/2020 12 :00:00 AM EST - 06/20/2020 12:00:00 AM EST [facility] ([facility]) CVR Blood Pressure 06/20/2020 12:00:00 AM EST - 2019 12:00:00 AM EST [facility] ([facility]) Injection Or Lab Only Visit Est 06/20/20 20 12:00:00 AM EST - 06/20/2020 12:00:00 AM EST [facility] ([facility]) CVR Forensic Science Examiner.Svc. Other 06/13/2020 12:00:00 AM EST - 2019 12:00:00 AM EST [facility] ([facility]) CVR Med.Svc. Thyroid Palp. 06/13/2020 12 :00:00 AM EST - 06/13/2020 12:00:00 AM EST [facility] ([facility]) CVR Med.Svc. Height/Weight 06/13/2020 12 :00:00 AM EST - 06/13/2020 12:00:00 AM EST [facility] ([facility]) Injection Or Lab Only Visit Est 06/13/20 20 12:00:00 AM EST - 06/13/2020 12:00:00 AM EST [facility] ([facility]) OFFICE/OUTPATIENT VISIT, EST RN/PHONE OPERATOR Only 06/13/2020 12:00:00 AM EST - 06/13/2020 12:00:00 AM EST [facility] ([facility]) CVR Forensic Science Examiner.Svc. STI / H 06/04/2020 12:00:00 AM EST - 06/04/2020 12:00:00 AM EST [facility] ([facility]) CVR Forensic Science Examiner.Svc. Other 06/04/2020 12:00:00 AM EST - 2019 12:00:00 AM EST [facility] ([facility]) CVR Med.Svc. Height/Weight 06/04/2020 12 :00:00 AM EST - 06/04/2020 12:00:00 AM EST [facility] ([facility]) CVR Blood Pressure 06/04/2020 12:00:00 AM EST - 2019 12:00:00 AM EST [facility] ([facility]) Injection Or Lab Only Visit Est 06/04/20 12:00:00 AM EST - 06/04/2020 12:00:00 AM EST [facility] ([facility]) CVR Forensic Science Examiner.Svc. Other 05/30/2020 12:00:00 AM EST - 2019 12:00:00 AM EST [facility] ([facility]) CVR Med.Svc. Height/Weight 05/30/2020 12 :00:00 AM EST - 05/30/2020 12:00:00 AM EST [facility] ([facility]) CVR Blood Pressure 05/30/2020 12:00:00 AM EST - 2019 12:00:00 AM EST [facility] ([facility]) Injection Or Lab Only Visit Est 05/30/20 12:00:00 AM EST - 05/30/2020 12:00:00 AM EST [facility] ([facility]) OFFICE/OUTPATIENT VISIT, EST RN/PHONE OPERATOR Only 05/30/2020 12:00:00 AM EST - 05/30/2020 12:00:00 AM EST [facility] ([facility]) CVR Forensic Science Examiner.Svc. Other 05/26/2020 12:00:00 AM EST - 2019 12:00:00 AM EST [facility] ([facility]) CVR Forensic Science Examiner.Svc. Contraceptive 05/26/2020 12 :00:00 AM EST - 05/26/2020 12:00:00 AM EST [facility] ([facility]) CVR Med.Svc. Height/Weight 05/26/2020 12 :00:00 AM EST - 05/26/2020 12:00:00 AM EST [facility] ([facility]) CVR Blood Pressure 05/26/2020 12:00:00 AM EST - 2019 12:00:00 AM EST [facility] ([facility]) OFFICE/OUTPATIENT VISIT, EST RN/PHONE OPERATOR Only 05/26/2020 12:00:00 AM EST - 05/26/2020 12:00:00 AM EST [facility] ([facility]) Injection Or Lab Only Visit Est 05/26/20 20 12:00:00 AM EST - 05/26/2020 12:00:00 AM EST [facility] ([facility]) OFFICE/OUTPATIENT VISIT, EST RN/PHONE OPERATOR Only 05/23/2020 12:00:00 AM EST - 05/23/2020 12:00:00 AM EST [facility] ([facility]) CVR Med.Svc. Height/Weight 05/23/2020 12 :00:00 AM EST - 05/23/2020 12:00:00 AM EST [facility] ([facility]) CVR Blood Pressure 05/23/2020 12:00:00 AM EST - 2019 12:00:00 AM EST [facility] ([facility]) Injection Or Lab Only Visit Est 05/23/20 20 12:00:00 AM EST - 05/23/2020 12:00:00 AM EST [facility] ([facility]) CVR Forensic Science Examiner.Svc. Other 05/16/2020 12:00:00 AM EST - 2019 12:00:00 AM EST [facility] ([facility]) CVR Med.Svc. Height/Weight 05/16/2020 12 :00:00 AM EST - 05/16/2020 12:00:00 AM EST [facility] ([facility]) CVR Blood Pressure 05/16/2020 12:00:00 AM EST - 2019 12:00:00 AM EST [facility] ([facility]) OFFICE/OUTPATIENT VISIT, EST RN/PHONE OPERATOR Only 05/16/2020 12:00:00 AM EST - 05/16/2020 12:00:00 AM EST [facility] ([facility]) Injection Or Lab Only Visit Est 05/16/20 20 12:00:00 AM EST - 05/16/2020 12:00:00 AM EST [facility] ([facility]) CVR Forensic Science Examiner.Svc. Other 05/09/2020 12:00:00 AM EDT - 2019 12:00:00 AM EDT [facility] ([facility]) CVR Forensic Science Examiner.Svc. Nutrition 05/09/2020 12:00: 00 AM EDT - 05/09/2020 12:00:00 AM EDT [facility] ([facility]) CVR Forensic Science Examiner.Svc. Contraceptive 05/09/2020 12 :00:00 AM EDT - 05/09/2020 12:00:00 AM EDT [facility] ([facility]) CVR Med.Svc. Height/Weight 05/09/2020 12 :00:00 AM EDT - 05/09/2020 12:00:00 AM EDT [facility] ([facility]) CVR Blood Pressure 05/09/2020 12:00:00 AM EDT - 2019 12:00:00 AM EDT [facility] ([facility]) OFFICE/OUTPATIENT VISIT, EST RN/PHONE OPERATOR Only 05/09/2020 12:00:00 AM EDT - 05/09/2020 12:00:00 AM EDT [facility] ([facility]) Injection Or Lab Only Visit Est 05/09/20 12:00:00 AM EDT - 05/09/2020 12:00:00 AM EDT [facility] ([facility]) CVR Forensic Science Examiner.Svc. Other 05/02/2020 12:00:00 AM EDT - 2019 12:00:00 AM EDT [facility] ([facility]) CVR Med.Svc. Height/Weight 05/02/2020 12 :00:00 AM EDT - 05/02/2020 12:00:00 AM EDT [facility] ([facility]) CVR Blood Pressure 05/02/2020 12:00:00 AM EDT - 2019 12:00:00 AM EDT [facility] ([facility]) Injection Or Lab Only Visit Est 05/02/20 12:00:00 AM EDT - 05/02/2020 12:00:00 AM EDT [facility] ([facility]) OFFICE/OUTPATIENT VISIT, EST RN/PHONE OPERATOR Only 05/02/2020 12:00:00 AM EDT - 05/02/2020 12:00:00 AM EDT [facility] ([facility]) CVR Forensic Science Examiner.Svc. Other 04/25/2020 12:00:00 AM EDT - 2019 12:00:00 AM EDT [facility] ([facility]) CVR Med.Svc. Height/Weight 04/25/2020 12 :00:00 AM EDT - 04/25/2020 12:00:00 AM EDT [facility] ([facility]) CVR Blood Pressure 04/25/2020 12:00:00 AM EDT - 2019 12:00:00 AM EDT [facility] ([facility]) Injection Or Lab Only Visit Est 04/25/20 12:00:00 AM EDT - 04/25/2020 12:00:00 AM EDT [facility] ([facility]) OFFICE/OUTPATIENT VISIT, EST RN/PHONE OPERATOR Only 04/25/2020 12:00:00 AM EDT - 04/25/2020 12:00:00 AM EDT [facility] ([facility]) ASSAY OF TOTAL TESTOSTERONE 04/18/2020 1 2:00:00 AM EDT - 04/18/2020 12:00:00 AM EDT [facility] ([facility]) COMPLETE CBC W/AUTO DIFF WBC 04/18/2020 12:00:00 AM EDT - 04/18/2020 12:00:00 AM EDT [facility] ([facility]) CVR Forensic Science Examiner.Svc. STI / H 04/18/2020 12:00:00 AM EDT - 04/18/2020 12:00:00 AM EDT [facility] ([facility]) CVR Forensic Science Examiner.Svc. Other 04/18/2020 12:00:00 AM EDT - 2019 12:00:00 AM EDT [facility] ([facility]) CVR Med.Svc. Height/Weight 04/18/2020 12 :00:00 AM EDT - 04/18/2020 12:00:00 AM EDT [facility] ([facility]) CVR Forensic Science Examiner.Svc. Contraceptive 04/18/2020 12 :00:00 AM EDT - 04/18/2020 12:00:00 AM EDT [facility] ([facility]) CVR Blood Pressure 04/18/2020 12:00:00 AM EDT - 2019 12:00:00 AM EDT [facility] ([facility]) Injection Or Lab Only Visit Est 04/18/20 20 12:00:00 AM EDT - 04/18/2020 12:00:00 AM EDT [facility] ([facility]) ROUTINE VENIPUNCTURE 04/18/2020 12:00:00 AM EDT - 04/18/2020 12:00:00 AM EDT [facility] ([facility]) CVR Forensic Science Examiner.Svc. Contraceptive 04/15/2020 12 :00:00 AM EDT - 04/15/2020 12:00:00 AM EDT [facility] ([facility]) EST PT TG DETAILED 04/15/2020 12:00:00 AM EDT - 2019 12:00:00 AM EDT [facility] ([facility]) CVR Forensic Science Examiner.Svc. Other 04/11/2020 12:00:00 AM EDT - 2019 12:00:00 AM EDT [facility] ([facility]) CVR Forensic Science Examiner.Svc. Contraceptive 04/11/2020 12 :00:00 AM EDT - 04/11/2020 12:00:00 AM EDT [facility] ([facility]) CVR Med.Svc. Height/Weight 04/11/2020 12 :00:00 AM EDT - 04/11/2020 12:00:00 AM EDT [facility] ([facility]) CVR Blood Pressure 04/11/2020 12:00:00 AM EDT - 2019 12:00:00 AM EDT [facility] ([facility]) Injection Or Lab Only Visit Est 04/11/20 12:00:00 AM EDT - 04/11/2020 12:00:00 AM EDT [facility] ([facility]) CVR Forensic Science Examiner.Svc. Other 04/04/2020 12:00:00 AM EDT - 2019 12:00:00 AM EDT [facility] ([facility]) CVR Forensic Science Examiner.Svc. Contraceptive 04/04/2020 12 :00:00 AM EDT - 04/04/2020 12:00:00 AM EDT [facility] ([facility]) CVR Blood Pressure 04/04/2020 12:00:00 AM EDT - 2019 12:00:00 AM EDT [facility] ([facility]) CVR Med.Svc. Height/Weight 04/04/2020 12 :00:00 AM EDT - 04/04/2020 12:00:00 AM EDT [facility] ([facility]) Injection Or Lab Only Visit Est 04/04/20 12:00:00 AM EDT - 04/04/2020 12:00:00 AM EDT [facility] ([facility]) CVR Forensic Science Examiner.Svc. Other 03/28/2020 12:00:00 AM EDT - 2019 12:00:00 AM EDT [facility] ([facility]) CVR Forensic Science Examiner.Svc. Contraceptive 03/28/2020 12 :00:00 AM EDT - 03/28/2020 12:00:00 AM EDT [facility] ([facility]) CVR Med.Svc. Height/Weight 03/28/2020 12 :00:00 AM EDT - 03/28/2020 12:00:00 AM EDT [facility] ([facility]) CVR Blood Pressure 03/28/2020 12:00:00 AM EDT - 2019 12:00:00 AM EDT [facility] ([facility]) Injection Or Lab Only Visit Est 03/28/20 20 12:00:00 AM EDT - 03/28/2020 12:00:00 AM EDT [facility] ([facility]) CVR Forensic Science Examiner.Svc. STI / H 03/21/2020 12:00:00 AM EDT - 03/21/2020 12:00:00 AM EDT [facility] ([facility]) CVR Forensic Science Examiner.Svc. Other 03/21/2020 12:00:00 AM EDT - 2019 12:00:00 AM EDT [facility] ([facility]) CVR Forensic Science Examiner.Svc. Contraceptive 03/21/2020 12 :00:00 AM EDT - 03/21/2020 12:00:00 AM EDT [facility] ([facility]) CVR Med.Svc. Height/Weight 03/21/2020 12 :00:00 AM EDT - 03/21/2020 12:00:00 AM EDT [facility] ([facility]) CVR Blood Pressure 03/21/2020 12:00:00 AM EDT - 2019 12:00:00 AM EDT [facility] ([facility]) Injection Or Lab Only Visit Est 03/21/20 12:00:00 AM EDT - 03/21/2020 12:00:00 AM EDT [facility] ([facility]) CVR Forensic Science Examiner.Svc. Other 03/14/2020 12:00:00 AM EDT - 2019 12:00:00 AM EDT [facility] ([facility]) CVR Med.Svc. Height/Weight 03/14/2020 12 :00:00 AM EDT - 03/14/2020 12:00:00 AM EDT [facility] ([facility]) CVR Blood Pressure 03/14/2020 12:00:00 AM EDT - 2019 12:00:00 AM EDT [facility] ([facility]) Injection Or Lab Only Visit Est 03/14/20 20 12:00:00 AM EDT - 03/14/2020 12:00:00 AM EDT [facility] ([facility]) CVR Forensic Science Examiner.Svc. Other 03/07/2020 12:00:00 AM EDT - 2019 12:00:00 AM EDT [facility] ([facility]) CVR Forensic Science Examiner.Svc. Contraceptive 03/07/2020 12 :00:00 AM EDT - 03/07/2020 12:00:00 AM EDT [facility] ([facility]) CVR Med.Svc. Height/Weight 03/07/2020 12 :00:00 AM EDT - 03/07/2020 12:00:00 AM EDT [facility] ([facility]) CVR Blood Pressure 03/07/2020 12:00:00 AM EDT - 2019 12:00:00 AM EDT [facility] ([facility]) Injection Or Lab Only Visit Est 03/07/20 20 12:00:00 AM EDT - 03/07/2020 12:00:00 AM EDT [facility] ([facility]) CVR Forensic Science Examiner.Svc. Other 02/22/2020 12:00:00 AM EDT - 2019 12:00:00 AM EDT [facility] ([facility]) Injection Or Lab Only Visit Est 02/22/20 20 12:00:00 AM EDT - 02/22/2020 12:00:00 AM EDT [facility] ([facility]) Results ID Date Data Source [id number] 04/15/2021 12:00:00 AM EDT [facility] Name Value Range Interpretation Code Description Data Elsi rce(s) Supporting Document(s) SARS-CoV2 Rapid Antigen Negative [facility] This lab was ordered by [facility] and reported by [facility]. ID Date Data Source [id number] 04/26/2020 12:00:00 AM EDT [facility] Name Value Range Interpretation Code Description Data Elsi rce(s) Supporting Document(s) SARS coronavirus 2 Ag [facility]. ID Date Data Source [id number] 10/05/2020 12:41:00 PM EDT [facility] ([facility]) Name Value Range Interpretation Code Description Data Elsi rce(s) Supporting Document(s) Group A Strep Culture Laboratory test result [facility] ([facility]) FULL REPORT IN LAB NOTES ([facility] and [facility] ). NEGATIVE FOR STREP PYOGENES (GROUP A) ID Date Data Source [id number] 07/25/2020 12:00:00 AM EST [facility] Name Value Range Interpretation Code Description Data Elsi rce(s) Supporting Document(s) SARS coronavirus 2 RNA [Presence] in Res piratory specimen by MARK with probe detection NEGATIVE [facility] This lab was ordered by [facility] and reported by [employer]. ID Date Data Source [id number] 07/25/2020 12:00:00 AM EST [facility] Name Value Range Interpretation Code Description Data Elsi rce(s) Supporting Document(s) Carestart Rapid COVID Antigen Test Negative [facility] This lab was reported by [facility]. ID Date Data Source [id number] 04/26/2020 01:50:00 PM EDT [facility] ([facility]) Name Value Range Interpretation Code Description Data Elsi rce(s) Supporting Document(s) Bacteria identified in Urine by Culture Laboratory test result [facility] ([facility]) FULL REPORT IN LAB NOTES ([facility] and [facility] ). SPECIMEN APPEARS CONTAMINATED Procedure Social History Code Duration Value Status Description Data Source(s ) Smoking 04/16/2021 12:00:00 AM EDT Never smoker completed Never s moker [facility] ([facility]) Smoking 04/15/2021 12:00:00 AM EDT Patient is a former smoker completed Patient is a former smoker [facility] ([facility]) 02/04/2021 12:00:00 AM EDT Current non-smoker completed C urrent non-smoker [facility] ([facility]) Vital Signs ID Date Data Source UNK Name Value Range Interpretation Code Description Data Source(s) [facility] 128 mm[facility]Hg] 128 [facility] Diastolic blood pressure 84 mm[Hg] 84 mm[Hg] [facility] ([facility], [facility]) Systolic blood pressure 170 mm[Hg] 170 mm[Hg] [facility]) Redone 128/84 Diastolic blood pressure 107 mm[Hg] 107 mm[Hg] [facility] ([facility], [facility]) Redone 128/84 Heart rate 72 /min 72 /min [facility] ([facility], [facility]) Respiratory rate 16 /min 16 /min [facility] ( [facility], [facility]) Oxygen saturation in Arterial blood by Pulse oximetry 98 % 98 % [facility] ([facility], [facility]) Body temperature 98.9 [degF] 98.9 [degF] [facility] ([facility], [facility]) Body weight 227.00 [lb_av] 227.00 [facility]_av] [facility] Body height 66 [in_i] 66 [in_i] [facility] ([facility]) 5'6" Body mass index (BMI) [Ratio] 36.6 kg/m2 36.6 k g/m2 [facility] ([facility]) Body height 167.64 cm 167.64 cm [facility] Body weight 99.337 kg 99.337 kg [facility]) Systolic blood pressure 118 mm[Hg] 118 mm[Hg] N [facility] ([facility]) Diastolic blood pressure 78 mm[Hg] 78 mm[Hg] [facility] ([facility]) Body mass index (BMI) [Ratio] 35.35 kg/m2 Overweight 35.35 kg/m2 [facility] ([facility]) Body height 167.64 cm 167.64 cm [facility] Body weight 98.883 kg 98.883 kg [facility]) Systolic blood pressure 120 mm[Hg] 120 mm[Hg] N [facility] ([facility]) Diastolic blood pressure 84 mm[Hg] 84 mm[Hg] [facility] ([facility]) Body mass index (BMI) [Ratio] 35.19 kg/m2 Overweight 35.19 kg/m2 [facility] ([facility]) Body height 167.64 cm 167.64 cm [facility] Body weight 100.698 kg 100.698 kg [facility]) Systolic blood pressure 118 mm[Hg] 118 mm[Hg] N [facility] ([facility]) Diastolic blood pressure 76 mm[Hg] 76 mm[Hg] [facility] ([facility]) Body mass index (BMI) [Ratio] 35.83 kg/m2 Overweight 35.83 kg/m2 [facility] ([facility]) Body height 167.64 cm 167.64 cm [facility] Body weight 100.425 kg 100.425 kg [facility]) Systolic blood pressure 110 mm[Hg] 110 mm[Hg] N [facility] ([facility]) Diastolic blood pressure 70 mm[Hg] 70 mm[Hg] [facility] ([facility]) Body mass index (BMI) [Ratio] 35.73 kg/m2 Overweight 35.73 kg/m2 [facility] ([facility]) Body height 167.64 cm 167.64 cm [facility] Body weight 102.693 kg 102.693 kg [facility]) Systolic blood pressure 120 mm[Hg] 120 mm[Hg] N [facility] ([facility]) Diastolic blood pressure 78 mm[Hg] 78 mm[Hg] [facility] ([facility]) Body mass index (BMI) [Ratio] 36.54 kg/m2 Overweight 36.54 kg/m2 [facility] ([facility]) Systolic blood pressure 124 mm[Hg] 124 mm[Hg] M [facility] ([facility], [facility]) Diastolic blood pressure 84 mm[Hg] 84 mm[Hg] [facility] ([facility], [facility]) Heart rate 81 /min 81 /min [facility]) Respiratory rate 16 /min 16 /min [facility] ( [facility], [facility]) Oxygen saturation in Arterial blood by Pulse oximetry 98 % 98 % [facility] ([facility], [facility]) Body temperature 97.8 [degF] 97.8 [degF] [facility]) Body weight 227.00 [lb_av] 227.00 [lb_av] [facility] ([facility], [facility]) Body height 66 [in_i] 66 [in_i] [facility] ([facility], [facility]) 5'6" Body mass index (BMI) [Ratio] 36.6 kg/m2 36.6 k g/m2 [facility]) Body height 167.64 cm 167.64 cm [facility] Body weight 101.605 kg 101.605 kg [facility]) Systolic blood pressure 118 mm[Hg] 118 mm[Hg] N [facility] ([facility]) Diastolic blood pressure 76 mm[Hg] 76 mm[Hg] [facility] ([facility]) Body mass index (BMI) [Ratio] 36.15 kg/m2 Overweight 36.15 kg/m2 [facility] ([facility]) Body height 167.64 cm 167.64 cm [facility] Body weight 99.337 kg 99.337 kg [facility]) Systolic blood pressure 122 mm[Hg] 122 mm[Hg] N [facility] ([facility]) Diastolic blood pressure 78 mm[Hg] 78 mm[Hg] [facility] ([facility]) Body mass index (BMI) [Ratio] 35.35 kg/m2 Overweight 35.35 kg/m2 [facility] ([facility]) Body height 167.64 cm 167.64 cm [facility] Body weight 99.337 kg 99.337 kg [facility]) Systolic blood pressure 120 mm[Hg] 120 mm[Hg] N [facility] ([facility]) Diastolic blood pressure 78 mm[Hg] 78 mm[Hg] [facility] ([facility]) Body mass index (BMI) [Ratio] 35.35 kg/m2 Overweight 35.35 kg/m2 [facility] ([facility]) Body height 167.64 cm 167.64 cm [facility] Body weight 101.151 kg 101.151 kg [facility]) Systolic blood pressure 120 mm[Hg] 120 mm[Hg] N [facility] ([facility]) Diastolic blood pressure 78 mm[Hg] 78 mm[Hg] [facility] ([facility]) Body mass index (BMI) [Ratio] 35.99 kg/m2 Overweight 35.99 kg/m2 [facility] ([facility]) Body height 167.64 cm 167.64 cm [facility] Body weight 103.419 kg 103.419 kg [facility]) Systolic blood pressure 122 mm[Hg] 122 mm[Hg] N [facility] ([facility]) Diastolic blood pressure 80 mm[Hg] 80 mm[Hg] [facility] ([facility]) Body mass index (BMI) [Ratio] 36.80 kg/m2 Overweight 36.80 kg/m2 [facility] ([facility]) Body height 167.64 cm 167.64 cm [facility] Body weight 104.326 kg 104.326 kg [facility]) Systolic blood pressure 122 mm[Hg] 122 mm[Hg] N [facility] ([facility]) Diastolic blood pressure 80 mm[Hg] 80 mm[Hg] [facility] ([facility]) Body mass index (BMI) [Ratio] 37.12 kg/m2 Overweight 37.12 kg/m2 [facility] ([facility]) Body height 167.64 cm 167.64 cm [facility] Body weight 104.689 kg 104.689 kg [facility]) Systolic blood pressure 120 mm[Hg] 120 mm[Hg] N [facility] ([facility]) Diastolic blood pressure 70 mm[Hg] 70 mm[Hg] [facility] ([facility]) Body mass index (BMI) [Ratio] 37.25 kg/m2 Overweight 37.25 kg/m2 [facility] ([facility]) Body height 167.64 cm 167.64 cm [facility] Body weight 105.959 kg 105.959 kg [facility] Systolic blood pressure 118 mm[Hg] 118 mm[Hg] N [facility] ([facility]) Diastolic blood pressure 75 mm[Hg] 75 mm[Hg] [facility] ([facility]) Body mass index (BMI) [Ratio] 37.70 kg/m2 Overweight 37.70 kg/m2 [facility] ([facility]) Body height 167.64 cm 167.64 cm [facility] Body weight 104.326 kg 104.326 kg [facility] Systolic blood pressure 118 mm[Hg] 118 mm[Hg] N [facility] ([facility]) Diastolic blood pressure 74 mm[Hg] 74 mm[Hg] [facility] ([facility]) Body mass index (BMI) [Ratio] 37.12 kg/m2 Overweight 37.12 kg/m2 [facility] ([facility]) Body height 167.64 cm 167.64 cm [facility] Body weight 104.326 kg 104.326 kg [facility] Systolic blood pressure 120 mm[Hg] 120 mm[Hg] N [facility] ([facility]) Diastolic blood pressure 80 mm[Hg] 80 mm[Hg] [facility] ([facility]) Body mass index (BMI) [Ratio] 37.12 kg/m2 Overweight 37.12 kg/m2 [facility] ([facility]) Body height 167.64 cm 167.64 cm [facility] Body weight 104.508 kg 104.508 kg [facility] ([facility] Systolic blood pressure 120 mm[Hg] 120 mm[Hg] N [facility] ([facility]) Diastolic blood pressure 70 mm[Hg] 70 mm[Hg] [facility] ([facility]) Body mass index (BMI) [Ratio] 37.19 kg/m2 Overweight 37.19 kg/m2 [facility] ([facility]) Body height 167.64 cm 167.64 cm [facility] [place] [facility] Body weight 102.693 kg 102.693 kg [facility] ([facility] [place] [facility]) Systolic blood pressure 120 mm[Hg] 120 mm[Hg] N extGen ([facility]) Diastolic blood pressure 78 mm[Hg] 78 mm[Hg] [facility] ([facility]) Body mass index (BMI) [Ratio] 36.54 kg/m2 Overweight 36.54 kg/m2 [facility] ([facility]) Body height 167.64 cm 167.64 cm [facility] ([facility] [place] Body weight 102.965 kg 102.965 kg [facility] ([facility] [place]) Systolic blood pressure 118 mm[Hg] 118 mm[Hg] N extGen ([facility]) Diastolic blood pressure 78 mm[Hg] 78 mm[Hg] [facility] ([facility]) Body mass index (BMI) [Ratio] 36.64 kg/m2 Overweight 36.64 kg/m2 [facility] ([facility]) Systolic blood pressure 132 mm[Hg] 132 mm[Hg] M EDENT ([facility], [facility]) Diastolic blood pressure 84 mm[Hg] 84 mm[Hg] MEDENT ([facility], [facility]) Heart rate 69 /min 69 /min MED[facility] ([facility], [facility]) Respiratory rate 13 /min 13 /min MEDENT ( [facility], [facility]) Oxygen saturation in Arterial blood by Pulse [facility]ximetry 98 % 98 % [facility] Body temperature 96.8 [degF] 96.8 [degF] MEDENT ([facility], [facility]) Body weight 225.00 [lb_av] 225.00 [lb_av] ELICEO T ([facility], [facility]) Body height 66 [in_i] 66 [in_i] ARNALDO ([facility]) 5'6" Body mass index (BMI) [Ratio] 36.3 kg/m2 36.3 k g/m2 MEDSURYA ([facility]) Body height 167.64 cm 167.64 cm [facility] Body weight 102.965 kg 102.965 kg [facility] ([facility]) Systolic blood pressure 118 mm[Hg] 118 mm[Hg] N extGen ([facility]) Diastolic blood pressure 76 mm[Hg] 76 mm[Hg] [facility] ([facility]) Body mass index (BMI) [Ratio] 36.64 kg/m2 Overweight 36.64 kg/m2 [facility] ([facility]) Body height 167.64 cm 167.64 cm [facility] ([facility] [place]) Body weight 102.965 kg 102.965 kg [facility] ([facility] [place] [facility]) Systolic blood pressure 118 mm[Hg] 118 mm[Hg] N extGen ([facility]) Diastolic blood pressure 76 mm[Hg] 76 mm[Hg] [facility] ([facility]) Body mass index (BMI) [Ratio] 36.64 kg/m2 Overweight 36.64 kg/m2 [facility] ([facility]) Body height 167.64 cm 167.64 cm [facility] ([facility] [place]) Body weight 102.965 kg 102.965 kg [facility] ([facility] [place]) Systolic blood pressure 126 mm[Hg] 126 mm[Hg] N extGen ([facility]) Diastolic blood pressure 76 mm[Hg] 76 mm[Hg] [facility] ([facility]) Body mass index (BMI) [Ratio] 36.64 kg/m2 Overweight 36.64 kg/m2 [facility] ([facility]) Body height 167.64 cm 167.64 cm [facility] ([facility] Body weight 101.605 kg 101.605 kg [facility] ([facility]) Systolic blood pressure 118 mm[Hg] 118 mm[Hg] N extGen ([facility]) Diastolic blood pressure 76 mm[Hg] 76 mm[Hg] [facility] ([facility]) Body mass index (BMI) [Ratio] 36.15 kg/m2 Overweight 36.15 kg/m2 [facility] ([facility]) Body height 66 [in_i] 66 [in_i] MEDENT ([facility], [facility]) 5'6" Body mass index (BMI) [Ratio] 35.5 kg/m2 35.5 k g/m2 [facility]) Systolic blood pressure 134 mm[Hg] 134 mm[Hg] M EDENT ([facility], [facility]) Diastolic blood pressure 85 mm[Hg] 85 mm[Hg] MEDENT ([facility], [facility]) Heart rate 69 /min 69 /min [facility] ([facility], [facility]) Respiratory rate 12 /min 12 /min [facility] ( [facility], [facility]) Oxygen saturation in Arterial blood by Pulse oximetry 96 % 96 % [facility] ([facility], [facility]) Body temperature 97.7 [degF] 97.7 [[facility]F] [facility] Body weight 220.00 [lb_av] 220.00 [lb_av] MEDEN T ([facility], [facility]) Body height 167.64 cm 167.64 cm [facility] Body weight 101.605 kg 101.605 kg [facility] ([facility]) Systolic blood pressure 120 mm[Hg] 120 mm[Hg] N extGen ([facility]) Diastolic blood pressure 82 mm[Hg] 82 mm[Hg] [facility] ([facility]) Body mass index (BMI) [Ratio] 36.15 kg/m2 Overweight 36.15 kg/m2 [facility] ([facility]) Body height 167.64 cm 167.64 cm [facility] ([facility]) Body weight 101.605 kg 101.605 kg [facility] ([facility]) Systolic blood pressure 110 mm[Hg] 110 mm[Hg] N extGen ([facility]) Diastolic blood pressure 70 mm[Hg] 70 mm[Hg] [facility] ([facility]) Body mass index (BMI) [Ratio] 36.15 kg/m2 Overweight 36.15 kg/m2 [facility] ([facility]) Body height 167.64 cm 167.64 cm [facility] ([facility] Body weight 101.695 kg 101.695 kg [facility] ([facility]) Systolic blood pressure 120 mm[Hg] 120 mm[Hg] N extGen ([facility]) Diastolic blood pressure 78 mm[Hg] 78 mm[Hg] [facility] ([facility]) Body mass index (BMI) [Ratio] 36.19 kg/m2 Overweight 36.19 kg/m2 [facility] ([facility]) Body height 167.64 cm 167.64 cm [facility] ([facility] Body weight 102.965 kg 102.965 kg [facility] ([facility]) Systolic blood pressure 124 mm[Hg] 124 mm[Hg] N extGen ([facility]) Diastolic blood pressure 84 mm[Hg] 84 mm[Hg] [facility] ([facility]) Body mass index (BMI) [Ratio] 36.64 kg/m2 Overweight 36.64 kg/m2 [facility] ([facility]) Body height 167.64 cm 167.64 cm [facility] ([facility]) Body weight 103.147 kg 103.147 kg [facility] ([facility]) Systolic blood pressure 130 mm[Hg] 130 mm[Hg] N extGen ([facility]) Diastolic blood pressure 82 mm[Hg] 82 mm[Hg] [facility] ([facility]) Body mass index (BMI) [Ratio] 36.70 kg/m2 Overweight 36.70 kg/m2 [facility] ([facility]) Body height 167.64 cm 167.64 cm [facility] ([facility] Body weight 100.698 kg 100.698 kg [facility] ([facility]) Systolic blood pressure 118 mm[Hg] 118 mm[Hg] N extGen ([facility]) Diastolic blood pressure 76 mm[Hg] 76 mm[Hg] [facility] ([facility]) Body mass index (BMI) [Ratio] 35.83 kg/m2 Overweight 35.83 kg/m2 [facility] ([facility]) Body height 167.64 cm 167.64 cm [facility] ([facility] Body weight 101.605 kg 101.605 kg [facility] ([facility]) Systolic blood pressure 122 mm[Hg] 122 mm[Hg] N extGen ([facility]) Diastolic blood pressure 78 mm[Hg] 78 mm[Hg] [facility] ([facility]) Body mass index (BMI) [Ratio] 36.15 kg/m2 Overweight 36.15 kg/m2 [facility] ([facility]) Body height 167.64 cm 167.64 cm [facility] ([facility] Body weight 100.698 kg 100.698 kg [facility] ([facility]) Systolic blood pressure 118 mm[Hg] 118 mm[Hg] N extGen ([facility]) Diastolic blood pressure 74 mm[Hg] 74 mm[Hg] [facility] ([facility]) Body mass index (BMI) [Ratio] 35.83 kg/m2 Overweight 35.83 kg/m2 [facility] ([facility]) Body height 167.64 cm 167.64 cm [facility] ([facility] Body weight 100.698 kg 100.698 kg [facility] ([facility]) Systolic blood pressure 112 mm[Hg] 112 mm[Hg] N extGen ([facility]) Diastolic blood pressure 74 mm[Hg] 74 mm[Hg] [facility] ([facility]) Body mass index (BMI) [Ratio] 35.83 kg/m2 Overweight 35.83 kg/m2 [facility] ([facility]) Body height 167.64 cm 167.64 cm [facility] ([facility] [place] [facility]) Body weight 99.790 kg 99.790 kg [facility] ([facility] [place] [facility]) Systolic blood pressure 114 mm[Hg] 114 mm[Hg] N extGen ([facility]) Diastolic blood pressure 68 mm[Hg] 68 mm[Hg] [facility] ([facility]) Heart rate 68 /min 68 /min [facility] ([facility] [place] [facility] Body mass index (BMI) [Ratio] 35.51 kg/m2 Overweight 35.51 kg/m2 [facility] ([facility]) Body height 167.64 cm 167.64 cm [facility] ([facility] [place] [facility]) Body weight 103.419 kg 103.419 kg [facility] ([facility] [place] [facility]) Systolic blood pressure 122 mm[Hg] 122 mm[Hg] N extGen ([facility]) Diastolic blood pressure 80 mm[Hg] 80 mm[Hg] [facility] ([facility]) Body mass index (BMI) [Ratio] 36.80 kg/m2 Overweight 36.80 kg/m2 [facility] ([facility]) Body height 167.64 cm 167.64 cm [facility] ([facility] [place] [facility] Body weight 103.419 kg 103.419 kg [facility] ([facility] [place] [facility]) Systolic blood pressure 126 mm[Hg] 126 mm[Hg] N extGen ([facility]) Diastolic blood pressure 76 mm[Hg] 76 mm[Hg] [facility] ([facility]) Body mass index (BMI) [Ratio] 36.80 kg/m2 Overweight 36.80 kg/m2 [facility] ([facility]) Body height 167.64 cm 167.64 cm [facility] ([facility] [place] [facility] Body weight 101.333 kg 101.333 kg [facility] ([facility] [place] [facility]) Systolic blood pressure 132 mm[Hg] 132 mm[Hg] N extGen ([facility]) Diastolic blood pressure 78 mm[Hg] 78 mm[Hg] [facility] ([facility]) Body mass index (BMI) [Ratio] 36.06 kg/m2 Overweight 36.06 kg/m2 [facility] ([facility]) Body height 167.64 cm 167.64 cm [facility] ([facility] Body weight 101.605 kg 101.605 kg [facility] ([facility]) Systolic blood pressure 126 mm[Hg] 126 mm[Hg] N extGen ([facility]) Diastolic blood pressure 77 mm[Hg] 77 mm[Hg] [facility] ([facility]) Body mass index (BMI) [Ratio] 36.15 kg/m2 Overweight 36.15 kg/m2 [facility] ([facility]) Body height 167.64 cm 167.64 cm [facility] ([facility] Body weight 102.512 kg 102.512 kg [facility] ([facility]) Systolic blood pressure 118 mm[Hg] 118 mm[Hg] N extGen ([facility]) Diastolic blood pressure 74 mm[Hg] 74 mm[Hg] [facility] ([facility]) Body mass index (BMI) [Ratio] 36.48 kg/m2 Overweight 36.48 kg/m2 [facility] ([facility]) Body height 167.64 cm 167.64 cm [facility] ([facility] Body weight 102.512 kg 102.512 kg [facility] ([facility]) Systolic blood pressure 118 mm[Hg] 118 mm[Hg] N extGen ([facility]) Diastolic blood pressure 74 mm[Hg] 74 mm[Hg] [facility] ([facility]) Body mass index (BMI) [Ratio] 36.48 kg/m2 Overweight 36.48 kg/m2 [facility] ([facility]) Body height 167.64 cm 167.64 cm [facility] ([facility]) Body weight 102.512 kg 102.512 kg [facility] ([facility]) Body mass index (BMI) [Ratio] 36.48 kg/m2 Overweight 36.48 kg/m2 [facility] ([facility]) Body height 167.64 cm 167.64 cm [facility] ([facility]) Body weight 101.605 kg 101.605 kg [facility] ([facility]) Systolic blood pressure 120 mm[Hg] 120 mm[Hg] N extGen ([facility]) Diastolic blood pressure 78 mm[Hg] 78 mm[Hg] [facility] ([facility]) Body mass index (BMI) [Ratio] 36.15 kg/m2 Overweight 36.15 kg/m2 [facility] ([facility]) Diastolic blood pressure 78 mm[Hg] 78 mm[Hg] [facility] ([facility]) Body mass index (BMI) [Ratio] 36.32 kg/m2 Overweight 36.32 kg/m2 [facility] ([facility]) Body height 167.64 cm 167.64 cm [facility] ([facility]) Body weight 102.058 kg 102.058 kg [facility] ([facility]) Systolic blood pressure 110 mm[Hg] 110 mm[Hg] N extGen ([facility]) Systolic blood pressure 126 mm[Hg] 126 mm[Hg] M EDENT ([facility], [facility]) Diastolic blood pressure 87 mm[Hg] 87 mm[Hg] MEDENT ([facility], [facility]) Heart rate 91 /min 91 /min [facility], [facility]) Respiratory rate 14 /min 14 /min [facility] ( [facility], [facility]) Oxygen saturation in Arterial blood by Pulse oximetry 98 % 98 % [facility] ([facility], [facility]) Body temperature 98.6 [degF] 98.6 [degF] MEDENT ([facility], [facility]) Body weight 225.00 [lb_av] 225.00 [lb_av] MEDEN T ([facility], [facility]) Body height 66 [in_i] 66 [in_i] MEDENT ([facility]) 5'6" Body mass index (BMI) [Ratio] 36.3 kg/m2 36.3 k g/m2 [facility] ([facility]) Body height 167.64 cm 167.64 cm [facility]) Body weight 102.058 kg 102.058 kg [facility] ([facility]) Systolic blood pressure 118 mm[Hg] 118 mm[Hg] N extGen ([facility]) Diastolic blood pressure 78 mm[Hg] 78 mm[Hg] [facility] ([facility]) Body mass index (BMI) [Ratio] 36.32 kg/m2 Overweight 36.32 kg/m2 [facility] ([facility]) Body height 167.64 cm 167.64 cm [facility] ([facility]) Body weight 102.058 kg 102.058 kg [facility] ([facility]) Systolic blood pressure 122 mm[Hg] 122 mm[Hg] N extGen ([facility]) Diastolic blood pressure 82 mm[Hg] 82 mm[Hg] [facility] ([facility]) Body mass index (BMI) [Ratio] 36.32 kg/m2 Overweight 36.32 kg/m2 [facility] ([facility]) Body height 167.64 cm 167.64 cm [facility] ([facility] Body weight 102.421 kg 102.421 kg [facility] ([facility]) Systolic blood pressure 120 mm[Hg] 120 mm[Hg] N extGen ([facility]) Diastolic blood pressure 78 mm[Hg] 78 mm[Hg] [facility] ([facility]) Body mass index (BMI) [Ratio] 36.44 kg/m2 Overweight 36.44 kg/m2 [facility] ([facility]) Body height 167.64 cm 167.64 cm [facility] ([facility]) Body weight 102.512 kg 102.512 kg [facility] ([facility]) Systolic blood pressure 132 mm[Hg] 132 mm[Hg] N extGen ([facility]) Diastolic blood pressure 83 mm[Hg] 83 mm[Hg] [facility] ([facility]) Body mass index (BMI) [Ratio] 36.48 kg/m2 Overweight 36.48 kg/m2 [facility] ([facility]) Body height 167.64 cm 167.64 cm [facility] ([facility] [place] [facility]) Body weight 102.965 kg 102.965 kg [facility] ([facility] [place] [facility]) Systolic blood pressure 130 mm[Hg] 130 mm[Hg] N extGen ([facility]) Diastolic blood pressure 80 mm[Hg] 80 mm[Hg] [facility] ([facility]) Body mass index (BMI) [Ratio] 36.64 kg/m2 Overweight 36.64 kg/m2 [facility] ([facility]) Body height 167.64 cm 167.64 cm [facility] ([facility] [place] [facility]) Body weight 102.512 kg 102.512 kg [facility] ([facility] [place]) Systolic blood pressure 120 mm[Hg] 120 mm[Hg] N extGen ([facility]) Diastolic blood pressure 82 mm[Hg] 82 mm[Hg] [facility] ([facility]) Body mass index (BMI) [Ratio] 36.48 kg/m2 Overweight 36.48 kg/m2 [facility] ([facility]) Body height 66 [in_i] 66 [in_i] [facility] ([facility], ) 5'6" Body weight 225.00 [lb_av] 225.00 [lb_av] MEDEN T ([facility]) Body mass index (BMI) [Ratio] 36.3 kg/m2 36.3 k g/m2 [facility], ) Body weight 102.060 kg 102.060 kg [facility] ([facility], ) Body height 167.64 cm 167.64 cm [facility] Body weight 101.605 kg 101.605 kg [facility] ([facility]) Systolic blood pressure 118 mm[Hg] 118 mm[Hg] N extGen ([facility]) Diastolic blood pressure 80 mm[Hg] 80 mm[Hg] [facility] ([facility]) Body mass index (BMI) [Ratio] 36.15 kg/m2 Overweight 36.15 kg/m2 [facility] ([facility]) Body height 167.64 cm 167.64 cm [facility] ([facility] Body weight 102.512 kg 102.512 kg [facility] ([facility]) Systolic blood pressure 110 mm[Hg] 110 mm[Hg] N extGen ([facility]) Diastolic blood pressure 72 mm[Hg] 72 mm[Hg] [facility] ([facility]) Body mass index (BMI) [Ratio] 36.48 kg/m2 Overweight 36.48 kg/m2 [facility] ([facility]) Body mass index (BMI) [Ratio] 36.5 kg/m2 36.5 k g/m2 MEDENT ([facility], [facility]) Body weight 226.00 [lb_av] 226.00 [lb_av] MEDEN T ([facility], [facility]) Body height 66 [in_i] 66 [in_i] [facility] ([facility]) 5'6" Systolic blood pressure 126 mm[Hg] 126 mm[Hg] M EDENT ([facility], [facility]) Diastolic blood pressure 79 mm[Hg] 79 mm[Hg] [facility] ([facility]) Heart rate 75 /min 75 /min [facility] ([facility], [facility]) Respiratory rate 17 /min 17 /min [facility] ( [facility]) Oxygen saturation in Arterial blood by Pulse oximetry 98 % 98 % [facility] ([facility], [facility]) Body temperature 97.7 [degF] 97.7 [degF] [facility] ([facility]) Patient Treatment Plan of Care Planned Activity Planned Date Details Description Data Source (s) testosterone cypionate 200 mg/mL intramuscular oil 04/07/2021 12 :00:00 AM EDT [facility] ([facility]) testosterone cypionate 200 mg/mL intramuscular oil 03/31/2021 12 :00:00 AM EDT [facility] ([facility]) testosterone cypionate 200 mg/mL intramuscular oil 03/12/2021 12 :00:00 AM EDT [facility] ([facility]) testosterone cypionate 200 mg/mL intramuscular oil 02/25/2021 12 :00:00 AM EDT [facility] ([facility]) testosterone cypionate 200 mg/mL intramuscular oil 02/11/2021 12 :00:00 AM EDT [facility] ([facility]) testosterone cypionate 200 mg/mL intramuscular oil 01/14/2021 12 :00:00 AM EDT [facility] ([facility]) testosterone cypionate 200 mg/mL intramuscular oil 01/07/2021 12 :00:00 AM EDT [facility] ([facility]) testosterone cypionate 200 mg/mL intramuscular oil 12/17/2020 12 :00:00 AM EDT [facility] ([facility]) testosterone cypionate 200 mg/mL intramuscular oil 11/07/2020 12 :00:00 AM EDT [facility] ([facility]) testosterone cypionate 200 mg/mL intramuscular oil 10/17/2020 12 :00:00 AM EDT [facility] ([facility]) testosterone cypionate 200 mg/mL intramuscular oil 09/08/2020 12 :00:00 AM EST [facility] ([facility]) testosterone cypionate 200 mg/mL intramuscular oil 08/20/2020 12 :00:00 AM EST [facility] ([facility]) Poly Hub Needle 25 gauge x 1 1/2" 07/10/2020 12:00:00 AM EST [facility] ([facility]) BD Luer-Jaret Syringe 1 mL 20 gauge x 1" 07/10/2020 12:00:00 AM EST [facility] ([facility]) testosterone cypionate 200 mg/mL intramuscular oil 07/10/2020 12 :00:00 AM EST [facility] ([facility]) testosterone cypionate 200 mg/mL intramuscular oil 06/13/2020 12 :00:00 AM EST [facility] ([facility]) testosterone cypionate 200 mg/mL intramuscular oil 06/13/2020 12 :00:00 AM EST [facility] ([facility]) testosterone cypionate 200 mg/mL intramuscular oil 05/23/2020 12 :00:00 AM EST [facility] ([facility]) BD Luer-Jaret Syringe 1 mL 20 gauge x 1" 04/25/2020 12:00:00 AM EDT [facility] ([facility]) Poly Hub Needle 25 gauge x 1 1/2" 04/25/2020 12:00:00 AM EDT [facility] ([facility]) testosterone cypionate 200 mg/mL intramuscular oil 04/25/2020 12 :00:00 AM EDT [facility] ([facility]) BD Luer-Jaret Syringe 1 mL 20 gauge x 1" 04/25/2020 12:00:00 AM EDT [facility] [place] Poly Hub Needle 25 gauge x 1 1/2" 04/25/2020 12:00:00 AM EDT [facility] ([facility] [place]) testosterone cypionate 200 mg/mL intramuscular oil 04/25/2020 12 :00:00 AM EDT [facility] ([facility] [place]) Poly Hub Needle 25 gauge x 1 1/2" 02/29/2020 12:00:00 AM EDT [facility] ([facility] [place]) testosterone cypionate 200 mg/mL intramuscular oil 02/29/2020 12 :00:00 AM EDT [facility] ([facility] [place]) medroxyprogesterone acetate 150 MG/ML Injectable Suspe nsion 02/01/2020 12:00:00 AM EDT [facility] [place] testosterone cypionate 200 mg/mL intramuscular oil 01/21/2020 12 :00:00 AM EDT [facility] ([facility] [place]) testosterone cypionate 200 mg/mL intramuscular oil 12/21/2019 12 :00:00 AM EDT [facility] ([facility] [place]) medroxyprogesterone acetate 150 MG/ML Injectable Suspe nsion 11/13/2019 12:00:00 AM EDT [facility] [place] BD Luer-Jaret Syringe 1 mL 20 gauge x 1" 10/25/2019 12:00:00 AM EDT [facility] ([facility]) Poly Hub Needle 25 gauge x 1 1/2" 10/25/2019 12:00:00 AM EDT [facility] ([facility])
--- OUTSIDE RECORDS SUMMARY | 2021-04-22 19:39 | CCD ---
Author Author [facility] Organization [facility] Address Unknown Phone Unavailable Care Team Providers Care Expander Name Role Phone Daina Grewal Unavailable Unavailable [...] Unavailable Unavailable Morel, Cheryl Unavailable Unavailable Green UNISAW OPERATOR UNISAW OPERATOR, Henrietta Unavailable Unavailable Green UNISAW OPERATOR UNISAW OPERATOR, Henrietta Unavailable Unavailable Green UNISAW OPERATOR UNISAW OPERATOR, Henrietta Unavailable Unavailable Green UNISAW OPERATOR UNISAW OPERATOR, Henrietta Unavailable Unavailable Green UNISAW OPERATOR UNISAW OPERATOR, Henrietta Unavailable Unavailable Chavez, Grayson Berman MD [...] Unavailable Chavez, A Antonella REDMAN Unavailable Unavailable Hcavez, A Antonella REDMAN Unavailable Unavailable Chavez, A nAtonella REDMAN Unavailable Unavailable Chavez, A Antonella REDMAN [...] Antonella REDMAN Unavailable Unavailable Chavez, A Antonella REMDAN Unavailable Unavailable Chavez, A Antonella REDMAN Unavailable Unavailable Chavez, A Antonella REDMAN Unavailable Unavailable Hcavez, A Antonella REDMAN Unavailable Unavailable Chavez, A [...] MARY PA Unavailable Unavailable LIDYA, E CHRISTIANA UNISAW OPERATOR Unavailable Unavailable LIDYA, E CHRISTIANA UNISAW OPERATOR Unavailable Unavailable LIDYA, E CHRISTIANA UNISAW OPERATOR Unavailable Unavailable LIDYA, E CHRISTIANA UNISAW OPERATOR Unavailable Unavailable LIDYA, E CHRISTIANA UNISAW OPERATOR Unavailable Unavailable LIDYA, E CHRISTIANA UNISAW OPERATOR Unavailable Unavailable LIDYA, E CHRISTIANA UNISAW OPERATOR Unavailable Unavailable LIDYA, E CHRISTIANA UNISAW OPERATOR Unavailable Unavailable LIDYA, E CHRISTIANA UNISAW OPERATOR Unavailable Unavailable LIDYA, E CHRISTIANA UNISAW OPERATOR Unavailable Unavailable LIDYA, E CHRISTIANA UNISAW OPERATOR Unavailable Unavailable LIDYA, E CHRISTIANA UNISAW OPERATOR Unavailable Unavailable LIDYA, E CHRISTIANA UNISAW OPERATOR Unavailable Unavailable Pappas, Kylie UNISAW OPERATOR Unavailable Unavailable Pappas, Kylie UNISAW OPERATOR Unavailable Unavailable Pappas, Kylie UNISAW OPERATOR Unavailable Unavailable Pappas, Kylie UNISAW OPERATOR Unavailable Unavailable Pappas, Kylie UNISAW OPERATOR Unavailable Unavailable Pappas, Kylie UNISAW OPERATOR Unavailable Unavailable Pappas, Kylie UNISAW OPERATOR Unavailable Unavailable Pappas, Kylie UNISAW OPERATOR Unavailable Unavailable Pappas, Kylie UNISAW OPERATOR Unavailable Unavailable Pappas, Kylie UNISAW OPERATOR Unavailable Unavailable Pappas, Kylie UNISAW OPERATOR Unavailable Unavailable Pappas, Kylie UNISAW OPERATOR Unavailable Unavailable Pappas, Kylie UNISAW OPERATOR Unavailable Unavailable Vides, Patti Maci CARE PROFESSIONAL Unavailable Unavailable Vides, Patti Maci CARE PROFESSIONAL Unavailable Unavailable Vides, Patti Maci CARE PROFESSIONAL Unavailable Unavailable Vides, Patti Maci CARE PROFESSIONAL Unavailable Unavailable Vides, Patti Maci CARE PROFESSIONAL Unavailable Unavailable Vides, Patti Maci CARE PROFESSIONAL Unavailable Unavailable Vides, Patti Maci CARE PROFESSIONAL Unavailable Unavailable Vides, Patti Maci CARE PROFESSIONAL Unavailable Unavailable Vides, Patti Maci CARE PROFESSIONAL Unavailable Unavailable Vides, Patti Maci CARE PROFESSIONAL Unavailable Unavailable Vides, Patti Maci CARE PROFESSIONAL Unavailable Unavailable Vides, Patti Maci CARE PROFESSIONAL Unavailable Unavailable Vides, Patti Maci CARE PROFESSIONAL Unavailable Unavailable Vides, Patti Maci CARE PROFESSIONAL Unavailable Unavailable JESSICA A FLOR PA Unavailable Unavailable Grayson LOPEZ PA Unavailable Unavailable LETTNARCISA A FLOR PA Unavailable Unavailable LETTIERE, A [...] is protected by Article 27-F of the [facility] Public Health law. If you continue you may have access to information: Regarding HIV / AIDS; Provided by facilities licensed or operated by the [facility] Office of Mental Health; or Provided by the [facility] Office for People With Developmental Disabilities. If such information is present, then the following [facility] mandated warning applies: This information [...] law may result in a fine or penitentiary sentence or both. A general authorization for [...] Danielle morris 04/15/2021 04:45:00 PM EDT [facility] ([facility] Attender: Marie German 03/12 02:50:00 PM EDT [...] Identity Disorder [facility] ([facility]) Gender Identity Disorder Attender: Edwige German 01:20:00 PM EDT - 03/05/2021 01:20:00 PM EDT Gender Identity Disorder [facility] ([facility]) Gender Identity Disorder Attender: Henrietta Gaviria NP UNISAW OPERATOR DEWAYNE German 0 02/25/2021 11:20:00 AM EDT - 02/25/2021 11:20:00 AM EDT Gender Identity Disorder [facility] ([facility]) Gender Identity Disorder Attender: Cheryl Jimenez 02/11 02:20:00 PM EDT - 02/11/2021 02:20:00 PM EDT [facility] ([facility]) Attender: Antonella Jimenez 0 02/10/2021 11:31:00 AM EDT - 02/10/2021 11:31:00 AM EDT [facility] ([facility]) Attender: Edwige German 11:45:00 AM EDT [...] Kylie guillen 01/17/2021 01:20:00 PM EDT [facility] ([facility]) Attender: Henrietta German [...] entity Disorder [facility] ([facility]) Endocrine disorder, unspecified Gender Identity Disorder Attender: Edwige German 10:20:00 AM EDT - 12/24/2020 10:20:00 AM EDT Gender identity disorder, unspecified [facility] ([facility]) Gender identity disorder, unspecified Attender: Antonella German 03/2021 12:07:00 PM EDT - 12/17/2020 12:07:00 PM EDT [facility] ([facility]) Attender: Henrietta German 0 12/10/2020 04:50:00 PM EDT - 12/10/2020 04:50:00 PM EDT Gender Identity Disorder [facility] ([facility]) Gender Identity Disorder Attender: Henrietta German 0 12/05/2020 06:00:00 PM EDT - 12/05/2020 06:00:00 PM EDT Gender identity disorder, unspecified [facility] ([facility]) Gender identity disorder, unspecified Attender: Edwige German 10:20:00 AM EDT - 12/01/2020 10:20:00 AM EDT Endocrine disorder, unspecifiedGender Id entity Disorder [facility] ([facility]) Endocrine disorder, unspecified Gender Identity Disorder Attender: Antonella Jimenez 0 11/25/2020 01:09:00 PM EDT - 11/25/2020 01:09:00 PM EDT [facility] ([facility]) Attender: Edwige German 08:20:00 AM EDT - 11/21/2020 08:20:00 AM EDT Gender Identity Disorder [facility] ([facility]) Gender Identity Disorder Attender: Cheryl Jimenez 11/17 03:45:00 PM EDT - 11/17/2020 03:45:00 PM EDT [facility] ([facility]) Attender: Henrietta German 0 11/14/2020 08:20:00 AM EDT - 11/14/2020 08:20:00 AM EDT Endocrine disorder, unspecifiedGender Id entity Disorder [facility] ([facility]) Endocrine disorder, unspecified Gender Identity Disorder [...] er, unspecified [facility] ([facility]) Gender Identity Disorder Endocrine disorder, unspecified Attender: Marie German 10/09 03:20:00 PM EDT - 10/24/2020 03:20:00 PM EDT Gender Identity Disorder [facility] ([facility]) Gender Identity Disorder Attender: Edwige German 06/2021 12:53:00 PM EDT - 10/20/2020 12:53:00 PM EDT [facility] ([facility]) Attender: Edwige German 04/2021 08:20:00 AM EDT - 10/18/2020 08:20:00 AM EDT [facility] ([facility]) Attender: Henrietta Gaviria NP UNISAW OPERATOR DEWAYNE German 0 10/17/2020 03:20:00 PM EDT - 10/17/2020 03:20:00 PM EDT Gender identity disorder, unspecifiedEnd ocrine disorder, unspecified [facility] ([facility]) Gender identity disorder, unspecified Endocrine disorder, unspecified Attender: Antonella Jimenez 0 10/17/2020 12:28:00 PM EDT - 10/17/2020 12:28:00 PM EDT [facility] ([facility]) Attender: Edwige German 12/2020 01:30:00 PM EDT - 10/14/2020 01:30:00 PM EDT Gender identity disorder, unspecifiedOth er sex counselingHuman immunodeficiency virus [HIV] counseling [facility] ([facility]) Gender identity disorder, unspecified Other sex counseling Human immunodeficiency virus [HIV] couns [place] Attender: Henrietta Gaviria NP UNISAW OPERATOR DEWAYNE [facility] 0 10/10/2020 03:20:00 PM EDT - 10/10/2020 03:20:00 PM EDT Gender Identity Disorder [facility] ([facility]) Gender Identity Disorder Outpatient Attender: MARY Hermosillo ry 10/05/2020 12:10:00 PM EDT [facility] ([facility], [facility]) Attender: Marie German 09/09 03:20:00 PM EDT - 10/03/2020 03:20:00 PM EDT Gender Identity DisorderEndocrine disord er, unspecified [facility] ([facility]) Gender Identity Disorder Endocrine disorder, unspecified Attender: Marie German 09/08 02:50:00 PM EDT - 09/26/2020 02:50:00 PM EDT Endocrine disorder, unspecifiedGender Id entity Disorder [facility] ([facility]) Endocrine disorder, unspecified Gender Identity Disorder Attender: Marie German 09/08 02:20:00 PM EST - 09/19/2020 02:20:00 PM EST Endocrine disorder, unspecifiedGender Id entity Disorder [facility] ([facility]) Endocrine disorder, unspecified Gender Identity Disorder Attender: Marie German 11/2020 12:50:00 PM EST - 09/12/2020 12:50:00 PM EST Gender Identity DisorderEndocrine disord er, unspecified [facility] ([facility]) Gender Identity Disorder Endocrine disorder, unspecified Outpatient Attender: Jeanne olivasy 09/10/2020 08:35:00 AM EST [facility] ([facility] Attender: VENUS Jimenez 09/08/2020 11:19:00 AM EST - 09/08/2020 11:19:00 AM EST [facility] ([facility]) Attender: Henrietta Gaviria UNISAW OPERATOR UNISAW OPERATOR GATOALEXANDRA Ramanwn 0 09/08/2020 09:08:00 AM EST - 09/08/2020 09:08:00 AM EST [facility] ([facility]) Attender: Henrietta Gaviria NP UNISAW OPERATOR GATOALEXANDRA [facility] 0 09/05/2020 01:50:00 PM EST - 09/05/2020 01:50:00 PM EST Gender Identity DisorderEndocrine disord er, unspecified [facility] ([facility]) Gender Identity Disorder Endocrine disorder, unspecified Outpatient Attender: FLOR morris 08/31/2020 01:50:00 PM EST [facility] ([facility], [facility]) Attender: Henrietta Gaviria NP UNISAW OPERATOR DEWAYNE Ramanwn 0 08/29/2020 01:50:00 PM EST - 08/29/2020 01:50:00 PM EST Gender identity disorder, unspecified [facility] ([facility]) Gender identity disorder, unspecified Attender: Henrietta Gaviria NP UNISAW OPERATOR GATOALEXANDRA LeyvaObion 0 08/25/2020 03:10:00 PM EST - 08/25/2020 03:10:00 PM EST Gender identity disorder, unspecified [facility] ([facility]) Gender identity disorder, unspecified Attender: Marie Dunn 08/25 01:46:00 PM EST - 08/25/2020 01:46:00 PM EST [facility] ([facility]) Attender: VENUS Jimenez 08/20/2020 08:03:00 AM EST - 08/20/2020 08:03:00 AM EST [facility] ([facility]) Attender: Edwige German 03/2021 03:10:00 PM EST - 08/19/2020 03:10:00 PM EST Gender Identity DisorderEndocrine disord er, unspecified [facility] ([facility]) Gender Identity Disorder Endocrine disorder, unspecified Attender: Edwige German 01:50:00 PM EST - 08/08/2020 01:50:00 PM EST Gender identity disorder, unspecified [facility] ([facility]) Gender identity disorder, unspecified Attender: Henrietta German 0 08/01/2020 02:30:00 PM EST - 08/01/2020 02:30:00 PM EST Gender Identity DisorderEndocrine disord er, unspecified [facility] ([facility]) Gender Identity Disorder Endocrine disorder, unspecified Attender: Marie German 07/11 02:25:00 PM EST - 07/25/2020 02:25:00 PM EST Endocrine disorder, unspecifiedGender Id entity Disorder [facility] ([facility]) Endocrine disorder, unspecified Gender Identity Disorder Attender: Marie German 02/2021 02:35:00 PM EST - 07/18/2020 02:35:00 PM EST Gender Identity DisorderEndocrine disord er, unspecified [facility] ([facility]) Gender Identity Disorder Endocrine disorder, unspecified Attender: Henrietta German 1 09:55:00 AM EST - 07/10/2020 09:55:00 AM EST Gender Identity DisorderEndocrine disord er, unspecified [facility] ([facility]) Gender Identity Disorder Endocrine disorder, unspecified Attender: Marie German 06/11 10:55:00 AM EST - 07/02/2020 10:55:00 AM EST Gender identity disorder, unspecifiedEnd ocrine disorder, unspecified [facility] ([facility]) Gender identity disorder, unspecified Endocrine disorder, unspecified Attender: Henrietta German 1 08/28/2019 11:20:00 AM EST - 06/27/2020 11:20:00 AM EST Gender Identity DisorderEndocrine disord er, unspecified [facility] ([facility]) Gender Identity Disorder Endocrine disorder, unspecified Attender: CHRISTIANA Jimenez 05:07:00 PM EST - 06/23/2020 05:07:00 PM EST [facility] ([facility]) Attender: Marie German 06/10 10:50:00 AM EST - 06/20/2020 10:50:00 AM EST Gender Identity DisorderEndocrine disord er, unspecified [facility] ([facility]) Gender Identity Disorder Endocrine disorder, unspecified Attender: Marie German 10/2019 10:50:00 AM EST - 06/13/2020 10:50:00 AM EST Gender Identity DisorderEndocrine disord er, unspecified [facility] ([facility]) Gender Identity Disorder Endocrine disorder, unspecified Attender: Marie German 05/12 10:50:00 AM EST - 06/04/2020 10:50:00 AM EST Gender Identity DisorderEndocrine disord er, unspecified [facility] ([facility]) Gender Identity Disorder Endocrine disorder, unspecified Attender: Marie German 05/12 11:25:00 AM EST - 05/30/2020 11:25:00 AM EST Gender Identity DisorderEndocrine disord er, unspecified [facility] ([facility]) Gender Identity Disorder Endocrine disorder, unspecified Attender: VENUS BUCHANAN [facility] 1 07/26/2019 09:50:00 AM EST - 05/26/2020 09:50:00 AM EST Gender Identity DisorderEndocrine disord er, unspecified [facility] ([facility]) Gender Identity Disorder Endocrine disorder, unspecified Attender: Cheryl BUCHANAN [facility] 020 09:45:00 AM EST - 05/23/2020 09:45:00 AM EST Gender Identity DisorderEndocrine disord er, unspecified [facility] ([facility]) Gender Identity Disorder Endocrine disorder, unspecified Attender: Antonella Jimenez 1 07/19/2019 11:09:00 AM EST - 05/19/2020 11:09:00 AM EST [facility] ([facility]) Attender: Henrietta German 1 07/16/2019 09:50:00 AM EST - [...] [place] Attender: Edwige German 09:22:00 AM EDT - 05/05/2020 09:22:00 AM EDT [facility] ([facility]) Attender: Maci German 05/02/2020 12:15:00 PM EDT - 05/02/2020 12:15:00 PM EDT Endocrine disorder, unspecified [facility] ([facility]) Endocrine disorder, unspecified Attender: Edwige German 12:44:00 PM EDT - 05/01/2020 12:44:00 PM EDT [facility] ([facility]) Outpatient Attender: Kylie guillen 04/26/2020 11:25:00 AM EDT [facility] ([facility], [facility]) Attender: VENUS German 1 12:50:00 PM EDT - 04/25/2020 12:50:00 PM EDT Endocrine disorder, unspecifiedGender Id entity Disorder [facility] ([facility]) Endocrine disorder, unspecified Gender Identity Disorder Attender: VENUS German 1 12:50:00 PM EDT - 04/18/2020 12:50:00 PM EDT Gender Identity Disorder [facility] ([facility]) Gender Identity Disorder Attender: Antonella Jimenez 1 11:15:00 AM EDT - 04/18/2020 11:15:00 AM EDT [facility] ([facility]) Attender: VENUS Hernandez 03:00:00 PM EDT - 04/15/2020 03:00:00 PM EDT Inappropriate diet and eating habitsObes ity, unspecifiedGender identity disorder, unspecified [facility] ([facility]) Inappropriate diet and eating habits Obesity, unspecified Gender identity disorder, unspecified Attender: Maci GARNICA PPCAALEXANDRA [facility] 04/11/2020 08:10:00 AM EDT - 04/11/2020 08:10:00 AM EDT Gender identity disorder, unspecified [facility] ([facility]) Gender identity disorder, unspecified Attender: VENUS HOSKINSALEXANDRA LeyvaObion 0 04/04/2020 01:20:00 PM EDT - 04/04/2020 01:20:00 PM EDT Endocrine disorder, unspecifiedGender Id entity Disorder [facility] ([facility]) Endocrine disorder, unspecified Gender Identity Disorder Attender: VENUS BUCHANAN [facility] 0 03/28/2020 10:20:00 AM EDT - 03/28/2020 10:20:00 AM EDT Gender identity disorder, unspecified [facility] ([facility]) Gender identity disorder, unspecified Attender: Maci BUCHANAN [facility] 03/21/2020 01:50:00 PM EDT - 03/21/2020 01:50:00 PM EDT Gender Identity Disorder [facility] ([facility]) Gender Identity Disorder Attender: CHRISTIANA HOSKINSALEXANDRA LeyvaObion 03/14 12:50:00 PM EDT - 03/14/2020 12:50:00 PM EDT Gender Identity DisorderEndocrine disord er, unspecified [facility] ([facility]) Gender Identity Disorder Endocrine disorder, unspecified Attender: CHRISTIANA LIDYA HOSKINSALEXANDRA LeyvaObion 03/07 01:15:00 PM EDT - 03/07/2020 01:15:00 PM EDT Gender identity disorder, unspecified [facility] ([facility]) Gender identity disorder, unspecified Outpatient Attender: Kylie guillen 03/04/2020 04:45:00 PM EDT [facility] ([facility], [facility]) Attender: Marie BUCHANAN [facility] 02/09 12:50:00 PM EDT - 02/29/2020 12:50:00 PM EDT Gender Identity DisorderEndocrine disord er, unspecified [facility] ([facility]) Gender Identity Disorder Endocrine disorder, unspecified Attender: CHRISTIANA BOSE NP, PPCAALEXANDRA [facility] 02/21 01:50:00 PM EDT - 02/22/2020 01:50:00 PM EDT Endocrine disorder, unspecifiedGender Id entity Disorder [facility] ([facility]) Endocrine disorder, unspecified Gender Identity Disorder Medications Medication Brand Name Start Date Product Form Dose Route Admi nistrative Instructions Pharmacy Instructions Status Indications Reaction Description Data Source(s) testosterone cypionate 200 mg/mL intramuscular oil testoster one cypionate 04/07/2021 12:00:00 AM EDT active Use for admin of external Rx. See Med Module for details. [facility] ([facility]) testosterone cypionate 200 mg/mL intramuscular oil testoster one cypionate 03/31/2021 12:00:00 AM EDT active Use for admin of external Rx. See Med Module for details. [facility] ([facility]) testosterone cypionate 200 mg/mL intramuscular oil testoster one cypionate 03/12/2021 12:00:00 AM EDT completed Inject 0.45 mL IM every week. Code Marysol Ramires ([facility]) 0.45 mL weekly Code F testosterone cypionate 200 mg/mL intramuscular oil testoster one cypionate 02/25/2021 12:00:00 AM EDT active Use for admin of external Rx. See Med Module for details. [facility] ([facility]) testosterone cypionate 200 mg/mL intramuscular oil testoster one cypionate 02/11/2021 12:00:00 AM EDT active Inject 0.45 mL IM every week. Code F. Ike ([facility]) MD 0.45 mL weekly Code F cefdinir 300 MG Oral Capsule Cefdinir 01/17/2021 12:00:00 AM EDT ORAL completed [facility] ([facility]) testosterone cypionate 200 mg/mL intramuscular oil testoster one cypionate 01/14/2021 12:00:00 AM EDT completed Inject 0.45 mL IM every week. Code F. Ike ([facility]) MDD 0.45 mL weekly Code F testosterone cypionate 200 mg/mL intramuscular oil testoster one cypionate 01/07/2021 12:00:00 AM EDT completed Use for admin of external Rx. See Med Module for details. [facility] ([facility]) testosterone cypionate 200 mg/mL intramuscular oil testoster one cypionate 12/17/2020 12:00:00 AM EDT completed Inject 0.45 mL IM every week. Code F. Ike ([facility]) MDD 0.45 mL weekly Code F testosterone cypionate 200 mg/mL intramuscular oil testoster one cypionate 11/07/2020 12:00:00 AM EDT completed Inject 0.45 mL IM every week. Code F. Ike ([facility]) MDD 0.45 mL weekly Code F testosterone cypionate 200 mg/mL intramuscular oil testoster one cypionate 10/17/2020 12:00:00 AM EDT completed Inject 0.45 mL IM every week. Code F. Ike ([facility]) MDD 0.45 mL weekly Code F Prednisone 20 MG Oral Tablet Prednisone 10/05/2020 12:00:00 AM EDT ORAL completed [facility] ([facility]) Magic Mouth Wash 10/05/2020 12:00:00 AM EDT c ompleted [facility] ([facility]) testosterone cypionate 200 mg/mL intramuscular oil testoster one cypionate 09/08/2020 12:00:00 AM EST active Inject 0.45 mL IM every week. Code F. [facility] ([facility]) MDD 0.45 mL weekly Code F Amoxicillin 875 MG Oral Tablet Amoxicillin 08/31/2020 12:00:00 AM EST completed [facility] ([facility]) testosterone cypionate 200 mg/mL intramuscular oil testoster one cypionate 08/20/2020 12:00:00 AM EST completed Inject 0.45 mL IM every week. Code F. [facility] ([facility]) MDD 0.45 mL weekly Code F Poly Hub Needle 25 gauge x 1 1/2" needles, disposable 2019 12:00:00 AM EST active For weekly IM inj ection [facility] ([facility]) BD Luer-Jaret Syringe 1 mL 20 gauge x 1" syringe with needle, 1 mL 07/10/2020 12:00:00 AM EST active For draw ing up oil weekly [facility] ([facility]) testosterone cypionate 200 mg/mL intramuscular oil testoster one cypionate 07/10/2020 12:00:00 AM EST completed Inject 0.45 mL IM every week. Code F. [facility] ([facility]) MDD 0.45 mL weekly testosterone cypionate 200 mg/mL intramuscular oil testoster one cypionate 06/13/2020 12:00:00 AM EST completed Inject 0.45 mL IM every week. Code F. [facility] ([facility]) Medication administered onsite testosterone cypionate 200 mg/mL intramuscular oil testoster one cypionate 06/13/2020 12:00:00 AM EST completed Inject 0.45 mL IM every week. Code F. [facility] ([facility]) testosterone cypionate 200 mg/mL intramuscular oil testoster one cypionate 05/23/2020 12:00:00 AM EST completed Inject 0.45 mL IM every week. Code F. [facility] ([facility]) Phenazopyridine hydrochloride 200 MG Delayed Release O ral Tablet Phenazopyridine HCL 04/26/2020 12:00:00 AM EDT ORAL completed [facility] ([facility]) NITROFURANTOIN, MACROCRYSTALS 25 MG / Ni trofurantoin, Monohydrate 75 MG Oral Capsule Nitrofurantoin Monohyd Macro 04/26/2020 12:00:00 AM EDT ORAL completed [facility] ([facility]) Ondansetron 4 MG Disintegrating Oral Tablet Ondansetron 04/26/2020 12:00:00 AM EDT completed [facility] ([facility]) Poly Hub Needle 25 gauge x 1 1/2" needles, disposable 2019 12:00:00 AM EDT completed For weekly IM injection [facility] ([facility]) Medication administered onsite BD Luer-Jaret Syringe 1 mL 20 gauge x 1" syringe with needle, 1 mL 04/25/2020 12:00:00 AM EDT completed For d rawing up oil weekly [facility] ([facility]) Medication administered onsite BD Luer-Jaret Syringe 1 mL 20 gauge x 1" syringe with needle, 1 mL 04/25/2020 12:00:00 AM EDT completed For d rawing up oil weekly [facility] ([facility]) Poly Hub Needle 25 gauge x 1 1/2" needles, disposable 2019 12:00:00 AM EDT completed For weekly IM injection [facility] ([facility]) testosterone cypionate 200 mg/mL intramuscular oil testoster one cypionate 04/25/2020 12:00:00 AM EDT completed Inject 0.45 mL IM every week. Code F. [facility] ([facility]) testosterone cypionate 200 mg/mL intramuscular oil testoster one cypionate 04/25/2020 12:00:00 AM EDT completed Inject 0.45 mL IM every week. Code F. [facility] ([facility]) Medication administered onsite Amoxicillin 875 MG / Clavulanate 125 MG Oral Tablet Am oxicillin/Clavulanate Potassium 03/04/2020 12:00:00 AM EDT ORAL completed [facility] ([facility]) testosterone cypionate 200 mg/mL intramuscular oil testoster one cypionate 02/29/2020 12:00:00 AM EDT completed Inject 0.45 mL IM every week. Code F. [facility] ([facility]) Poly Hub Needle 25 gauge x 1 1/2" needles, disposable 2019 12:00:00 AM EDT completed For weekly IM injection [facility] ([facility]) medroxyprogesterone acetate 150 MG/ML In jectable Suspension medroxyprogesterone 150 mg/mL intramuscular suspension medroxyprogesterone 150 mg/mL intramuscu lar suspension 02/01/2020 12:00:00 AM EDT complet ed IM every 10-13 weeks [facility] ([facility]) testosterone cypionate 200 mg/mL intramuscular oil testoster one cypionate 01/21/2020 12:00:00 AM EDT active Inject 0.45 mL IM every week. Code F. [facility] ([facility]) testosterone cypionate 200 mg/mL intramuscular oil testoster one cypionate 12/21/2019 12:00:00 AM EDT active Inject 0.45 mL IM every week. Code F. [facility] ([facility]) medroxyprogesterone acetate 150 MG/ML In jectable Suspension medroxyprogesterone 150 mg/mL intramuscular suspension medroxyprogesterone 150 mg/mL intramuscu lar suspension 11/13/2019 12:00:00 AM EDT complet ed IM every 10-13 weeks [facility] ([facility]) Poly Hub Needle 25 gauge x 1 1/2" needles, disposable 2019 12:00:00 AM EDT active For weekly IM inj ection [facility] ([facility]) BD Luer-Jaret Syringe 1 mL 20 gauge x 1" syringe with needle, 1 mL 10/25/2019 12:00:00 AM EDT completed For d rawing up oil weekly [facility] ([facility]) Insurance Providers Payer name Policy type / Coverage type Policy ID Covered alliance party ID Covered alliance party's relationship to gomez Policy Gomez Plan Information Managed Care - Community Plan [facility] P [id number] S [id number] Medicaid S [id number] S [id number] [facility] [id number] self [facility] [id number] self [facility] [id number] SP [id number] [facility] Community Plan Health Maintenance Organization (HMO) [id number] Self [place] PHY UNAVAILABLE SP UNAVAILABLE [facility] [id number] 1 [id number] [facility] COMMUNITY PLAN [facility] [id number] SP [id number] [facility] [id number] SP [id number] [facility] [id number] self [facility] XIX -O [id number] 18 [id number] Problems, Conditions, and Diagnoses No Information Surgeries/Procedures Procedure Description Date Indications Data Source(s) OFFICE OUTPATIENT VISIT 15 MINUTES 04/15/2021 12:00:00 AM EDT [facility] ([facility]) CVR Med.Svc. Height/Weight 04/07/2021 12 :00:00 AM EDT - 04/07/2021 12:00:00 AM EDT [facility] ([facility]) CVR Blood Pressure 04/07/2021 12:00:00 AM EDT - 2020 12:00:00 AM EDT [facility] ([facility]) Est TG Lab/Inj/MA Lcac Radar Operator/Navigator Only OV 2020 12:00:00 AM EDT - 04/07/2021 12:00:00 AM EDT [facility] ([facility]) IM INJECTION 04/07/2021 12:00:00 AM EDT - 04/07/2021 1 2:00:00 AM EDT [facility] ([facility]) Testosterone Cypionate 1mg PT BROUGHT 12:00:00 AM EDT - 04/07/2021 12:00:00 AM EDT [facility] ([facility]) CVR Cafe Attendant.Svc. Other 03/24/2021 12:00:00 AM EDT - 2020 12:00:00 AM EDT [facility] ([facility]) CVR Cafe Attendant.Svc. Contraceptive 03/24/2021 12 :00:00 AM EDT - 03/24/2021 12:00:00 AM EDT [facility] ([facility]) CVR Med.Svc. Height/Weight 03/24/2021 12 :00:00 AM EDT - 03/24/2021 12:00:00 AM EDT [facility] ([facility]) CVR Blood Pressure 03/24/2021 12:00:00 AM EDT - 2020 12:00:00 AM EDT [facility] ([facility]) Injection Or Lab Only Visit Est 03/24/20 12:00:00 AM EDT - 03/24/2021 12:00:00 AM EDT [facility] ([facility]) NGHN Default 03/24/2021 12:00:00 AM EDT - 03/24/2021 1 2:00:00 AM EDT [facility] ([facility]) NGHN Default 03/24/2021 12:00:00 AM EDT - 03/24/2021 1 2:00:00 AM EDT [facility] ([facility]) CVR Cafe Attendant.Svc. Other 03/17/2021 12:00:00 AM EDT - 2020 12:00:00 AM EDT [facility] ([facility]) CVR Med.Svc. Height/Weight 03/17/2021 12 :00:00 AM EDT - 03/17/2021 12:00:00 AM EDT [facility] ([facility]) CVR Blood Pressure 03/17/2021 12:00:00 AM EDT - 2020 12:00:00 AM EDT [facility] ([facility]) IM INJECTION 03/17/2021 12:00:00 AM EDT - 03/17/2021 1 2:00:00 AM EDT [facility] ([facility]) Testosterone Cypionate 1mg PT BROUGHT 12:00:00 AM EDT - 03/17/2021 12:00:00 AM EDT [facility] ([facility]) CVR Cafe Attendant.Svc. STI / H 02/04/2021 12:00:00 AM EDT - 02/04/2021 12:00:00 AM EDT [facility] ([facility]) CVR Cafe Attendant.Svc. Other 02/04/2021 12:00:00 AM EDT - 2020 12:00:00 AM EDT [facility] ([facility]) CVR Cafe Attendant.Svc. Contraceptive 02/04/2021 12 :00:00 AM EDT - 02/04/2021 12:00:00 AM EDT [facility] ([facility]) CVR Med.Svc. Height/Weight 02/04/2021 12 :00:00 AM EDT - 02/04/2021 12:00:00 AM EDT [facility] ([facility]) CVR Blood Pressure 02/04/2021 12:00:00 AM EDT - 2020 12:00:00 AM EDT [facility] ([facility]) Est TG Lab/Inj/MA Lcac Radar Operator/Navigator Only OV 2020 12:00:00 AM EDT - 02/04/2021 12:00:00 AM EDT [facility] ([facility]) Testosterone Cypionate 1mg PT BROUGHT 12:00:00 AM EDT - 02/04/2021 12:00:00 AM EDT [facility] ([facility]) CVR Cafe Attendant.Svc. STI / H 01/28/2021 12:00:00 AM EDT - 01/28/2021 12:00:00 AM EDT [facility] ([facility]) CVR Cafe Attendant.Svc. Other 01/28/2021 12:00:00 AM EDT - 2020 12:00:00 AM EDT [facility] ([facility]) CVR Cafe Attendant.Svc. Contraceptive 01/28/2021 12 :00:00 AM EDT - 01/28/2021 12:00:00 AM EDT [facility] ([facility]) CVR Med.Svc. Height/Weight 01/28/2021 12 :00:00 AM EDT - 01/28/2021 12:00:00 AM EDT [facility] ([facility]) CVR Blood Pressure 01/28/2021 12:00:00 AM EDT - 2020 12:00:00 AM EDT [facility] ([facility]) NURSE ONLY INJ. RN/AIRCRAFT MAINTENANCE DIRECTOR Only 01/28/2021 1 2:00:00 AM EDT - 01/28/2021 12:00:00 AM EDT [facility] ([facility]) Testosterone Cypionate 1mg PT BROUGHT 12:00:00 AM EDT - 01/28/2021 12:00:00 AM EDT [facility] ([facility]) CVR Cafe Attendant.Svc. STI / H 01/21/2021 12:00:00 AM EDT - 01/21/2021 12:00:00 AM EDT [facility] ([facility]) CVR Cafe Attendant.Svc. Other 01/21/2021 12:00:00 AM EDT - 2020 12:00:00 AM EDT [facility] ([facility]) CVR Cafe Attendant.Svc. Options 12:00:00 AM EDT - 01/21/2021 12:00:00 AM EDT [facility] ([facility]) CVR Cafe Attendant.Svc. Nutrition 01/21/2021 12:00: 00 AM EDT - 01/21/2021 12:00:00 AM EDT [facility] ([facility]) CVR Cafe Attendant.Svc. Contraceptive 01/21/2021 12 :00:00 AM EDT - 01/21/2021 12:00:00 AM EDT [facility] ([facility]) CVR Med.Svc. Thyroid Palp. 01/21/2021 12 :00:00 AM EDT - 01/21/2021 12:00:00 AM EDT [facility] ([facility]) CVR Med.Svc. Height/Weight 01/21/2021 12 :00:00 AM EDT - 01/21/2021 12:00:00 AM EDT [facility] ([facility]) CVR Blood Pressure 01/21/2021 12:00:00 AM EDT - 2020 12:00:00 AM EDT [facility] ([facility]) CVR Med.Svc. 2-10 Female Full Exam Panel 01/21/2021 12:00:00 AM EDT - 01/21/2021 12:00:00 AM EDT [facility] ([facility]) Injection Or Lab Only Visit Est 01/22/20 21 12:00:00 AM EDT - 01/21/2021 12:00:00 AM EDT [facility] ([facility]) NGHN Default 01/21/2021 12:00:00 AM EDT - 01/21/2021 1 2:00:00 AM EDT [facility] ([facility]) OFFICE OUTPATIENT VISIT 15 MINUTES 01/17/2021 12:00:00 AM EDT [facility] ([facility]) CVR Cafe Attendant.Svc. Other 01/14/2021 12:00:00 AM EDT - 2020 12:00:00 AM EDT [facility] ([facility]) CVR Med.Svc. Height/Weight 01/14/2021 12 :00:00 AM EDT - 01/14/2021 12:00:00 AM EDT [facility] ([facility]) CVR Blood Pressure 01/14/2021 12:00:00 AM EDT - 2020 12:00:00 AM EDT [facility] ([facility]) Est TG Lab/Inj/MA Lcac Radar Operator/Navigator Only OV 2020 12:00:00 AM EDT - 01/14/2021 12:00:00 AM EDT [facility] ([facility]) IM INJECTION 01/14/2021 12:00:00 AM EDT - 01/14/2021 1 2:00:00 AM EDT [facility] ([facility]) Testosterone Cypionate 1mg PT BROUGHT 12:00:00 AM EDT - 01/14/2021 12:00:00 AM EDT [facility] ([facility]) CVR Cafe Attendant.Svc. Other 01/07/2021 12:00:00 AM EDT - 2020 12:00:00 AM EDT [facility] ([facility]) CVR Med.Svc. Height/Weight 01/07/2021 12 :00:00 AM EDT - 01/07/2021 12:00:00 AM EDT [facility] ([facility]) CVR Cafe Attendant.Svc. Contraceptive 01/07/2021 12 :00:00 AM EDT - 01/07/2021 12:00:00 AM EDT [facility] ([facility]) CVR Blood Pressure 01/07/2021 12:00:00 AM EDT - 2020 12:00:00 AM EDT [facility] ([facility]) EST PT TG NURSE MINIMAL 01/07/2021 12:00 :00 AM EDT - 01/07/2021 12:00:00 AM EDT [facility] ([facility]) CVR Cafe Attendant.Svc. STI / H 01/07/2021 12:00:00 AM EDT - 01/07/2021 12:00:00 AM EDT [facility] ([facility]) CVR Cafe Attendant.Svc. STI / H 12/31/2020 12:00:00 AM EDT - 12/31/2020 12:00:00 AM EDT [facility] ([facility]) CVR Cafe Attendant.Svc. Contraceptive 12/31/2020 12 :00:00 AM EDT - 12/31/2020 12:00:00 AM EDT [facility] ([facility]) CVR Med.Svc. Height/Weight 12/31/2020 12 :00:00 AM EDT - 12/31/2020 12:00:00 AM EDT [facility] ([facility]) CVR Blood Pressure 12/31/2020 12:00:00 AM EDT - 2020 12:00:00 AM EDT [facility] ([facility]) OFFICE/OUTPATIENT VISIT, EST RN/AIRCRAFT MAINTENANCE DIRECTOR Only 12/31/2020 12:00:00 AM EDT - 12/31/2020 12:00:00 AM EDT [facility] ([facility]) Injection Or Lab Only Visit Est 01/01/20 12:00:00 AM EDT - 12/31/2020 12:00:00 AM EDT [facility] ([facility]) CVR Cafe Attendant.Svc. STI / H 12/24/2020 12:00:00 AM EDT - 12/24/2020 12:00:00 AM EDT [facility] ([facility]) CVR Cafe Attendant.Svc. Contraceptive 12/24/2020 12 :00:00 AM EDT - [...] ([facility]) CVR Cafe Attendant.Svc. Other 12/05/2020 12:00:00 AM EDT - 2020 12:00:00 AM EDT [facility] ([facility]) CVR Med.Svc. Height/Weight 12/05/2020 12 :00:00 AM EDT - 12/05/2020 12:00:00 AM EDT [facility] ([facility]) CVR Blood Pressure 12/05/2020 12:00:00 AM EDT - 2020 12:00:00 AM EDT [facility] ([facility]) OFFICE/OUTPATIENT VISIT, EST RN/AIRCRAFT MAINTENANCE DIRECTOR Only 12/05/2020 12:00:00 AM EDT - 12/05/2020 12:00:00 AM EDT [facility] ([facility]) OFFICE/OUTPATIENT VISIT, MILDRED RN/AIRCRAFT MAINTENANCE DIRECTOR Only 12/01/2020 12:00:00 AM EDT - 12/01/2020 12:00:00 AM EDT [facility] ([facility]) Injection Or Lab Only Visit Est 12/02/19 12:00:00 AM EDT - 12/01/2020 12:00:00 AM EDT [facility] ([facility]) CVR Cafe Attendant.Svc. STI / H 11/21/2020 12:00:00 AM EDT - 11/21/2020 12:00:00 AM EDT [facility] ([facility]) CVR Cafe Attendant.Svc. Other 11/21/2020 12:00:00 AM EDT - 2020 12:00:00 AM EDT [facility] ([facility]) CVR Cafe Attendant.Svc. Contraceptive 11/21/2020 12 :00:00 AM EDT - 11/21/2020 12:00:00 AM EDT [facility] ([facility]) CVR Med.Svc. Height/Weight 11/21/2020 12 :00:00 AM EDT - 11/21/2020 12:00:00 AM EDT [facility] ([facility]) CVR Blood Pressure 11/21/2020 12:00:00 AM EDT - 2020 12:00:00 AM EDT [facility] ([facility]) OFFICE/OUTPATIENT VISIT, MILDRED RN/AIRCRAFT MAINTENANCE DIRECTOR Only 11/21/2020 12:00:00 AM EDT - 11/21/2020 12:00:00 AM EDT [facility] ([facility]) CVR Cafe Attendant.Svc. STI / H 11/14/2020 12:00:00 AM EDT - 11/14/2020 12:00:00 AM EDT [facility] ([facility]) CVR Cafe Attendant.Svc. Contraceptive 11/14/2020 12 :00:00 AM EDT - 11/14/2020 12:00:00 AM EDT [facility] ([facility]) CVR Med.Svc. Height/Weight 11/14/2020 12 :00:00 AM EDT - 11/14/2020 12:00:00 AM EDT [facility] ([facility]) CVR Blood Pressure 11/14/2020 12:00:00 AM EDT - 2020 12:00:00 AM EDT [facility] ([facility]) OFFICE/OUTPATIENT VISIT, EST RN/AIRCRAFT MAINTENANCE DIRECTOR Only 11/14/2020 12:00:00 AM EDT - 11/14/2020 12:00:00 AM EDT [facility] ([facility]) CVR Cafe Attendant.Svc. Contraceptive 11/07/2020 12 :00:00 AM EDT - 11/07/2020 12:00:00 AM EDT [facility] ([facility]) CVR Med.Svc. Height/Weight 11/07/2020 12 :00:00 AM EDT - 11/07/2020 12:00:00 AM EDT [facility] ([facility]) CVR Blood Pressure 11/07/2020 12:00:00 AM EDT - 2020 12:00:00 AM EDT [facility] ([facility]) OFFICE/OUTPATIENT VISIT, EST RN/AIRCRAFT MAINTENANCE DIRECTOR Only 11/07/2020 12:00:00 AM EDT - 11/07/2020 12:00:00 AM EDT [facility] ([facility]) Injection Or Lab Only Visit Est 11/08/19 12:00:00 AM EDT - 11/07/2020 12:00:00 AM EDT [facility] ([facility]) CVR Cafe Attendant.Svc. Contraceptive 10/31/2020 12 :00:00 AM EDT - 10/31/2020 12:00:00 AM EDT [facility] ([facility]) CVR Med.Svc. Height/Weight 10/31/2020 12 :00:00 AM EDT - 10/31/2020 12:00:00 AM EDT [facility] ([facility]) CVR Blood Pressure 10/31/2020 12:00:00 AM EDT - 2020 12:00:00 AM EDT [facility] ([facility]) OFFICE/OUTPATIENT VISIT, EST RN/AIRCRAFT MAINTENANCE DIRECTOR Only 10/31/2020 12:00:00 AM EDT - 10/31/2020 12:00:00 AM EDT [facility] ([facility]) Injection Or Lab Only Visit Est 11/01/19 12:00:00 AM EDT - 10/31/2020 12:00:00 AM EDT [facility] ([facility]) CVR Cafe Attendant.Svc. Other 10/24/2020 12:00:00 AM EDT - 2020 12:00:00 AM EDT [facility] ([facility]) CVR Cafe Attendant.Svc. Contraceptive 10/24/2020 12 :00:00 AM EDT - [...] ([facility]) CVR Cafe Attendant.Svc. STI / H 10/17/2020 12:00:00 AM EDT - 10/17/2020 12:00:00 AM EDT [facility] ([facility]) CVR Cafe Attendant.Svc. Contraceptive 10/17/2020 12 :00:00 AM EDT - 10/17/2020 12:00:00 AM EDT [facility] ([facility]) CVR Med.Svc. Height/Weight 10/17/2020 12 :00:00 AM EDT - 10/17/2020 12:00:00 AM EDT [facility] ([facility]) CVR Blood Pressure 10/17/2020 12:00:00 AM EDT - 2020 12:00:00 AM EDT [facility] ([facility]) OFFICE/OUTPATIENT VISIT, EST RN/AIRCRAFT MAINTENANCE DIRECTOR Only 10/17/2020 12:00:00 AM EDT - 10/17/2020 12:00:00 AM EDT [facility] ([facility]) CVR Cafe Attendant.Svc. STI / H 10/14/2020 12:00:00 AM EDT - 10/14/2020 12:00:00 AM EDT [facility] ([facility]) CVR Cafe Attendant.Svc. Other 10/14/2020 12:00:00 AM EDT - 2020 12:00:00 AM EDT [facility] ([facility]) CVR Cafe Attendant.Svc. Contraceptive 10/14/2020 12 :00:00 AM EDT - [...] ([facility]) CVR Cafe Attendant.Svc. Other 10/10/2020 12:00:00 AM EDT - 2020 12:00:00 AM EDT [facility] ([facility]) CVR Cafe Attendant.Svc. Contraceptive 10/10/2020 12 :00:00 AM EDT - [...] Injection Or Lab Only Visit Est 10/11/19 12:00:00 AM EDT - 10/10/2020 12:00:00 AM EDT [facility] ([facility]) OFFICE/OUTPATIENT VISIT, EST RN/AIRCRAFT MAINTENANCE DIRECTOR Only 10/10/2020 12:00:00 AM EDT - 10/10/2020 12:00:00 AM EDT [facility] ([facility]) OFFICE OUTPATIENT VISIT 25 MINUTES 10/05/2020 12:00:00 AM EDT [facility] ([facility]) CVR Med.Svc. Height/Weight 10/03/2020 12 :00:00 AM [...] [place] OFFICE/OUTPATIENT VISIT, EST RN/AIRCRAFT MAINTENANCE DIRECTOR Only 10/03/2020 12:00:00 AM EDT - 10/03/2020 12:00:00 AM EDT [facility] ([facility]) CVR Cafe Attendant.Svc. Other 09/26/2020 12:00:00 AM EDT - 2020 12:00:00 AM EDT [facility] ([facility]) CVR Med.Svc. Height/Weight 09/26/2020 12 :00:00 AM EDT - 09/26/2020 12:00:00 AM EDT [facility] ([facility]) CVR Blood Pressure 09/26/2020 12:00:00 AM EDT - 2020 12:00:00 AM EDT [facility] ([facility]) OFFICE/OUTPATIENT VISIT, EST RN/AIRCRAFT MAINTENANCE DIRECTOR Only 09/26/2020 12:00:00 AM EDT - 09/26/2020 12:00:00 AM EDT [facility] ([facility]) Injection Or Lab Only Visit Est 09/27/19 12:00:00 AM EDT - 09/26/2020 12:00:00 AM EDT [facility] ([facility]) CVR Cafe Attendant.Svc. STI / H 09/19/2020 12:00:00 AM EST [...] ([facility]) CVR Cafe Attendant.Svc. Other 09/12/2020 12:00:00 AM EST - 2020 [...] [place] OFFICE/OUTPATIENT VISIT, EST RN/AIRCRAFT MAINTENANCE DIRECTOR Only 09/12/2020 12:00:00 AM EST - 09/12/2020 12:00:00 AM EST [facility] ([facility]) OFFICE OUTPATIENT VISIT 15 MINUTES 09/10/2020 12:00:00 AM EST [facility] ([facility]) CVR Cafe Attendant.Svc. Other 09/05/2020 12:00:00 AM EST - 2020 [...] 15 MINUTES 08/31/2020 12:00:00 AM EST [facility] ([facility]) CVR Cafe Attendant.Svc. Other 08/29/2020 12:00:00 AM EST - 2020 12:00:00 AM EST [facility] ([facility]) CVR Cafe Attendant.Svc. Contraceptive 08/29/2020 12 :00:00 AM EST - 08/29/2020 12:00:00 AM EST [facility] ([facility]) CVR Med.Svc. Height/Weight 08/29/2020 12 :00:00 AM EST - 08/29/2020 12:00:00 AM EST [facility] ([facility]) CVR Blood Pressure 08/29/2020 12:00:00 AM EST - 2020 12:00:00 AM EST [facility] ([facility]) OFFICE/OUTPATIENT VISIT, EST RN/AIRCRAFT MAINTENANCE DIRECTOR Only 08/29/2020 12:00:00 AM EST - 08/29/2020 12:00:00 AM EST [facility] ([facility]) CVR Cafe Attendant.Svc. Other 08/25/2020 12:00:00 AM EST - 2020 12:00:00 AM EST [facility] ([facility]) CVR Cafe Attendant.Svc. Contraceptive 08/25/2020 12 :00:00 AM EST - [...] ([facility]) CVR Cafe Attendant.Svc. Other 08/19/2020 12:00:00 AM EST - 2020 12:00:00 AM EST [facility] ([facility]) CVR Cafe Attendant.Svc. Contraceptive 08/19/2020 12 :00:00 AM EST - 08/19/2020 12:00:00 AM EST [facility] ([facility]) CVR Med.Svc. Height/Weight 08/19/2020 12 :00:00 AM EST - 08/19/2020 12:00:00 AM EST [facility] ([facility]) CVR Blood Pressure 08/19/2020 12:00:00 AM EST - 2020 12:00:00 AM EST [facility] ([facility]) OFFICE/OUTPATIENT VISIT, EST RN/AIRCRAFT MAINTENANCE DIRECTOR Only 08/19/2020 12:00:00 AM EST - 08/19/2020 12:00:00 AM EST [facility] ([facility]) Injection Or Lab Only Visit Est 08/19/19 12:00:00 AM EST - 08/19/2020 12:00:00 AM EST [facility] ([facility]) CVR Cafe Attendant.Svc. Other 08/08/2020 12:00:00 AM EST - 2020 12:00:00 AM EST [facility] ([facility]) CVR Cafe Attendant.Svc. Contraceptive 08/08/2020 12 :00:00 AM EST - 08/08/2020 12:00:00 AM EST [facility] ([facility]) CVR Med.Svc. Height/Weight 08/08/2020 12 :00:00 AM EST - 08/08/2020 12:00:00 AM EST [facility] ([facility]) CVR Blood Pressure 08/08/2020 12:00:00 AM EST - 2020 12:00:00 AM EST [facility] ([facility]) OFFICE/OUTPATIENT VISIT, EST RN/AIRCRAFT MAINTENANCE DIRECTOR Only 08/08/2020 12:00:00 AM EST - 08/08/2020 12:00:00 AM EST [facility] ([facility]) CVR Cafe Attendant.Svc. STI / H 08/01/2020 12:00:00 AM EST - 08/01/2020 12:00:00 AM EST [facility] ([facility]) CVR Cafe Attendant.Svc. Other 08/01/2020 12:00:00 AM EST - 2020 12:00:00 AM EST [facility] ([facility]) CVR Cafe Attendant.Svc. Contraceptive 08/01/2020 12 :00:00 AM EST - 08/01/2020 12:00:00 AM EST [facility] ([facility]) CVR Med.Svc. Height/Weight 08/01/2020 12 :00:00 AM EST - 08/01/2020 12:00:00 AM EST [facility] ([facility]) CVR Blood Pressure 08/01/2020 12:00:00 AM EST - 2020 12:00:00 AM EST [facility] ([facility]) OFFICE/OUTPATIENT VISIT, EST RN/AIRCRAFT MAINTENANCE DIRECTOR Only 08/01/2020 12:00:00 AM EST - 08/01/2020 12:00:00 AM EST [facility] ([facility]) Injection Or Lab Only Visit Est 08/01/19 12:00:00 AM EST - 08/01/2020 12:00:00 AM EST [facility] ([facility]) Injection Or Lab Only Visit Est 07/25/19 12:00:00 AM EST - 07/25/2020 12:00:00 AM EST [facility] ([facility]) CVR Cafe Attendant.Svc. Other 07/25/2020 12:00:00 AM EST - 2020 12:00:00 AM EST [facility] ([facility]) OFFICE/OUTPATIENT VISIT, EST RN/AIRCRAFT MAINTENANCE DIRECTOR Only 07/25/2020 12:00:00 AM EST - 07/25/2020 12:00:00 AM EST [facility] ([facility]) OFFICE/OUTPATIENT VISIT, EST RN/AIRCRAFT MAINTENANCE DIRECTOR Only 07/18/2020 12:00:00 AM EST - 07/18/2020 12:00:00 AM EST [facility] ([facility]) CVR Cafe Attendant.Svc. Other 07/18/2020 12:00:00 AM EST - 2020 12:00:00 AM EST [facility] ([facility]) CVR Cafe Attendant.Svc. Contraceptive 07/18/2020 12 :00:00 AM EST - [facility] OFFICE/OUTPATIENT VISIT, EST RN/AIRCRAFT MAINTENANCE DIRECTOR Only 07/10/2020 12:00:00 AM EST - 07/10/2020 12:00:00 AM EST [facility] ([facility]) Injection Or Lab Only Visit Est 07/10/20 20 12:00:00 AM EST - 07/10/2020 12:00:00 AM EST [facility] ([facility]) CVR Cafe Attendant.Svc. STI / H 07/10/2020 12:00:00 AM EST - 07/10/2020 12:00:00 AM EST [facility] ([facility]) CVR Cafe Attendant.Svc. Other 07/10/2020 12:00:00 AM EST - 2019 12:00:00 AM EST [facility] ([facility]) CVR Cafe Attendant.Svc. Contraceptive 07/10/2020 12 :00:00 AM EST - 07/10/2020 12:00:00 AM EST [facility] ([facility]) CVR Cafe Attendant.Svc. Other 07/02/2020 12:00:00 AM EST - 2019 12:00:00 AM EST [facility] ([facility]) Injection Or Lab Only Visit Est 07/02/20 20 12:00:00 AM EST - 07/02/2020 12:00:00 AM EST [facility] ([facility]) CVR Cafe Attendant.Svc. Other 06/27/2020 12:00:00 AM EST - 2019 12:00:00 AM EST [facility] ([facility]) CVR Cafe Attendant.Svc. Contraceptive 06/27/2020 12 :00:00 AM EST - 06/27/2020 12:00:00 AM EST [facility] ([facility]) CVR Med.Svc. Height/Weight 06/27/2020 12 :00:00 AM EST - 06/27/2020 12:00:00 AM EST [facility] ([facility]) CVR Blood Pressure 06/27/2020 12:00:00 AM EST - 2019 12:00:00 AM EST [facility] ([facility]) Injection Or Lab Only Visit Est 06/27/20 20 12:00:00 AM EST - 06/27/2020 12:00:00 AM EST [facility] ([facility]) OFFICE/OUTPATIENT VISIT, EST RN/AIRCRAFT MAINTENANCE DIRECTOR Only 06/27/2020 12:00:00 AM EST - 06/27/2020 12:00:00 AM EST [facility] ([facility]) CVR Med.Svc. Height/Weight 06/20/2020 12 :00:00 AM EST - 06/20/2020 12:00:00 AM EST [facility] ([facility]) CVR Blood Pressure 06/20/2020 12:00:00 AM EST - 2019 12:00:00 AM EST [facility] ([facility]) Injection Or Lab Only Visit Est 06/20/20 20 12:00:00 AM EST - 06/20/2020 12:00:00 AM EST [facility] ([facility]) CVR Cafe Attendant.Svc. Other 06/13/2020 12:00:00 AM EST - 2019 12:00:00 AM EST [facility] ([facility]) CVR Med.Svc. Thyroid Palp. 06/13/2020 12 [...] [facility] OFFICE/OUTPATIENT VISIT, EST RN/AIRCRAFT MAINTENANCE DIRECTOR Only 06/13/2020 12:00:00 AM EST - 06/13/2020 12:00:00 AM EST [facility] ([facility]) CVR Cafe Attendant.Svc. STI / H 06/04/2020 12:00:00 AM EST - 06/04/2020 12:00:00 AM EST [facility] ([facility]) CVR Cafe Attendant.Svc. Other 06/04/2020 12:00:00 AM EST - 2019 [...] ([facility]) CVR Cafe Attendant.Svc. Other 05/30/2020 12:00:00 AM EST - 2019 [...] [facility] OFFICE/OUTPATIENT VISIT, EST RN/AIRCRAFT MAINTENANCE DIRECTOR Only 05/30/2020 12:00:00 AM EST - 05/30/2020 12:00:00 AM EST [facility] ([facility]) CVR Cafe Attendant.Svc. Other 05/26/2020 12:00:00 AM EST - 2019 12:00:00 AM EST [facility] ([facility]) CVR Cafe Attendant.Svc. Contraceptive 05/26/2020 12 :00:00 AM EST - 05/26/2020 12:00:00 AM EST [facility] ([facility]) CVR Med.Svc. Height/Weight 05/26/2020 12 :00:00 AM EST - 05/26/2020 12:00:00 AM EST [facility] ([facility]) CVR Blood Pressure 05/26/2020 12:00:00 AM EST - 2019 12:00:00 AM EST [facility] ([facility]) OFFICE/OUTPATIENT VISIT, EST RN/AIRCRAFT MAINTENANCE DIRECTOR Only 05/26/2020 12:00:00 AM EST - 05/26/2020 12:00:00 AM EST [facility] ([facility]) Injection Or Lab Only Visit Est 05/26/20 20 12:00:00 AM EST - 05/26/2020 12:00:00 AM EST [facility] ([facility]) OFFICE/OUTPATIENT VISIT, EST RN/AIRCRAFT MAINTENANCE DIRECTOR Only 05/23/2020 12:00:00 AM EST - 05/23/2020 12:00:00 AM EST [facility] ([facility]) CVR Med.Svc. Height/Weight 05/23/2020 12 :00:00 AM EST - 05/23/2020 12:00:00 AM EST [facility] ([facility]) CVR Blood Pressure 05/23/2020 12:00:00 AM EST - 2019 12:00:00 AM EST [facility] ([facility]) Injection Or Lab Only Visit Est 05/23/20 20 12:00:00 AM EST - 05/23/2020 12:00:00 AM EST [facility] ([facility]) CVR Cafe Attendant.Svc. Other 05/16/2020 12:00:00 AM EST - 2019 12:00:00 AM EST [facility] ([facility]) CVR Med.Svc. 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 Other 05/09/2020 12:00:00 AM EDT - 2019 12:00:00 AM EDT [facility] ([facility]) CVR Cafe Attendant.Svc. Nutrition 05/09/2020 12:00: 00 AM EDT - 05/09/2020 12:00:00 AM EDT [facility] ([facility]) CVR Cafe Attendant.Svc. Contraceptive 05/09/2020 12 :00:00 AM EDT - 05/09/2020 12:00:00 AM EDT [facility] ([facility]) CVR Med.Svc. 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 Other 05/02/2020 12:00:00 AM EDT - 2019 12:00:00 AM EDT [facility] ([facility]) CVR Med.Svc. 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 Other 04/25/2020 12:00:00 AM EDT - 2019 12:00:00 AM EDT [facility] ([facility]) CVR Med.Svc. 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 STI / H 04/18/2020 12:00:00 AM EDT - 04/18/2020 12:00:00 AM EDT [facility] ([facility]) CVR Cafe Attendant.Svc. Other 04/18/2020 12:00:00 AM EDT - 2019 12:00:00 AM EDT [facility] ([facility]) CVR Med.Svc. Height/Weight 04/18/2020 12 :00:00 AM EDT - 04/18/2020 12:00:00 AM EDT [facility] ([facility]) CVR Cafe Attendant.Svc. Contraceptive 04/18/2020 12 :00:00 AM EDT - 04/18/2020 12:00:00 AM EDT [facility] ([facility]) CVR Blood Pressure 04/18/2020 12:00:00 AM EDT - 2019 12:00:00 AM EDT [facility] ([facility]) Injection Or Lab Only Visit Est 04/18/20 20 12:00:00 AM EDT - 04/18/2020 12:00:00 AM EDT [facility] ([facility]) ROUTINE VENIPUNCTURE 04/18/2020 12:00:00 AM EDT - 04/18/2020 12:00:00 AM EDT [facility] ([facility]) CVR Cafe Attendant.Svc. Contraceptive 04/15/2020 12 :00:00 AM EDT - 04/15/2020 12:00:00 AM EDT [facility] ([facility]) EST PT TG DETAILED 04/15/2020 12:00:00 AM EDT - 2019 12:00:00 AM EDT [facility] ([facility]) CVR Cafe Attendant.Svc. Other 04/11/2020 12:00:00 AM EDT - 2019 12:00:00 AM EDT [facility] ([facility]) CVR Cafe Attendant.Svc. Contraceptive 04/11/2020 12 :00:00 AM EDT - 04/11/2020 12:00:00 AM EDT [facility] ([facility]) CVR Med.Svc. Height/Weight 04/11/2020 12 :00:00 AM EDT - 04/11/2020 12:00:00 AM EDT [facility] ([facility]) CVR Blood Pressure 04/11/2020 12:00:00 AM EDT - 2019 12:00:00 AM EDT [facility] ([facility]) Injection Or Lab Only Visit Est 04/11/20 12:00:00 AM EDT - 04/11/2020 12:00:00 AM EDT [facility] ([facility]) CVR Cafe Attendant.Svc. Other 04/04/2020 12:00:00 AM EDT - 2019 12:00:00 AM EDT [facility] ([facility]) CVR Cafe Attendant.Svc. Contraceptive 04/04/2020 12 :00:00 AM EDT - 04/04/2020 12:00:00 AM EDT [facility] ([facility]) CVR Blood Pressure 04/04/2020 12:00:00 AM EDT - 2019 12:00:00 AM EDT [facility] ([facility]) CVR Med.Svc. Height/Weight 04/04/2020 12 :00:00 AM EDT - 04/04/2020 12:00:00 AM EDT [facility] ([facility]) Injection Or Lab Only Visit Est 04/04/20 12:00:00 AM EDT - 04/04/2020 12:00:00 AM EDT [facility] ([facility]) CVR Cafe Attendant.Svc. Other 03/28/2020 12:00:00 AM EDT - 2019 12:00:00 AM EDT [facility] ([facility]) CVR Cafe Attendant.Svc. Contraceptive 03/28/2020 12 :00:00 AM EDT - 03/28/2020 12:00:00 AM EDT [facility] ([facility]) CVR Med.Svc. Height/Weight 03/28/2020 12 :00:00 [...] ([facility]) CVR Cafe Attendant.Svc. STI / H 03/21/2020 12:00:00 AM EDT - 03/21/2020 12:00:00 AM EDT [facility] ([facility]) CVR Cafe Attendant.Svc. Other 03/21/2020 12:00:00 AM EDT - 2019 12:00:00 AM EDT [facility] ([facility]) CVR Cafe Attendant.Svc. Contraceptive 03/21/2020 12 :00:00 AM EDT - [...] ([facility]) CVR Cafe Attendant.Svc. Other 03/14/2020 12:00:00 AM EDT - 2019 [...] ([facility]) CVR Cafe Attendant.Svc. Other 03/07/2020 12:00:00 AM EDT - 2019 12:00:00 AM EDT [facility] ([facility]) CVR Cafe Attendant.Svc. Contraceptive 03/07/2020 12 :00:00 AM EDT - 03/07/2020 12:00:00 AM EDT [facility] ([facility]) CVR Med.Svc. Height/Weight 03/07/2020 12 :00:00 AM EDT - 03/07/2020 12:00:00 AM EDT [facility] ([facility]) CVR Blood Pressure 03/07/2020 12:00:00 AM EDT - 2019 12:00:00 AM EDT [facility] ([facility]) Injection Or Lab Only Visit Est 03/07/20 20 12:00:00 AM EDT - 03/07/2020 12:00:00 AM EDT [facility] ([facility]) CVR Cafe Attendant.Svc. Other 02/22/2020 12:00:00 AM EDT - 2019 12:00:00 AM EDT [facility] ([facility]) Injection Or Lab Only Visit Est 02/22/20 12:00:00 AM EDT - 02/22/2020 12:00:00 AM EDT [facility] ([facility]) Results ID Date Data Source [id number] 04/15/2021 12:00:00 AM EDT [facility] Name Value Range Interpretation Code Description Data Elsi rce(s) Supporting Document(s) SARS-CoV2 Rapid Antigen Negative [facility] This lab was ordered by [facility] and reported by [facility]. ID Date Data Source [id number] 04/26/2020 12:00:00 AM EDT [facility] Name Value Range Interpretation Code Description Data Elsi rce(s) Supporting Document(s) SARS coronavirus 2 Ag [facility] This lab was ordered by [facility] and reported by [facility]. ID Date Data Source [id number] 10/05/2020 12:41:00 PM EDT [facility] ([facility]) Name Value Range Interpretation Code Description Data Elsi rce(s) Supporting Document(s) Group A Strep Culture Laboratory test result [facility] ([facility]) FULL REPORT IN LAB NOTES ([facility] and [facility] ). NEGATIVE FOR STREP PYOGENES (GROUP A) ID Date Data Source [id number] 07/25/2020 12:00:00 AM EST [facility] Name Value Range Interpretation Code Description Data Elsi rce(s) Supporting Document(s) SARS coronavirus 2 RNA [Presence] in Res piratory specimen by MARK with probe detection NEGATIVE [facility] This lab was ordered by [facility] and reported by [facility]. ID Date Data Source [id number] 07/25/2020 12:00:00 AM EST [facility] Name Value Range Interpretation Code Description Data Elsi rce(s) Supporting Document(s) Carestart Rapid COVID Antigen Test Negative [facility] This lab was reported by [facility]. ID Date Data Source [id number] 04/26/2020 01:50:00 PM EDT [facility] ([facility]) Name Value Range Interpretation Code Description Data Elsi rce(s) Supporting Document(s) Bacteria identified in Urine by Culture Laboratory test result [facility] ([facility]) FULL REPORT IN LAB NOTES ([facility] and [facility] ). SPECIMEN APPEARS CONTAMINATED Procedure Social History Code Duration Value Status Description Data Source(s ) Smoking 04/16/2021 12:00:00 AM EDT Never smoker completed Never s moker [facility] ([facility]) Smoking 04/15/2021 12:00:00 AM EDT Patient is a former smoker completed Patient is a former smoker [facility] ([facility]) 02/04/2021 12:00:00 AM EDT Current non-smoker completed C urrent non-smoker [facility] ([facility]) Vital Signs ID Date Data Source UNK Name Value Range Interpretation Code Description Data Source(s) Systolic blood pressure 128 mm[Hg] 128 mm[Hg] M [facility] ([facility] Diastolic blood pressure 84 mm[Hg] 84 mm[Hg] [facility] ([facility], [facility]) Systolic blood pressure 170 mm[Hg] 170 mm[Hg] [facility]) Redone 128/84 Diastolic blood pressure 107 mm[Hg] 107 mm[Hg] [facility] ([facility], [facility]) Redone 128/84 Heart rate 72 /min 72 /min [facility] ([facility], [facility]) Respiratory rate 16 /min 16 /min [facility] ( [facility], [facility]) Oxygen saturation in Arterial blood by Pulse oximetry 98 % 98 % [facility] ([facility], [facility]) Body temperature 98.9 [degF] 98.9 [degF] [facility] ([facility], [facility]) Body weight 227.00 [lb_av] 227.00 [lb_av] [facility] T ([facility], [facility]) Body height 66 [in_i] 66 [in_i] [facility] ([facility], [facility]) 5'6" Body mass index (BMI) [Ratio] 36.6 kg/m2 36.6 k g/m2 [facility] ([facility], [facility]) Body height 167.64 cm 167.64 cm [facility] Body weight 99.337 kg 99.337 kg [facility]) Systolic blood pressure 118 mm[Hg] 118 mm[Hg] N [facility] ([facility]) Diastolic blood pressure 78 mm[Hg] 78 mm[Hg] [facility] ([facility]) Body mass index (BMI) [Ratio] 35.35 kg/m2 Overweight 35.35 kg/m2 [facility] ([facility]) Body height 167.64 cm 167.64 cm [facility] Body weight 98.883 kg 98.883 kg [facility]) Systolic blood pressure 120 mm[Hg] [...] pressure 124 mm[Hg] 124 mm[Hg] M [facility] ([facility], [facility]) Diastolic blood pressure 84 mm[Hg] 84 mm[Hg] [facility] ([facility]) Heart rate 81 /min 81 /min [facility] ([facility], [facility]) Respiratory rate 16 /min 16 /min [facility] ( [facility], [facility]) Oxygen saturation in Arterial blood by Pulse oximetry 98 % 98 % [facility] ([facility], [facility]) Body temperature 97.8 [degF] 97.8 [degF] [facility] ([facility], [facility]) Body weight 227.00 [lb_av] 227.00 [lb_av] MED[facility] T ([facility], [facility]) Body height 66 [in_i] 66 [in_i] [facility] ([facility], [facility]) 5'6" Body mass index (BMI) [Ratio] 36.6 kg/m2 36.6 k g/m2 [facility] ([facility]) Body height 167.64 cm 167.64 cm [facility] Body weight 101.605 kg 101.605 kg [facility]) Systolic blood pressure 118 mm[Hg] 118 mm[Hg] N [facility] ([facility]) Diastolic blood pressure 76 mm[Hg] 76 mm[Hg] [facility] ([facility]) Body mass index (BMI) [Ratio] 36.15 kg/m2 Overweight 36.15 kg/m2 [facility] ([facility]) Body height 167.64 cm 167.64 cm [facility] Body weight 99.337 kg 99.337 kg [facility]) Systolic blood pressure 122 mm[Hg] 122 mm[Hg] N [facility] ([facility]) Diastolic blood pressure 78 mm[Hg] 78 mm[Hg] [facility] ([facility]) Body mass index (BMI) [Ratio] 35.35 kg/m2 Overweight 35.35 kg/m2 [facility] ([facility]) Body height 167.64 cm 167.64 cm [facility] Body weight 99.337 kg 99.337 [facility] Body weight 103.419 kg 103.419 kg [...] [facility] Body weight 104.689 kg 104.689 kg [facility] [place] [facility]) Systolic blood pressure 120 mm[Hg] 120 mm[Hg] N [facility] ([facility]) Diastolic blood pressure 70 mm[Hg] 70 mm[Hg] [facility] ([facility]) Body mass index (BMI) [Ratio] 37.25 kg/m2 Overweight 37.25 kg/m2 [facility] ([facility]) Body height 167.64 cm 167.64 cm [facility] [place] [facility] Body weight 105.959 kg 105.959 kg [facility] ([facility] [place] [facility]) Systolic blood pressure 118 mm[Hg] 118 [...] ([facility]) Body weight 104.326 kg 104.326 kg [facility] [place] [facility] Body height 167.64 cm 167.64 cm [facility] [place] [facility] Body weight 104.508 kg 104.508 kg [facility] [place] [facility]) Systolic blood pressure 120 mm[Hg] 120 mm[Hg] N [facility] ([facility]) Diastolic blood pressure 70 mm[Hg] 70 mm[Hg] [facility] ([facility]) Body mass index (BMI) [Ratio] 37.19 kg/m2 Overweight 37.19 kg/m2 [facility] ([facility]) Diastolic blood pressure 78 mm[Hg] 78 mm[Hg] [facility] ([facility]) Body height 167.64 cm 167.64 cm [facility] [facility] Body weight 102.693 kg 102.693 kg [facility] ([facility] [place] [facility]) Systolic blood pressure 120 mm[Hg] 120 mm[Hg] N [facility] ([facility]) Body mass index (BMI) [Ratio] 36.54 kg/m2 Overweight 36.54 kg/m2 [facility] ([facility]) Body height 167.64 cm 167.64 cm [facility] [place] [facility] Body weight 102.965 kg 102.965 kg [facility] ([facility] [place] [facility]) Systolic blood pressure 118 mm[Hg] 118 mm[Hg] N [facility] ([facility]) Diastolic blood pressure 78 mm[Hg] 78 mm[Hg] [facility] ([facility]) Body mass index (BMI) [Ratio] 36.64 kg/m2 Overweight 36.64 kg/m2 [facility] ([facility]) Oxygen saturation in Arterial blood by Pulse oximetry 98 % 98 % [facility] ([facility], [facility]) Systolic blood pressure 132 mm[Hg] 132 mm[Hg] M [facility] ([facility], [facility]) Diastolic blood pressure 84 mm[Hg] 84 mm[Hg] [facility] ([facility], [facility]) Heart rate 69 /min 69 /min [facility] ([facility], [facility]) Respiratory rate 13 /min 13 /min [facility] ( [facility], [facility]) Body temperature 96.8 [degF] 96.8 [degF] [facility] ([facility], [facility]) Body weight 225.00 [lb_av] 225.00 [lb_av] ELICEO T ([facility], [facility]) Body height 66 [in_i] 66 [in_i] [facility] ([facility]) 5'6" Body mass index (BMI) [Ratio] 36.3 kg/m2 36.3 k g/m2 [facility] ([facility]) Body height 167.64 cm 167.64 cm [facility] [facility]) Body weight 102.965 kg 102.965 kg [facility] ([facility]) Systolic blood pressure 118 mm[Hg] 118 mm[Hg] N [facility] ([facility]) Diastolic blood pressure 76 mm[Hg] 76 mm[Hg] [facility] ([facility]) Body mass index (BMI) [Ratio] 36.64 kg/m2 Overweight 36.64 kg/m2 [facility] ([facility]) Body height 167.64 cm 167.64 cm [facility] ([facility] [place] [facility]) Body weight 102.965 kg 102.965 kg [...] cm [facility] ([facility] [place] [facility]) Body weight 102.965 kg 102.965 kg [facility] ([facility] [place] [facility]) Systolic blood pressure 126 mm[Hg] 126 mm[Hg] N [facility] ([facility]) Diastolic blood pressure 76 mm[Hg] 76 mm[Hg] [facility] ([facility]) Body mass index (BMI) [Ratio] 36.64 kg/m2 Overweight 36.64 kg/m2 [facility] ([facility]) Body height 167.64 cm 167.64 cm [facility] ([facility] Body weight 101.605 kg 101.605 kg [facility] ([facility]) Systolic blood pressure 118 mm[Hg] 118 mm[Hg] N [facility] ([facility]) Diastolic blood pressure 76 mm[Hg] 76 mm[Hg] [facility] ([facility]) Body mass index (BMI) [Ratio] 36.15 kg/m2 Overweight 36.15 kg/m2 [facility] ([facility]) Body height 66 [in_i] 66 [in_i] [facility] ([facility], [facility]) 5'6" Body mass index (BMI) [Ratio] 35.5 kg/m2 35.5 k g/m2 [facility] ([facility], [facility]) Systolic blood pressure 134 mm[Hg] 134 mm[Hg] M EDENT ([facility], [facility]) Diastolic blood pressure 85 mm[Hg] 85 mm[Hg] [facility] ([facility], [facility]) Heart rate 69 /min 69 /min [facility] ([facility], [facility]) Respiratory rate 12 /min 12 /min [facility] ( [facility], [facility]) Oxygen saturation in Arterial blood by Pulse oximetry 96 % 96 % [facility] ([facility], [facility]) Body temperature 97.7 [degF] 97.7 [degF] [facility] ([facility], [facility]) Body weight 220.00 [lb_av] 220.00 [lb_av] MEDEN T ([facility], [facility]) Body height 167.64 cm 167.64 cm [facility] ([facility] Body weight 101.605 kg 101.605 kg [facility] ([facility]) Systolic blood pressure 120 mm[Hg] 120 mm[Hg] N [facility] ([facility]) Diastolic blood pressure 82 mm[Hg] 82 mm[Hg] [facility] ([facility]) Body mass index (BMI) [Ratio] 36.15 kg/m2 [...] ([facility]) Body weight 102.965 kg 102.965 kg [facility] ([facility] [place]) Body height 167.64 cm 167.64 cm [facility] ([facility] [place]) Body mass index (BMI) [Ratio] 36.70 kg/m2 Overweight 36.70 kg/m2 [facility] ([facility]) Body weight [...] cm [facility] ([facility] [place] [facility]) Body weight 99.790 kg 99.790 kg [facility] ([facility] [place] [facility]) Systolic blood pressure 114 mm[Hg] 114 mm[Hg] N [facility] ([facility]) Diastolic blood pressure 68 mm[Hg] 68 mm[Hg] [facility] ([facility]) Heart rate 68 /min 68 /min [facility] ([facility] [place] [facility] Body mass index (BMI) [Ratio] 35.51 kg/m2 Overweight 35.51 kg/m2 [facility] ([facility]) Body height 167.64 cm 167.64 cm [facility] ([facility] [place] [facility]) Body weight 103.419 kg 103.419 kg [facility] [place]) Body weight 103.419 kg 103.419 kg [...] cm [facility] ([facility] [place] [facility]) Body weight 101.333 kg 101.333 kg [...] kg [facility] ([facility]) Body mass index (BMI) [Ratio] 36.48 kg/m2 Overweight 36.48 kg/m2 [facility] ([facility] [place] [facility]) Body height 167.64 cm 167.64 cm [facility] ([facility]) Body weight 101.605 kg 101.605 kg [facility] ([facility]) Systolic blood pressure 120 mm[Hg] 120 mm[Hg] N [facility] ([facility] [place] [facility]) Diastolic blood pressure 78 mm[Hg] 78 mm[Hg] [facility] ([facility] [place] [facility]) Body mass index (BMI) [Ratio] 36.15 kg/m2 Overweight 36.15 kg/m2 [facility] ([facility] [place] [facility]) Diastolic blood pressure 78 mm[Hg] 78 mm[Hg] [facility] ([facility]) Body mass index (BMI) [Ratio] 36.32 kg/m2 Overweight 36.32 kg/m2 [facility] ([facility] [place] [facility]) Body height 167.64 cm 167.64 cm [facility] ([facility]) Body weight 102.058 kg 102.058 kg [facility] ([facility]) Systolic blood pressure 110 mm[Hg] 110 mm[Hg] N [facility] ([facility] [place] [facility]) Systolic blood pressure 126 mm[Hg] 126 mm[Hg] M EDENT ([facility], [facility]) Diastolic blood pressure 87 mm[Hg] 87 mm[Hg] [facility] ([facility], [facility]) Heart rate 91 /min 91 /min [facility] ([facility], [facility]) Respiratory rate 14 /min 14 /min [facility] ( [facility], [facility]) Oxygen saturation in Arterial blood by Pulse oximetry 98 % 98 % [facility] ([facility], [facility]) Body temperature 98.6 [degF] 98.6 [degF] [facility] ([facility], [facility]) Body weight 225.00 [lb_av] 225.00 [lb_av] MEDEN T ([facility], [facility]) Body height 66 [in_i] 66 [in_i] [facility] ([facility]) 5'6" Body mass index (BMI) [Ratio] 36.3 kg/m2 36.3 k g/m2 [facility] ([facility]) Body height 167.64 cm 167.64 cm [facility] ([facility] [place]) Body weight 102.058 kg 102.058 kg [...] height 167.64 cm 167.64 cm [facility] ([facility] [place] Body weight [facility] [place] Diastolic blood pressure 83 mm[Hg] 83 mm[Hg] [facility] ([facility] [place] [facility]) Body mass index (BMI) [Ratio] 36.48 kg/m2 Overweight 36.48 kg/m2 [facility] ([facility] [place] [facility]) Body height 167.64 cm 167.64 cm [facility] ([facility] [place]) Body weight 102.965 kg 102.965 kg [facility] ([facility] [place]) Systolic blood pressure 130 mm[Hg] 130 mm[Hg] N [facility] ([facility]) Diastolic blood pressure 80 mm[Hg] 80 mm[Hg] [facility] ([facility]) Body mass index (BMI) [Ratio] 36.64 kg/m2 Overweight 36.64 kg/m2 [facility] ([facility] [place] [facility]) Body height 167.64 cm 167.64 cm [facility] ([facility] [place]) Body weight 102.512 kg 102.512 kg [facility] ([facility] [place]) Systolic blood pressure 120 mm[Hg] 120 mm[Hg] N [facility] ([facility]) Diastolic blood pressure 82 mm[Hg] 82 mm[Hg] [facility] ([facility] [place] [facility]) Body mass index (BMI) [Ratio] 36.48 kg/m2 Overweight 36.48 kg/m2 [facility] ([facility] [place] [facility]) Body height 66 [in_i] 66 [in_i] [facility] ([facility], ) 5'6" Body weight 225.00 [lb_av] 225.00 [lb_av] MEDEN T ([facility], ) Body mass index (BMI) [Ratio] 36.3 kg/m2 36.3 k g/m2 [facility] ([facility], ) Body weight 102.060 kg 102.060 kg [facility] ([facility], ) Body height 167.64 cm 167.64 cm [facility] Body weight 101.605 kg 101.605 kg [facility] ([facility]) Diastolic blood pressure 80 mm[Hg] 80 mm[Hg] [facility] ([facility]) Systolic blood pressure 118 mm[Hg] 118 mm[Hg] N [facility] ([facility]) Body mass index (BMI) [Ratio] 36.15 kg/m2 Overweight 36.15 kg/m2 [facility] ([facility]) Body height 167.64 cm 167.64 cm [facility] ([facility]) Body weight 102.512 kg 102.512 kg [facility] ([facility]) Diastolic blood pressure 72 mm[Hg] 72 mm[Hg] [facility] ([facility]) Body mass index (BMI) [Ratio] 36.48 kg/m2 Overweight 36.48 kg/m2 [facility] ([facility]) Systolic blood pressure 110 mm[Hg] 110 mm[Hg] N [facility] ([facility]) Body weight 226.00 [lb_av] 226.00 [lb_av] MEDEN T ([facility], [facility]) Body height 66 [in_i] 66 [in_i] [facility] ([facility] 5'6" Body mass index (BMI) [Ratio] 36.5 kg/m2 36.5 k g/m2 [facility] ([facility]) Systolic blood pressure 126 mm[Hg] 126 mm[Hg] [facility] Diastolic blood pressure 79 mm[Hg] 79 mm[Hg] [facility] ([facility]) Heart rate 75 /min 75 /min [facility] ([facility], [facility]) Respiratory rate 17 /min 17 /min [facility] ( [facility]) Oxygen saturation in Arterial blood by Pulse oximetry 98 % 98 % [facility] ([facility]) Body temperature 97.7 [degF] 97.7 [degF] [facility] ([facility]) Patient Treatment Plan of Care Planned Activity Planned Date Details Description Data Source (s) testosterone cypionate 200 mg/mL intramuscular oil 04/07/2021 12 :00:00 AM [facility] testosterone cypionate 200 mg/mL intramuscular oil 03/31/2021 [...] 12:00:00 AM EDT [facility] ([facility]) Poly Hub Needle 25 gauge x 1 1/2" 10/25/2019 12:00:00 AM EDT [facility] ([facility])
[2021-04-22 20:16] LABS: BASO # 0.1 10^3/uL (0.0-0.2); BASO % 0.6 % (0.0-1.0); EOS # 0.2 10^3/uL (0.0-0.5); EOS % 2.6 % (0.0-3.0); HEMATOCRIT 50.2 % (36.0-47.0); HEMOGLOBIN 16.9 g/dl (12.0-15.5); LYMPH # 2.6 10^3/uL (1.5-5.0); LYMPH % 28.2 % (24.0-44.0); MEAN CORPUSCULAR HEMOGLOBIN 28.9 pg (27.0-33.0); MEAN CORPUSCULAR HGB CONC 33.7 g/dl (32.0-36.5); MONO # 0.6 10^3/uL (0.0-0.8); MONO % 6.1 % (2.0-8.0); NEUTROPHILS # 5.7 10^3/uL (1.5-8.5); NEUTROPHILS % 62.3 % (36.0-66.0); PLATELET COUNT, AUTOMATED 336 10^3/uL (150-450); RED BLOOD COUNT 5.84 10^6/uL (4.00-5.40); WHITE BLOOD COUNT 9.1 10^3/uL (4.0-10.0)
[2021-04-22 20:52] LABS: ALBUMIN 4.4 GM/DL (3.2-5.2); ALT/SGPT 24 U/L (12-78); BILIRUBIN,DIRECT 0.2 MG/DL (0.0-0.2); BILIRUBIN,TOTAL 0.7 MG/DL (0.2-1.0); BLOOD UREA NITROGEN 10 MG/DL (7-18); CALCIUM LEVEL 9.1 MG/DL (8.5-10.1); CARBON DIOXIDE LEVEL 30 MEQ/L (21-32); CHLORIDE LEVEL 106 MEQ/L (98-107); CREATININE FOR GFR 0.86 MG/DL (0.55-1.30); GLOMERULAR FILTRATION RATE > 60.0 (>60); GLUCOSE, FASTING 82 MG/DL (70-100); HCG, SERUM QUALITATIVE NEGATIVE (NEGATIVE); LIPASE 111 U/L (73-393); POTASSIUM SERUM 3.8 MEQ/L (3.5-5.1); SODIUM LEVEL 141 MEQ/L (136-145); TOTAL PROTEIN 8.1 GM/DL (6.4-8.2)
--- NOTE | 2021-04-22 21:49 | REPVR ---
PROCEDURE INFORMATION: Exam: US Abdomen, Limited; Right Upper Quadrant Exam date and time: 04/22/2021 8:42 PM Age: 25 years old Clinical indication: Abdominal pain; Other: Ruq; Additional info: Ruq pain TECHNIQUE: Imaging protocol: US abdomen. Real time ultrasound with image documentation. Limited exam focused on the right upper quadrant. COMPARISON: CT ABD PELVIS W/O CONTRAST 07/26/2014 4:37 PM FINDINGS: Liver: The liver measures 15.1 cm in craniocaudal span. Gallbladder: Gallbladder wall measures 3-5.6 mm in thickness. 3 cm gallstone seen in the neck of the gallbladder. Common bile duct: Common bile duct measures 0.29 cm. Pancreas: Visualized pancreas is unremarkable. Right kidney: Right kidney measures 8.8 x 4.2 by 4.4 cm. No hydronephrosis in the right kidney. Portal venous: Normal blood flow direction in the main portal vein. Intraperitoneal space: No ascites in the right upper quadrant. IMPRESSION: Cholelithiasis with mild gallbladder wall thickening at the level of the fundus.. No pericholecystic fluid. No ductal dilatation. Clinical correlation needed to exclude acute cholecystitis. Electronically signed by: Mimi Salazar On 04/22/2021 21:49:06 PM
--- NOTE | 2021-04-22 21:52 | REPVR ---
PROCEDURE INFORMATION: Exam: XR Right Ribs with PA Chest Exam date and time: 04/22/2021 8:58 PM Age: 25 years old Clinical indication: Other: Rib pain; Additional info: Right rib pain TECHNIQUE: Imaging protocol: XR Right ribs with PA chest. Views: 3 views COMPARISON: CT ABD PELVIS W/O CONTRAST 07/26/2014 4:37 PM FINDINGS: Lungs: Unremarkable. No consolidation. Pleural spaces: Unremarkable. No pleural effusion. No pneumothorax. Heart/Mediastinum: Unremarkable. No cardiomegaly. Bones/joints: Unremarkable. IMPRESSION: No acute findings. Electronically signed by: Mimi Salazar On 04/22/2021 21:52:37 PM
[2021-04-22 22:46] VITALS: BP 138/76
== END 2021-04-22 22:45 | disposition home or self-care (01) ==
LOC: M ED 13:27
DX: K80.70 Calculus of gallbladder and bile duct without cholecystitis without obstruction (principal); R07.81 Pleurodynia; M54.9 Dorsalgia, unspecified; X50.0XXA Overexertion from strenuous movement or load, initial encounter; Y92.9 Unspecified place or not applicable; Y93.9 Activity, unspecified; Y99.9 Unspecified external cause status